=== PATIENT | male | born 1950 | race Caucasian/White ===

== ENCOUNTER → 2017-12-31 09:07 | Outpatient (CLI) | payer BC, MEDICARE, SELFPAY ==
[2017-12-31 14:17] LABS: Basophils # 0.1 K/mm3 (0-0.2); Basophils % 1.1 % (0.1-2.0); Eosinophils # 0.2 K/mm3 (0.0-0.4); Eosinophils % 2.1 % (0.1-12.0); Hematocrit 49.4 % (42.0-52.0); Hemoglobin 16.1 g/dL (14.1-18.0); Lymphocytes # 2.2 K/mm3 (0.7-4.5); Lymphocytes % 24.6 K/mm3 (10-50); Mean Corpuscular HGB Conc 32.6 g/dL (31.8-35.4); Mean Corpuscular Hemoglobin 29.7 pg (27.0-31.2); Mean Corpuscular Volume 90.9 fl (80-94); Mean Platelet Volume 7.6 fl (7.4-10.4); Monocytes # 0.6 K/mm3 (0.1-1.0); Monocytes % 6.9 % (1.7-9.3); Neutrophils # 5.8 K/mm3 (1.8-7.8); Neutrophils % 65.2 % (37.0-80.0); Platelet Count 287 K/mm3 (142-424); Red Blood Count 5.44 M/mm3 (4.60-6.20); Red Cell Distribution Width 13.7 % (11.5-17.5); White Blood Count 8.9 K/mm3 (4.8-10.8)
[2017-12-31 14:35] LABS: Alanine Aminotransferase 32 U/L (12-78); Albumin Level 3.6 gm/dL (3.4-5.0); Alkaline Phosphatase 78 U/L (46-116); Anion Gap 13.2 mEq/L (5-15); Aspartate Amino Transferase 19 U/L (15-37); Bilirubin,Total 0.7 mg/dL (0.2-1.0); Blood Urea Nitrogen 15 mg/dL (7-18); Calcium 8.6 mg/dL (8.5-10.1); Carbon Dioxide 25 mmol/L (21.0-32.0); Chloride 102 mmol/L (98-107); Chol/HDL Ratio 5.1 (1-3.5); Cholesterol 204 mg/dL (140-200); Creatinine,Serum 1.33 mg/dL (0.70-1.30); Estimated Glomerular Filt Rate 54 ml/min (>60); GFR (African American) 65 ML/MIN (>60); Globulin 3.6 gm/dl (1.3-3.2); Glucose 112 mg/dL (74-106); HDL Cholesterol 40 mg/dL (27-67); LDL Cholesterol 129 mg/dL (0-130); Potassium 4.2 mmoL/L (3.5-5.1); Sodium 136 mmol/L (136-145); Thyroid Stimulating Hormone 1.65 uIU/ml (0.358-3.740); Total Protein,Serum 7.2 gm/dL (6.4-8.2); Triglycerides 174 mg/dL (30-200); VLDL Cholesterol 35 mg/dL (0-40)
[2018-01-01 18:37] LABS: Testosterone,Total 523 ng/dL (264-916)
== END ==
PROVIDERS: PCP Internal Medicine Adolescent Medicine; Visit Provider Internal Medicine Adolescent Medicine
DX: I25.10 Atherosclerotic heart disease of native coronary artery without angina pectoris (principal); E78.5 Hyperlipidemia, unspecified; N52.9 Male erectile dysfunction, unspecified
CPT/HCPCS: 36415; 80053; 80061; 84403; 84443; 85025

== ENCOUNTER → 2020-03-11 14:37 | Outpatient (CLI) | payer BC, SELFPAY ==
--- NOTE | 2020-03-11 14:43 | XR_ITS ---
PROCEDURE: XR TIBIA FIBULA RT 2V CLINICAL INDICATION: RT LEG PAIN Leg pain COMPARISON: No exams were available for comparison FINDINGS: There are mild osteoarthritic changes at the knee. No acute fracture or dislocation. Minimal osteoarthritic changes are present at the ankle joint. IMPRESSION: Minimal osteoarthritic change otherwise negative Dictated by: Roel Degroot MD 03/11/2020 15:58 Electronically signed by Roel Degroot MD in [place] 03/11/2020 15:58
== END ==
PROVIDERS: PCP Internal Medicine Adolescent Medicine; Visit Provider Internal Medicine Adolescent Medicine
DX: M79.604 Pain in right leg (principal)
CPT/HCPCS: 73590

== ENCOUNTER → 2020-04-12 15:28 | Outpatient (CLI) | payer BC, MEDICARE, SELFPAY ==
--- NOTE | 2020-04-12 15:41 | XR_ITS ---
PROCEDURE: XR KNEE RT 3V CLINICAL INDICATION: OSTEOARTHRITIS COMPARISON: XR KNEE RT 3V from 10/08/2019 FINDINGS: No fracture or dislocation. No lytic or blastic change. There is normal mineralization. [id number] osteoarthritic changes are present at the medial compartment and patellofemoral joint. There is mild osteoarthritis of the lateral compartment with a small osteophyte along the lateral tibial plateau. There is generalized vascular calcification and there is a small suprapatellar effusion suspected. Other findings:None. IMPRESSION: Mild to moderate osteoarthritic changes Dictated by: Roel Degroot MD 04/12/2020 16:00 Electronically signed by Roel Degroot MD in [place] 04/12/2020 16:00
--- NOTE | 2020-04-12 15:41 | XR_ITS ---
PROCEDURE: XR KNEE LT 3V CLINICAL INDICATION: OSTEOARTHRITIS The COMPARISON: XR KNEE RT 3V from 10/08/2019 FINDINGS: No fracture or dislocation. No lytic or blastic change. There is normal mineralization. There are moderate osteoarthritic changes of the medial compartment and patellofemoral joint. No acute fracture or dislocation is evident. Calcific densities are present in the popliteal region suggest of the loose bodies. Vascular calcifications also noted. Other findings:None. IMPRESSION: Moderate osteoarthritis with possible loose bodies in the popliteal region Dictated by: Roel Degroot MD 04/12/2020 16:02 Electronically signed by Roel Degroot MD in [place] 04/12/2020 16:02
== END ==
PROVIDERS: PCP Internal Medicine Adolescent Medicine; Visit Provider Internal Medicine Adolescent Medicine
DX: M17.0 Bilateral primary osteoarthritis of knee (principal)
CPT/HCPCS: 73562

== ENCOUNTER → 2020-05-10 17:00 | Outpatient (CLI) | payer BC, MEDICARE, SELFPAY ==
[2020-05-10 17:49] LABS: Chloride 102 mmol/L (98-107); Potassium 5.3 mmoL/L (3.5-5.1); Sodium 136 mmol/L (136-145)
[2020-05-10 17:52] LABS: Alanine Aminotransferase 69 U/L (12-78); Albumin/Globulin Ratio 0.9 (1.1-1.8); Alkaline Phosphatase 111 U/L (38-126); Anion Gap 14.3 mEq/L (5-15); Aspartate Amino Transferase 50 U/L (17-59); Bilirubin,Total 0.4 mg/dl (0.2-1.3); Blood Urea Nitrogen 16 mg/dl (9-20); Carbon Dioxide 25 mmol/L (22.0-30.0); Estimated Glomerular Filt Rate 83 ml/min (>60); GFR (African American) 101 ML/MIN (>60); Globulin 3.3 g/dL (1.3-3.2); Glucose 119 mg/dl (74-100); Total Protein,Serum 6.3 g/dl (6.3-8.2)
[2020-05-10 18:04] LABS: Basophils # 0.1 K/mm3 (0-0.2); Basophils % 0.4 % (0.1-2.0); Eosinophils # 0.2 K/mm3 (0.0-0.4); Eosinophils % 1.5 % (0.1-12.0); Hematocrit 39.7 % (42.0-52.0); Hemoglobin 12.6 g/dL (14.1-18.0); Lymphocytes # 1.2 K/mm3 (0.7-4.5); Lymphocytes % 7.8 % (10-50); Mean Corpuscular HGB Conc 31.8 g/dL (31.8-35.4); Mean Corpuscular Hemoglobin 30.6 pg (27.0-31.2); Mean Corpuscular Volume 96.1 fl (80-94); Mean Platelet Volume 8.1 fl (7.4-10.4); Monocytes # 0.8 K/mm3 (0.1-1.0); Monocytes % 5.1 % (1.7-9.3); Neutrophils # 12.7 K/mm3 (1.8-7.8); Neutrophils % 85.1 % (37.0-80.0); Platelet Count 537 K/mm3 (142-424); Red Blood Count 4.12 M/mm3 (4.60-6.20); Red Cell Distribution Width 15.3 % (11.5-17.5); White Blood Count 14.9 K/mm3 (4.8-10.8)
[2020-05-10 18:07] LABS: MANUAL DIFFERENTIAL MANUAL DIFFERENTIAL (MANUAL DIFF)
[2020-05-10 18:19] LABS: Eosinophils % 3 % (0-3); Lymphocytes % 13 % (10-50); Monocytes % 6 % (2-9); Neutrophils % 78 % (42-76); Platelet Estimate Moderate Increase; RBC Morphology Normal; Total Cells Counted 100
== END ==
PROVIDERS: Visit Provider Nurse Practitioner Family
DX: R06.02 Shortness of breath (principal); R60.9 Edema, unspecified
CPT/HCPCS: 80053; 85007; 85025

== ENCOUNTER → 2023-04-22 17:02 | Outpatient (CLI) | payer BC, MEDICARE, SELFPAY ==
--- NOTE | 2023-04-22 17:05 | CA_ITS ---
FINAL REPORT TECHNIQUE: Color Doppler, duplex Doppler and compression sonography of the left lower extremity deep venous systems was performed. CLINICAL HISTORY: REDNESS/SWELLING LT CALF,PT ON PLAVIX FINDINGS: There is no evidence of deep venous thrombosis from the level of the groin to the calf. The veins are patent and compressible. A moderate popliteal cyst is seen. IMPRESSION: No evidence of deep venous thrombosis left lower extremity. Reviewed, Interpreted and Dictated by Kiran Chávez III, MD Transcribed by Kenia Alaniz Authenticated and [facility]
[2023-04-22 18:29] LABS: D-Dimer 0.84 ug/mL (0.0-0.5)
== END ==
LOC: LAB 17:04
PROVIDERS: PCP Nurse Practitioner Family; Visit Provider Nurse Practitioner Family
DX: M79.662 Pain in left lower leg (principal); M79.89 Other specified soft tissue disorders
CPT/HCPCS: 85378; 93971

== ENCOUNTER → 2023-07-06 14:03 | Outpatient (CLI) | payer BC, MEDICARE, SELFPAY ==
--- NOTE | 2023-07-06 14:09 | XR_ITS ---
FINAL REPORT CLINICAL HISTORY: knee pain with radiation distal FINDINGS: LUMBAR SPINE Six views were obtained. There is no acute fracture. There are moderate degenerative changes with osteophytes. There is moderate vascular calcification. There is no malalignment. IMPRESSION: Moderate degenerative changes. Reviewed, Interpreted and Dictated by Kiran Chávez III, MD Transcribed by Carolina Haney Authenticated and . [facility]
--- NOTE | 2023-07-06 14:09 | XR_ITS ---
FINAL REPORT CLINICAL HISTORY: lat knee pain with radiation distal FINDINGS: RIGHT KNEE Two views were obtained. There is no fracture or dislocation. There are moderate degenerative changes. Vascular calcification is identified. IMPRESSION: Moderate degenerative changes. Reviewed, Interpreted and Dictated by Kiran Chávez III, MD Transcribed by Carolina Haney Authenticated and [facility]
== END ==
LOC: RAD 14:06
PROVIDERS: PCP Family Medicine; Visit Provider Family Medicine
DX: M25.561 Pain in right knee (principal); M54.9 Dorsalgia, unspecified
CPT/HCPCS: 72083; 73560

== ENCOUNTER → 2023-08-26 13:39 | Outpatient (POV) | payer BC, SELFPAY ==
--- NOTE | 2023-08-26 13:56 | EXP.PAIN.OV ---
HPI Data of Consult Patient: new to practice Consult date: 08/26/23 Requesting Physician: Adele Lopez APRN Primary Care Provider: Jeromy Stewart MD Consult Narrative Reason for consult: Bilateral knee pain History of present illness: Mr. Meade is a 73 year old male who presents today as a new patient. He is a referral from Dr. Luis Lopez's office. Today he rates his pain a 7 out of 10. Patient states he has majority of his pain in his bilateral knees and describes this as an aching, throbbing, sharp sensation that is worse with increased activity or ambulation. He does state that this has been going on for years and progressively worsened over time. He states he believes a lot of it is related to arthritis however he states that years ago he did have a fall in [place] that resulted in him landing on his knees. Patient has tried [id number] medications such as Tylenol and ibuprofen along with heat and ice and topicals with minimal improvement. Patient denies any previous surgery for his knees or physical therapy. He states that he has had steroid injections into his left knee and that the last one did last about 30 to 45 days. Patient does state that Dr. Lopez was not recommending total knee replacement at this time and was wanting to try more conservative treatment such as the genicular nerve block. His Mani has been reviewed and is appropriate. CC: Adele Lopez APRN [facility] Disclaimer: The information contained in this section may have been updated after the patient was seen, as this information can be updated by other users. Medical History CAD (coronary artery disease) Surgical History H/O thumb surgery Hx of CABG Family History Brother Cancer Father Coronary artery disease Heart attack Social History (Updated 08/26/23 @ 14:10 by Karla Pena RN) Smoking Status: Former smoker how long ago did patient quit smokin years alcohol intake: never current occupational status: retired Travel in the last 8 weeks: None household members: spouse housing: house Review of Systems Review of Systems Review of systems:: pertinent systems reviewed and negative unless documented below Review of systems (narrative): Review of Systems: General: No recent weight changes, no fever, no sleep disturbances Respiratory: No cough, no shortness of air, no recurring pulmonary infections Cardiovascular/peripheral vascular: No chest pain, no palpitations, no edema, no shortness of breath Gastrointestinal: No new onset incontinence, normal bowel movements reported Genitourinary: No new onset incontinence Musculoskeletal: Bilateral knee pain Psychiatric: [Normal mood/affect] Neurological: [Denies weakness in extremities], [denies balance issues] Meds Home Medications and Allergies Home Medications Medication Instructions Recorded Confirmed Type isosorbide mononitrate 60 mg 60 mg PO DAILY Hypertension 10/08/19 08/26/23 History tablet,extended release 24 hr metoprolol succinate 50 mg 50 mg PO DAILY Hypertension 10/08/19 08/26/23 History tablet,extended release 24 hr clopidogrel 75 mg tablet 75 mg PO DAILY 11/25/22 08/26/23 History furosemide 40 mg tablet 40 mg PO DAILY 11/25/22 08/26/23 History potassium chloride 20 mEq 20 meq PO DAILY 11/25/22 08/26/23 History tablet,extended release(part/cryst) diclofenac sodium 50 mg 50 mg PO BID knee pain #60 tabs 05/17/23 08/26/23 Rx tablet,delayed release multivitamin 1 tab PO DAILY 05/17/23 08/26/23 History amlodipine 5 mg tablet 5 mg PO DAILY 07/05/23 08/26/23 History spironolactone 25 mg tablet 25 mg PO DAILY 07/05/23 08/26/23 History New Prescriptions to Start Prescriptions: Allergies Allergy/AdvReac Type Severity Reaction Status Date / Time No Known Allerg
[2023-08-26 14:10] VITALS: BP 137/80; PULSE 59; RESP 18; O2SAT 94; BMI 31.0
== END ==
PROVIDERS: PCP Family Medicine; Visit Provider Nurse Practitioner Family
DX: M17.0 Bilateral primary osteoarthritis of knee (principal); M25.561 Pain in right knee; M25.562 Pain in left knee; G89.29 Other chronic pain
CPT/HCPCS: 99202; G0463

== ENCOUNTER → 2023-09-09 14:11 | Outpatient (POV) | payer BC, SELFPAY ==
[2023-09-09 14:26] VITALS: BP 127/69; PULSE 61; RESP 18; O2SAT 95; BMI 31.0
--- NOTE | 2023-09-09 14:38 | A.OFFVIS_ITS ---
[facility] Pain Management SOAP Note Subjective:: Patient is a pleasant 73-year-old male who presents today for 1 month follow-up. We are currently treating the patient for bilateral knee pain, osteoarthritis bilateral knees. Today he rates his pain a 1 out of 10. Patient was prescribed compounded cream at his last visit however he states he only would get a couple hours of relief with this. He does state that he has actually been using Vicks vapor rub on his knees and it has provided more improvement than the compounded cream. Patient denies any new injuries or trauma. He does state over the last couple of days he has actually had decreased pain in his left knee and that right now it is very manageable. Patient has seen Dr. Jevon Lopez in [place] who is not recommending surgical intervention at this time. His Mani has been reviewed and is appropriate. Review of Systems: General: No recent weight changes, no fever, no sleep disturbances Respiratory: No cough, no shortness of air, no recurring pulmonary infections Cardiovascular/peripheral vascular: No chest pain, no palpitations, no edema, no shortness of breath Gastrointestinal: No new onset incontinence, normal bowel movements reported Genitourinary: No new onset incontinence Musculoskeletal: Left knee pain Psychiatric: [Normal mood/affect] Neurological: [Denies weakness in extremities], [denies balance issues] Objective:: If kneePhysical Exam: General: Alert and oriented x3, no acute distress, pleasant and cooperative Lungs: Respirations even and unlabored, symmetrical chest expansion Eyes: PERRL Musculoskeletal: Flexion and extension of left knee somewhat guarded secondary to pain, [antalgic gait noted] Neurological: Speech clear, no gross sensory deficit Assessment:: Bilateral knee pain, osteoarthritis bilateral knees Plan:: Patient is doing well currently and does not require any injection therapy at this time. I have discussed with the patient in future he may still benefit from a genicular nerve block. We will follow-up with this at future visits. Patient will return to clinic in 2 months for reevaluation of symptoms and plan of care. Patient has been instructed to contact the clinic with any concerns before the next appointment. Dr. Berrios has reviewed this note and agrees with this plan of care. This note was dictated using voice recognition software and make contain errors or omissions. [facility] Disclaimer: The information contained in this section may have been updated after the patient was seen, as this information can be updated by other users. Medical History CAD (coronary artery disease) Surgical History H/O thumb surgery Hx of CABG Family History Brother Cancer Father Coronary artery disease Heart attack Social History (Updated 08/26/23 @ 14:10 by Karla Pena RN) Smoking Status: Former smoker how long ago did patient quit smokin years alcohol intake: never current occupational status: retired Travel in the last 8 weeks: None household members: spouse housing: house
== END ==
PROVIDERS: PCP Family Medicine; Visit Provider Nurse Practitioner Family
DX: M17.0 Bilateral primary osteoarthritis of knee (principal); M25.561 Pain in right knee; M25.562 Pain in left knee
CPT/HCPCS: 99212; G0463

== ENCOUNTER 2023-12-31 18:51 | Outpatient (CLI) | payer BC, SELFPAY | END 2023-12-31 23:59 | LOC: LAB.DROPOF 18:52 | PROVIDERS: PCP Family Medicine; Visit Provider Family Medicine | DX: N49.2 Inflammatory disorders of scrotum (principal); R82.90 Unspecified abnormal findings in urine; B96.89 Other specified bacterial agents as the cause of diseases classified elsewhere | CPT/HCPCS: 87086 ==

== ENCOUNTER 2024-02-17 13:32 | Outpatient (CLI) | payer BC, SELFPAY ==
[2024-02-17 14:50] LABS: Blood Urea Nitrogen 26 mg/dl (9-20); Estimated Glomerular Filt Rate 43 ml/min (>60); GFR (African American) 52 ML/MIN (>60)
== END 2024-02-17 23:59 | disposition home or self-care (01) ==
LOC: LAB 13:33
PROVIDERS: PCP Family Medicine; Visit Provider Surgery
DX: K40.90 Unilateral inguinal hernia, without obstruction or gangrene, not specified as recurrent (principal); Z01.812 Encounter for preprocedural laboratory examination
CPT/HCPCS: 36415; 82565; 84520

== ENCOUNTER 2024-03-08 07:37 | Outpatient (CLI) | payer BC, SELFPAY ==
--- NOTE | 2024-03-08 07:40 | CT_ITS ---
FINAL REPORT TECHNIQUE: After the administration of oral and intravenous contrast, axial images were obtained through the abdomen and pelvis by computed tomography. The study was performed with techniques to keep radiation dose as low as reasonably achievable, (ALARA). Individual dose reduction techniques using automated exposure control or adjustment of mA and/or kV according to the patient's size were employed. CLINICAL HISTORY: Concern for possible hernia. FINDINGS: Abdomen: There is mild atelectasis or scar at the lung bases. There is a focal area of contrast enhancement at the gallbladder fossa. It is uncertain if this represents an enhancing hepatic mass or gallbladder mass, neoplasm is not excluded. The spleen is unremarkable. The adrenals are normal. The pancreas is unremarkable. Small bilateral renal cysts are identified. The aorta is normal in caliber. There is no free fluid or adenopathy. Pelvis: The appendix is normal. There is an umbilical hernia containing fat. Bilateral inguinal hernias are identified. Right inguinal hernia measures up to 7.4 cm and contains fat and a loop of sigmoid colon. Left inguinal hernia measures 5 cm in transverse dimension and contains fat and a small portion of urinary bladder. There is no free fluid or adenopathy. IMPRESSION: Bilateral inguinal hernias, right greater than left. Contrast enhancing focus in the gallbladder fossa worrisome for hepatic or gallbladder mass. MRI of the abdomen using liver protocol may be helpful. Reviewed, Interpreted and Dictated by Kiran Chávez III, MD Transcribed by Carolina Haney Authenticated and [facility]
[2024-03-08] MEDS: IOPAMIDOL-370 (76%);100ML BOTTLE 75 ML IV (08:30)
[2024-03-08] MEDS: SODIUM CHLORIDE 0.9% 10ML SYR (RAD ONLY) 10 ML IV (08:30)
== END 2024-03-08 23:59 | disposition home or self-care (01) ==
LOC: RAD 07:38
PROVIDERS: PCP Family Medicine; Visit Provider Surgery
DX: R10.9 Unspecified abdominal pain (principal); K40.90 Unilateral inguinal hernia, without obstruction or gangrene, not specified as recurrent
CPT/HCPCS: 74177; Q9967

== ENCOUNTER 2024-03-27 15:54 | Outpatient (CLI) | payer BC, SELFPAY ==
--- NOTE | 2024-03-27 15:55 | US_ITS ---
FINAL REPORT CLINICAL HISTORY: Gallbladder polyp COMPARISON: CT of the abdomen and pelvis dated 03/08/2024. FINDINGS: Sonographic images of the right upper quadrant were obtained. The pancreas is partially obscured. There is a 1.7 x 1.3 x 1.2 cm heterogeneous hyperechoic focus anterior to the gallbladder, most likely within the liver. The appearance is nonspecific, and may represent hemangioma or other mass. Favor hepatic origin rather than gallbladder. The gallbladder appears normal without evidence of gallstones.There is no evidence of biliary ductal dilatation.The common duct measures 4mm. There are probable small cysts present in the right kidney. IMPRESSION: 1.7 cm heterogeneous hyperechoic focus anterior to the gallbladder, most likely within the liver. This is a nonspecific appearance, and as described above may represent a hemangioma or other mass. A liver mass protocol CT is suggested for further evaluation. Reviewed, Interpreted and Dictated by Kiran Chávez III, MD Transcribed by Linsey Bar Authenticated and [facility]
== END 2024-03-27 23:59 | disposition home or self-care (01) ==
LOC: RAD 15:55
PROVIDERS: PCP Family Medicine; Visit Provider Surgery
DX: K82.4 Cholesterolosis of gallbladder (principal)
CPT/HCPCS: 76705

== ENCOUNTER 2024-04-14 08:43 | Outpatient (CLI) | payer BC, SELFPAY ==
--- NOTE | 2024-04-14 08:43 | CT_ITS ---
FINAL REPORT TECHNIQUE: Axial images through the abdomen were performed. This study was performed with techniques to keep radiation doses as low as reasonably achievable, (ALARA). Individualized dose reduction techniques using automated exposure control or adjustment of mA and/or kV according to the patient's size were employed. CLINICAL HISTORY: liver mass COMPARISON: CT abdomen and pelvis dated 03/08/2024 FINDINGS: The lung bases are clear. There is an enhancing focus in the gallbladder fossa measuring 21 x 17 x 9 mm in size, unchanged since the prior exam of February. There is a separate enhancing focus in the right lateral gallbladder fossa, that measures up to 18 x 15 mm in size on today's exam, was previously 26 x 23 mm. This second focus could represent an area of focal fatty sparing, transient hepatic attenuation difference (EDIL), or a hypervascular mass. There is a 4 mm hypodense lesion in the liver dome. The spleen is unremarkable. The adrenals are normal. The pancreas is unremarkable. There is an exophytic cyst in the right kidney measuring 14 mm in diameter. Moderate calcified plaque is present in the abdominal aorta and iliac vessels. IMPRESSION: There are 2 separate lesions near the gallbladder fossa, 1 of which is stable, the other smaller on the current exam, when compared to the prior exam of February. These are of uncertain significance, and would recommend longer-term follow-up with CT of the abdomen with contrast in 3 to 4 months. Reviewed, Interpreted and Dictated by Dora Canales MD Transcribed by Linsey Bar Authenticated and [facility] [place]
[2024-04-14 09:17] LABS: Blood Urea Nitrogen 21 mg/dl (9-20); Estimated Glomerular Filt Rate 42 ml/min (>60); GFR (African American) 51 ML/MIN (>60)
[2024-04-14] MEDS: IOPAMIDOL-370 (76%);100ML BOTTLE 75 ML IV (14:06)
[2024-04-14] MEDS: BARIUM SULFATE(READI-CAT2);450ML BOTTLE 450 ML PO (14:06)
[2024-04-14] MEDS: SODIUM CHLORIDE 0.9% 10ML SYR (RAD ONLY) 10 ML IV (14:06)
== END 2024-04-14 23:59 | disposition home or self-care (01) ==
LOC: RAD 08:43
PROVIDERS: PCP Surgery; Visit Provider Surgery
DX: R16.0 Hepatomegaly, not elsewhere classified (principal)
CPT/HCPCS: 36415; 74160; 82565; 84520; Q9967

== ENCOUNTER 2024-07-03 05:55 | Day surgery (SDC) | payer BC, SELFPAY ==
[2024-06-29 16:51] VITALS: BMI 30.4
[2024-07-03] VITALS (9 sets, daily range): BP systolic 117–186; BP diastolic 54–83; PULSE 54–78; RESP 14–18; TEMP 36.3; O2SAT 92–98
[2024-07-03] MEDS: LACTATED RINGERS 1000ML 1,000 ML 25 ML IV (06:39)
[2024-07-03 07:12] LABS: Microscopic, Urine URINE MICROSCOPIC (MICROSCOPIC)
[2024-07-03 07:15] LABS: Appearance,Urine CLEAR (Clear); Bilirubin,Urine Negative (Negative); Blood, Urine Negative (Negative); Color,Urine YELLOW (Yellow); Glucose,Urine (UA) Negative (Negative); Ketones,Urine Negative (Negative); Leukocyte Esterase,Urine Negative (Negative); Nitrate,Urine Negative (Negative); PH,Urine 6.5 (5.0-8.5); Protein,Urine Negative (Negative); Specific Gravity, Urine 1.015 (1.005-1.030); Urobilinogen,Urine 0.2 EU/dl (0.2)
[2024-07-03 07:17] LABS: Basophils # 0.2 K/mm3 (0-0.2); Basophils % 1.6 % (0.1-2.0); Eosinophils # 0.2 K/mm3 (0.0-0.4); Eosinophils % 2.1 % (0.1-12.0); Hemoglobin 16.7 g/dL (14.1-18.0); Lymphocytes # 1.9 K/mm3 (0.7-4.5); Lymphocytes % 17.2 % (10-50); Mean Corpuscular HGB Conc 30.5 g/dL (31.8-35.4); Mean Corpuscular Hemoglobin 29.5 pg (27.0-31.2); Mean Platelet Volume 7.7 fl (7.4-10.4); Monocytes # 0.7 K/mm3 (0.1-1.0); Monocytes % 6.5 % (1.7-9.3); Neutrophils # 7.9 K/mm3 (1.8-7.8); Neutrophils % 72.6 % (37.0-80.0); Platelet Count 282 K/mm3 (142-424); Red Blood Count 5.67 M/mm3 (4.60-6.20); Red Cell Distribution Width 14.3 % (11.5-17.5); White Blood Count 10.9 K/mm3 (4.8-10.8)
[2024-07-03 07:19] LABS: Chloride 102 mmol/L (98-107); Potassium 4.5 mmoL/L (3.5-5.1); Sodium 135 mmol/L (136-145)
[2024-07-03 07:22] LABS: Anion Gap 9.5 mEq/L (5-15); Blood Urea Nitrogen 14 mg/dl (9-20); Calcium 9.2 mg/dl (8.4-10.2); Carbon Dioxide 28 mmol/L (22.0-30.0); Creatinine Clearance Estimated 76 mL/min (50-200); Estimated Glomerular Filt Rate 65 ml/min (>60); GFR (African American) 79 ML/MIN (>60); Glucose 151 mg/dl (74-100)
[2024-07-03] MEDS: CEFAZOLIN SODIUM 2 GM in 0.9 % SODIUM CHLORIDE 100 ML IV (07:31)
[2024-07-03 07:34] LABS: Squamous Epithelial Cell,Urine Occasional #/hpf (0-5)
[2024-07-03] MEDS: ROPIVACAINE 0.5% 30ML VIAL 150 MG (08:07)
[2024-07-03] MEDS: LIDOCAINE 1% 20ML MDV 20 ML (08:07)
--- NOTE | 2024-07-03 11:05 | P.OP_ITS ---
Date of procedure: 07/03/24 Pre-op Diagnosis:: Bilateral inguinal hernias Post-op Diagnosis:: Same Procedure performed:: Bilateral open inguinal hernia repair with placement of extra-large Bard prefix mesh plug and onlay mesh bilaterally. Surgeon:: Kiran Jefferson MD DIE CAST OPERATOR:: Sven Freitas Anesthesia: GETMicheal Estimated blood loss (mL): 20 Clinical Note:: Patient presents for bilateral inguinal hernia repair. He is a 74-year-old male from [facility] [place], primary care provider Dr. Stewart, referred by Dr. Rider for inguinal hernia. He had described some scrotal swelling. Essentially asymptomatic. I saw him in the office on 02/17/2024 at which time he had what appeared to be relatively significant bilateral hernias with the right side being much greater than the left. He underwent CT scan which reveals a large right inguinal hernia containing sigmoid colon and a moderately large left inguinal hernia containing fat and bladder. However, CT scan also reveals contrast-enhancing focus in the gallbladder fossa worrisome for hepatic or gallbladder mass. Radiology recommended MRI with liver protocol for possible gallbladder or liver mass. I felt that this needed to be assessed prior to proceeding with hernia repairs. Patient states that he is claustrophobic and was therefore unable to undergo traditional MRI. Arrangements were made for open MRI. This was attempted but patient states that he was unable to tolerate this. Therefore he underwent ultrasound which reveals 1.7 cm heterogeneous hyperechoic focus anterior to the gallbladder most likely within the liver of nonspecific appearance which is felt to be either possible hemangioma or other mass . He therefore underwent CT of the abdomen with liver protocol which revealed 2 separate lesions at the gallbladder fossa 1 of which was stable and the other smaller 1 on the current examination of uncertain significance. Recommendations by radiology was to follow-up CT scan in 3 or 4 months. Given the large size of the bilateral hernias I felt that this would not be amenable to laparoscopic repair especially given the colonic and bladder involvement. Patient wished to undergo bilateral open repair but wished to wait until late summer. He did undergo cardiology risk assessment with his senior speech pathologist at [facility]. Operative findings:: He had a chronically incarcerated right inguinal hernia containing a large amount of sigmoid colon as a very large direct hernia. He also had a moderate indirect hernia on the right side. On the left side there was moderately large direct hernia likely containing bladder. . Operative note:: Consent was obtained patient was taken the operating room. He was given preoperative intravenous antibiotics. In the operating room he was placed in a supine position. General anesthesia was induced via endotracheal tube. Gonzalez catheter was placed. Lower abdomen and perineum were prepped and draped in the standard surgical fashion. Attention was first turned to the right inguinal hernia. This was unable to be reduced. He had a large hernia with contents into the right hemiscrotum. Oblique incision was made in the right inguinal area superior to landmarks identifying the inguinal ligament. Dissection was carried down through subcutaneous tissues and Rg's fascia. External oblique muscle was cleaned free and opened along the length of its fibers. The cord structures could not be initially dissected free due to the large amount of chronically incarcerated hernia contents. With pressure and blunt dissection ultimately the herniated tissue was able to be freed from the right hemiscrotum. This was consistent with significant amount of colon. It was dissected free from surrounding tissues down to the hernia neck. This was a direct hernia. The tissue overlying the herniated contents as the hernia sac was excised with electrocautery and sent as hernia sac. Ultimately contents were able to be reduced. He was also noted to have a moderate indirect hernia as well containing mostly preperitoneal fatty tissues. An extra-large Bard prefix mesh plug was brought onto the field. It was secured into the region of the floor the inguinal canal where the direct hernia was securing it to Parker's ligament, shelving edge of inguinal ligament, and transversalis muscle fascia with several interrupted 2-0 PDS sutures. The onlay mesh was then secured in position reconstructing the inguinal floor securing it to Parker's ligament and along the shelving edge of the inguinal ligament with running 2-0 PDS. It was secured superior medially to the transversalis muscle fascia with interrupted 2-0 PDS horizontal mattress sutures. The 2 tails of the mesh were used to encircle the cord structures and sutured to 1 another with several interrupted 2-0 PDS sutures to reconstruct the internal ring. Several sutures were placed laterally. Cord structures and inguinal nerve were then returned to normal anatomic position. Local anesthetic was infiltrated. Wound was irrigated. There was good hemostasis. The external oblique muscle was closed over the cord structures with a running 2-0 Vicryl suture. Rg's fascia was closed with running 2-0 Vicryl. Skin was closed with 4-0 Monocryl in a running subcuticular fashion. Next attention was turned to the left hernia. In a similar fashion oblique incision was made superior to landmarks identifying the inguinal ligament. Dissection was carried down through subcutaneous tissues and Rg's fascia using electrocautery. External oblique muscle was cleaned free. It was opened along the length of its fibers. Cord structures were dissected free. Initially the ilioinguinal nerve was not able to be clearly identified. However, at the completion of the procedure it was clearly identified. There was herniated tissues likely consistent with herniated bladder as a moderately large direct hernia. This was dissected free and ultimately able to be reduced. A an extra- large Bard prefix mesh plug was inserted into the floor of the inguinal canal at the site of the direct hernia. It was secured to Parker's ligament and along the shelving edge of the inguinal ligament and superior medially to the transversalis muscle fascia with several interrupted 2-0 PDS sutures to reconstruct the floor of the inguinal canal. The onlay mesh was then secured in position to Parker's ligament and along the shelving edge of the inguinal ligament with a running 2-0 PDS suture. It is secured superior medially with interrupted 2-0 PDS horizontal mattress sutures with several simple interrupted sutures. The 2 tails of the mesh were sutured to 1 another to reconstruct the internal ring. Cord structures were returned to the normal anatomic position. At this time the left ilioinguinal nerve was clearly identified. Wound was irrigated. Local anesthetic was infiltrated. External oblique muscle was closed over the cord structures with a running 2-0 Vicryl suture. Rg's fascia was closed with running 2-0 Vicryl. Skin was closed with 4-0 Monocryl in a subcuticular fashion. Clean dry sterile dressings were applied. . Condition: stable Disposition: PACU Complications:: None immediately apparent
--- NOTE | 2024-07-03 11:09 | EXP.ANES.I ---
[facility] Anesthesia Record Part I Anesthesia Record I Intake, IV Amount: 1,700 Hydration: Adequate Estimated blood loss (mL): 20 Urine output (mL): 200 Blood Products used (#): none Blood Pressure: 117/54 SaO2: 92 Pulse Rate: 54 Airway Patency: Patent Respiratory Rate: 16 Temperature: 97.4 F Patient is:: Drowsy, Oral/Nasal airway and Stable Stable to PACU at:: 11:05
--- NOTE | 2024-07-04 07:20 | P.PNANES_ITS ---
[facility] Anesthesia Record Part II Anesthesia Record Part II Discharge Time: 11:35 Destination: Surgical Day Care (OP Surgery) PACU nurse assessment reviewed?: Yes Patient Condition:: Good Anesthesia Complications:: None Swallowing reflex intact?: Yes Airway Patency: Patent Cyanosis?: No Blood Pressure: 136/83 SaO2: 95 Respiratory Rate: 18 Pulse Rate: 69 Temperature: 97.4 F Mental Status: Alert & Oriented Pain level:: 0 Nausea and/or vomitting:: None Intake, IV Amount: 0 Hydration: Adequate
--- NOTE | 2024-07-04 07:21 | P.PNANES_ITS ---
[facility] Disclaimer: The information contained in this section may have been updated after the patient was seen, as this information can be updated by other users. Medical History History of bilateral inguinal hernias History of hyperlipidemia History of hypertension CAD (coronary artery disease) Surgical History H/O thumb surgery Hx of CABG Family History Brother Cancer Father Coronary artery disease Heart attack Social History (Updated 07/03/24 @ 06:38 by Hermelinda Blanco RN) Smoking Status: Former smoker how long ago did patient quit smokin years alcohol intake: current substance use type: denies use current occupational status: employed Travel in the last 8 weeks: None household members: spouse housing: house [facility] Anesthesia Checklist Patient Identification Patient Identification: Arm Band Structural Data Admitted From: Home Planned Operative Procedure/s: Open Bilateral Inguinal Hernia Repair Consent for Planned Operative Procedure(s) Verified: Yes Verified Documents: Surgical Consent and History and Physical NPO Status Verified Time NPO: 00:00 Additional verifications Anesthesia Reactions: No Hx Blood Transfusions: No Blood Transfusion Reaction: No Airway Assessment Mallampati Score:: Class III C-Spine Mobility Assessed: Yes TMJ Mobility Assessed: Yes Dentition: Poor Dentition Neurological Assessment Level of Consciousness: Awake, Alert and Appropriate Anesthesia Plan Anesthesia Risk discussed: Yes Anesthesia Plan: Verified ASA Class: III Anesthesia Type: General Preoperative Comments Pre-Operative Comments: Preoperative assessment completed prior to surgery, but entered into the computer late.
[2024-07-04 07:23] VITALS: BP 136/83; PULSE 69; RESP 18; TEMP 36.3; O2SAT 95
== END 2024-07-03 12:05 | disposition home or self-care (01) ==
PROVIDERS: PCP Family Medicine; Visit Provider Surgery
PROC: (CPT 49505; principal; 2024-07-03 07:30)
DX: K40.00 Bilateral inguinal hernia, with obstruction, without gangrene, not specified as recurrent (principal)
CPT/HCPCS: 49505; 36415; 80048; 81001; 85025; 96374; J3490; J0690; J1100; J2250; J2405; J3010; J7120

== ENCOUNTER 2024-08-03 12:36 | Outpatient (CLI) | payer BC, SELFPAY ==
--- NOTE | 2024-08-03 12:37 | CT_ITS ---
FINAL REPORT TECHNIQUE: Postcontrast axial images through the abdomen and pelvis were performed. This study was performed with techniques to keep radiation doses as low as reasonably achievable, (ALARA). Individualized dose reduction techniques using automated exposure control or adjustment of mA and/or kV according to the patient's size were employed. CLINICAL HISTORY: Liver/gallbladder mass, follow-up COMPARISON: CT abdomen dated 04/14/2024, ultrasound gallbladder dated 03/27/2024 FINDINGS: Abdomen: There is mild bibasilar atelectasis. There is a small cyst in the anterior liver dome. There is an ovoid, high attenuation focus near the gallbladder fossa versus the adjacent liver measuring 23 mm. This is stable in appearance but is of uncertain etiology. The spleen is unremarkable. The adrenals are normal. The pancreas is unremarkable. A 14 mm mass in the lower pole the right kidney previously measured 12 mm. This is not a simple cyst and may represent a complex cyst versus neoplasm. Other small bilateral renal cysts are present. There are moderate vascular calcifications. The aorta is normal in caliber. No free fluid or adenopathy is identified. No findings for mechanical bowel obstruction are identified. Pelvis: The appendix is normal. There is mild urinary bladder wall thickening which is likely inflammatory. Postoperative changes are seen in the inguinal regions. No free fluid, free air, abscess or adenopathy is identified. IMPRESSION: Stable high attenuation focus near the gallbladder fossa versus adjacent liver is favored to be benign. This could be further evaluated with follow-up CT in 6 months. Mass in the lower pole of the right kidney does not appear to be a simple cyst and may represent a complex cyst versus neoplasm. Renal mass protocol CT is recommended for further evaluation. Reviewed, Interpreted and Dictated by Kiran Chávez III, MD Transcribed by Kenia Alaniz Authenticated and [facility]
[2024-08-03 13:26] LABS: Blood Urea Nitrogen 15 mg/dl (9-20); Estimated Glomerular Filt Rate 59 ml/min (>60); GFR (African American) 72 ML/MIN (>60)
[2024-08-03] MEDS: IOPAMIDOL-370 (76%);100ML BOTTLE 75 ML IV (14:04)
[2024-08-03] MEDS: BARIUM SULFATE(READI-CAT2);450ML BOTTLE 450 ML PO (14:04)
[2024-08-03] MEDS: SODIUM CHLORIDE 0.9% 10ML SYR (RAD ONLY) 10 ML IV (14:04)
== END 2024-08-03 23:59 | disposition home or self-care (01) ==
LOC: RAD 12:36
PROVIDERS: PCP Family Medicine; Visit Provider Surgery
DX: R10.11 Right upper quadrant pain (principal)
CPT/HCPCS: 36415; 74177; 82565; 84520; Q9967

== ENCOUNTER 2024-12-14 11:12 | Outpatient (CLI) | payer MEDICARE, OTHER, SELFPAY ==
[2024-12-14 12:27] LABS: Blood Urea Nitrogen 23 mg/dl (9-20); Estimated Glomerular Filt Rate 50 ml/min (>60); GFR (African American) 60 ML/MIN (>60)
== END 2024-12-14 23:59 | disposition home or self-care (01) ==
LOC: LAB 11:14
PROVIDERS: PCP Family Medicine; Visit Provider Surgery
DX: N28.89 Other specified disorders of kidney and ureter (principal)
CPT/HCPCS: 36415; 82565; 84520

== ENCOUNTER 2025-01-02 12:27 | Outpatient (CLI) | payer MEDICARE, OTHER, SELFPAY ==
--- NOTE | 2025-01-02 12:34 | CT_ITS ---
FINAL REPORT TECHNIQUE: CT examination of the abdomen and pelvis was performed after the administration of intravenous and oral contrast. For imaging of the kidneys, precontrast enhanced, immediate contrast-enhanced, and delayed contrast-enhanced images were obtained. Multiplanar reconstructions in the sagittal and coronal planes were subsequently performed. This study was performed with techniques to keep radiation doses as low as reasonably achievable (ALARA). Individualized dose reduction techniques using automated exposure control or adjustment of mA and/or kV according to the patient's size were employed. CLINICAL HISTORY: Renal mass COMPARISON: 08/03/2024 FINDINGS: Mild scarring is present in the lung bases. There is an ovoid enhancing focus in or superior to the gallbladder fossa measuring 2.3 x 1.5 cm in size, contiguous with the superior margin of the gallbladder. This was seen on the prior CT of 08/03/2024 and is unchanged since that time. The spleen is unremarkable. The adrenals are normal. The pancreas is unremarkable. Multiple hypoechoic foci are noted in the kidneys bilaterally, most of which are consistent with simple cysts. There is a 1.4 cm focus in the posterior aspect of the lower pole of the right kidney, that was also seen on the prior exam. Precontrast enhancement, the density measures 20 Hounsfield units, postcontrast enhancement, the density does not change consistent with a complex cyst. Precontrast images demonstrate no nephrolithiasis. Extensive vascular calcifications and mural thrombus are identified in the aorta and bilateral iliac arteries. Note is made of bony degenerative change of the lower lumbar spine, with a diffuse bulge at the L5-S1 level, producing moderate to severe bilateral neural foraminal narrowing. IMPRESSION: Posterior lower pole of the right kidney mass noted on the prior CT does not change pre and postcontrast, consistent with a complex cyst. There is an ovoid enhancing focus just superior to the gallbladder fossa also seen on the prior CT. This may represent a vascular structure, although the etiology is uncertain. Reviewed, Interpreted and Dictated by Mac Luis MD Transcribed by Linsey Bar Authenticated and [facility]
[2025-01-02] MEDS: IOPAMIDOL-370 (76%);100ML BOTTLE 75 ML IV (13:12)
[2025-01-02] MEDS: BARIUM SULFATE(READI-CAT2);450ML BOTTLE 450 ML PO (13:12)
[2025-01-02] MEDS: SODIUM CHLORIDE 0.9% 10ML SYR (RAD ONLY) 10 ML IV (13:12)
== END 2025-01-02 23:59 | disposition home or self-care (01) ==
LOC: RAD 12:28
PROVIDERS: PCP Family Medicine; Visit Provider Surgery
DX: N28.89 Other specified disorders of kidney and ureter (principal)
CPT/HCPCS: 74178; Q9967

== ENCOUNTER 2025-05-13 05:35 | Emergency (ER) | payer MEDICARE, OTHER, SELFPAY ==
--- OUTSIDE RECORDS SUMMARY | 2025-03-21 14:30 | XMS_ITS | Encounter Summary ---
Author Organization [employer] ([place], [place], [place], [place]) Address [address] [place] [address] Care Team Providers Care Supplier Specialist Name Role Phone Sotero Miller MD Primary Care Provider [phone] Reason for Visit * Reason Comments Injections Bilateral knees Encounter Details Date Type Department Care Team (Late st Contact Info) Description 03/21/2025 2:30 PM EDT Office Visit [facility] - [address] [phone] Mica Chu, PAMaddieC [address] [place] [phone] Primary osteoarthritis of left knee (Primary Dx); Primary osteoarthritis of right knee Social History Tobacco Use Types Packs/Day Years Used Date Smoking Tobacco: Never Smokeless Tobacco: Never Alcohol Use Standard Drinks/Week Comments Never 0 (1 standard drink = 0.6 oz pur e alcohol) Food Insecurity Answer Date Recorded Food run out past 12 months Not on file 10/25 Food did not last past 12 months Not on file 11/04/2023 Employment Answer Date Recorded Help finding and keeping a job Not on file 0 02/11/2024 Family and Community Support Answer Aron e Recorded Help with Day to Day Activities Not on file 02/11/2024 Feeling Lonely or Isolated Not on file 02/10 Educational Attainment Answer Date Jeremie rded Speak language other than Welsh at home Not on file 02/11/2024 Want help with school or training Not on file 02/11/2024 Substance Use Answer Date Recorded Used prescription meds for non-medical reasons N ot on file 02/11/2024 Used illegal drugs past 12 months Not on file 02/11/2024 Sex and Gender Information Value Date Recorded Sex Assigned at Not on file Legal Sex Male 5:40 PM CDT Gender Identity Not on file Sexual Orientation Not on file documented as of this encounter Last Filed Vital Signs Vital Sign Reading Time Taken Comments Blood Pressure 135/68 03/21/2025 2:12 PM EDT Pulse 73 03/21/2025 2:12 PM EDT Temperature - - Respiratory Rate - - Oxygen Saturation - - Inhaled Oxygen Concentration - - Weight 91.6 kg (202 lb) 03/21/2025 2:12 PM EDT Height 172.7 cm (5' 8 ) 03/21/2025 2:12 PM EDT Body Mass Index 30.71 03/21/2025 2:12 PM EDT documented in this encounter Progress Notes * Mica Chu PA-C - 03/21/2025 2:30 PM EDT NAME: Nico Meade CSN: [id number] : 1950 PCP: Sotero Miller MD REASON FOR VISIT Injections (Bilateral knees) HPI Nico Meade is a 75 y.o. male who presents today for a follow-up injection in bilateral Knee Patient's previous injection date: 12/21/24 Previous injection lasted 2 months Patient rates their pain today as 7 out of 10 Patient denies any new injuries or issues Patient would like to proceed with injection today Patient verbalized consent for today's procedure and answered the following questions as listed below: Are you Diabetic: no Allergy to Iodine/Betadine/Shell fish: no Allergy to latex adhesive: no Allergy to steroids: no Allergy to lidocaine: no Recent Covid vaccine within the last two weeks: no Currently taking antibiotics: no Current infections or wounds: no Recent fractures or scheduled surgeries: no CURRENT MEDICATIONS Current Outpatient Medications Medication Instructions amLODIPine (NORVASC) 10 mg, oral, Daily clopidogreL (PLAVIX) 75 mg, oral, Daily furosemide (LASIX) 40 mg, oral, Daily isosorbide mononitrate (ISMO,MONOKET) 10 MG tablet oral metoprolol succinate (TOPROL-XL) 50 mg, oral, Daily potassium chloride (Klor-Con) 20 mEq packet oral potassium chloride SA (K-DUR,KLOR-CON-M) 20 MEQ tablet 20 mEq, oral, Daily simvastatin (ZOCOR) 10 MG tablet oral ALLERGIES No Known Allergies PAST MEDICAL/SURGICAL HISTORY Past Medical History: Diagnosis Date CAD (coronary artery disease) Hyperlipemia Hypertension Past Surgical History: Procedure Laterality Date CORONARY ARTERY BYPASS GRAFT HAND SURGERY SOCIAL HISTORY Social History Tobacco Use Smoking status: Never Smokeless tobacco: Never Substance Use Topics Alcohol use: Never Drug use: Never FAMILY HISTORY Family History Problem Relation Name Age of Onset Kidney disease Other High blood pressure Other Diabetes Other Cancer Other REVIEW OF SYSTEMS General: No recent fever or chills, no recent weight loss or weight gain, no insomnia HEENT: No change in vision, no glasses/contacts, no hearing loss, no tinnitus, no vertigo, no congestion/sinus issues CVS: No chest pain, no palpitations, no edema, no varicose veins Resp: No dyspnea, no wheezing, no cough, no hemoptysis GI: No dysphagia, no nausea, no vomiting, no heart burn, no constipation, no diarrhea : No dysuria, no hematuria, no nocturia, no history of chronic UTI Musculoskeletal: See HPI Derm: No rash, no abrasions, no skin discoloration, no history or MRSA Neuro: No headaches, no seizures, no stroke, no tremors, no muscle weakness, no difficulty walking,no numbness/tingling, no neuropathy Endo: No cold/heat intolerance Heme: No abnormal bruising or bleeding Psych: No depression, no anxiety, no fatigue, no mood swings Scribe Attestation: IAmaris RTR acted as a scribe and transcribed components of the current encounter under the direction of the Attending Provider. I have not been involved in providing any clinical treatments or patient care. Electronically Signed, JAROCHO Jo OBJECTIVE Vitals: 03/21/25 1412 BP: 135/68 Pulse: 73 Weight: 91.6 kg (202 lb) Height: 1.727 m (5' 8 ) GEN: well-appearing, well-nourished NEURO: grossly NVI SKIN: warm, intact, no lesions, no erythema Left Knee Exam General: Awake, Alert, Oriented x3, Well developed Appearance: - effusion, + localized swelling, - deformity, -masses Tenderness to palpation: + Medial joint line, -Lateral joint line, +Patellofemoral joint, -MCL, -LCL, -Posterior, - Quad Tendon, - Patellar Tendon, -Hamstring, - Gastrocnemius ROM: 120 Flexion, Full Extension Strength: 4/5 Testing: +crepitus, -Valgus stress, -Varus stress Neurovascular: NVI, -Homans Skin: normal appearance with no discoloration or wounds Gait: normal Right Knee Exam General: Awake, Alert, Oriented x3, Well developed Appearance: - effusion, - localized swelling, + varus deformity, -masses Tenderness to palpation: + Medial joint line, -Lateral joint line, + Patellofemoral joint, -MCL, -LCL, + Posterior, - Quad Tendon, - Patellar Tendon, -Hamstring, - Gastrocnemius ROM: 130 Flexion, 0 Extension, + crepitus Strength: 4/5 Testing: , -Valgus stress, -Varus stress Neurovascular: NVI, -Homans Skin: normal appearance with no discoloration or wounds Gait: normal ASSESSMENT Problem List Items Addressed This Visit Musculoskeletal and Integument Primary osteoarthritis of left knee - Primary Relevant Medications methylPREDNISolone acetate (DEPO-MEDROL) injection 80 mg (Completed) (Start on 03/21/2025 3:00 PM) lidocaine (XYLOCAINE) injection 1% (Completed) (Start on 03/21/2025 3:00 PM) lidocaine (XYLOCAINE) injection 1% (Completed) (Start on 03/21/2025 3:00 PM) methylPREDNISolone acetate (DEPO-MEDROL) injection 80 mg (Completed) (Start on 03/21/2025 3:00 PM) Other Relevant Orders Arthrocentsis aspiration/inj major jt/bursa w/o us Arthrocentsis aspiration/inj major jt/bursa w/o us Primary osteoarthritis of right knee Relevant Medications methylPREDNISolone acetate (DEPO-MEDROL) injection 80 mg (Completed) (Start on 03/21/2025 3:00 PM) lidocaine (XYLOCAINE) injection 1% (Completed) (Start on 03/21/2025 3:00 PM) lidocaine (XYLOCAINE) injection 1% (Completed) (Start on 03/21/2025 3:00 PM) methylPREDNISolone acetate (DEPO-MEDROL) injection 80 mg (Completed) (Start on 03/21/2025 3:00 PM) Other Relevant Orders Arthrocentsis aspiration/inj major jt/bursa w/o us Arthrocentsis aspiration/inj major jt/bursa w/o us PLAN Return in about 3 months (around 06/21/2025) for s/p radha knee injections 03/21/25. Ice affected joint Watch for signs of infection, return to clinic if symptoms appear Return to clinic sooner if new symptoms occur as discussed or if symptoms worsen Injection performed today, as noted below PROCEDURE Diabetes education: No Steroid Injection: bilateral Knee Injection: Indication: bilateral Knee pain Consent: The risks, benefits, and alternatives of procedure were discussed with the patient including but not limited to pain, infection, and bleeding. All questions were answered and informed consent was obtained. Prep: The injection site was identified and confirmed with patient as correct extremity. The site was prepped in a standard sterile manner. The skin overlying the area was anesthetized with ethyl chloride. Procedure: The needle was inserted into above injection site, then was injected with 1cc of 1% lidocaine and 1cc of 80mg Depo-medrol Post-procedure: The patient tolerated the procedure well without complications. Post injection instructions were given and questions were answered to the best of my knowledge. Adverse effects: None. Injection was performed by: Mica Chu PA-C Scribe Attestation: Shania Lee CMA/LXMO acted as a scribe and transcribed components of the current encounter under the direction of the Attending Provider. I have not been involved in providing any clinical treatments or patient care. Electronically Signed, MARK Owen Jenna Newkirk, PA-C attest that I have examined the above patient. I have dictated the exam, diagnosis, and plan to the scribe listed above to be transcribed into this document. I have supplemented the above documentation as warranted. I attest that I have reviewed the above documentation in itsentirety and concur. Electronically Signed, Mica Chu PA-C 03/21/2025 2:27 PM EDT Tere Thompson: [facility] [employer] is undergoing an EHR transition as of this date of service. There may be a delay in uploading older paper and EHR chart data to this new system. The above encounter has been documented to the best of the provider's working knowledge of the EHR in conjunction with medical information provided by the patient (and/or the patient's family member). documented in this encounter Plan of Treatment Upcoming Encounters Date Type Department Care Team (Late st Contact Info) Description 06/20/2025 2:30 PM EDT Office Visit [facility] - [address] [phone] Mica Chu PA-C [address] [place] [id number] Scheduled Orders Name Type Priority Associated Diagnoses Orde r Schedule Arthrocentsis aspiration/inj major jt/bursa w/o us Procedures Routine Primary osteoarthritis of left knee Primary osteoarthritis of right knee Ordered: 03/21/2025 Arthrocentsis aspiration/inj major jt/bursa w/o us Procedures Routine Primary osteoarthritis of left knee Primary osteoarthritis of right knee Ordered: 03/21/2025 documented as of this encounter Visit Diagnoses Diagnosis Primary osteoarthritis of left knee- Primary Primary osteoarthritis of right knee documented in this encounter Administered Medications Inactive Administered Medications - up to 3 most recent administrations Medication Order MAR Action Action Date Dose Rate Site lidocaine (XYLOCAINE) injection 1% 1 mL Once, intra-articular, On Wed03/21/25 at 1500, For 1 doseIndications:Primary osteoarthritis of left knee,Primary osteoarthritis of right knee Given 03/21/2025 2:24 PM EDT 1 mL Right Knee lidocaine (XYLOCAINE) injection 1% 1 mL Once, intra-articular, On Wed03/21/25 at 1500, For 1 doseIndications:Primary osteoarthritis of left knee,Primary osteoarthritis of right knee Given 03/21/2025 2:23 PM EDT 1 mL Left Knee methylPREDNISolone acetate (DEPO-MEDROL) injection 80 mg 80 mg Once, intra-articular, On Wed03/21/25 at 1500, For 1 doseIndications:Primary osteoarthritis of left knee,Primary osteoarthritis of right knee Given 03/21/2025 2:25 PM EDT 80 mg Right Knee methylPREDNISolone acetate (DEPO-MEDROL) injection 80 mg 80 mg Once, intra-articular, On Wed03/21/25 at 1500, For 1 doseIndications:Primary osteoarthritis of left knee,Primary osteoarthritis of right knee Given 03/21/2025 2:24 PM EDT 80 mg Left Knee documented in this encounter Care Teams Supplier Specialist Relationship Specialty Start Date End Date Sotero Miller MD [address] [place] [address] [place] [id number] PCP - General Adolescent Medicine 10/25/22 documented as of this encounter
--- OUTSIDE RECORDS SUMMARY | 2025-05-13 05:43 | XMS_ITS | Encounter Summary ---
Author Organization [employer] ([place], [place], [place], [place]) Address [address] [place] [address] Care Team Providers Care Remote Sensing Specialist Name Role Phone Sotero Miller MD Primary Care Provider [phone] Encounter Details Date Type Department Care Team (Late st Contact Info) Description 04/25/2020 Transcribed Document [facility] Family Medicine [address] [place] [address] ProviderMk MD [address] [place] [address] Social History Tobacco Use Types Packs/Day Years Used Date Smoking Tobacco: Never Assessed Sex and Gender Information Value Date Recorded Sex Assigned at Not on file Legal Sex Male 5:40 PM CDT Gender Identity Not on file Sexual Orientation Not on file documented as of this encounter Miscellaneous Notes * [employer] Conversion Note - Mk ProviderMD - 04/25/2020 10:33 AM CDT UM Authorization Entered On: 04/25/2020 10:34 EDT Performed On: 04/25/2020 10:33 EDT by CHON ANDREWS Rn-Utilization Review Primary Insurance Authorization Authorization and Policy Numbers : Insurance 1 Health Plan: [employer] Policy Number: [id number] Authorization Number: Insurance 2 Health Plan: MEDICARE Policy Number: [id number] Authorization Number: Insurance Primary Name : [employer] Policy Number: [id number] Authorization Status-Primary : Awaiting callback Reference Number-Primary : [id number] Number of Days Authorized-Primary : 3 Day(s) Authorized Service Begin Date-Primary : 04/21/2020 EDT Authorized Service End Date-Primary : 04/24/2020 EDT Authorization Comments-Primary : Faxed clinicals via [employer] for 04/23-04/25. Historical Authorization Comments-Primary : Comment 1: Per [employer], Inpt Auth approved 4 days. NRD 04/25. (CHON ANDREWS, Rn-Utilization Review 04/24/2020 09:13) Comment 2: clinicals faxed via [employer] for cont stay for dos 04/23/2020 (CATHI DEAL, RN-Utilization Review 04/23/2020 13:09) Comment 3: submitted on [employer] for IP auth w/ clinicals attached (CATHI DEAL, RN-Utilization Review 04/22/2020 09:38) CHON ANDREWS, Rn-Utilization Review - 04/25/2020 10:33 EDT Electronically signed by [facility] Conversion Architecture Faculty Member [employer] at 02/07/2023 11:30 PM CDT documented in this encounter Plan of Treatment Upcoming Encounters Date Type Department Care Team (Late st Contact Info) Description 06/20/2025 2:30 PM EDT Office Visit [facility] Orth[facility] - [address] [phone] Mica Chu PA-C [address] [place] [phone] documented as of this encounter Visit Diagnoses Not on filedocumented in this encounter Care Teams Remote Sensing Specialist Relationship Specialty Start Date End Date Sotero Miller MD [address] [place] [address] [place] [address] PCP - General Adolescent Medicine 10/25/22 documented as of this encounter
--- OUTSIDE RECORDS SUMMARY | 2025-05-13 05:43 | XMS_ITS | Encounter Summary ---
Author Organization [employer] ([place], [place], [place], [place]) Address [address] [place] [address] Care Team Providers Care Well Service Pump Equipment Operator Name Role Phone Sotero Miller MD Primary Care Provider [phone] Encounter Details Date Type Department Care Team (Late st Contact Info) Description 04/24/2020 Transcribed Document [facility] Cardiology [address] [place] [phone] [place] [address] [place] [address] [address] [place] [address] Social History Tobacco Use Types Packs/Day Years Used Date Smoking Tobacco: Never Assessed Sex and Gender Information Value Date Recorded Sex Assigned at Not on file Legal Sex Male 5:40 PM CDT Gender Identity Not on file Sexual Orientation Not on file documented as of this encounter Miscellaneous Notes * Cerner Conversion Note - Clement Roblero MD - 04/24/2020 7:17 AM EDT Patient: NICO LERNER Age: 70 years Sex: Male : 1950 Associated Diagnoses: None Author: CLEMENT ROBLERO MD-CAR BASIC PCP: Not Listed Primary Trimmer Sorter: Dr. Eugenio Peacock MD Requesting MD: Dr. Elis Massey MD Subjective NAD Health Status Current medications: Home Medications (5) Active aspirin 325 mg oral delayed release tablet 325 mg = 1 Tab, Oral, Daily CeleBREX 200 mg oral capsule 200 mg = 1 Cap, Oral, BID isosorbide mononitrate 60 mg oral tablet, extended release 90 mg = 1.5 Tab, Oral, Daily Metoprolol Succinate ER 50 mg oral tablet, extended release 50 mg = 1 Tab, Oral, Daily Norvasc 10 mg oral tablet 10 mg = 1 Tab, Oral, Daily , Medications (16) Active Scheduled: (5) aspirin EC 81 mg tab 81 mg 1 Tab, Oral, Daily atorvastatin 40 mg tab 80 mg 2 Tab, Oral, At Bedtime doxycycline hyclate 100 mg cap 100 mg 1 Cap, Oral, BID metoprolol tartrate 25 mg tab 12.5 mg 0.5 Tab, Oral, BID pantoprazole EC 40 mg tab 40 mg 1 Tab, Oral, Daily Continuous: (3) heparin/NaCl 0.45% 25,000 Units + Premix Diluent NaCl 0.45% 250 mL 250 mL, IntraVENous NaCl 0.9% 1,000 mL 1,000 mL, IntraVENous, 75 mL/Hr nitroglycerin/D5w 25 mg + Premix Diluent D5W TITRATE 250 mL 250 mL, IntraVENous PRN: (8) acetaminophen 325 mg tab 650 mg 2 Tab, Oral, Q4H albuterol-ipratropium inh 3 mL 3 mL, Nebulized Inhalation, Q6H ALPRAZolam 0.25 mg tab 0.25 mg 1 Tab, Oral, At Bedtime hydrALAZINE 20 mg/1 mL inj 10 mg 0.5 mL, IV Push, Q6H LORazepam 2 mg/mL inj 0.5 mg 0.25 mL, IV Push, Q4H morphine 2 mg/1 ml inj 2 mg 1 mL, IV Push, Q2H ondansetron 4 mg/2 mL inj 4 mg 2 mL, IV Push, Q4H promethazine 25 mg/1 mL inj 6.25 mg 0.25 mL, IntraVENous, Q6H Problem list: Active Problems (4) Arthritis At risk for sleep apnea CAD (coronary artery disease) Chronic hypertension Objective Intake and Output 24 hour intake: Total 330 ml 24 hour output: Total 1,320 ml VS/Measurements Vitals Signs (last 24 hrs) Last Charted Minimum Maximum Temp 97.7 (APR 24 05:28) 97 (APR 23 09:00) 98.3 (APR 23 17:23) Apical HR 70 (APR 23 20:41) 70 (APR 23 20:41) 70 (APR 23 20:41) Mon HR 61 (APR 24) 49 (APR 23 07:00) 73 (APR 23 10:00) Resp Rate 16 (APR 24:) 16 (APR 23 17:23) H 28 (APR 23 10:00) SBP 123 (APR 24) 114 (APR 24 01:48) H 164 (APR 23 07:00) DBP 85 (APR 24) 66 (APR 23 11:00) H 91 (APR 23 09:00) MAP 97 (APR 24) 86 (APR 23 17:23) 116 (APR 23 09:00) SpO2 95 (APR 24) L 93 (APR 23 13:00) 96 (APR 23 08:57) General: Alert and oriented, No acute distress. Eye: Pupils are equal, round and reactive to light, Normal conjunctiva, Vision unchanged. HENT: Normocephalic. Neck: Supple, Non-tender, No carotid bruit, No jugular venous distention. Respiratory: Lungs are clear to auscultation, Respirations are non-labored, Breath sounds are equal, Symmetrical chest wall expansion. Cardiovascular: Normal rate, Regular rhythm, No murmur, Good pulses equal in all extremities. Gastrointestinal: Soft, Non-distended, Normal bowel sounds. Musculoskeletal: Normal range of motion, Normal strength. Integumentary: Warm, Dry, [place]. Neurologic: Alert, Oriented. Psychiatric: Cooperative, Appropriate mood & affect. Results Review APR 24 00:07 L 132 103 H 34 / H 132 4.6 23 H 1.60 \ APR 24 00:07 \ H 17.4 / H 15.9 258 / H 52.0 \ Impression and Plan IMPRESSION: NSTEMI (troponin peak 46). 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 CV disease in the Dx, left circumflex. Echo EF > 50%, valves OK ([facility] ). Elevated proBNP, no clinical congestion/CHF. Hypertension. Dyslipidemia. Sinus Bradycardia. PLAN; 04/24/2020 Current medical therapy appropriate CABG timing per CT surgery Gentle hydration 04/23/[address] surgery. Reduce aspirin to 81mg. Will follow post procedure 04-22-20 Filmed reviewed at request of family & Dr. Araujo. Agree CABG is best course of action, recommendations discussed w/ Dr. Deleon & pt/family. Cancel repeat Echo. Carotid Duplex. Check VerifyNow to clarify Plavix response & timing of CABG. Start Atorvastatin 80 mg daily. Continue other current CV meds. OK to transfer to telemetry from cardiac standpoint. 04-21-20 Continue cardiovascular medication continue heparin for anticoagulation, beta marcia, nitrate, no Plavix at this time in anticipation for CABG. Follow-up 2-D echo carotid Doppler. Status post pulmonary edema secondary to ST elevation myocardial infarction. Patient received epinephrine for allergic reaction anaphylactic reaction to contrast during the left heart catheterization. Patient received 600 Plavix during the left heart catheterization on 04/20/2020. CTS consult Dr. Deleon. documented in this encounter Plan of Treatment Upcoming Encounters Date Type Department Care Team (Late st Contact Info) Description 06/20/2025 2:30 PM EDT Office Visit [facility] Orthopedics - [address] [phone] Mica Chu PA-C [address] [place] [address] documented as of this encounter Visit Diagnoses Not on filedocumented in this encounter Care Teams Well Service Pump Equipment Operator Relationship Specialty Start Date End Date Sotero Miller MD [address] [place] [address] PCP - General Adolescent Medicine 10/25/22 documented as of this encounter
--- OUTSIDE RECORDS SUMMARY | 2025-05-13 05:43 | XMS_ITS | Encounter Summary ---
Author Organization [employer] ([place], [place], [place], [place]) Address [address] [place] [address] Care Team Providers Care Sign Installer Name Role Phone Sotero Miller MD Primary Care Provider + [phone] Encounter Details Date Type Department Care Team (Late st Contact Info) Description 04/29/[address] [facility] [place] [address] [place] [address] ProviderMk MD [address] [place] [address] Social History Tobacco Use Types Packs/Day Years Used Date Smoking Tobacco: Never Assessed Sex and Gender Information Value Date Recorded Sex Assigned at Not on file Legal Sex Male 5:40 PM CDT Gender Identity Not on file Sexual Orientation Not on file documented as of this encounter Miscellaneous Notes * Cerner Conversion Note - Mk ProviderMD - 04/29/2020 5:09 AM CDT Spiritual Care Short Form Entered On: 04/29/2020 6:43 EDT Performed On: 04/29/2020 5:09 EDT by KURTIS TELLEZ Chaplain General Information, Spiritual Care Spiritual Care Referred by : Patient Reason for Visit : Initial Ministry Provided to : Patient, Family/Significant other Intervention/Comment/Summary Points : Chap. prov. pt/fam. pre procedure prayer. KURTIS TELLEZ Chaplain - 04/29/2020 6:42 EDT documented in this encounter Plan of Treatment Upcoming Encounters Date Type Department Care Team (Late st Contact Info) Description 06/20/2025 2:30 PM EDT Office Visit [facility] Orthopedics - [address] [phone] Mica Chu PA-C [address] [place] [address] documented as of this encounter Visit Diagnoses Not on filedocumented in this encounter Care Teams Sign Installer Relationship Specialty Start Date End Date Sotero Miller MD [address] [place] [address] PCP - General Adolescent Medicine 10/25/22 documented as of this encounter
--- OUTSIDE RECORDS SUMMARY | 2025-05-13 05:43 | XMS_ITS ---
Author Organization Unknown TREATMENT PLAN Planned Care Start Date Provider Encounter for Check-up [id number] [facility]
--- OUTSIDE RECORDS SUMMARY | 2025-05-13 05:43 | XMS_ITS | Encounter Summary ---
Author Organization [email or web address] ([place], [place], [place], [place]) Address [address] [place] [address] Care Team Providers Care Family Therapist Name Role Phone Sotero Miller MD Primary Care Provider + [phone] Encounter Details Date Type Department Care Team (Late st Contact Info) Description 04/28/2020 Transcribed Document [facility] [place] [address] [place] [address] ProviderMk MD [address] [place], [place] [id number] Social History Tobacco Use Types Packs/Day Years Used Date Smoking Tobacco: Never Assessed Sex and Gender Information Value Date Recorded Sex Assigned at Not on file Legal Sex Male 5:40 PM CDT Gender Identity Not on file Sexual Orientation Not on file documented as of this encounter Miscellaneous Notes * Cerner Conversion Note - Mk ProviderMD - 04/28/2020 5:00 AM CDT Chart Check - Review Order Profile Entered On: 04/29/2020 6:33 EDT Performed On: 04/28/2020 5:00 EDT by TREV AGUIRRE RN Chart Check Powerplans Initiated/Discontinued as Appropriate : Yes All Active Orders Reviewed : Yes TREV AGUIRRE RN - 04/29/2020 6:32 EDT documented in this encounter Plan of Treatment Upcoming Encounters Date Type Department Care Team (Late st Contact Info) Description 06/20/2025 2:30 PM EDT Office Visit [facility] Orthopedics - [address] [phone] Mica Chu PA-C [address] [place] [address] documented as of this encounter Visit Diagnoses Not on filedocumented in this encounter Care Teams Family Therapist Relationship Specialty Start Date End Date Sotero Miller MD [address] [place] [address] PCP - General Adolescent Medicine 10/25/22 documented as of this encounter
--- OUTSIDE RECORDS SUMMARY | 2025-05-13 05:43 | XMS_ITS | Encounter Summary ---
Author Organization [employer] ([place], [place], [place], [place]) Address [address] [place] [address] Care Team Providers Care Screen Tacker Name Role Phone Sotero Miller MD Primary Care Provider + [phone] Encounter Details Date Type Department Care Team (Late st Contact Info) Description 04/24/2020 Transcribed Document [facility] [place] [address] [place] [address] ProviderMk MD [address] [place] [address] Social History Tobacco Use Types Packs/Day Years Used Date Smoking Tobacco: Never Assessed Sex and Gender Information Value Date Recorded Sex Assigned at Not on file Legal Sex Male 5:40 PM CDT Gender Identity Not on file Sexual Orientation Not on file documented as of this encounter Miscellaneous Notes * Cerner Conversion Note - Mk Mac MD - 04/24/2020 3:37 PM CDT On Going Discharge Planning Entered On: 04/24/2020 15:38 EDT Performed On: 04/24/2020 15:37 EDT by AURA CARDENAS RN-Snaker Driving HorsesCrop Puller Progress Note Discharge Arrangements : Patient Post-Acute Information Patient Name: NICO LRENER Gender: Male : [birth year] Age: 70 Years No Post-Acute Placement(s) Listed No Post-Acute Service(s) Listed No [place] Referral(s) Listed AURA CARDENAS RN-Snaker Driving Horses - 04/24/2020 15:39 EDT Discharge Options Discussed with Patient : Discharge transportation, DME, Home Health, Outpatient services, Short term rehabilitation Barriers to Discharge Identified : Clinical Condition of Patient Barriers to Discharge Unresolved : Clinical Condition of Patient Is the Patient Meeting Medical Necessity : Yes Physician Agreeable to Move Forward with D/C Plan? : Yes Did you Attend Multidisciplinary Rounds? : Yes AURA CARDENAS RN-Snaker Driving Horses - 04/24/2020 15:37 EDT Narrative Progress Note Narrative Progress Note : Patient is a moderate readmission risk. ELOS: 7 days HD#3 Adm Dx: STEMI; LHC 04/20 - Total occulusion of LAD and RCA with normal LVEF. Continue Heparin and Nitroglycerine Drip, CABG planned on Wednesday. DCP: CM will follow for discharge planning needs post op. Historical Progress Note : MRR, ELOS #2; HD#2 - LHC on 04/22 = Occlusion of RCA/LAD; [address]t 143; CABG timing to be determined; pt on transfer out of [facility]; new PT/OT evaluation orders placed; DCP pending progress; anticipate home with family and OP Cardiac Rehab when appropriate. KARENA DONNELLY Rn-Snaker Driving Horses - 04/23/20 11:34:20 DCP - anticipate home without needs; continue to follow. KARENA DONNELLY Rn-Snaker Driving Horses - 04/22/20 10:08:21 AURA CARDENAS RN-Snaker Driving Horses - 04/24/2020 15:39 EDT documented in this encounter Plan of Treatment Upcoming Encounters Date Type Department Care Team (Late st Contact Info) Description 06/20/2025 2:30 PM EDT Office Visit [facility] Orthopedics - [address] [phone] Mica Chu PA-C [address] [place] [address] documented as of this encounter Visit Diagnoses Not on filedocumented in this encounter Care Teams Screen Tacker Relationship Specialty Start Date End Date Sotero Miller MD [address] [place] [address] PCP - General Adolescent Medicine 10/25/22 documented as of this encounter
--- OUTSIDE RECORDS SUMMARY | 2025-05-13 05:43 | XMS_ITS | Encounter Summary ---
Author Organization [employer] ([place], [place], [place], [place]) Address [address] [place] [address] Care Team Providers Care Biomedical Engineering Professor Name Role Phone Sotero Miller MD Primary Care Provider + [phone] Encounter Details Date Type Department Care Team ( Contact Info) Description 04/25/2020 Transcribed Document [facility] [place] [facility] [place] [facility] [place] [address] ProviderMk MD [address] [place], [place] [address] Social History Tobacco Use Types Packs/Day Years Used Date Smoking Tobacco: Never Assessed Sex and Gender Information Value Date Recorded Sex Assigned at Not on file Legal Sex Male 5:40 PM CDT Gender Identity Not on file Sexual Orientation Not on file documented as of this encounter Miscellaneous Notes * Cerner Conversion Note - Mk ProviderMD - 04/25/2020 2:00 AM CDT Lost And Found Clerk Details Entered On: 04/25/2020 1:47 EDT Performed On: 04/25/2020 2:00 EDT by FLORENTIN BELTRAN, RN Order Details Transport Mode Order Detail : Ambulatory Isolation Precautions Order Detail : Contact precautions Order Detail : N/A IV Order Detail : 1 Oxygen Order Detail : 0 Nurse Collect Order Detail : 0 Lift/Transfer : Independent Central Line Order Detail : No Room Service : Needs Assistance Arterial Line : No FLORENTIN BELTRAN, RN - 04/25/2020 1:47 EDT documented in this encounter Plan of Treatment Upcoming Encounters Date Type Department Care Team (Late Contact Info) Description 06/20/2025 2:30 PM EDT Office Visit [facility] Orthopedics - [address] [phone] Mica Chu PA-C [address] [place] [address] documented as of this encounter Visit Diagnoses Not on filedocumented in this encounter Care Teams Biomedical Engineering Professor Relationship Specialty Start Date End Date Sotero Miller MD [address] [place] [address] PCP - General Adolescent Medicine 10/25/22 documented as of this encounter
--- OUTSIDE RECORDS SUMMARY | 2025-05-13 05:43 | XMS_ITS | Encounter Summary ---
Author Organization [employer] ([place], [place], [place], [place]) Address [address] [place] [address] Care Team Providers Care Inspector Filters Name Role Phone Sotero Miller MD Primary Care Provider [phone] Encounter Details Date Type Department Care Team (Late st Contact Info) Description 04/27/2020 Transcribed Document [facility] [place] Medicine [address] [place] [address] ProviderMk MD [address] [place], [place] [id number] Social History Tobacco Use Types Packs/Day Years Used Date Smoking Tobacco: Never Assessed Sex and Gender Information Value Date Recorded Sex Assigned at Not on file Legal Sex Male 5:40 PM CDT Gender Identity Not on file Sexual Orientation Not on file documented as of this encounter Miscellaneous Notes * Cerner Conversion Note - Mk ProviderMD - 04/27/2020 5:00 AM CDT Chart Check - Review Order Profile Entered On: 04/27/2020 5:47 EDT Performed On: 04/27/2020 5:00 EDT by Laura Heard RN Chart Check Powerplans Initiated/Discontinued as Appropriate : Yes All Active Orders Reviewed : Yes Laura Heard RN - 04/27/2020 5:46 EDT documented in this encounter Plan of Treatment Upcoming Encounters Date Type Department Care Team (Late st Contact Info) Description 06/20/2025 2:30 PM EDT Office Visit [facility] Orthopedics - [address] [phone] Mica Chu PA-C [address] [place] [address] documented as of this encounter Visit Diagnoses Not on filedocumented in this encounter Care Teams Inspector Filters Relationship Specialty Start Date End Date Sotero Miller MD [address] [place] [address] PCP - General Adolescent Medicine 10/25/22 documented as of this encounter
--- OUTSIDE RECORDS SUMMARY | 2025-05-13 05:43 | XMS_ITS | Encounter Summary ---
Author Organization [employer] ([place], [place], [place], [place]) Address [address] [place] [address] Care Team Providers Care Natural Gas Engineer Name Role Phone Sotero Miller MD Primary Care Provider + [phone] Encounter Details Date Type Department Care Team (Late st Contact Info) Description 04/24/2020 Transcribed Document [facility] [place] [facility] [place] [address] ProviderMk MD [address] [place] [address] Social History Tobacco Use Types Packs/Day Years Used Date Smoking Tobacco: Never Assessed Sex and Gender Information Value Date Recorded Sex Assigned at Not on file Legal Sex Male 5:40 PM CDT Gender Identity Not on file Sexual Orientation Not on file documented as of this encounter Miscellaneous Notes * Cerner Conversion Note - Mk ProviderMD - 04/24/2020 1:35 PM CDT Discharge Summary, PT Entered On: 04/24/2020 13:36 EDT Performed On: 04/24/2020 13:35 EDT by Brianna Kraus STUDENT-PHYSICAL THERAPIST Discharge Summary Discharge Summary Provider Notified : Nursing Reason for Discharge : Other: PT consulted and upon evaluation, patient found to be independent. Patient will remain in the acute care setting. Discharged to, Therapy : Other: Patient will remain in the acute care setting. Brianna Kraus STUDENT-PHYSICAL THERAPIST - 04/24/2020 13:35 EDT Discharge Summary Comment, PT : Patient demonstrates normal strength in BLE. Patient demonstrates ability to perform transfers, ambulation, and other functional mobility tasks with independence. Patient able to ambulate 30' while pushing IV pole, and 545' without IV pole with independence. Patient and nsg. informed that patient is safe to walk with family after receiving permission and all clear from nsg. Patient did not c/o any chest pain, discomfort, shortness of breath or dizziness throughout PT/OT evaluation. PT has reviewed and agrees with note. ANDERSON VIEYRA, PT - 04/24/2020 14:55 EDT Electronically signed by Ean, [facility] Conversion Supervisor Cloth Winding Cerner at 02/07/2023 11:38 PM CDT documented in this encounter Plan of Treatment Upcoming Encounters Date Type Department Care Team (Late st Contact Info) Description 06/20/2025 2:30 PM EDT Office Visit [facility] Orthopedics - [address] [phone] Mica Chu, PAMaddieC [address] [place] [address] documented as of this encounter Visit Diagnoses Not on filedocumented in this encounter Care Teams Natural Gas Engineer Relationship Specialty Start Date End Date Sotero Miller MD [address] [place] [address] PCP - General Adolescent Medicine 10/25/22 documented as of this encounter
--- OUTSIDE RECORDS SUMMARY | 2025-05-13 05:43 | XMS_ITS | Encounter Summary ---
Author Organization [employer] ([place], [place], [place], [place]) Address [address] [place] [address] Care Team Providers Care Surgical Training Specialist Name Role Phone Sotero Miller MD Primary Care Provider + [phone] Encounter Details Date Type Department Care Team (Late st Contact Info) Description 04/28/2020 Transcribed Document [facility] [place] [facility] [place] [address] ProviderMk MD [address] [place], [place] [phone] Social History Tobacco Use Types Packs/Day Years Used Date Smoking Tobacco: Never Assessed Sex and Gender Information Value Date Recorded Sex Assigned at Not on file Legal Sex Male 5:40 PM CDT Gender Identity Not on file Sexual Orientation Not on file documented as of this encounter Miscellaneous Notes * Cerner Conversion Note - Mk ProviderMD - 04/28/2020 2:00 AM CDT Baggage Porter Details Entered On: 04/29/2020 2:16 EDT Performed On: 04/28/2020 2:00 EDT by TREV AGUIRRE, RN Order Details Transport Mode Order Detail : Ambulatory Isolation Precautions Order Detail : Standard Precautions Order Detail : N/A IV Order Detail : 0 Oxygen Order Detail : 0 Nurse Collect Order Detail : 0 Lift/Transfer : Independent Central Line Order Detail : No Room Service : Needs Assistance Arterial Line : No TREV AGUIRRE, RN - 04/29/2020 2:16 EDT documented in this encounter Plan of Treatment Upcoming Encounters Date Type Department Care Team (Late st Contact Info) Description 06/20/2025 2:30 PM EDT Office Visit [facility] Orthopedics - [address] [phone] Mica Chu PA-C [address] [place] [phone] documented as of this encounter Visit Diagnoses Not on filedocumented in this encounter Care Teams Surgical Training Specialist Relationship Specialty Start Date End Date Sotero Miller MD [address] [place] [address] PCP - General Adolescent Medicine 10/25/22 documented as of this encounter
--- OUTSIDE RECORDS SUMMARY | 2025-05-13 05:43 | XMS_ITS | Encounter Summary ---
Author Organization [employer] ([place], [place], [place], [place]) Address [address] [place] [address] Care Team Providers Care Bailer Operators Supervisor Name Role Phone Sotero Miller MD Primary Care Provider + [phone] Encounter Details Date Type Department Care Team (Late st Contact Info) Description 04/27/2020 Transcribed Document [facility] [place] [facility] [address] ProviderMk MD [address] [place] [address] Social History Tobacco Use Types Packs/Day Years Used Date Smoking Tobacco: Never Assessed Sex and Gender Information Value Date Recorded Sex Assigned at Not on file Legal Sex Male 5:40 PM CDT Gender Identity Not on file Sexual Orientation Not on file documented as of this encounter Miscellaneous Notes * Cerner Conversion Note - Mk Mac MD - 04/27/2020 1:36 PM CDT Patient: NICO LERNER Age: 70 years Sex: Male : 1950 Associated Diagnoses: None Author: PAPA THORNTON MD-INT DATE OF SERVICE [ DOS ]: 04-27-2020 Basic Information SUBJECTIVE: Patient is seen and evaluated Creatinine improved no CP No SOB Review of Systems Constitutional: No fever, No chills. Eye: No recent visual problem, No icterus, No blurring, No visual disturbances. Ear/Nose/Mouth/Throat: No decreased hearing, No sore throat. Respiratory: No shortness of breath, No cough. Cardiovascular: No chest pain, No palpitations, No syncope. Gastrointestinal: No nausea, No vomiting, No hematemesis. Genitourinary: No dysuria, No hematuria. Hematology/Lymphatics: No bleeding tendency, No swollen lymph glands. Endocrine: No cold intolerance, No heat intolerance. Musculoskeletal: No joint pain, No muscle pain. Integumentary: No rash, No pruritus, No breakdown. Neurologic: No confusion, No numbness. Psychiatric: No depression, Not delusional. Health Status Allergies: Allergic Reactions (Selected) No Known Allergies, Allergies (1) Active Reaction No Known Allergies None Documented Current medications: (Selected) Inpatient Medications Ordered Ativan: 0.5 mg, IV Push, Q4H, PRN: Agitation DuoNeb 0.5 mg-2.5 mg/3 mL inhalation solution: 3 mL, Nebulized Inhalation, Q6H, PRN: Shortness of Breath Normal Saline 1,000 mL: 75 mL/Hr, IntraVENous Phenergan: 6.25 mg, IntraVENous, Q6H, PRN: Nausea Protonix: 40 mg, Oral, Daily Rocephin: 2 Gram, 100 mL/Hr, IV Piggyback, [id number] Tylenol: 650 mg, Oral, Q4H, PRN: Other (See Comment) Xanax: 0.25 mg, Oral, At Bedtime, PRN: Insomnia Zofran: 4 mg, IV Push, Q4H, PRN: Nausea aspirin: 81 mg, Oral, Daily atorvastatin: 80 mg, Oral, At Bedtime doxycycline: 100 mg, Oral, BID heparin injection 25,000 Units + NaCl 0.45% Premix Diluent 250 mL: Titrate, IntraVENous hydrALAZINE: 10 mg, IV Push, Q6H, PRN: Hypertension morphine: 2 mg, IV Push, Q2H, PRN: Pain (Severe 7-10) Documented Medications Documented CeleBREX 200 mg oral capsule: 1 Cap, Oral, BID, 60 Cap, 0 Refill(s) Metoprolol Succinate ER 50 mg oral tablet, extended release: 1 Tab, Oral, Daily, 0 Refill(s) Norvasc 10 mg oral tablet: 1 Tab, Oral, Daily, 0 Refill(s) aspirin 325 mg oral delayed release tablet: 1 Tab, Oral, Daily, 0 Refill(s) isosorbide mononitrate 60 mg oral tablet, extended release: 1.5 Tab, Oral, Daily, 0 Refill(s), Medications (15) Active Scheduled: (5) aspirin EC 81 mg tab 81 mg 1 Tab, Oral, Daily atorvastatin 40 mg tab 80 mg 2 Tab, Oral, At Bedtime cefTRIAXone 2 Gram, IV Piggyback, [id number] doxycycline hyclate 100 mg cap 100 mg 1 Cap, Oral, BID pantoprazole EC 40 mg tab 40 mg 1 Tab, Oral, Daily Continuous: (2) heparin/NaCl 0.45% 25,000 Units + Premix Diluent NaCl 0.45% 250 mL 250 mL, IntraVENous NaCl 0.9% 1,000 mL 1,000 mL, IntraVENous, 75 mL/Hr PRN: (8) acetaminophen 325 mg tab 650 [...] mg 0.25 mL, IntraVENous, Q6H Problem list: Medical At risk for sleep apnea / IMO [id number] / Confirmed, Active Problems (4) Arthritis At risk for sleep apnea CAD (coronary artery disease) Chronic hypertension OBJECTIVE: Physical Examination VS/Measurements Vitals Signs (last 24 hrs) Last Charted Minimum Maximum Temp 98 (APR 27 21:42) 97.8 (APR 27 17:26) 98.1 (APR 27 02:15) Mon HR 72 (APR 27 21:42) 54 (APR 27 02:15) 72 (APR 27 21:42) Resp Rate 16 (APR 27 21:42) 16 (APR 27 21:42) 19 (APR 27 02:15) SBP H 145 (APR 27 21:42) 118 (APR 27 06:35) H 145 (APR 27 02:15) DBP H 92 (APR 27 21:42) 70 (APR 27 06:35) H 92 (APR 27 21:42) MAP 107 (APR 27 21:42) 86 (APR 27 06:35) 107 (APR 27 21:42) SpO2 96 (APR 27 08:00) 95 (APR 27 02:15) 96 (APR 27 08:00) General: Alert and oriented, No acute distress. Eye: Extraocular movements are intact, Normal conjunctiva. Sclera: Not icteric. HENT: Normocephalic, Normal hearing, Oral mucosa is moist. Neck: Supple, Non-tender, No jugular venous distention, No lymphadenopathy. Respiratory: Lungs are clear to auscultation, Respirations are non-labored, Breath sounds are equal, Symmetrical chest wall expansion. Cardiovascular: Normal rate, Regular rhythm, No murmur, No gallop, Good pulses equal in all extremities, No edema. Gastrointestinal: Soft, Non-tender, Non-distended, Normal bowel sounds, No organomegaly. Genitourinary: No costovertebral angle tenderness. Lymphatics: No lymphadenopathy neck, axilla, groin. Musculoskeletal: Normal range of motion, Normal strength, No tenderness, No swelling, No deformity. Integumentary: Warm, [place], Moist, No rash. Neurologic: Alert, Oriented, Normal sensory, Normal motor function, No focal deficits, Cranial Nerves II-XII are grossly intact, Normal deep tendon reflexes. Psychiatric: Cooperative, Appropriate mood & affect, Normal judgment. Review / Management Results review: Labs (Last four charted values) WBC H 16.4 (APR 27) H 15.5 (APR 26) H 15.6 (APR 25) H 15.9 (APR 24) HB H 17.4 (APR 27) H 17.4 (APR 26) 17.3 (APR 25) H 17.4 (APR 24) HCT H 52.2 (APR 27) H 52.1 (APR 26) 50.8 (APR 25) H 52.0 (APR 24) Plt 247 (APR 27) 241 (APR 26) 254 (APR 25) 258 (APR 24) Na L 133 (APR 27) L 135 (APR 26) L 133 (APR 25) L 132 (APR 24) K 5.1 (APR 27) 4.6 (APR 26) 4.1 (APR 25) 4.6 (APR 24) Cl 102 (APR 27) 103 (APR 26) 104 (APR 25) 103 (APR 24) CO2 28 (APR 27) 24 (APR 26) 24 (APR 25) 23 (APR 24) BUN H 27 (APR 27) H 27 (APR 26) H 26 (APR 25) H 34 (APR 24) Cr H 1.40 (APR 27) 1.30 (APR 26) 1.20 (APR 25) H 1.60 (APR 24) Glu R H 112 (APR 27) 101 (APR 26) 106 (APR 25) H 132 (APR 24) Ca 9.0 (APR 27) 9.2 (APR 26) 8.5 (APR 25) 8.9 (APR 24) Lactic 1.4 (APR 22) 1.6 (APR 21) PT 10.8 (APR 21) INR 1.0 (APR 21) PTT H 46.3 (APR 22) AST 29 (APR 25) 30 (APR 24) H 118 (APR 22) H 192 (APR 21) ALT 41 (APR 25) 39 (APR 24) 50 (APR 22) 54 (APR 21) ALK P 70 (APR 25) 77 (APR 24) 68 (APR 22) 76 (APR 21) T Bili 1.1 (APR 25) 0.5 (APR 24) 0.9 (APR 22) 0.7 (APR 21) PTN 7.0 (APR 25) 7.6 (APR 24) 6.9 (APR 22) 7.7 (APR 21) ALB L 3.1 (APR 25) L 3.1 (APR 24) L 3.1 (APR 22) L 3.3 (APR 21) Lipase 133 (APR 21) Troponin C 26.000 (APR 22) C 46.200 (APR 21) , APR 27 01:38 L 133 102 H 27 / H 112 5.1 28 H 1.40 \ APR 27 01:38 \ H 17.4 / H 16.4 247 / H 52.2 \, Radiology Results (Last 48 hours) [id number] -- 04/21/2020 16:53 CR Chest 1 Vw Portable (04/26/2020 08:53) Result: PORTABLE CHESTHISTORY: Pneumonia.COMPARISON: April 22, 2020.FINDINGS: A single portable radiograph of the chest was performed. The heart is normal in size. The aortic contours are normal. Thereare low lung volumes with no infiltrate or edema. There are no pleuraleffusions. There is no pneumothorax identified. The visualized osseousstructures demonstrate no acute abnormalities. IMPRESSION: No acute cardiopulmonary process.Images reviewed, interpreted, and dictated by Dr. Kristina Joshua.Transcribed by Carmencita Foster (R)[place]if[place] (R).I have personally viewed, interpreted and dictated the examination. Ihave read and agree with the above final transcribed report. . Impression and Plan 1. severe CAD with st pain. Evaluated by Cardiothoracic Surgery. 2. Abnormal heart catheterization. 3. Hypertension. We will start hydralazine as needed. 4. Hyperlipidemia, resume home medications. 5. Leukocytosis. placed on empiric antibiotics 6. Gastrointestinal prophylaxis, Protonix 7. Deep venous thrombosis prophylaxis, the patient on heparin drip. Acute kidney injury secondary to Prerenal Azotemia Normal Saline at 75 ml/hour Cor CABG on IV Nitroglycerine drip IV Heparin drip Code status: Full code PLAN OFF IV Nitroglycerine drip Continue Iv Heparin drip Continue Normal saline for AMBER Iv Rocephin for Reactive Leukocytosis Continue Doxycycline for CABG on Wednesday Time spent: 31 minutes documented in this encounter Plan of Treatment Upcoming Encounters Date Type Department Care Team (Late st Contact Info) Description 06/20/2025 2:30 PM EDT Office Visit [facility] Orthopedics - [address] [phone] Mica Chu PA-C [address] [place] [phone] documented as of this encounter Visit Diagnoses Not on filedocumented in this encounter Care Teams Bailer Operators Supervisor Relationship Specialty Start Date End Date Sotero Miller MD [address] [place] [address] PCP - General Adolescent Medicine 10/25/22 documented as of this encounter
--- OUTSIDE RECORDS SUMMARY | 2025-05-13 05:43 | XMS_ITS | Encounter Summary ---
Author Organization [employer] ([place], [place], [place], [place]) Address [address] [place] [address] Care Team Providers Care Hvac Mechanic Name Role Phone Sotero Miller MD Primary Care Provider + [phone] Encounter Details Date Type Department Care Team ( Contact Info) Description 04/26/2020 Transcribed Document [facility] [place] [facility] [place] [address] ProviderMk MD [address] [place], [place] [id number] Social History Tobacco Use Types Packs/Day Years Used Date Smoking Tobacco: Never Assessed Sex and Gender Information Value Date Recorded Sex Assigned at Not on file Legal Sex Male 5:40 PM CDT Gender Identity Not on file Sexual Orientation Not on file documented as of this encounter Miscellaneous Notes * Cerner Conversion Note - Mk ProviderMD - 04/26/2020 2:00 AM CDT Mold Operator Details Entered On: 04/26/2020 2:55 EDT Performed On: 04/26/2020 2:00 EDT by FLORENTIN BELTRAN, RN Order Details Transport Mode Order Detail : Ambulatory Isolation Precautions Order Detail : Contact precautions Order Detail : N/A IV Order Detail : 1 Oxygen Order Detail : 0 Nurse Collect Order Detail : 0 Lift/Transfer : Independent Central Line Order Detail : No Room Service : Needs Assistance Arterial Line : No FLORENTIN BELTRAN, RN - 04/26/2020 2:54 EDT documented in this encounter Plan of Treatment Upcoming Encounters Date Type Department Care Team (Late Contact Info) Description 06/20/2025 2:30 PM EDT Office Visit [facility] Orthopedics - [address] [phone] Mica Chu PA-C [address] [place] [phone] documented as of this encounter Visit Diagnoses Not on filedocumented in this encounter Care Teams Hvac Mechanic Relationship Specialty Start Date End Date Sotero Miller MD [address] [place] [address] PCP - General Adolescent Medicine 10/25/22 documented as of this encounter
--- OUTSIDE RECORDS SUMMARY | 2025-05-13 05:43 | XMS_ITS | Encounter Summary ---
Author Organization [employer] ([place], [place], [place], [place]) Address [address] [place] [address] Care Team Providers Care Black Pickler Name Role Phone Sotero Miller MD Primary Care Provider + [phone] Encounter Details Date Type Department Care Team (Late st Contact Info) Description 04/27/2020 Transcribed Document [facility] [place] [address] ProviderMk MD [address] [place], [place] [id number] Social History Tobacco Use Types Packs/Day Years Used Date Smoking Tobacco: Never Assessed Sex and Gender Information Value Date Recorded Sex Assigned at Not on file Legal Sex Male 5:40 PM CDT Gender Identity Not on file Sexual Orientation Not on file documented as of this encounter Miscellaneous Notes * Cerner Conversion Note - Mk ProviderMD - 04/27/2020 2:00 AM CDT [place] Details Entered On: 04/27/2020 5:46 EDT Performed On: 04/27/2020 2:00 EDT by Laura Heard RN Order Details Transport Mode Order Detail : Ambulatory Isolation Precautions Order Detail : Contact precautions Order Detail : N/A IV Order Detail : 1 Oxygen Order Detail : 0 Nurse Collect Order Detail : 0 Lift/Transfer : Independent Central Line Order Detail : No Room Service : Needs Assistance Arterial Line : No Laura Heard RN - 04/27/2020 5:46 EDT documented in this encounter Plan of Treatment Upcoming Encounters Date Type Department Care Team (Late st Contact Info) Description 06/20/2025 2:30 PM EDT Office Visit [facility] Orthopedics - [address] [phone] Mica Chu PA-C [address] [place] [phone] documented as of this encounter Visit Diagnoses Not on filedocumented in this encounter Care Teams Black Pickler Relationship Specialty Start Date End Date Sotero Miller MD [address] [place] [address] PCP - General Adolescent Medicine 10/25/22 documented as of this encounter
--- OUTSIDE RECORDS SUMMARY | 2025-05-13 05:43 | XMS_ITS | Encounter Summary ---
Author Organization [employer] ([place], [place], [place], [place]) Address [address] [place] [address] Care Team Providers Care Loom Technician Name Role Phone Sotero Miller MD Primary Care Provider + [phone] Encounter Details Date Type Department Care Team (Late st Contact Info) Description 04/29/2020 Transcribed Document [facility] [place] [address] [place] [address] ProviderMk MD [address] [place], [place] [id number] Social History Tobacco Use Types Packs/Day Years Used Date Smoking Tobacco: Never Assessed Sex and Gender Information Value Date Recorded Sex Assigned at Not on file Legal Sex Male 5:40 PM CDT Gender Identity Not on file Sexual Orientation Not on file documented as of this encounter Miscellaneous Notes * Cerner Conversion Note - Mk Mac MD - 04/29/2020 12:12 PM CDT Pain Assessment Entered On: 05/01/2020 19:01 EDT Performed On: 05/01/2020 15:59 EDT by Marquise White, RN Intervention Information: acetaminophen-oxyCODONE Performed by Marquise White, RN on 05/01/2020 14:59:00 EDT acetaminophen-oxyCODONE,2Tab Oral,Pain (Moderate 4-6) Pain Assessment Pain Assessment : Follow-up assessment Pain Scale Goal : 3 Location : Chest Pain Improved by : Medication, Relaxation Pain Intervention, Drug : Medicated Pain Intervention, Non-Drug : Relaxation Marquise White RN - 05/01/2020 19:00 EDT documented in this encounter Plan of Treatment Upcoming Encounters Date Type Department Care Team (Late st Contact Info) Description 06/20/2025 2:30 PM EDT Office Visit [facility] Orthopedics - [address] [phone] Mica Chu, PA-C [address] [place] [phone] documented as of this encounter Visit Diagnoses Not on filedocumented in this encounter Care Teams Loom Technician Relationship Specialty Start Date End Date Sotero Miller MD [address] [place] [address] PCP - General Adolescent Medicine 10/25/22 documented as of this encounter
--- OUTSIDE RECORDS SUMMARY | 2025-05-13 05:43 | XMS_ITS | Encounter Summary ---
Author Organization [employer] ([place], [place], [place], [place]) Address [address] [place] [address] Care Team Providers Care Review Specialist Name Role Phone Sotero Miller MD Primary Care Provider + [phone] Encounter Details Date Type Department Care Team (Late st Contact Info) Description 04/28/2020 Transcribed Document [facility] [place] [facility] [place] [address] ProviderMk MD [address] [place], [place] [id number] Social History Tobacco Use Types Packs/Day Years Used Date Smoking Tobacco: Never Assessed Sex and Gender Information Value Date Recorded Sex Assigned at Not on file Legal Sex Male 5:40 PM CDT Gender Identity Not on file Sexual Orientation Not on file documented as of this encounter Miscellaneous Notes * Cerner Conversion Note - Mk Mac MD - 04/28/2020 2:45 PM CDT Patient: NICO LERNER Age: 70 years Sex: Male : 1950 Associated Diagnoses: None Author: PAPA THORNTON MD-INT DATE OF SERVICE [ DOS ]: 04-28-2020 Basic Information SUBJECTIVE: Patient is seen and [...] delusional. Health Status Allergies: Allergic Reactions (Selected) Severity Not Documented Contrast Dye- Shortness of breath., Allergies (1) Active Reaction Contrast Dye Shortness of breath Current medications: (Selected) Inpatient Medications Ordered Bactroban 2% nasal ointment: 1 Application, Nostrils Both, BID DuoNeb 0.5 mg-2.5 mg/3 mL inhalation solution: 3 mL, Nebulized Inhalation, Q6H, PRN: Shortness of Breath Lactated Ringers Injection intravenous solution 1,000 mL: 20 mL/Hr, IntraVENous Normal Saline 1,000 mL: 75 mL/Hr, IntraVENous Normal Saline Flush: 10 mL, IV Push, Q12H Normal Saline Flush: 10 mL, IV Push, See Comment, PRN: IV Use Phenergan: 6.25 mg, IntraVENous, Q6H, PRN: Nausea Protonix: 40 mg, Oral, Daily Rocephin: 2 Gram, 100 mL/Hr, IV Piggyback, [id number] Tylenol: 650 mg, Oral, Q4H, PRN: Other (See Comment) Xanax: 0.5 mg, Oral, BID, PRN: Anxiety Zofran: 4 mg, IV Push, Q4H, PRN: Nausea aspirin: 81 mg, Oral, Daily atorvastatin: 80 mg, Oral, At Bedtime ceFAZolin: 2 Gram, 50 mL, 100 mL/Hr, IV Piggyback, 1-Time dexmedetomidine injection 400 mcg + NaCl 0.9% for drip 100 mL: Titrate, IntraVENous doxycycline: 100 mg, Oral, BID fentaNYL: 50 mcg, IV Push, Q10Min, PRN: Pain hydrALAZINE: 10 mg, IV Push, Q6H, PRN: Hypertension lidocaine 1% preservative-free injectable solution: 0.5 mL, IntraDermal, 1-Time midazolam: 2 mg, IV Push, Q10Min, PRN: Anxiety morphine: 2 mg, IV Push, Q2H, PRN: Pain (Severe 7-10) Pending Complete Lopressor: 12.5 mg, Oral, BID Documented Medications Documented CeleBREX 200 mg oral [...] 1.5 Tab, Oral, Daily, 0 Refill(s), Medications (22) Active Scheduled: (9) #NaCl 0.9% *FLUSH* inj 10 mL 10 mL, IV Push, Q12H aspirin EC 81 mg tab 81 mg 1 Tab, Oral, Daily atorvastatin 40 mg tab 80 mg 2 Tab, Oral, At Bedtime ceFAZolin/D5w 2 Gram 50 mL, IV Piggyback, 1-Time cefTRIAXone 2 Gram, IV Piggyback, [id number] doxycycline hyclate 100 mg cap 100 mg 1 Cap, Oral, BID lidocaine 1% *PF* inj 2 mL 0.5 mL, IntraDermal, 1-Time mupirocin 2% nasal oint 1 g 1 Application, Nostrils Both, BID pantoprazole EC 40 mg tab 40 mg 1 Tab, Oral, Daily Continuous: (3) dexmedetomidine 400 mcg + NaCl 0.9% TITRATE 100 mL 100 mL, IntraVENous lactated ringers 1,000 mL 1,000 mL, IntraVENous, 20 mL/Hr NaCl 0.9% 1,000 mL 1,000 mL, IntraVENous, 75 mL/Hr PRN: (10) #NaCl 0.9% *FLUSH* inj 10 mL 10 mL, IV Push, See Comment acetaminophen 325 mg tab 650 mg 2 Tab, Oral, Q4H albuterol-ipratropium inh 3 mL 3 mL, Nebulized Inhalation, Q6H ALPRAZolam 0.5 mg tab 0.5 mg 1 Tab, Oral, BID fentaNYL 100 mcg/2 mL inj 50 mcg 1 mL, IV Push, Q10Min hydrALAZINE 20 mg/1 mL inj 10 mg 0.5 mL, IV Push, Q6H midazolam 1 mg/1 mL inj 2 mL 2 mg 2 mL, IV Push, Q10Min morphine 2 mg/1 ml inj 2 mg 1 mL, IV Push, Q2H ondansetron 4 mg/2 mL inj 4 mg 2 mL, IV Push, Q4H promethazine 25 mg/1 mL inj 6.25 mg 0.25 mL, IntraVENous, Q6H Problem list: Medical Acute ST elevation myocardial infarction (STEMI) / SNOMED CT 4707798167 / Confirmed At risk for sleep apnea / IMO [id number] / Confirmed Hypertension / SNOMED CT 8822596012 / Confirmed Acute kidney injury / SNOMED CT 48393059 / Confirmed Stage 3 severe COPD by GOLD classification / SNOMED CT 769162849 / Confirmed, Active Problems (8) Acute kidney injury Acute ST elevation myocardial infarction (STEMI) Arthritis At risk for sleep apnea CAD (coronary artery disease) Chronic hypertension Hypertension Stage 3 severe COPD by GOLD classification OBJECTIVE: Physical Examination General: Alert and oriented, No acute distress. [...] tenderness, No swelling, No deformity. Integumentary: Warm, [place], Moist, No rash. Neurologic: Alert, Oriented, Normal sensory, Normal motor function, No focal deficits, Cranial Nerves II-XII are grossly intact, Normal deep tendon reflexes. Psychiatric: Cooperative, Appropriate mood & affect, Normal judgment. Review / Management Results review: Labs (Last four charted values) Lactic 1.4 (APR 22) 1.6 (APR 21) PT 11.3 (APR 29) 10.8 (APR 21) INR 1.1 (APR 29) 1.0 (APR 21) PTT H 46.3 (APR [...] (APR 22) C 46.200 (APR 21) , , Radiology Results (Last 48 hours) [id number] -- 04/21/2020 16:53 CR Chest 1 Vw Portable (04/28/2020 10:25) Result: PROCEDURE: CR Chest 1 Vw Portable HISTORY: Chest pain.COMPARISON: 04/26/2020.FINDINGS: The heart is normal in size. The mediastinum is unremarkable.The lungs are clear. There is no pneumothorax. There are no acuteosseous abnormalities. IMPRESSION: No acute cardiopulmonary process.Continued follow-up is recommended. . Impression and Plan 1. severe CAD [...] Saline at 75 ml/hour Cor CABG on on IV Nitroglycerine drip IV Heparin drip Code status: Full code PLAN 04-28-2020 For CABG tomorrow NPO after MN Continue Iv Heparin drip Continue Normal saline for AMBER Iv Rocephin for Reactive Leukocytosis Continue Doxycycline Time spent: 18 minutes documented in this encounter Plan of Treatment Upcoming Encounters Date Type Department Care Team (Late st Contact Info) Description 06/20/2025 2:30 PM EDT Office Visit [facility] Orthopedics - [address] [phone] Mica Chu PA-C [address] [place] [phone] documented as of this encounter Visit Diagnoses Not on filedocumented in this encounter Care Teams Review Specialist Relationship Specialty Start Date End Date Sotero Miller MD [address] [place] [address] PCP - General Adolescent Medicine 10/25/22 documented as of this encounter
--- OUTSIDE RECORDS SUMMARY | 2025-05-13 05:43 | XMS_ITS | Encounter Summary ---
Author Organization [employer] ([place], [place], [place], [place]) Address [address] [place] [address] Care Team Providers Care Personnel Clerks Supervisor Name Role Phone Sotero Miller MD Primary Care Provider + [phone] Encounter Details Date Type Department Care Team (Late st Contact Info) Description 04/26/2020 Transcribed Document [facility] [place] On [place] [address] ProviderMk MD [address] [place] [address] Social History Tobacco Use Types Packs/Day Years Used Date Smoking Tobacco: Never Assessed Sex and Gender Information Value Date Recorded Sex Assigned at Not on file Legal Sex Male 5:40 PM CDT Gender Identity Not on file Sexual Orientation Not on file documented as of this encounter Miscellaneous Notes * Cerner Conversion Note - Mk Mac MD - 04/26/2020 8:40 AM CDT Patient: NICO LERNER Age: 70 years Sex: Male : 1950 Associated Diagnoses: None Author: SERAFIN MELTON PA Basic Information This is a 70 y/o male who was transferred from [facility] yesterday with 3VCAD. The pt had an episode of severe chest pain which prompted him to go to the ED. 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 Severe disease of the proximal left circumflex and total occlusion of the distal circumflex. His EF was preserved. The pt received 600mg Plavix during LHC on 04/20/20. The pt was then transferred here for further management and possible surgical intervention. He denies any ongoing history of CP and his first episode of chest pain was on Wednesday and he states he just dismissed it as indigestion. Then on 04/20/20 he had just eaten at [employer] and started having severe chest pain on his way home. He admits to associated SOB and feeling anxious. He was in the car with his son in law and they went straight to the ED in [place]. He denies any heart palpitations, dizziness, orthopnea or PND. He also denies any recent illness, cough, wheezing or fever, chills. Subjective 04/24/20: No chest pain on heparin and nitro drip, at bedside, Anxious about upcoming CABG 04/25/20: OOB in chair. at bedside. No complaints. 04/26/20: Denies chest pain or dyspnea. OOB in chair. Review of Systems Respiratory: No shortness of breath. Cardiovascular: No chest pain. Gastrointestinal: No nausea. Neurologic: Alert and oriented X4. Health Status Allergies: Allergic Reactions (Selected) No [...] PRN: Nausea Protonix: 40 mg, Oral, Daily Tylenol: 650 mg, Oral, Q4H, PRN: Other [...] 1.5 Tab, Oral, Daily, 0 Refill(s), Medications (14) Active Scheduled: (4) aspirin EC 81 mg tab 81 mg [...] mg 0.25 mL, IntraVENous, Q6H Problem list: All Problems At risk for sleep apnea / IMO [id number] / Confirmed Chronic hypertension / SNOMED CT 9283696606 / Confirmed Arthritis / SNOMED CT 4475863 / Confirmed CAD (coronary artery disease) / SNOMED CT 77578235 / Confirmed, Active Problems (4) Arthritis At risk for sleep apnea CAD (coronary artery disease) Chronic hypertension Objective VS/Measurements Vitals Signs (last 24 hrs) Last Charted Minimum Maximum Temp 97.7 (APR 26 05:32) 97.7 (APR 26 05:32) 97.9 (APR 25 22:10) Apical HR 68 (APR 25 20:57) 67 (APR 25 10:54) 68 (APR 25 20:57) Mon HR 50 (APR 26 05:32) 50 (APR 26 05:32) 58 (APR 26 01:40) Resp Rate 16 (APR 26 05:32) 16 (APR 25 22:10) 19 (APR 26 01:40) SBP 129 (APR 26 05:32) 111 (APR 25 10:54) 139 (APR 26 01:40) DBP 72 (APR 26 05:32) 72 (APR 26 05:32) 85 (APR 26 01:40) MAP 94 (APR 26:32) 93 (APR 25 22:10) 101 (APR 26 01:40) SpO2 96 (APR 26 05:32) 96 (APR 26 05:32) 97 (APR 25 21:00) General: Alert and oriented, No acute distress. Respiratory: Lungs are clear to auscultation, Breath sounds are equal. Cardiovascular: Regular rhythm, No murmur, Bradycardia, No edema. Gastrointestinal: Soft, Non-tender. Integumentary: Warm, Dry. Neurologic: Alert, Oriented, No focal deficits. Review / Management Results review: Labs (Last four charted values) WBC H 15.5 (APR 26) H 15.6 (APR 25) H 15.9 (APR 24) H 15.2 (APR 23) HB H 17.4 (APR 26) 17.3 (APR 25) H 17.4 (APR 24) 16.5 (APR 23) HCT H 52.1 (APR 26) 50.8 (APR 25) H 52.0 (APR 24) 49.0 (APR 23) Plt 241 (APR 26) 254 (APR 25) 258 (APR 24) 256 (APR 23) Na L 135 (APR 26) L 133 (APR 25) L 132 (APR 24) L 132 (APR 23) K 4.6 (APR 26) 4.1 (APR 25) 4.6 (APR 24) 4.6 (APR 23) Cl 103 (APR 26) 104 (APR 25) 103 (APR 24) 105 (APR 23) CO2 24 (APR 26) 24 (APR 25) 23 (APR 24) 21 (APR 23) BUN H 27 (APR 26) H 26 (APR 25) H 34 (APR 24) H 28 (APR 23) Cr 1.30 (APR 26) 1.20 (APR 25) H 1.60 (APR 24) 1.10 (APR 23) Glu R 101 (APR 26) 106 (APR 25) H 132 (APR 24) H 135 (APR 23) Ca 9.2 (APR 26) 8.5 (APR 25) 8.9 (APR 24) 8.6 (APR 23) Lactic 1.4 (APR 22) 1.6 (APR 21) [...] 22) C 46.200 (APR 21) , APR 26 05:12 L 135 103 H 27 / 101 4.6 24 1.30 \ APR 21 17:52 \ 16.2 / H 21.4 289 / 49.4 \. Impression and Plan 04/22/[address] Garcia today Possible CABG by Dr. Pagan Hold Plavix Echo and Carotid Duplex is pending 04/23/20 Verify Now platelet test 143 CABG Date TBD Pt can transfer to the floor from CTS standpoint. 04/24/20 CABG Wednesday Continue heparin and nitro drips Acute kidney injury - Cr 1.6 today (1.1 yesterday) Leukocytosis present on admission - doxycycline empirically started - wbc improving since admission Urine culture negative Blood cultures negative so far 04/25/20 Acute Kidney Injury improving. Creatinine 1.12 today. Leukocytosis- 15.9 today. Continue doxycycline. Urine cultures: final no growth. BC: NGTD Continue heparin/NTG drips CABG on Wednesday. Chest xray ordered for the morning. 04/26/20 Creatinine 1.3 WBC 15.5 BC: NGTD Hold beta marcia for now secondary to bradycardia. CABG Wednesday. documented in this encounter Plan of Treatment Upcoming Encounters Date Type Department Care Team (Late st Contact Info) Description 06/20/2025 2:30 PM EDT Office Visit [facility] Orthopedics - [address] [phone] Mica Chu, PAMaddieC [address] [place] [address] documented as of this encounter Visit Diagnoses Not on filedocumented in this encounter Care Teams Personnel Clerks Supervisor Relationship Specialty Start Date End Date Sotero Miller MD [address] [place] [address] PCP - General Adolescent Medicine 10/25/22 documented as of this encounter
--- OUTSIDE RECORDS SUMMARY | 2025-05-13 05:43 | XMS_ITS | Encounter Summary ---
Author Organization [employer] ([place], [place], [place], [place]) Address [address] [place] [address] Care Team Providers Care Conservation Or Heritage Architect Name Role Phone Sotero Miller MD Primary Care Provider [phone] Encounter Details Date Type Department Care Team (Late st Contact Info) Description 04/23/2020 Transcribed Document [facility] Cardiology [address] [place] [phone] [place] [address] [place] [address] [address] [place] [address] Social History Tobacco Use Types Packs/Day Years Used Date Smoking Tobacco: Never Assessed Sex and Gender Information Value Date Recorded Sex Assigned at Not on file Legal Sex Male 5:40 PM CDT Gender Identity Not on file Sexual Orientation Not on file documented as of this encounter Miscellaneous Notes * Cerner Conversion Note - Clement Roblero MD - 04/23/2020 8:05 AM EDT Patient: NICO LERNER Age: 70 years Sex: Male : 1950 Associated Diagnoses: None Author: CLEMENT ROBLERO MD-CAR BASIC PCP: Not Listed Primary Sales Analytics Manager: Dr. Eugenio Peacock MD Requesting MD: Dr. [...] = 1 Tab, Oral, Daily , Medications (15) Active Scheduled: (5) aspirin EC 325 mg tab 325 mg 1 Tab, Oral, Daily atorvastatin 40 mg tab 80 mg 2 Tab, Oral, At Bedtime doxycycline hyclate + NaCl 0.9% 100 mL 100 mg, IV Piggyback, [id number] metoprolol tartrate 25 mg tab 12.5 mg 0.5 Tab, Oral, BID pantoprazole EC 40 mg tab 40 mg 1 Tab, Oral, Daily Continuous: (3) heparin/NaCl 0.45% 25,000 Units + Premix Diluent NaCl 0.45% 250 mL 250 mL, IntraVENous NaCl 0.9% 1,000 mL 1,000 mL, IntraVENous, 75 mL/Hr nitroglycerin/D5w 25 mg + Premix Diluent D5W TITRATE 250 mL 250 mL, IntraVENous PRN: (7) acetaminophen 325 mg tab 650 mg 2 Tab, Oral, Q4H albuterol-ipratropium inh 3 mL 3 mL, Nebulized Inhalation, Q6H hydrALAZINE 20 mg/1 mL inj 10 mg [...] Intake and Output 24 hour intake: Total 370 ml 24 hour output: Total 1,400 ml VS/Measurements Vitals Signs (last 24 hrs) Last Charted Minimum Maximum Temp 98.2 (APR 23 04:00) 98 (APR 22 16:00) 98.6 (APR 22 08:00) Apical HR L 56 (APR 22 21:29) L 56 (APR 22 21:29) 60 (APR 22 08:10) Mon HR 48 (APR 23 05:00) 45 (APR 23 02:00) 62 (APR 22:30) Resp Rate H 22 (APR 23 05:00) 17 (APR 22 12:00) H 34 (APR 22 08:30) SBP 130 (APR 23 05:00) 114 (APR 22 12:30) H 159 (APR 22 18:00) DBP 79 (APR 23 05:00) L 55 (APR 22 12:30) 82 (APR 22 18:00) MAP 100 (APR 23 05:00) 79 (APR 22 12:30) 112 (APR 22 18:00) SpO2 96 (APR 23 05:00) L 89 (APR 22 10:30) 96 (APR 22 12:00) General: Alert and oriented, No acute distress. [...] of motion, Normal strength. Integumentary: Warm, Dry, [place]. Neurologic: Alert, Oriented. Psychiatric: Cooperative, Appropriate mood & affect. Results Review APR 23 04:49 L 132 105 H 28 / H 135 4.6 21 1.10 \ APR 23 04:49 \ 16.5 / H 15.2 256 / 49.0 \ Cardiac Markers (Current Encounter/Past 24 Hours) No Cardiac Marker Results Found (Past 24 Hours) Radiology Results (Last 48 hours) [id number] -- 04/21/2020 16:53 CR Chest 1 Vw Portable (04/22/2020 05:10) Result: PORTABLE CHEST 04/22/2020 6:00 AMHISTORY: DyspneaCOMPARISON: NoneFINDINGS: The cardiac silhouette is enlarged. There is ectasia ofthe aorta with calcified plaque. The mediastinal and hilar structuresare unremarkable. There is pulmonary vascular congestion with probablemild edema. There are trace pleural effusions. There is no pneumothorax. IMPRESSION: Pulmonary vascular congestion with probable mild edema.Trace pleural effusions. Images reviewed, interpreted, and dictated by Dr. Darrel Rodriguez.Transcribed by Clement Sanchez PA-C.I have personally viewed, interpreted and dictated the examination. Ihave read and agree with the above final transcribed report. Impression and Plan IMPRESSION: Remains on heparin and nitro drips. No CP. NSTEMI (troponin peak 46). 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 CV disease in the Dx, left circumflex. Echo EF > 50%, valves OK ([facility] ). Elevated proBNP, no clinical congestion/CHF. Hypertension. Dyslipidemia. Sinus Bradycardia PLAN; 04/23/[address] surgery. Reduce [...] Description 06/20/2025 2:30 PM EDT Office Visit [facility] Orthopedics - [address] [phone] Mica Chu PA-C [address] [place] [address] documented as of this encounter Visit Diagnoses Not on filedocumented in this encounter Care Teams Conservation Or Heritage Architect Relationship Specialty Start Date End Date Sotero Miller MD [address] [place] [address] PCP - General Adolescent Medicine 10/25/22 documented as of this encounter
--- OUTSIDE RECORDS SUMMARY | 2025-05-13 05:43 | XMS_ITS | Encounter Summary ---
Author Organization [employer] ([place], [place], [place], [place]) Address [address] [place] [address] Care Team Providers Care Inspector Publications Name Role Phone Sotero Miller MD Primary Care Provider + [phone] Encounter Details Date Type Department Care Team (Late st Contact Info) Description 04/24/2020 Transcribed Document [facility] [place] Family Medicine [address] [place] [address] ProviderMk MD [address] [place], [place] [id number] Social History Tobacco Use Types Packs/Day Years Used Date Smoking Tobacco: Never Assessed Sex and Gender Information Value Date Recorded Sex Assigned at Not on file Legal Sex Male 5:40 PM CDT Gender Identity Not on file Sexual Orientation Not on file documented as of this encounter Miscellaneous Notes * Cerner Conversion Note - Mk ProviderMD - 04/24/2020 5:00 AM CDT Chart Check - Review Order Profile Entered On: 04/24/2020 4:10 EDT Performed On: 04/24/2020 5:00 EDT by FLORENTIN BELTRAN RN Chart Check Powerplans Initiated/Discontinued as Appropriate : Yes All Active Orders Reviewed : Yes FLORENTIN BELTRAN RN - 04/24/2020 4:10 EDT documented in this encounter Plan of Treatment Upcoming Encounters Date Type Department Care Team (Late st Contact Info) Description 06/20/2025 2:30 PM EDT Office Visit [facility] Orthopedics - [address] [place] [address] Mica Chu PA-C [address] [place] [address] documented as of this encounter Visit Diagnoses Not on filedocumented in this encounter Care Teams Inspector Publications Relationship Specialty Start Date End Date Sotero Miller MD [address] [place] [address] PCP - General Adolescent Medicine 10/25/22 documented as of this encounter
--- OUTSIDE RECORDS SUMMARY | 2025-05-13 05:43 | XMS_ITS | Encounter Summary ---
Author Organization [employer] ([place], [place], [place], [place]) Address [address] [place] [address] Care Team Providers Care Instructional Systems Designer Name Role Phone Sotero Miller MD Primary Care Provider + [phone] Encounter Details Date Type Department Care Team (Late st Contact Info) Description 04/27/2020 Transcribed Document [facility] [place] [facility] [place] [address] ProviderMk MD [address] [place] [address] Social History Tobacco Use Types Packs/Day Years Used Date Smoking Tobacco: Never Assessed Sex and Gender Information Value Date Recorded Sex Assigned at Not on file Legal Sex Male 5:40 PM CDT Gender Identity Not on file Sexual Orientation Not on file documented as of this encounter Miscellaneous Notes * Cerner Conversion Note - Mk Mac MD - 04/27/2020 9:43 AM CDT Patient: NICO LERNER Age: 70 years Sex: Male : 1950 Associated Diagnoses: None Author: SERAFIN MELTON PA Basic Information This is a 70 y/o male who was transferred from [facility] yesterday with 3VCAD. The pt had [...] they went straight to the ED in [place]. He denies any heart palpitations, dizziness, orthopnea or PND. He also denies any recent illness, cough, wheezing or fever, chills. Subjective 04/24/20: No chest pain on heparin and nitro drip, at bedside, Anxious about upcoming CABG 04/25/20: OOB in chair. at bedside. No complaints. 04/26/20: Denies chest pain or dyspnea. OOB in chair. 04/27/20: Doing well. Review of Systems Respiratory: No shortness of [...] Rocephin: 2 Gram, 100 mL/Hr, IV Piggyback, [id number] Tylenol: 650 mg, Oral, Q4H, PRN: Other [...] At Bedtime cefTRIAXone 2 Gram, IV Piggyback, [id number] doxycycline hyclate 100 mg cap 100 mg [...] At risk for sleep apnea / IMO [id number] / Confirmed Chronic hypertension / SNOMED CT 5203662778 / Confirmed Arthritis / SNOMED CT 3386729 / Confirmed CAD (coronary artery disease) / SNOMED CT 73463970 / Confirmed, Active Problems (4) Arthritis At risk for sleep apnea CAD (coronary artery disease) Chronic hypertension Objective VS/Measurements Vitals Signs (last 24 hrs) Last Charted Minimum Maximum Temp 97.7 (APR 27 06:35) 97.7 (APR 27 06:35) 98.1 (APR 27 02:15) Mon HR 55 (APR 27 06:35) 54 (APR 27 02:15) 64 (APR 26 15:21) Resp Rate 18 (APR 27 06:35) 18 (APR 26 18:00) 19 (APR 27 02:15) SBP 118 (APR 27 06:35) 118 (APR 27 06:35) H 150 (APR 26 17:08) DBP 70 (APR 27 06:35) 70 (APR 27 06:35) 87 (APR 26 22:15) MAP 86 (APR 27 06:35) 82 (APR 26 18:00) 101 (APR 26 17:08) SpO2 95 (APR 27 02:15) 95 (APR 26 18:00) 99 (APR 26 17:08) General: Alert and oriented, No acute distress. [...] / H 16.4 247 / H 52.2 \. Impression and Plan 04/22/20 Possible LHC [...] for now secondary to bradycardia. CABG Wednesday. 04/27/20 Creatinine 1.4 WBC 16.4 Continues on Rocephin and Doxycycline. UC/BC: final no growth Continue to hold beta marcia secondary to bradycardia. Encouraged incentive spirometer. CABG Wednesday. Electronically signed by Carlos Mckoy Conversion Information Technology Analyst [employer] at 02/07/2023 11:33 PM CDT documented in this encounter Plan of Treatment Upcoming Encounters Date Type Department Care Team (Late st Contact Info) Description 06/20/2025 2:30 PM EDT Office Visit [facility] Orthopedics - [address] [phone] Mica Chu PA-C [address] [place] [address] documented as of this encounter Visit Diagnoses Not on filedocumented in this encounter Care Teams Instructional Systems Designer Relationship Specialty Start Date End Date Sotero Miller MD [address] [place] [address] PCP - General Adolescent Medicine 10/25/22 documented as of this encounter
--- OUTSIDE RECORDS SUMMARY | 2025-05-13 05:43 | XMS_ITS | Encounter Summary ---
Author Organization [employer] ([place], [place], [place], [place]) Address [address] [place] [address] Care Team Providers Care Approver Name Role Phone Sotero Miller MD Primary Care Provider + [phone] Encounter Details Date Type Department Care Team (Late st Contact Info) Description 04/29/2020 Transcribed Document [facility] [place] Medicine [facility] [place] [address] ProviderMk MD [address] [place] [address] Social History Tobacco Use Types Packs/Day Years Used Date Smoking Tobacco: Never Assessed Sex and Gender Information Value Date Recorded Sex Assigned at Not on file Legal Sex Male 5:40 PM CDT Gender Identity Not on file Sexual Orientation Not on file documented as of this encounter Miscellaneous Notes * Cerner Conversion Note - Mk Mac MD - 04/29/2020 7:05 AM CDT Patient: NICO LERNER Age: 70 years Sex: Male : 1950 Associated Diagnoses: None Author: PAPA THORNTON MD-INT DATE OF SERVICE [ DOS ]: 04-29-2020 Basic Information SUBJECTIVE: Patient is seen and evaluated NPO For surgery today Creatinine improved no CP No SOB Review [...] Rocephin: 2 Gram, 100 mL/Hr, IV Piggyback, [id number] Tylenol: 650 mg, Oral, Q4H, PRN: Other [...] Piggyback, 1-Time cefTRIAXone 2 Gram, IV Piggyback, [id number] doxycycline hyclate 100 mg cap 100 mg [...] elevation myocardial infarction (STEMI) / SNOMED CT 3929975883 / Confirmed At risk for sleep apnea / IMO [id number] / Confirmed Hypertension / SNOMED CT 5615763402 / Confirmed Acute kidney injury / SNOMED CT 02211090 / Confirmed Stage 3 severe COPD by GOLD classification / SNOMED CT 729985923 / Confirmed, Active Problems (8) Acute kidney injury Acute ST elevation myocardial infarction (STEMI) Arthritis At risk for sleep apnea CAD (coronary artery disease) Chronic hypertension Hypertension Stage 3 severe COPD by GOLD classification OBJECTIVE: Physical Examination VS/Measurements Vitals Signs (last 24 hrs) Last Charted Minimum Maximum Temp 97.7 (APR 29 06:11) 97.7 (APR 29 06:11) 97.7 (APR 29 00:16) Mon HR 53 (APR 29 06:11) 48 (APR 29 05:44) 53 (APR 29 00:16) Resp Rate 14 (APR 29 06:11) 14 (APR 29 04:35) 16 (APR 29 00:16) SBP H 149 (APR 29 06:11) 139 (APR 29 00:16) H 161 (APR 29 05:44) DBP 73 (APR 29 06:11) 73 (APR 29 06:11) H 95 (APR 29 05:44) MAP 107 (APR 29 06:11) 105 (APR 29 00:16) 112 (APR 29 04:35) SpO2 97 (APR 29 06:11) 97 (APR 29 00:16) 98 (APR 29 05:44) General: Alert and oriented, No acute distress. [...] tenderness, No swelling, No deformity. Integumentary: Warm, [place], Moist, No rash. Neurologic: Alert, Oriented, Normal sensory, Normal motor function, No focal deficits, Cranial Nerves II-XII are grossly intact, Normal deep tendon reflexes. Psychiatric: Cooperative, Appropriate mood & affect, Normal judgment. Review / Management Results review: Labs (Last four charted values) WBC H 13.3 (APR 29) H 16.0 (APR 28) H 16.4 (APR 27) H 15.5 (APR 26) HB 16.5 (APR 29) 16.9 (APR 28) H 17.4 (APR 27) H 17.4 (APR 26) HCT 49.9 (APR 29) 50.9 (APR 28) H 52.2 (APR 27) H 52.1 (APR 26) Plt 248 (APR 29) 268 (APR 05) 247 (APR 27) 241 (APR 26) Na L 134 (APR 29) 136 (APR 05) L 133 (APR 27) L 135 (APR 26) K 4.5 (APR 29) 4.7 (APR 28) 5.1 (APR 27) 4.6 (APR 26) Cl 103 (APR 29) 103 (APR 05) 102 (APR 27) 103 (APR 26) CO2 27 (APR 29) 27 (APR 28) 28 (APR 27) 24 (APR 26) BUN 16 (APR 29) 21 (APR 28) H 27 (APR 27) H 27 (APR 26) Cr 1.20 (APR 29) 1.30 (APR 28) H 1.40 (APR 27) 1.30 (APR 26) Glu R 104 (APR 29) H 136 (APR 28) H 112 (APR 27) 101 (APR 26) Ca 9.1 (APR 29) 9.0 (APR 28) 9.0 (APR 27) 9.2 (APR 26) Lactic 1.4 (APR 22) 1.6 (APR 21) [...] 22) C 46.200 (APR 21) , APR 29 03:36 L 134 103 16 / 104 4.5 27 1.20 \ APR 29 03:36 \ 16.5 / H 13.3 248 / 49.9 \ , Radiology Results (Last 48 hours) [id number] -- 04/21/2020 16:53 CR Chest 1 Vw [...] Iv Rocephin for Reactive Leukocytosis Continue Doxycycline 04-29-2020 NPO For CABG today AMBER has resolved Time spent: 17 minutes documented in this encounter Plan of Treatment Upcoming Encounters Date Type Department Care Team (Late st Contact Info) Description 06/20/2025 2:30 PM EDT Office Visit [facility] Orthopedics - [address] [phone] Mica Chu PAMaddieC [address] [place] [phone] documented as of this encounter Visit Diagnoses Not on filedocumented in this encounter Care Teams Approver Relationship Specialty Start Date End Date Sotero Miller MD [address] [place] [address] PCP - General Adolescent Medicine 10/25/22 documented as of this encounter
--- OUTSIDE RECORDS SUMMARY | 2025-05-13 05:43 | XMS_ITS | Encounter Summary ---
Author Organization [employer] ([place], [place], [place], [place]) Address [address] [place] [address] Care Team Providers Care Python Web Developer Name Role Phone Sotero Miller MD Primary Care Provider + [phone] Encounter Details Date Type Department Care Team (Late st Contact Info) Description 04/28/2020 Transcribed Document [facility] Family [place] [address] ProviderMk MD [address] [place] [address] Social History Tobacco Use Types Packs/Day Years Used Date Smoking Tobacco: Never Assessed Sex and Gender Information Value Date Recorded Sex Assigned at Not on file Legal Sex Male 5:40 PM CDT Gender Identity Not on file Sexual Orientation Not on file documented as of this encounter Miscellaneous Notes * Cerner Conversion Note - Mk Mac MD - 04/28/2020 9:36 AM CDT Patient: NICO LERNER Age: 70 years Sex: Male : 1950 Associated Diagnoses: None Author: SERAFIN MELTON PA Basic Information This is a 70 y/o male who was transferred from [facility] yesterday with 3VCAD. The pt had an [...] they went straight to the ED in [place]. He denies any heart palpitations, dizziness, orthopnea or PND. He also denies any recent illness, cough, wheezing or fever, chills. Subjective 04/24/20: No chest pain on heparin and nitro drip, at bedside, Anxious about upcoming CABG 04/25/20: OOB in chair. at bedside. No complaints. 04/26/20: Denies chest pain or dyspnea. OOB in chair. 04/27/20: Doing well. 04/28/20: Denies chest pain or shortness of breath. Anxious about surgery tomorrow. Review of Systems Respiratory: No shortness of [...] Rocephin: 2 Gram, 100 mL/Hr, IV Piggyback, [id number] Tylenol: 650 mg, Oral, Q4H, PRN: Other [...] At Bedtime cefTRIAXone 2 Gram, IV Piggyback, [id number] doxycycline hyclate 100 mg cap 100 mg [...] At risk for sleep apnea / IMO [id number] / Confirmed Chronic hypertension / SNOMED CT 0292175668 / Confirmed Arthritis / SNOMED CT 6452598 / Confirmed CAD (coronary artery disease) / SNOMED CT 86092161 / Confirmed, Active Problems (4) Arthritis At risk for sleep apnea CAD (coronary artery disease) Chronic hypertension Objective VS/Measurements Vitals Signs (last 24 hrs) Last Charted Minimum Maximum Temp 98 (APR 27 21:42) 97.8 (APR 27:) 98 (APR 27:42) Mon HR 72 (APR 27:42) 66 (APR 27:) 72 (APR 27:42) Resp Rate 16 (APR 27:42) 16 (APR 27:42) 19 (APR 27:) SBP H 145 (APR 27:42) 133 (APR 27:) H 145 (APR 27:42) DBP H 92 (APR 27:42) 78 (APR 27:) H 92 (APR 27:42) MAP 107 (APR 27:42) 107 (APR 27:42) 107 (APR 27:42) General: Alert and oriented, No acute distress. Respiratory: Lungs are clear to auscultation, Breath sounds are equal. Cardiovascular: Regular rhythm, No murmur, Bradycardia, No edema. Gastrointestinal: Soft, Non-tender. Integumentary: Warm, Dry. Neurologic: Alert, Oriented, No focal deficits. Review / Management Results review: Labs (Last four charted values) WBC H 16.0 (APR 28) H 16.4 (APR 27) H 15.5 (APR 26) H 15.6 (APR 25) HB 16.9 (APR 28) H 17.4 (APR 27) H 17.4 (APR 26) 17.3 (APR 25) HCT 50.9 (APR 28) H 52.2 (APR 27) H 52.1 (APR 26) 50.8 (APR 25) Plt 268 (APR 28) 247 (APR 27) 241 (APR 26) 254 (APR 25) Na 136 (APR 28) L 133 (APR 27) L 135 (APR 26) L 133 (APR 25) K 4.7 (APR 28) 5.1 (APR 27) 4.6 (APR 26) 4.1 (APR 25) Cl 103 (APR 28) 102 (APR 27) 103 (APR 26) 104 (APR 25) CO2 27 (APR 28) 28 (APR 27) 24 (APR 26) 24 (APR 25) BUN 21 (APR 28) H 27 (APR 27) H 27 (APR 26) H 26 (APR 25) Cr 1.30 (APR 28) H 1.40 (APR 27) 1.30 (APR 26) 1.20 (APR 25) Glu R H 136 (APR 28) H 112 (APR 27) 101 (APR 26) 106 (APR 25) Ca 9.0 (APR 28) 9.0 (APR 27) 9.2 (APR 26) 8.5 (APR 25) Lactic 1.4 (APR 22) 1.6 (APR 21) [...] 22) C 46.200 (APR 21) , APR 28 02:26 136 103 21 / H 136 4.7 27 1.30 \ APR 28 02:26 \ 16.9 / H 16.0 268 / 50.9 \. PFTs: FEV1 is 1.38 L (46%), FEV1/FVC ratio is 67, FVC is 2.05 L (50%). Carotid Duplex: RIGHT: Intimal thickening only in the prox ICA. Normal antegrade vertebral flow. No evidence of subclavian steal. LEFT: < 20% stenosis of the prox ICA. Normal antegrade vertebral flow. No evidence of subclavian steal. Impression and Plan 04/22/20 Possible LHC per [...] to bradycardia. Encouraged incentive spirometer. CABG Wednesday. 04/28/20 Creatinine 1.3. Acute Kidney Injury POA WBC 16 today. Continues on Rocephin and Doxycycline. Likely CAP POA. Continue to hold beta marcia secondary to bradycardia. CABG tomorrow. Stop heparin gtt at 0400. Electronically signed by Lizzie Mckoy Conversion Single Ending Machine Operator Cerner at 02/07/2023 11:30 PM CDT documented in this encounter Plan of Treatment Upcoming Encounters Date Type Department Care Team (Late st Contact Info) Description 06/20/2025 2:30 PM EDT Office Visit [facility] Orthopedics - [address] [phone] Mica Chu PA-C [address] [place] [address] documented as of this encounter Visit Diagnoses Not on filedocumented in this encounter Care Teams Python Web Developer Relationship Specialty Start Date End Date Sotero Miller MD [address] [place] [address] PCP - General Adolescent Medicine 10/25/22 documented as of this encounter
--- OUTSIDE RECORDS SUMMARY | 2025-05-13 05:43 | XMS_ITS | Encounter Summary ---
Author Organization [employer] ([place], [place], [place], [place]) Address [address] [place] [address] Care Team Providers Care Fiberglass Container Winding Operator Name Role Phone Sotero Miller MD Primary Care Provider + [phone] Encounter Details Date Type Department Care Team (Late st Contact Info) Description 04/24/2020 Transcribed Document [facility] Family Medicine [address] [place] [address] ProviderMk MD [address] [place] [address] Social History Tobacco Use Types Packs/Day Years Used Date Smoking Tobacco: Never Assessed Sex and Gender Information Value Date Recorded Sex Assigned at Not on file Legal Sex Male 5:40 PM CDT Gender Identity Not on file Sexual Orientation Not on file documented as of this encounter Miscellaneous Notes * Cerner Conversion Note - Mk ProviderMD - 04/24/2020 9:13 AM CDT UM Authorization Entered On: 04/24/2020 9:14 EDT Performed On: 04/24/2020 9:13 EDT by CHON ANDREWS Rn-Utilization Review Primary Insurance Authorization Authorization and Policy Numbers : Insurance 1 Health Plan: ANTHEM HMOPPO Policy Number: [id number] Authorization Number: Insurance 2 Health Plan: MEDICARE Policy Number: [id number] Authorization Number: Insurance Primary Name : ANTHEM HMOPPO Policy Number: [id number] Authorization Status-Primary : Admit approved Reference Number-Primary : [id number] Number of Days Authorized-Primary : 3 Day(s) Authorized Service Begin Date-Primary : 04/21/2020 EDT Authorized Service End Date-Primary : 04/24/2020 EDT Authorization Comments-Primary : Per Availity, Inpt Auth approved 4 days. NRD 04/25. Historical Authorization Comments-Primary : Comment 1: clinicals faxed via cerner for cont stay for dos 04/23/2020 (CATHI DEAL, RN-Utilization Review 04/23/2020 13:09) Comment 2: submitted on availity for IP auth w/ clinicals attached (CATHI DEAL, RN-Utilization Review 04/22/2020 09:38) CHON ANDREWS, Rn-Utilization Review - 04/24/2020 9:13 EDT Electronically signed by Ean, [facility] Conversion Sand Mill Grinder Cerner at 02/07/2023 11:45 PM CDT documented in this encounter Plan of Treatment Upcoming Encounters Date Type Department Care Team (Late st Contact Info) Description 06/20/2025 2:30 PM EDT Office Visit [facility] Orthopedics - [address] [phone] Mica Chu PAAnn-Marie [address] [place] [address] documented as of this encounter Visit Diagnoses Not on filedocumented in this encounter Care Teams Fiberglass Container Winding Operator Relationship Specialty Start Date End Date Sotero Miller MD [address] [place] [address] PCP - General Adolescent Medicine 10/25/22 documented as of this encounter
--- OUTSIDE RECORDS SUMMARY | 2025-05-13 05:43 | XMS_ITS | Encounter Summary ---
Author Organization [employer] ([place], [place], [place], [place]) Address [address] [place] [address] Care Team Providers Care Medical Administrative Technician Name Role Phone Sotero Miller MD Primary Care Provider + [phone] Encounter Details Date Type Department Care Team (Late st Contact Info) Description 04/26/2020 Transcribed Document [facility] [place] [address] [place] [address] ProviderMk MD [address] [place], [place] [id number] Social History Tobacco Use Types Packs/Day Years Used Date Smoking Tobacco: Never Assessed Sex and Gender Information Value Date Recorded Sex Assigned at Not on file Legal Sex Male 5:40 PM CDT Gender Identity Not on file Sexual Orientation Not on file documented as of this encounter Miscellaneous Notes * Cerner Conversion Note - Mk ProviderMD - 04/26/2020 5:00 AM CDT Chart Check - Review Order Profile Entered On: 04/26/2020 4:27 EDT Performed On: 04/26/2020 5:00 EDT by FLORENTIN BELTRAN RN Chart Check Powerplans Initiated/Discontinued as Appropriate : Yes All Active Orders Reviewed : Yes FLORENTIN BELTRAN RN - 04/26/2020 4:27 EDT documented in this encounter Plan of Treatment Upcoming Encounters Date Type Department Care Team (Late st Contact Info) Description 06/20/2025 2:30 PM EDT Office Visit [facility] Orthopedics - [address] [place] [address] Mica Chu PA-C [address] [place] [address] documented as of this encounter Visit Diagnoses Not on filedocumented in this encounter Care Teams Medical Administrative Technician Relationship Specialty Start Date End Date Sotero Miller MD [address] [place] [address] PCP - General Adolescent Medicine 10/25/22 documented as of this encounter
--- OUTSIDE RECORDS SUMMARY | 2025-05-13 05:43 | XMS_ITS | Encounter Summary ---
Author Organization [employer] ([place], [place], [place], [place]) Address [address] [place] [address] Care Team Providers Care Early Learning Teacher Name Role Phone Sotero Miller MD Primary Care Provider [phone] Encounter Details Date Type Department Care Team (Late st Contact Info) Description 04/25/2020 Transcribed Document [facility] Cardiology [address] [place] [phone] [place] [address] [place] [address] [address] [place] [address] Social History Tobacco Use Types Packs/Day Years Used Date Smoking Tobacco: Never Assessed Sex and Gender Information Value Date Recorded Sex Assigned at Not on file Legal Sex Male 5:40 PM CDT Gender Identity Not on file Sexual Orientation Not on file documented as of this encounter Miscellaneous Notes * Cerner Conversion Note - Clement Roblero MD - 04/25/2020 7:47 AM EDT Patient: NICO LERNER Age: 70 years Sex: Male : 1950 Associated Diagnoses: None Author: ADELAIDA ASHFORD, PHARMACY INTAKE TECHNICIAN BASIC PCP: Not Listed Primary Inspector Elevators: Dr. Eugenio Peacock MD Requesting MD: Dr. [...] Intake and Output 24 hour intake: Total 1,710 ml 24 hour output: Total 1,300 ml VS/Measurements Vitals Signs (last 24 hrs) Last Charted Minimum Maximum Temp 97.8 (APR 25 06:09) 97.8 (APR 25 06:09) 98.6 (APR 24 14:00) Apical HR 67 (APR 24 20:33) 64 (APR 24 10:55) 67 (APR 24 20:33) Mon HR 57 (APR 25 06:09) 56 (APR 25 02:29) 66 (APR 24 18:00) Resp Rate 18 (APR 25 06:09) 17 (APR 24 18:00) 19 (APR 24 21:45) SBP 120 (APR 25 06:09) 119 (APR 24 18:00) H 152 (APR 24 21:45) DBP 80 (APR 25 06:09) 67 (APR 24 18:00) 89 (APR 24 21:45) MAP 91 (APR 25 06:) 79 (APR 24 18:00) 109 (APR 24 21:45) SpO2 96 (APR 25 06:09) 95 (APR 24 08:46) 96 (APR 24 20:30) General: Alert and oriented, No acute distress. [...] of motion, Normal strength. Integumentary: Warm, Dry, [place]. Neurologic: Alert, Oriented. Psychiatric: Cooperative, Appropriate mood & affect. Results Review No qualifying data available Impression and Plan IMPRESSION: NSTEMI (troponin peak 46). 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 CV disease in the Dx, left circumflex. Echo EF > 50%, valves OK ([facility] ). Elevated proBNP, no clinical congestion/CHF CTS Consulted; CABG planned 04/29/2020 Hypertension. Dyslipidemia. Sinus Bradycardia. PLAN; 04/25/2020 DC ntg Gtt Current rx appropriate No further cardiac testing at this time Reconsult post CABG 04/24/2020 Current medical therapy appropriate CABG timing [...] Office Visit [facility] Orthopedics - [address] [phone] Mica Chu PA-C [address] [place] [phone] documented as of this encounter Visit Diagnoses Not on filedocumented in this encounter Care Teams Early Learning Teacher Relationship Specialty Start Date End Date Sotero Miller MD [address] [place] [address] PCP - General Adolescent Medicine 10/25/22 documented as of this encounter
--- OUTSIDE RECORDS SUMMARY | 2025-05-13 05:43 | XMS_ITS | Encounter Summary ---
Author Organization [employer] ([place], [place], [place], [place]) Address [address] [place] [address] Care Team Providers Care Crew Boss Name Role Phone Sotero Miller MD Primary Care Provider + [phone] Encounter Details Date Type Department Care Team (Late st Contact Info) Description 04/24/2020 Transcribed Document [facility] Family [place] [address] ProviderMk MD [address] [place] [address] Social History Tobacco Use Types Packs/Day Years Used Date Smoking Tobacco: Never Assessed Sex and Gender Information Value Date Recorded Sex Assigned at Not on file Legal Sex Male 5:40 PM CDT Gender Identity Not on file Sexual Orientation Not on file documented as of this encounter Miscellaneous Notes * Cerner Conversion Note - Mk Mac MD - 04/24/2020 9:44 AM CDT Patient: NICO LERNER Age: 70 years Sex: Male : 1950 Associated Diagnoses: None Author: AVERY NICKERSON PA Basic Information This is a 70 y/o male who was transferred from [facility] yesterday with 3VCAD. The pt [...] preserved. The pt received 600mg Plavix during C on 04/20/20. The pt was then transferred [...] they went straight to the ED in [place]. He denies any heart palpitations, dizziness, orthopnea or PND. He also denies any recent illness, cough, wheezing or fever, chills. Subjective 04/24/20: No chest pain on heparin and nitro drip, at bedside, Anxious about upcoming CABG Review of Systems Respiratory: No shortness of breath. Cardiovascular: No chest pain. Gastrointestinal: No nausea. Neurologic: Alert and oriented X4. Health Status Allergies: Allergic Reactions (Selected) No Known Allergies Current medications: Medications (16) Active Scheduled: (5) aspirin EC [...] inj 6.25 mg 0.25 mL, IntraVENous, Q6H Objective VS/Measurements Vital Measurements 04/24/2020 8:46 EDT Oxygen Saturation 95 % Oxygen Therapy Mode Room air 04/24/2020 5:28 EDT Systolic Blood Pressure 123 mmHg Diastolic Blood Pressure 85 mmHg Heart Rate Monitored 61 bpm General: Alert and oriented, No acute distress. Respiratory: Lungs are clear to auscultation, Breath sounds are equal. Cardiovascular: Normal rate, Regular rhythm, No murmur, No edema. Gastrointestinal: Soft, Non-tender. Integumentary: Warm, Dry. Neurologic: Alert, Oriented, No focal deficits. Review / Management Results review: APR 23 04:49 L 132 105 H 28 / H 135 4.6 21 1.10 \ APR 21 17:52 \ 16.2 / [...] culture negative Blood cultures negative so far documented in this encounter Plan of Treatment Upcoming Encounters Date Type Department Care Team (Late st Contact Info) Description 06/20/2025 2:30 PM EDT Office Visit [facility] Orthopedics - [address] [phone] Mica Chu PA-C [address] [place] [address] documented as of this encounter Visit Diagnoses Not on filedocumented in this encounter Care Teams Crew Boss Relationship Specialty Start Date End Date Sotero Miller MD [address] [place] [address] PCP - General Adolescent Medicine 10/25/22 documented as of this encounter
--- OUTSIDE RECORDS SUMMARY | 2025-05-13 05:43 | XMS_ITS | Encounter Summary ---
Author Organization [employer] ([place], [place], [place], [place]) Address [address] [place] [address] Care Team Providers Care Yarn Mercerizer Operator Helper Name Role Phone Sotero Miller MD Primary Care Provider + [phone] Encounter Details Date Type Department Care Team (Late st Contact Info) Description 04/25/2020 Transcribed Document [facility] [place] [address] [place] [address] ProviderMk MD [address] [place], [place] [id number] Social History Tobacco Use Types Packs/Day Years Used Date Smoking Tobacco: Never Assessed Sex and Gender Information Value Date Recorded Sex Assigned at Not on file Legal Sex Male 5:40 PM CDT Gender Identity Not on file Sexual Orientation Not on file documented as of this encounter Miscellaneous Notes * Cerner Conversion Note - Mk ProviderMD - 04/25/2020 5:00 AM CDT Chart Check - Review Order Profile Entered On: 04/25/2020 4:23 EDT Performed On: 04/25/2020 5:00 EDT by FLORENTIN BELTRAN RN Chart Check Powerplans Initiated/Discontinued as Appropriate : Yes All Active Orders Reviewed : Yes FLORENTIN BELTRAN RN - 04/25/2020 4:22 EDT documented in this encounter Plan of Treatment Upcoming Encounters Date Type Department Care Team (Late st Contact Info) Description 06/20/2025 2:30 PM EDT Office Visit [facility] Orthopedics - [address] [place] [address] Mica Chu PA-C [address] [place] [address] documented as of this encounter Visit Diagnoses Not on filedocumented in this encounter Care Teams Yarn Mercerizer Operator Helper Relationship Specialty Start Date End Date Sotero Miller MD [address] [place] [address] PCP - General Adolescent Medicine 10/25/22 documented as of this encounter
--- OUTSIDE RECORDS SUMMARY | 2025-05-13 05:43 | XMS_ITS | Encounter Summary ---
Author Organization [employer] ([place], [place], [place], [place]) Address [address] [place] [address] Care Team Providers Care Air Pollution Auditor Name Role Phone Sotero Miller MD Primary Care Provider + [phone] Encounter Details Date Type Department Care Team (Late st Contact Info) Description 04/24/2020 Transcribed Document [facility] [place] [address] [place] [address] ProviderMk MD [address] [place] [address] Social History Tobacco Use Types Packs/Day Years Used Date Smoking Tobacco: Never Assessed Sex and Gender Information Value Date Recorded Sex Assigned at Not on file Legal Sex Male 5:40 PM CDT Gender Identity Not on file Sexual Orientation Not on file documented as of this encounter Miscellaneous Notes * Cerner Conversion Note - Mk Mac MD - 04/24/2020 1:18 PM CDT Patient: NICO LERNER Age: 70 years Sex: Male : 1950 Associated Diagnoses: None Author: PAPA THORNTON MD-INT DATE OF SERVICE [ DOS ]: 04-24-2020 Basic Information SUBJECTIVE: Patient is seen and evaluated Review of Systems Constitutional: No fever, No [...] Nebulized Inhalation, Q6H, PRN: Shortness of Breath Lopressor: 12.5 mg, Oral, BID NaCl 0.9% bolus: 1,500 mL, 62.5 mL/Hr, IV Piggyback, 1-Time Normal Saline 1,000 mL: 75 mL/Hr, IntraVENous [...] IV Push, Q2H, PRN: Pain (Severe 7-10) nitroglycerin injection 25 mg + D5W Premix Diluent for Drip 250 mL: TITRATE, IntraVENous Documented Medications Documented CeleBREX 200 mg oral [...] 1.5 Tab, Oral, Daily, 0 Refill(s), Medications (17) Active Scheduled: (6) aspirin EC 81 mg tab 81 mg 1 Tab, Oral, Daily atorvastatin 40 mg tab 80 mg 2 Tab, Oral, At Bedtime doxycycline hyclate 100 mg cap 100 mg 1 Cap, Oral, BID metoprolol tartrate 25 mg tab 12.5 mg 0.5 Tab, Oral, BID NaCl 0.9% 1,500 mL, IV Piggyback, 1-Time pantoprazole EC 40 mg tab 40 mg [...] At risk for sleep apnea / IMO [id number] / Confirmed, Active Problems (4) Arthritis At risk for sleep apnea CAD (coronary artery disease) Chronic hypertension OBJECTIVE: Physical Examination VS/Measurements Vitals Signs (last 24 hrs) Last Charted Minimum Maximum Temp 97.5 (APR 24 10:00) 97.5 (APR 24 10:00) 98.3 (APR 23 17:23) Apical HR 64 (APR 24 10:55) 64 (APR 24 10:55) 70 (APR 23 20:41) Mon HR 64 (APR 24 10:00) 54 (APR 24:48) 72 (APR 23 17:23) Resp Rate 16 (APR 24 05:28) 16 (APR 23 17:23) 19 (APR 23 21:25) SBP 134 (APR 24 10:55) 114 (APR 24:48) H 147 (APR 23 21:25) DBP 81 (APR 24 10:00) 72 (APR 24:48) 85 (APR 23 21:25) MAP 93 (APR 24 10:00) 86 (APR 23 17:23) 97 (APR 23 21:25) SpO2 95 (APR 24 08:46) 94 (APR 23 17:23) 96 (APR 23 15:00) General: Alert and oriented, No acute distress. [...] tenderness, No swelling, No deformity. Integumentary: Warm, [place], Moist, No rash. Neurologic: Alert, Oriented, Normal sensory, Normal motor function, No focal deficits, Cranial Nerves II-XII are grossly intact, Normal deep tendon reflexes. Psychiatric: Cooperative, Appropriate mood & affect, Normal judgment. Review / Management Results review: Labs (Last four charted values) WBC H 15.9 (APR 24) H 15.2 (APR 23) H 21.4 (APR 21) HB H 17.4 (APR 24) 16.5 (APR 23) 16.2 (APR 21) HCT H 52.0 (APR 24) 49.0 (MAR 30) 49.4 (APR 21) Plt 258 (APR 24) 256 (APR 23) 289 (APR 21) Na L 132 (APR 24) L 132 (MAR 30) L 135 (APR 22) 138 (APR 21) K 4.6 (APR 24) 4.6 (MAR 30) 4.3 (MAR 29) 4.2 (APR 21) Cl 103 (APR 24) 105 (MAR 30) 106 (APR 22) 105 (APR 21) CO2 23 (APR 24) 21 (MAR 30) 24 (MAR 29) 26 (APR 21) BUN H 34 (APR 24) H 28 (APR 23) H 26 (APR 22) H 23 (APR 21) Cr H 1.60 (APR 24) 1.10 (APR 23) 1.10 (APR 22) 1.20 (APR 21) Glu R H 132 (APR 24) H 135 (APR 23) H 161 (APR 22) H 151 (APR 21) Ca 8.9 (APR 24) 8.6 (APR 23) 8.4 (APR 22) 9.1 (APR 21) Lactic 1.4 (APR 22) 1.6 (APR 21) PT 10.8 (APR 21) INR 1.0 (APR 21) PTT H 46.3 (APR 22) AST 30 (APR 24) H 118 (APR 22) H 192 (APR 21) ALT 39 (APR 24) 50 (APR 22) 54 (APR 21) ALK P 77 (APR 24) 68 (APR 22) 76 (APR 21) T Bili 0.5 (APR 24) 0.9 (APR 22) 0.7 (APR 21) PTN 7.6 (APR 24) 6.9 (APR 22) 7.7 (APR 21) ALB L 3.1 (APR 24) L 3.1 (MAR 29) L 3.3 (APR 21) Lipase 133 (APR 21) Troponin C 26.000 (APR 22) C 46.200 (APR 21) , APR 24 00:07 L 132 103 H 34 / H 132 4.6 23 H 1.60 \ APR 24 00:07 \ H 17.4 / H 15.9 258 / H 52.0 \, No Radiology Results Found. Impression and Plan 1. severe CAD Chest pain. The patient is admitted to the hospital with chest pain. The patient with history of hypertension, hyperlipidemia, had a heart cath done, which was abnormal. The patient will be started on heparin drip and nitroglycerin drip. We will consult Cardiothoracic Surgery. 2. Abnormal heart catheterization. The patient admitted to the hospital for Cardiothoracic Surgery evaluation. We will start the patient on heparin drip and nitroglycerin drip and morphine as needed. We will check cardiac enzymes and EKG. 3. Hypertension. We will start hydralazine as needed. 4. Hyperlipidemia, resume home medications. 5. Leukocytosis. Culture done, start empirically on IV doxycycline and IV fluids. Check chest x-ray. 6. Gastrointestinal prophylaxis, Pepcid. 7. Deep venous thrombosis prophylaxis, the patient on heparin drip. Code status: Full code Time spent: 20 minutes Electronically signed by Ean [facility] Conversion Bilingual Sales Assistant Cerner at 02/07/2023 11:32 PM CDT documented in this encounter Plan of Treatment Upcoming Encounters Date Type Department Care Team (Late st Contact Info) Description 06/20/2025 2:30 PM EDT Office Visit [facility] Orthopedics - [address] [phone] Mica Chu PA-C [address] [place] [address] documented as of this encounter Visit Diagnoses Not on filedocumented in this encounter Care Teams Air Pollution Auditor Relationship Specialty Start Date End Date Sotero Miller MD [address] [place] [address] PCP - General Adolescent Medicine 10/25/22 documented as of this encounter
--- OUTSIDE RECORDS SUMMARY | 2025-05-13 05:43 | XMS_ITS | Encounter Summary ---
Author Organization [employer] ([place], [place], [place], [place]) Address [address] [place] [address] Care Team Providers Care Dust Box Tender Name Role Phone Sotero Miller MD Primary Care Provider + [phone] Encounter Details Date Type Department Care Team ( Contact Info) Description 04/24/2020 Transcribed Document [facility] [place] [facility] [place] [address] ProviderMk MD [address] [place], [place] [id number] Social History Tobacco Use Types Packs/Day Years Used Date Smoking Tobacco: Never Assessed Sex and Gender Information Value Date Recorded Sex Assigned at Not on file Legal Sex Male 5:40 PM CDT Gender Identity Not on file Sexual Orientation Not on file documented as of this encounter Miscellaneous Notes * Cerner Conversion Note - Mk ProviderMD - 04/24/2020 2:00 AM CDT Palm And Back Forger Details Entered On: 04/24/2020 1:00 EDT Performed On: 04/24/2020 2:00 EDT by FLORENTIN BELTRAN, RN Order Details Transport Mode Order Detail : Ambulatory Isolation Precautions Order Detail : Contact precautions Order Detail : N/A IV Order Detail : 1 Oxygen Order Detail : 0 Nurse Collect Order Detail : 0 Lift/Transfer : Independent Central Line Order Detail : No Room Service : Not Appropriate Arterial Line : No FLORENTIN BELTRAN, RN - 04/24/2020 1:00 EDT documented in this encounter Plan of Treatment Upcoming Encounters Date Type Department Care Team (Late Contact Info) Description 06/20/2025 2:30 PM EDT Office Visit [facility] Orthopedics - [address] [phone] Mica Chu PA-C [address] [place] [address] documented as of this encounter Visit Diagnoses Not on filedocumented in this encounter Care Teams Dust Box Tender Relationship Specialty Start Date End Date Sotero Miller MD [address] [place] [address] PCP - General Adolescent Medicine 10/25/22 documented as of this encounter
--- OUTSIDE RECORDS SUMMARY | 2025-05-13 05:43 | XMS_ITS | Encounter Summary ---
Author Organization [employer] ([place], [place], [place], [place]) Address [address] [place] [address] Care Team Providers Care Lawn Care Specialist Name Role Phone Sotero Miller MD Primary Care Provider + [phone] Encounter Details Date Type Department Care Team (Late st Contact Info) Description 04/29/2020 Transcribed Document [facility] [place] [address] [place] [address] ProviderMk MD [address] [place], [place] [id number] Social History Tobacco Use Types Packs/Day Years Used Date Smoking Tobacco: Never Assessed Sex and Gender Information Value Date Recorded Sex Assigned at Not on file Legal Sex Male 5:40 PM CDT Gender Identity Not on file Sexual Orientation Not on file documented as of this encounter Miscellaneous Notes * Cerner Conversion Note - Mk Mac MD - 04/29/2020 12:24 PM CDT DATE OF PROCEDURE: 04/29/2020 SURGEON: Ladonna Pagan MD PREOPERATIVE DIAGNOSES: 1. Unstable angina. 2. Severe 3-vessel coronary artery disease. 3. Status post non-Q-wave myocardial infarction. 4. Hypertension. 5. Hyperlipidemia. 6. History of cigarette abuse. POSTOPERATIVE DIAGNOSES: 1. Unstable angina. 2. Severe 3-vessel coronary artery disease. 3. Status post non-Q-wave myocardial infarction. 4. Hypertension. 5. Hyperlipidemia. 6. History of cigarette abuse. PROCEDURES PERFORMED: 1. Median sternotomy. 2. Coronary artery bypass graft x3 with left internal mammary artery anastomosed to LAD, reverse saphenous vein graft anastomosed from ascending aorta to the diagonal, and finally reverse saphenous vein graft anastomosed to the posterolateral branch on cardiopulmonary bypass. 3. Application of platelet-rich and platelet-poor platelet gel. 4. Endoscopic vein harvesting from the right lower extremity. 5. Intraoperative transesophageal echocardiography. ANESTHESIA: General endotracheal. VISUALIZER: JOSH Gross. INDICATION FOR PROCEDURE: Nico Meade is a 70-year-old male who presented to outside hospital with complaint of significant amount of chest pain. At [facility], the patient underwent further evaluation and was ruled in for a non-Q-wave myocardial infarction. Left heart catheterization was then performed which revealed occlusion of the LAD, occlusion of the circumflex, and occlusion of the right coronary artery. There was disease in proximal LAD and approximately 80% proximal diagonal. The patient was subsequently referred here for coronary revascularization. FINDINGS OF THE OPERATION: Intraoperative transesophageal echocardiography revealed relatively preserved left ventricular function. There was moderate mitral regurgitation. Left internal mammary artery had good flow. Vein was of fair quality. Ascending aorta was without calcification. The posterolateral branch was 1.5 mm in diameter. There was no suitable targets for the circumflex system. Diagonal branch was 1.5 mm in diameter. LAD was also 1.5 mm in diameter. Lay of the grafts was good. The patient came off cardiopulmonary bypass without difficulty. Post-pump intraoperative transesophageal echocardiography revealed mild mitral regurgitation post revascularization. DESCRIPTION OF PROCEDURE: After informed consent was obtained, the patient was brought into the operating room and was placed in supine position. General endotracheal anesthesia was administered without any complication. Entire chest, abdomen, groin, and both lower extremities were prepped and draped in sterile fashion. Time-out was called. Patient identity and the procedure were confirmed. Median sternotomy incision was made. Sternum was opened using the saw. Hemostasis was obtained using electrocautery. Dissection of the left internal mammary artery was performed simultaneous to harvesting of the saphenous vein using the endoscopic technique from the right lower extremity. This was performed by identifying the vein at the level of the knee. Subcutaneous tissue was insufflated using CO2. Proximal and distal dissection of the vein was performed using endoscope. Stab wound in the groin was made, and the vein was grasped using hemostat. Using scissors, the vein was transected and was subsequently removed. The saphenous vein was ligated proximally and distally in situ. Branches of the vein were also ligated using silk sutures and were prepared for usage as a conduit. Pericardial well was created. The patient was systemically heparinized. Aorta was cannulated using a 22-Romansh aortic cannula. Single dual-stage venous cannula was inserted into the right atrium. The patient was hooked up to the cardiopulmonary bypass. Left internal mammary artery was taken down and was prepared for anastomosis. Cardiopulmonary bypass was initiated. Distal targets were marked. HeartNet and phrenic nerve protector were positioned. Systemic cooling as well as topical cooling was applied. Cardioplegia needle was inserted into the root of the aorta. Aorta was then cross-clamped, and heart was arrested using cold blood cardioplegia administered into the root of the aorta. Cardioplegia was administered every 20 minutes or after each distal anastomosis. After the heart was arrested, the attention was focused to the right coronary artery system. There was no suitable target for bypass. There was a posterolateral branch that was identified. This vessel was opened. It was approximately 1.5 mm in diameter. Using 7-0 Prolene suture and saphenous vein, an end-to-side anastomosis of the vein to this target was performed in a continuous fashion. Sutures were tied down, and there was good flow. Vein graft was measured and was cut. Next, attention was focused to the circumflex system. The branches were all extremely small and were not bypassable. Hence, attention was focused to the diagonal branch. The vessel was opened, it was 1.5 mm in diameter. Using 7-0 Prolene suture and saphenous vein, an end-to-side anastomosis of the vein to this target was performed in a continuous fashion. Sutures were tied down, and there was good flow. Warming of the patient was initiated. Last target bypass was the left anterior descending artery. The vessel was opened in its mid portion. We were able to pass a 1.5 mm probe down all the way to the apex. Next, using 7-0 Prolene suture and left internal mammary artery, an end-to-side anastomosis of the GAMBINO to the LAD was performed in a continuous fashion. Sutures were tied down, and bulldog clamp from GAMBINO was removed and there was good flow through the anastomotic site. Mammary pedicle was secured to epicardium using 6-0 Prolene suture x2. A tear in the pericardium was created for the mammary. The aortic cross-clamp was removed. Heart returned cardiac activity, eventually in sinus rhythm. Partial occluding clamp was applied to the ascending aorta. Two aortotomies were created using 4.5 mm aortic punch. Two proximal anastomoses of the vein graft to the ascending aorta were performed using 6-0 Prolene suture in an end-to-side fashion. Each vein grafts were occluded using bulldog clamp. The patient was placed in deep Trendelenburg position, and the partial occluding clamp was removed. Vein grafts were de-aired, and flow to the distal anastomotic sites was established. Distal as well as the proximal anastomotic sites were checked for bleeding. When we were content with that, the patient was weaned off cardiopulmonary bypass without difficulty. Venous cannula was removed, and heparin was reversed using protamine sulfate. After entire protamine was in, aortic cannula was also removed. Pericardial sac was approximated using silk sutures. Temporary ventricular pacing wires were placed and were brought out through a separate skin sites and were secured. Sternum was then closed using stainless steel wires placed in simple interrupted fashion. Prior to the closure of the sternum, platelet-rich platelet gel, which was made from the patient's own whole blood with me in the room present, was applied to the sternum and the sternal wall. After the sternal closure, fascia was approximated using 0 PDS. Subcutaneous tissue was treated with platelet-poor platelet gel and was then closed using 2-0 Vicryl. Skin was approximated using subcuticular stitches. Saphenous vein harvest site was also closed in 2 layers, and skin was approximated using subcuticular stitches. The patient tolerated the procedure well and was transferred to the intensive care unit in stable condition. /[id number] MD KENNA Gomze/AQ / HRM / MODL /[id number] CC: MD Eugenio Gomez MD documented in this encounter Plan of Treatment Upcoming Encounters Date Type Department Care Team (Late st Contact Info) Description 06/20/2025 2:30 PM EDT Office Visit [facility] Orthopedics - [address] [phone] Mica Chu PA-C [address] [place] [address] documented as of this encounter Visit Diagnoses Not on filedocumented in this encounter Care Teams Lawn Care Specialist Relationship Specialty Start Date End Date Sotero Miller MD [address] [place] [address] PCP - General Adolescent Medicine 10/25/22 documented as of this encounter
--- OUTSIDE RECORDS SUMMARY | 2025-05-13 05:43 | XMS_ITS | Encounter Summary ---
Author Organization [employer] ([place], [place], [place], [place]) Address [address] [place] [address] Care Team Providers Care Channel Executive Name Role Phone Sotero Miller MD Primary Care Provider + [phone] Encounter Details Date Type Department Care Team (Late st Contact Info) Description 04/26/2020 Transcribed Document [facility] [place] Family Medicine [address] [place] [address] ProviderMk MD [address] [place], [place] [id number] Social History Tobacco Use Types Packs/Day Years Used Date Smoking Tobacco: Never Assessed Sex and Gender Information Value Date Recorded Sex Assigned at Not on file Legal Sex Male 5:40 PM CDT Gender Identity Not on file Sexual Orientation Not on file documented as of this encounter Miscellaneous Notes * Cerner Conversion Note - Mk ProviderMD - 04/26/2020 5:00 PM CDT Chart Check - Review Order Profile Entered On: 04/26/2020 19:01 EDT Performed On: 04/26/2020 17:00 EDT by Britt Carrion Rn Chart Check Powerplans Initiated/Discontinued as Appropriate : Not applicable All Active Orders Reviewed : Yes Britt Carrion Rn - 04/26/2020 19:01 EDT documented in this encounter Plan of Treatment Upcoming Encounters Date Type Department Care Team (Late st Contact Info) Description 06/20/2025 2:30 PM EDT Office Visit [facility] Orthopedics - [address] [phone] Mica Chu PA-C [address] [place] [address] documented as of this encounter Visit Diagnoses Not on filedocumented in this encounter Care Teams Channel Executive Relationship Specialty Start Date End Date Sotero Miller MD [address] [place] [address] PCP - General Adolescent Medicine 10/25/22 documented as of this encounter
--- OUTSIDE RECORDS SUMMARY | 2025-05-13 05:43 | XMS_ITS | Encounter Summary ---
Author Organization [employer] ([place], [place], [place], [place]) Address [address] [place] [address] Care Team Providers Care Tailor Men'S Ready To Wear Name Role Phone Sotero Miller MD Primary Care Provider + [phone] Encounter Details Date Type Department Care Team (Late st Contact Info) Description 04/25/2020 Transcribed Document [facility] [place] [facility] [place] [address] ProviderMk MD [address] [place] [address] Social History Tobacco Use Types Packs/Day Years Used Date Smoking Tobacco: Never Assessed Sex and Gender Information Value Date Recorded Sex Assigned at Not on file Legal Sex Male 5:40 PM CDT Gender Identity Not on file Sexual Orientation Not on file documented as of this encounter Miscellaneous Notes * Cerner Conversion Note - Mk Mac MD - 04/25/2020 10:14 AM CDT Patient: NICO LERNER Age: 70 years Sex: Male : 1950 Associated Diagnoses: None Author: SERAFIN MELTON PA Basic Information This is a 70 y/o male who was transferred from [facility] yesterday with 3VC[facility]. The pt [...] they went straight to the ED in [place]. He denies any heart palpitations, dizziness, orthopnea or PND. He also denies any recent illness, cough, wheezing or fever, chills. Subjective 04/24/20: No chest pain on heparin and nitro drip, at bedside, Anxious about upcoming CABG 04/25/20: OOB in chair. at bedside. No complaints. Review of Systems Respiratory: No shortness of [...] of Breath Lopressor: 12.5 mg, Oral, BID Normal Saline 1,000 mL: 75 mL/Hr, IntraVENous [...] 1.5 Tab, Oral, Daily, 0 Refill(s), Medications (16) Active Scheduled: (5) aspirin EC [...] At risk for sleep apnea / IMO [id number] / Confirmed Chronic hypertension / SNOMED CT 7060680480 / Confirmed Arthritis / SNOMED CT 8132034 / Confirmed CAD (coronary artery disease) / SNOMED CT 26330337 / Confirmed, Active Problems (4) Arthritis At [...] (APR 24 21:45) MAP 91 (APR 25 06:09) 79 (APR 24 18:00) 109 (APR 24 21:45) SpO2 96 (APR 25 06:09) 95 (APR 24 18:00) 96 (APR 24:30) General: Alert and oriented, No acute distress. Respiratory: Lungs are clear to auscultation, Breath sounds are equal. Cardiovascular: Normal rate, Regular rhythm, No murmur, No edema. Gastrointestinal: Soft, Non-tender. Integumentary: Warm, Dry. Neurologic: Alert, Oriented, No focal deficits. Review / Management Results review: Labs (Last four charted values) WBC H 15.6 (APR 25) H 15.9 (APR 24) H 15.2 (APR 23) H 21.4 (APR 21) HB 17.3 (APR 25) H 17.4 (APR 24) 16.5 (APR 23) 16.2 (APR 21) HCT 50.8 (APR 25) H 52.0 (APR 24) 49.0 (APR 23) 49.4 (APR 21) Plt 254 (APR 25) 258 (APR 24) 256 (APR 23) 289 (APR 21) Na L 133 (APR 25) L 132 (APR 24) L 132 (APR 23) L 135 (APR 22) K 4.1 (APR 25) 4.6 (APR 24) 4.6 (APR 23) 4.3 (APR 22) Cl 104 (APR 25) 103 (APR 24) 105 (APR 23) 106 (APR 22) CO2 24 (APR 25) 23 (APR 24) 21 (APR 23) 24 (APR 22) BUN H 26 (APR 25) H 34 (APR 24) H 28 (APR 23) H 26 (APR 22) Cr 1.20 (APR 25) H 1.60 (APR 24) 1.10 (APR 23) 1.10 (APR 22) Glu R 106 (APR 25) H 132 (APR 24) H 135 (APR 23) H 161 (APR 22) Ca 8.5 (APR 25) 8.9 (APR 24) 8.6 (APR 23) 8.4 (APR 22) Lactic 1.4 (APR 22) 1.6 (APR 21) [...] (APR 22) C 46.200 (APR 21) , DEANA 30 04:49 L 132 105 H 28 / [...] Wednesday. Chest xray ordered for the morning. Electronically signed by Ean, [facility] Conversion Mixer Operator Helper [employer] at 02/07/2023 11:35 PM CDT documented in this encounter Plan of Treatment Upcoming Encounters Date Type Department Care Team (Late st Contact Info) Description 06/20/2025 2:30 PM EDT Office Visit [facility] Orthopedics - [address] [phone] Mica Chu PA-C [address] [place] [address] documented as of this encounter Visit Diagnoses Not on filedocumented in this encounter Care Teams Tailor Men'S Ready To Wear Relationship Specialty Start Date End Date Sotero Miller MD [address] [place] [address] PCP - General Adolescent Medicine 10/25/22 documented as of this encounter
--- OUTSIDE RECORDS SUMMARY | 2025-05-13 05:43 | XMS_ITS | Encounter Summary ---
Author Organization [employer] ([place], [place], [place], [place]) Address [address] [place] [address] Care Team Providers Care Hogshead Filler Name Role Phone Sotero Miller MD Primary Care Provider + [phone] Encounter Details Date Type Department Care Team (Late st Contact Info) Description 04/29/2020 Transcribed Document [facility] [place] [address] [place] [address] ProviderMk MD [address] [place], [place] [address] Social History Tobacco Use Types Packs/Day Years Used Date Smoking Tobacco: Never Assessed Sex and Gender Information Value Date Recorded Sex Assigned at Not on file Legal Sex Male 5:40 PM CDT Gender Identity Not on file Sexual Orientation Not on file documented as of this encounter Miscellaneous Notes * Cerner Conversion Note - Mk ProviderMD - 04/29/2020 12:12 PM CDT Pain Assessment Entered On: 04/29/2020 21:35 EDT Performed On: 04/29/2020 19:55 EDT by Marilee Shell RN Intervention Information: oxyCODONE Performed by Marilee Shell RN on 04/29/2020 18:55:00 EDT oxyCODONE,5mg Oral,Pain (Moderate 4-6) Pain Assessment Pain Assessment : Follow-up assessment Pain Scale Goal : 3 Pain Scale Used : 0-10 Scale Marilee Shell RN - 04/29/2020 21:34 EDT Pain Scale Intensity : 2 Marilee Shell RN - 04/29/2020 21:34 EDT Image 4 - Images currently included in the form version of this document have not been included in the text rendition version of the form. documented in this encounter Plan of Treatment Upcoming Encounters Date Type Department Care Team (Late st Contact Info) Description 06/20/2025 2:30 PM EDT Office Visit [facility] Orthopedics - [address] [phone] Mica Chu PA-C [address] [place] [address] documented as of this encounter Visit Diagnoses Not on filedocumented in this encounter Care Teams Hogshead Filler Relationship Specialty Start Date End Date Sotero Miller MD [address] [place] [address] PCP - General Adolescent Medicine 10/25/22 documented as of this encounter
--- OUTSIDE RECORDS SUMMARY | 2025-05-13 05:43 | XMS_ITS | Encounter Summary ---
Author Organization [employer] ([place], [place], [place], [place]) Address [address] [place] [address] Care Team Providers Care Desktop Publisher Name Role Phone Sotero Miller MD Primary Care Provider [phone] Encounter Details Date Type Department Care Team (Late st Contact Info) Description 04/29/2020 Transcribed Document [facility] [place] [address] [place] [address] ProviderMk MD [address] [place] [address] Social History Tobacco Use Types Packs/Day Years Used Date Smoking Tobacco: Never Assessed Sex and Gender Information Value Date Recorded Sex Assigned at Not on file Legal Sex Male 5:40 PM CDT Gender Identity Not on file Sexual Orientation Not on file documented as of this encounter Miscellaneous Notes * [employer]ner Conversion Note - Mk ProviderMD - 04/29/2020 10:35 AM CDT UM Authorization Entered On: 04/29/2020 10:35 EDT Performed On: 04/29/2020 10:35 EDT by CHON ANDREWS Rn-Utilization Review Primary Insurance Authorization Authorization and Policy Numbers : Insurance 1 Health Plan: ANTHEM HMOPPO Policy Number: [id number] Authorization Number: Insurance 2 Health Plan: MEDICARE Policy Number: [id number] Authorization Number: Insurance Primary Name : ANTHEM HMOPPO Policy Number: [id number] Authorization Status-Primary : Awaiting callback Reference Number-Primary : [id number] Number of Days Authorized-Primary : 4 Day(s) Authorized Service Begin Date-Primary : 04/21/2020 EDT Authorized Service End Date-Primary : 04/25/2020 EDT Authorization Comments-Primary : Per [employer], Inpt Auth approved 5 days. Faxed additional clinicals for 04/26-04/28. Historical Authorization Comments-Primary : Comment 1: Faxed clinicals via [employer] for 04/23-04/25. (CHON ANDREWS, Rn-Utilization Review 04/25/2020 10:33) Comment 2: Per [employer], Inpt Auth approved 4 days. NRD 04/25. (CHON ANDREWS, Rn-Utilization Review 04/24/2020 09:13) Comment 3: clinicals faxed via [employer] for cont stay for dos 04/23/2020 (CATHI DEAL, RN-Utilization Review 04/23/2020 13:09) Comment 4: submitted on [employer] for IP auth w/ clinicals attached (CATHI DEAL, RN-Utilization Review 04/22/2020 09:38) CHON ANDREWS, Rn-Utilization Review - 04/29/2020 10:35 EDT documented in this encounter Plan of Treatment Upcoming Encounters Date Type Department Care Team (Late st Contact Info) Description 06/20/2025 2:30 PM EDT Office Visit [facility] Orthopedics - [address] [phone] Mica Chu, PA-C [address] [place] [address] documented as of this encounter Visit Diagnoses Not on filedocumented in this encounter Care Teams Desktop Publisher Relationship Specialty Start Date End Date Sotero Miller MD [address] [place] [address] PCP - General Adolescent Medicine 10/25/22 documented as of this encounter
--- OUTSIDE RECORDS SUMMARY | 2025-05-13 05:43 | XMS_ITS | Encounter Summary ---
Author Organization [employer] ([place], [place], [place], [place]) Address [address] [place] [address] Care Team Providers Care Lace And Textiles Restorer Name Role Phone Sotero Miller MD Primary Care Provider [phone] Encounter Details Date Type Department Care Team (Late st Contact Info) Description 04/24/2020 Transcribed Document [facility] Pulm & Critical Care Medicine [address] [place] [address] [place], [place] [phone] Devang Coronel MD [address] [facility] [address] [place] [address] Social History Tobacco Use Types Packs/Day Years Used Date Smoking Tobacco: Never Assessed Sex and Gender Information Value Date Recorded Sex Assigned at Not on file Legal Sex Male 5:40 PM CDT Gender Identity Not on file Sexual Orientation Not on file documented as of this encounter Miscellaneous Notes * Cerner Conversion Note - Devang Coronel MD - 04/24/2020 5:13 PM EDT DATE OF SERVICE: 04/22/2020 REQUESTING PHYSICIAN: JOSH Lamb. PATIENT DATA: 70 years old, 68 inches in height, 198 pounds, BMI of 30, male. The patient had spirometry and DLCO. The flow volume loop meet ATS criteria. SPIROMETRY DATA: FEV1 is 1.38 L (46%), FEV1/FVC ratio is 67, FVC is 2.05 L (50%). There were no postbronchodilator maneuvers performed. IMPRESSION: 1. There is a severe airflow obstruction categorizing the chronic obstructive pulmonary disease group 3. 2. There is a significant reduction in the forced vital capacity, therefore a true restrictive lung component cannot be ruled out without having pulmonary function test that includes lung volumes. 3. DLCO is within normal limits. 4. Clinical correlation is advised. /[id number] Devang Coronel MD EAC/AQ / EAC / MODL /[id number] documented in this encounter Plan of Treatment Upcoming Encounters Date Type Department Care Team (Late st Contact Info) Description 06/20/2025 2:30 PM EDT Office Visit [facility] Orthopedics - [address] [phone] Mica Chu PA-C [address] [place] [address] documented as of this encounter Visit Diagnoses Not on filedocumented in this encounter Care Teams Lace And Textiles Restorer Relationship Specialty Start Date End Date Sotero Miller MD [address] [place] [address] PCP - General Adolescent Medicine 10/25/22 documented as of this encounter
--- OUTSIDE RECORDS SUMMARY | 2025-05-13 05:43 | XMS_ITS | Encounter Summary ---
Author Organization [employer] ([place], [place], [place], [place]) Address [address] [place] [address] Care Team Providers Care Leather Crafter Name Role Phone Sotero Miller MD Primary Care Provider + [phone] Encounter Details Date Type Department Care Team (Late st Contact Info) Description 04/29/2020 Transcribed Document [facility] Family Medicine [address] [place] [address] ProviderMk MD [address] [place], [place] [address] Social History Tobacco Use Types Packs/Day Years [...] PM CDT Pain Assessment Entered On: 04/29/2020 21:27 EDT Performed On: 04/29/2020 13:34 EDT by Marilee Shell RN Intervention Information: morphine Performed by Marilee Shell RN on 04/29/2020 13:04:00 EDT morphine,2mg IV Push,Central line, proximal,Pain (Severe 7-10) Pain Assessment Pain Assessment : Follow-up assessment Pain Scale Goal : 3 Pain Scale Used : 0-10 Scale aMrilee Shell RN - 04/29/2020 21:27 EDT Pain Scale Intensity : 3 Marilee Shell RN - 04/29/2020 21:27 EDT Image 4 - Images currently included in the form version of this document have not been included in the text rendition version of the form. documented in this encounter Plan of Treatment Upcoming Encounters Date Type Department Care Team (Late st Contact Info) Description 06/20/2025 2:30 PM EDT Office Visit [facility] Orthopedics - [address] [phone] Mica Chu PA-C [address] [place] [address] documented as of this encounter Visit Diagnoses Not on filedocumented in this encounter Care Teams Leather Crafter Relationship Specialty Start Date End Date Sotero Miller MD [address] [place] [address] PCP - General Adolescent Medicine 10/25/22 documented as of this encounter
--- OUTSIDE RECORDS SUMMARY | 2025-05-13 05:43 | XMS_ITS | Encounter Summary ---
Author Organization [employer] ([place], [place], [place], [place]) Address [address] [place] [address] Care Team Providers Care Shipping Assistant Name Role Phone Sotero Miller MD Primary Care Provider + [phone] Encounter Details Date Type Department Care Team (Late st Contact Info) Description 04/25/2020 Transcribed Document [facility] Family Medicine [facility] [place] [address] ProviderMk MD [address] [place] [address] Social History Tobacco Use Types Packs/Day Years Used Date Smoking Tobacco: Never Assessed Sex and Gender Information Value Date Recorded Sex Assigned at Not on file Legal Sex Male 5:40 PM CDT Gender Identity Not on file Sexual Orientation Not on file documented as of this encounter Miscellaneous Notes * Cerner Conversion Note - Mk Mac MD - 04/25/2020 12:34 PM CDT Patient: NICO LERNER Age: 70 years Sex: Male : 1950 Associated Diagnoses: None Author: PAPA THORNTON MD-INT DATE OF SERVICE [ DOS ]: 04-25-2020 Basic Information SUBJECTIVE: Patient is seen and evaluated Increase in Creatinine Review of Systems Constitutional: No fever, No [...] At risk for sleep apnea / IMO [id number] / Confirmed, Active Problems (4) Arthritis At risk for sleep apnea CAD (coronary artery disease) Chronic hypertension OBJECTIVE: Physical Examination VS/Measurements Vitals Signs (last 24 hrs) Last Charted Minimum Maximum Temp 97.8 (APR 25 06:09) 97.8 (APR 25 06:09) 98.6 (APR 24 14:00) Apical HR 67 (APR 25 10:54) 67 (APR 24 20:33) 67 (APR 24 20:33) Mon HR 57 (APR 25 06:09) 56 (APR 25 02:29) 66 (APR 24 18:00) Resp Rate 18 (APR 25 06:09) 17 (APR 24 18:00) 19 (APR 24 21:45) SBP 111 (APR 25 10:54) 111 (APR 25 10:54) H 152 (APR 24 21:45) DBP 80 (APR 25 06:09) 67 (APR 24 18:00) 89 (APR 24 21:45) MAP 91 (APR 25 06:09) 79 (APR 24 18:00) 109 (APR 24 21:45) SpO2 96 (APR 25 06:09) 95 (APR 24 18:00) 96 (APR 24 20:30) General: Alert and [...] tenderness, No swelling, No deformity. Integumentary: Warm, [place], Moist, No rash. Neurologic: Alert, Oriented, Normal [...] 22) C 46.200 (APR 21) , APR 25 06:11 L 133 104 H 26 / 106 4.1 24 1.20 \ APR 25 06:11 \ 17.3 / H 15.6 254 / 50.8 \, No Radiology Results Found. Impression and Plan 1. severe CAD Chest pain. Evaluated by Cardiothoracic Surgery. 2. Abnormal heart catheterization. The [...] IV Heparin drip Code status: Full code Time spent: 20 minutes documented in this encounter Plan of Treatment Upcoming Encounters Date Type Department Care Team (Late st Contact Info) Description 06/20/2025 2:30 PM EDT Office Visit [facility] Orthopedics - [address] [phone] Mica Chu PA-C [address] [place] [address] documented as of this encounter Visit Diagnoses Not on filedocumented in this encounter Care Teams Shipping Assistant Relationship Specialty Start Date End Date Sotero Miller MD [address] [place] [address] PCP - General Adolescent Medicine 10/25/22 documented as of this encounter
--- OUTSIDE RECORDS SUMMARY | 2025-05-13 05:43 | XMS_ITS | Encounter Summary ---
Author Organization [employer] ([place], [place], [place], [place]) Address [address] [place] [address] Care Team Providers Care Kiosk Sales Representative Name Role Phone Sotero Miller MD Primary Care Provider + [phone] Encounter Details Date Type Department Care Team (Late st Contact Info) Description 04/25/2020 Transcribed Document [facility] Family Medicine [facility] [place] [address] ProviderMk MD [address] [place] [address] Social History Tobacco Use Types Packs/Day Years Used Date Smoking Tobacco: Never Assessed Sex and Gender Information Value Date Recorded Sex Assigned at Not on file Legal Sex Male 5:40 PM CDT Gender Identity Not on file Sexual Orientation Not on file documented as of this encounter Miscellaneous Notes * Cerner Conversion Note - Mk Mac MD - 04/25/2020 4:21 PM CDT On Going Discharge Planning Entered On: 04/25/2020 16:22 EDT Performed On: 04/25/2020 16:21 EDT by AURA CARDENAS RN-Glassware Defect RepairerAutomation And Controls Manager Progress Note Discharge Arrangements : Patient Post-Acute Information Patient Name: NICO LERNER Gender: Male : [birth year] Age: 70 Years No Post-Acute Placement(s) Listed No Post-Acute Service(s) Listed No [place] Referral(s) Listed Discharge Options Discussed with Patient : Discharge transportation, DME, Home Health, Outpatient services, Short term rehabilitation Barriers to Discharge Identified : Clinical Condition of Patient Barriers to Discharge Unresolved : Clinical Condition of Patient Is the Patient Meeting Medical Necessity : Yes Physician Agreeable to Move Forward with D/C Plan? : Yes Did you Attend Multidisciplinary Rounds? : Yes AURA CARDENAS RN-Glassware Defect Repairer - 04/25/2020 16:21 EDT Narrative Progress Note Narrative Progress Note : Patient is a moderate readmission risk. ELOS: 7 days HD#4 Adm Dx: STEMI; C 04/20 - Total occulusion of LAD and RCA with normal LVEF. Continue Heparin and Nitroglycerine Drip, CABG planned on Wednesday. DCP: CM will follow for discharge planning needs post op. Historical Progress Note : Patient is a moderate readmission risk. ELOS: 7 days HD#3 Adm Dx: STEMI; LHC 04/20 - Total occulusion of LAD and RCA with normal LVEF. Continue Heparin and Nitroglycerine Drip, CABG planned on Wednesday. DCP: CM will follow for discharge planning needs post op. AURA CARDENAS RN-Glassware Defect Repairer - 04/24/20 15:42:28 MRR, ELOS #2; HD#2 - LHC on 04/22 = Occlusion of RCA/LAD; [address]t 143; CABG timing to be determined; pt on transfer out of [facility]; new PT/OT evaluation orders placed; DCP pending progress; anticipate home with family and OP Cardiac Rehab when appropriate. KARENA DONNELLY Rn-Glassware Defect Repairer - 04/23/20 11:34:20 DCP - anticipate home without needs; continue to follow. KARENA DONNELLY Rn-Glassware Defect Repairer - 04/22/20 10:08:21 AURA CARDENAS RN-Glassware Defect Repairer - 04/25/2020 16:21 EDT Electronically signed by Lizzie Mckoy Conversion Veterinary Assistant Technician Cerner at 02/07/2023 11:30 PM CDT documented in this encounter Plan of Treatment Upcoming Encounters Date Type Department Care Team (Late st Contact Info) Description 06/20/2025 2:30 PM EDT Office Visit [facility] Orthopedics - [address] [phone] Mica Chu PA-C [address] [place] [address] documented as of this encounter Visit Diagnoses Not on filedocumented in this encounter Care Teams Kiosk Sales Representative Relationship Specialty Start Date End Date Sotero Miller MD [address] [place] [address] PCP - General Adolescent Medicine 10/25/22 documented as of this encounter
--- OUTSIDE RECORDS SUMMARY | 2025-05-13 05:43 | XMS_ITS | Encounter Summary ---
Author Organization [employer] ([place], [place], [place], [place]) Address [address] [place] [address] Care Team Providers Care Bridge Manager Name Role Phone Sotero Miller MD Primary Care Provider + [phone] Encounter Details Date Type Department Care Team (Late st Contact Info) Description 04/26/2020 Transcribed Document [facility] Family Medicine [facility] [place] [address] ProviderMk MD [address] [place] [address] Social History Tobacco Use Types Packs/Day Years Used Date Smoking Tobacco: Never Assessed Sex and Gender Information Value Date Recorded Sex Assigned at Not on file Legal Sex Male 5:40 PM CDT Gender Identity Not on file Sexual Orientation Not on file documented as of this encounter Miscellaneous Notes * Cerner Conversion Note - Mk Mac MD - 04/26/2020 1:14 PM CDT Patient: NICO LERNER Age: 70 years Sex: Male : 1950 Associated Diagnoses: None Author: PAPA THORNTON MD-INT DATE OF SERVICE [ DOS ]: 04-26-2020 Basic Information SUBJECTIVE: Patient is seen and [...] Rocephin: 2 Gram, 100 mL/Hr, IV Piggyback, [id number] Tylenol: 650 mg, Oral, Q4H, PRN: Other [...] At Bedtime cefTRIAXone 2 Gram, IV Piggyback, [id number] doxycycline hyclate 100 mg cap 100 mg [...] At risk for sleep apnea / IMO [id number] / Confirmed, Active Problems (4) Arthritis At risk for sleep apnea CAD (coronary artery disease) Chronic hypertension OBJECTIVE: Physical Examination VS/Measurements Vitals Signs (last 24 hrs) Last Charted Minimum Maximum Temp 98 (APR 26 09:30) 97.7 (APR 26 05:32) 98 (APR 26 09:30) Apical HR 68 (APR 25 20:57) 68 (APR 25 20:57) 68 (APR 25 20:57) Mon HR 60 (APR 26 09:30) 50 (APR 26 05:32) 60 (APR 26 09:30) Resp Rate 18 (APR 26 09:30) 16 (APR 25 22:10) 19 (APR 26 01:40) SBP 126 (APR 26 09:30) 123 (APR 25 22:10) 139 (APR 26 01:40) DBP 79 (APR 26 09:30) 72 (APR 26 05:32) 85 (APR 26 01:40) MAP 92 (APR 26 09:30) 92 (APR 26 09:30) 101 (APR 26 01:40) SpO2 95 (APR 26 09:30) 95 (APR 26 09:30) 97 (APR 25 21:00) General: Alert and [...] tenderness, No swelling, No deformity. Integumentary: Warm, [place], Moist, No rash. Neurologic: Alert, Oriented, Normal [...] / 101 4.6 24 1.30 \ APR 26 05:12 \ H 17.4 / H 15.5 241 / H 52.1 \, Radiology Results (Last 48 hours) [id number] -- 04/21/2020 16:53 CR Chest 1 Vw [...] process.Images reviewed, interpreted, and dictated by Dr. rKistina Joshua.Transcribed by Carmencita Foster (R)Clifton (R).I have [...] Heparin drip Code status: Full code PLAN D/C IV Nitroglycerine drip Continue Iv Heparin drip Continue Normal saline for AMBER Add Iv Rocephin for Reactive Leukocytosis Continue Doxycycline I D/W patient and at bedside I D/W RN at bedside Time spent: 33 minutes documented in this encounter Plan of Treatment Upcoming Encounters Date Type Department Care Team (Late st Contact Info) Description 06/20/2025 2:30 PM EDT Office Visit [facility] Orthopedics - [address] [phone] Mica Chu PA-C [address] [place] [address] documented as of this encounter Visit Diagnoses Not on filedocumented in this encounter Care Teams Bridge Manager Relationship Specialty Start Date End Date Sotero Miller MD [address] [place] [address] PCP - General Adolescent Medicine 10/25/22 documented as of this encounter
--- OUTSIDE RECORDS SUMMARY | 2025-05-13 05:43 | XMS_ITS | Encounter Summary ---
Author Organization [employer] ([place], [place], [place], [place]) Address [address] [place] [address] Care Team Providers Care Human Performance Professor Name Role Phone Sotero Miller MD Primary Care Provider + [phone] Encounter Details Date Type Department Care Team (Late st Contact Info) Description 04/28/2020 Transcribed Document [facility] [place] [address] ProviderMk MD [address] [place] [address] Social History Tobacco Use Types Packs/Day Years Used Date Smoking Tobacco: Never Assessed Sex and Gender Information Value Date Recorded Sex Assigned at Not on file Legal Sex Male 5:40 PM CDT Gender Identity Not on file Sexual Orientation Not on file documented as of this encounter Miscellaneous Notes * Cerner Conversion Note - Mk ProviderMD - 04/28/2020 9:41 AM CDT Spiritual Care Assessment Entered On: 04/28/2020 14:10 EDT Performed On: 04/28/2020 13:59 EDT by GERONIMO PALACIOS General Information Initial Visit : No Referred by : Physician Referral Reason Comment : Physician order for pre-surgery visit Ministry Provided to : Patient, Family/Significant other Spiritual Framework : Integrated, provides strength/resource GERONIMO PALACIOS - 04/28/2020 14:07 EDT Spiritual Assessment Patient's Community/Relationship : Strength in patient's life Patient's Concept of God/the Sacred : Strength in patient's life Spiritual Assessment Comment/Summary Points : Pre-surgery visit and prayer with patient and daughter. Patient trusting surgery to God's care. Plan to follow up for prayer in am at patient's request. Spirital Assessment Comment/Summary Report : SPIRITUAL ASSESSMENT COMMENT/SUMMARY No qualifying data available. GERONIMO PALACIOS P - 04/28/2020 14:07 EDT Interventions Emotional Support : Empathic/Engaged listening, Family/Significant other supported, Relationship strengths identified Spiritual and Scientologist : God/the Spiritual connection/strengths identified, Prayer shared, Spiritual/Scientologist support provided GERONIMO PALACIOS P - 04/28/2020 14:07 EDT documented in this encounter Plan of Treatment Upcoming Encounters Date Type Department Care Team (Late st Contact Info) Description 06/20/2025 2:30 PM EDT Office Visit [facility] Orthopedics - [address] [phone] Mica Chu PAMaddieC [address] [place] [address] documented as of this encounter Visit Diagnoses Not on filedocumented in this encounter Care Teams Human Performance Professor Relationship Specialty Start Date End Date Sotero Miller MD [address] [place] [address] PCP - General Adolescent Medicine 10/25/22 documented as of this encounter
--- OUTSIDE RECORDS SUMMARY | 2025-05-13 05:43 | XMS_ITS | Encounter Summary ---
Author Organization [employer] ([place], [place], [place], [place]) Address [address] [place] [address] Care Team Providers Care Forest Pathologist Name Role Phone Sotero Miller MD Primary Care Provider + [phone] Encounter Details Date Type Department Care Team (Late st Contact Info) Description 04/29/2020 Transcribed Document [facility] Family Medicine [address] [place] [address] ProviderMk MD [address] [place] [address] Social History Tobacco Use Types Packs/Day Years Used Date Smoking Tobacco: Never Assessed Sex and Gender Information Value Date Recorded Sex Assigned at Not on file Legal Sex Male 5:40 PM CDT Gender Identity Not on file Sexual Orientation Not on file documented as of this encounter Miscellaneous Notes * Cerner Conversion Note - Mk ProviderMD - 04/29/2020 12:12 PM CDT Consult Phone Call Documentation Entered On: 04/29/2020 14:02 EDT Performed On: 04/29/2020 12:12 EDT by Danica Patterson, [facility] Phone Call for Consults Consult Phone Call/Page Attempt : First call Provider Service Notified Name : Cardiology Physician Covering for Consult : JESSICA COLLIER MD-CAR Date and Time Call Returned : 04/30/2020 14:02 EDT Consult, Additional Information : gave consult to Danica Sanchez [facility] - 04/29/2020 14:02 EDT Electronically signed by Lizzie Mckoy Conversion Administrative Sales Assistant Cerner at 02/07/2023 11:33 PM CDT documented in this encounter Plan of Treatment Upcoming Encounters Date Type Department Care Team (Late st Contact Info) Description 06/20/2025 2:30 PM EDT Office Visit [facility] Orthopedics - [address] [phone] Mica Chu PA-C [address] [place] [address] documented as of this encounter Visit Diagnoses Not on filedocumented in this encounter Care Teams Forest Pathologist Relationship Specialty Start Date End Date Sotero Miller MD [address] [place] [address] PCP - General Adolescent Medicine 10/25/22 documented as of this encounter
[2025-05-13 05:44] VITALS: BP 183/85; PULSE 68; RESP 16; TEMP 36.6; O2SAT 97; BMI 32.1
--- OUTSIDE RECORDS SUMMARY | 2025-05-13 05:44 | XMS_ITS | Encounter Summary ---
Author Organization [employer] ([place], [place], [place], [place]) Address [address] [place] [address] Care Team Providers Care Buttonhole Tacker Name Role Phone Sotero Miller MD Primary Care Provider + [phone] Encounter Details Date Type Department Care Team (Late st Contact Info) Description 04/21/2020 Transcribed Document [facility] Family Medicine [address] [place] [address] ProviderMk MD [address] [place] [address] Social History Tobacco Use Types Packs/Day Years Used Date Smoking Tobacco: Never Assessed Sex and Gender Information Value Date Recorded Sex Assigned at Not on file Legal Sex Male 5:40 PM CDT Gender Identity Not on file Sexual Orientation Not on file documented as of this encounter Miscellaneous Notes * Cerner Conversion Note - Mk Mac MD - 04/21/2020 5:08 PM CDT Education-Smoking Cessation Entered On: 04/22/2020 7:57 EDT Performed On: 04/21/2020 17:08 EDT by CORRINA CUNNINGHAM, RN Teaching/Learning Assessment Barriers To Learning : None evident CORRINA CUNNINGHAM, RN - 04/22/2020 7:57 EDT Education: Smoking/Tobacco Cessation Topics Smoking Cess Educatin Grid Advice Given to Stop Smoking : Verbalizes understanding, Returns demonstration Risks/Benefits of Smoking : Verbalizes understanding, Returns demonstration Second Hand Smoke : Verbalizes understanding, Returns demonstration Ed-Smoking Cessation Programs : Verbalizes understanding, Returns demonstration Ed-Smoking Cessation, Other : Verbalizes understanding, Returns demonstration CORRINA CUNNINGHAM, RN - 04/22/2020 7:57 EDT Tobacco Cessation Counseling Grid Recognizing Danger Situations : Returns demonstration, Verbalizes understanding Negative Moods and/or Stress : Returns demonstration, Verbalizes understanding Being Around Other Tobacco Users : Returns demonstration, Verbalizes understanding Drinking Alcohol : Returns demonstration, Verbalizes understanding Experiencing Urges : Returns demonstration, Verbalizes understanding Tobacco Cues and Availability : Returns demonstration, Verbalizes understanding Developing Coping Skills : Returns demonstration, Verbalizes understanding Anticipate/Avoid Temptation/Triggers : Returns demonstration, Verbalizes understanding Strategies to Reduce Negative Moods : Returns demonstration, Verbalizes understanding Reduce Stress/Exposure to Tobacco Cues : Returns demonstration, Verbalizes understanding Activities to [place] With Smoking Urges : Returns demonstration, Verbalizes understanding Basic Information About Quitting : Returns demonstration, Verbalizes understanding Tobacco Use Increases Chance of Relapse : Returns demonstration, Verbalizes understanding Withdrawal Symptoms Peak After Quitting : Returns demonstration, Verbalizes understanding Addictive Nature of Tobacco : Returns demonstration, Verbalizes understanding CORRINA CUNNINGHAM RN - 04/22/2020 7:57 EDT documented in this encounter Plan of Treatment Upcoming Encounters Date Type Department Care Team (Late st Contact Info) Description 06/20/2025 2:30 PM EDT Office Visit [facility] Orthopedics - [address] [phone] Mica Chu PA-C [address] [place] [address] documented as of this encounter Visit Diagnoses Not on filedocumented in this encounter Care Teams Buttonhole Tacker Relationship Specialty Start Date End Date Sotero Miller MD [address] [place] [address] PCP - General Adolescent Medicine 10/25/22 documented as of this encounter
--- OUTSIDE RECORDS SUMMARY | 2025-05-13 05:44 | XMS_ITS | Encounter Summary ---
Author Organization [employer] ([place], [place], [place], [place]) Address [address] [place] [address] Care Team Providers Care Block Mason Name Role Phone Sotero Miller MD Primary Care Provider + [phone] Encounter Details Date Type Department Care Team (Late st Contact Info) Description 04/23/2020 Transcribed Document [facility] [place] [facility] [address] [place] [address] ProviderMk MD [address] [place], [place] [id number] Social History Tobacco Use Types Packs/Day Years Used Date Smoking Tobacco: Never Assessed Sex and Gender Information Value Date Recorded Sex Assigned at Not on file Legal Sex Male 5:40 PM CDT Gender Identity Not on file Sexual Orientation Not on file documented as of this encounter Miscellaneous Notes * Cerner Conversion Note - Mk ProviderMD - 04/23/2020 5:00 PM CDT Chart Check - Review Order Profile Entered On: 04/23/2020 15:04 EDT Performed On: 04/23/2020 17:00 EDT by Vandana Galvez, RN Chart Check Powerplans Initiated/Discontinued as Appropriate : Yes All Active Orders Reviewed : Yes Vandana Galvez RN - 04/23/2020 15:04 EDT documented in this encounter Plan of Treatment Upcoming Encounters Date Type Department Care Team (Late st Contact Info) Description 06/20/2025 2:30 PM EDT Office Visit [facility] Orthopedics - [address] [phone] Mica Chu PA-C [address] [place] [id number] documented as of this encounter Visit Diagnoses Not on filedocumented in this encounter Care Teams Block Mason Relationship Specialty Start Date End Date Sotero Miller MD [address] [place] [address] PCP - General Adolescent Medicine 10/25/22 documented as of this encounter
--- OUTSIDE RECORDS SUMMARY | 2025-05-13 05:44 | XMS_ITS | Encounter Summary ---
[facility] Address [address] [place] [address] Care Team Providers Care Death Claim Examiner Name Role Phone Jeromy Stewart MD Primary Care Provider [phone] Encounter Details Date Type Department Care Team (Late st Contact Info) Description 03/26/2025 Telephone [facility] [address] [place] [phone] Danica Aden MA Social History Tobacco Use Types Packs/Day Years Used Date Smoking Tobacco: Former Cigarettes 1 1974 Passive Smoke Exposure: Past Smokeless Tobacco: Never Alcohol Use Standard Drinks/Week Comments Yes 0 (1 standard drink = 0.6 oz pur e alcohol) OCC AUDIT-C Answer Date Recorded Q1: How often do you have a drink containing alcohol? Never 01/26/2025 Q2: How many drinks containi ng alcohol do you have on a typical day when you are drinking? Patient does not drink Q3: How often do you have si x or more drinks on one occasion? Never 01/26/2025 Abuse Screen Answer Date Recorded Feels Unsafe at Home or Work/School no 01/26/2025 Feels Threatened by Someone no 01/2025 Does Anyone Try to Keep You From Having Contact with Others or Doing Things Outside Your Home? no 01/26/2025 Physical Signs of Abuse Present no 01/26/2025 Housing Stability Answer Date Recorded Current Living Arrangements home 01/2025 Potentially Unsafe Housing Conditions Not on mario e 01/26/2025 Disabilities Answer Date Recorded Difficulty Concentrating, Remembering or Making Decisions no 01/26/2025 Difficulty Managing Errands Independently no 01/26/2025 Sex and Gender Information Value Date Recorded Sex Assigned at Male 01/14/2025 3:49 PM EDT Legal Sex Male 6:15 PM EST Gender Identity Not on file Sexual Orientation Not on file documented as of this encounter Miscellaneous Notes * Telephone Encounter - Danica Aden MA - 03/26/2025 10:24 AM EDT Pt notified and verbalized understanding. * Telephone Encounter - Danica Aden MA - 03/26/2025 9:13 AM EDT Pt called and requested a script for NTG. Medication is not in his current med list. [facility] documented in this encounter Plan of Treatment Upcoming Encounters Date Type Department Care Team (Late st Contact Info) Description 06/13/2025 3:00 PM EDT Office Visit [facility] [address] [place] [phone] Tracee Arauoj MD [address] [place] [address] documented as of this encounter Visit Diagnoses Not on filedocumented in this encounter Care Teams Death Claim Examiner Relationship Specialty Start Date End Date Jeromy Stewart MD [address] [facility] [place] [address] PCP - General Family Medicine 02/08/24 JEROMY STEWART [address] [place] [address] Primary Care Provider 10/25/23 documented as of this encounter
--- OUTSIDE RECORDS SUMMARY | 2025-05-13 05:44 | XMS_ITS | Encounter Summary ---
Author Organization [employer] ([place], [place], [place], [place]) Address [address] [place] [address] Care Team Providers Care Supervisor Wet Room Name Role Phone Sotero Miller MD Primary Care Provider + [phone] Encounter Details Date Type Department Care Team (Late st Contact Info) Description 04/21/2020 Transcribed Document [facility] [address] [place] [address] ProviderMk MD [address] [place] [address] Social History Tobacco Use Types Packs/Day Years Used Date Smoking Tobacco: Never Assessed Sex and Gender Information Value Date Recorded Sex Assigned at Not on file Legal Sex Male 5:40 PM CDT Gender Identity Not on file Sexual Orientation Not on file documented as of this encounter Miscellaneous Notes * Cerner Conversion Note - Mk Mac MD - 04/21/2020 5:12 PM CDT Education-(VTE) / (DVT) Entered On: 04/22/2020 7:58 EDT Performed On: 04/21/2020 17:12 EDT by CORRINA CUNNINGHAM, RN Education Topics: VTE/DVT Education Topics: VTE/DVT Activity Limitations/Expectations : Verbalizes understanding, Returns demonstration Antiembolic hose : Verbalizes understanding, Returns demonstration VTE/DVT prophylaxis : Verbalizes understanding, Returns demonstration Foot Pumps : Verbalizes understanding, Returns demonstration Medications : Verbalizes understanding, Returns demonstration Sequential Compression Device : Verbalizes understanding, Returns demonstration Smoking Cessation : Verbalizes understanding, Returns demonstration Risk for developing a VTE : Verbalizes understanding, Returns demonstration Signs and symptoms of a VTE : Verbalizes understanding, Returns demonstration Treatment/prophylaxis for VTE : Verbalizes understanding, Returns demonstration Encourage early ambulation : Verbalizes understanding, Returns demonstration VTE/DVT, Other : Verbalizes understanding, Returns demonstration CORRINA CUNNINGHAM, RN - 04/22/2020 7:57 EDT documented in this encounter Plan of Treatment Upcoming Encounters Date Type Department Care Team (Late st Contact Info) Description 06/20/2025 2:30 PM EDT Office Visit [facility] Orthopedics - [address] [phone] Mica Chu, PAMdadieC [address] [place] [phone] documented as of this encounter Visit Diagnoses Not on filedocumented in this encounter Care Teams Supervisor Wet Room Relationship Specialty Start Date End Date Sotero Miller MD [address] [place] [address] PCP - General Adolescent Medicine 10/25/22 documented as of this encounter
--- OUTSIDE RECORDS SUMMARY | 2025-05-13 05:44 | XMS_ITS | Encounter Summary ---
Author Organization [employer] ([place], [place], [place], [place]) Address [address] [place] [address] Care Team Providers Care Guitar Player Name Role Phone Sotero Miller MD Primary Care Provider + [phone] Encounter Details Date Type Department Care Team (Late st Contact Info) Description 05/05/2020 Transcribed Document [facility] [place] [address] [place] [address] ProviderMk MD [address], [place] [id number] Social History Tobacco Use Types Packs/Day Years Used Date Smoking Tobacco: Never Assessed Sex and Gender Information Value Date Recorded Sex Assigned at Not on file Legal Sex Male 5:40 PM CDT Gender Identity Not on file Sexual Orientation Not on file documented as of this encounter Miscellaneous Notes * Cerner Conversion Note - Mk Mac MD - 05/05/2020 11:13 AM CDT Patient Education Materials Follows: Heart-Healthy Eating Plan Heart-healthy meal planning includes: ??? Eating less unhealthy fats. ??? Eating more healthy fats. ??? Making other changes in your diet. Talk with your doctor or a diet specialist (dietitian) to create an eating plan that is right for you. What is my plan? Your doctor may recommend an eating plan that includes: ??? Total fat: % or less of total calories a day. ??? Saturated fat: % or less of total calories a day. ??? Cholesterol: less than mg a day. What are tips for following this plan? Cooking Avoid frying your food. Try to bake, boil, grill, or broil it instead. You can also reduce fat by: ??? Removing the skin from poultry. ??? Removing all visible fats from meats. ??? Steaming vegetables in water or broth. Meal planning ??? At meals, divide your plate into four equal parts: ? Fill one-half of your plate with vegetables and green salads. ? Fill one-fourth of your plate with whole grains. ? Fill one-fourth of your plate with lean protein foods. ??? Eat 4?5 servings of vegetables per day. A serving of vegetables is: ? 1 cup of raw or cooked vegetables. ? 2 cups of raw leafy greens. ??? Eat 4?5 servings of fruit per day. A serving of fruit is: ? 1 medium whole fruit. ? ? cup of dried fruit. ? ? cup of fresh, frozen, or canned fruit. ? ? cup of 100% fruit juice. ??? Eat more foods that have soluble fiber. These are apples, broccoli, carrots, beans, peas, and barley. Try to get 20?30 g of fiber per day. ??? Eat 4?5 servings of nuts, legumes, and seeds per week: ? 1 serving of dried beans or legumes equals ? cup after being cooked. ? 1 serving of nuts is ? cup. ? 1 serving of seeds equals 1 tablespoon. General information ??? Eat more home-cooked food. Eat less restaurant, buffet, and fast food. ??? Limit or avoid alcohol. ??? Limit foods that are high in starch and sugar. ??? Avoid fried foods. ??? Lose weight if you are overweight. ??? Keep track of how much salt (sodium) you eat. This is important if you have high blood pressure. Ask your doctor to tell you more about this. ??? Try to add vegetarian meals each week. Fats ??? Choose healthy fats. These include olive oil and canola oil, flaxseeds, walnuts, almonds, and seeds. ??? Eat more omega-3 fats. These include salmon, mackerel, sardines, tuna, flaxseed oil, and ground flaxseeds. Try to eat fish at least 2 times each week. ??? Check food labels. Avoid foods with trans fats or high amounts of saturated fat. ??? Limit saturated fats. ? These are often found in animal products, such as meats, butter, and cream. ? These are also found in plant foods, such as palm oil, palm kernel oil, and coconut oil. ??? Avoid foods with partially hydrogenated oils in them. These have trans fats. Examples are stick margarine, some tub margarines, cookies, crackers, and other baked goods. What foods can I eat? Fruits All fresh, canned (in natural juice), or frozen fruits. Vegetables Fresh or frozen vegetables (raw, steamed, roasted, or grilled). Green salads. Grains Most grains. Choose whole wheat and whole grains most of the time. Rice and pasta, including brown rice and pastas made with whole wheat. Meats and other proteins Lean, well-trimmed beef, veal, pork, and barfield. Chicken and turkey without skin. All fish and shellfish. Wild duck, rabbit, pheasant, and venison. Egg whites or low-cholesterol egg substitutes. Dried beans, peas, lentils, and tofu. Seeds and most nuts. Dairy Low-fat or nonfat cheeses, including ricotta and mozzarella. Skim or 1% milk that is liquid, powdered, or evaporated. Buttermilk that is made with low-fat milk. Nonfat or low-fat yogurt. Fats and oils Non-hydrogenated (trans-free) margarines. Vegetable oils, including soybean, sesame, sunflower, olive, peanut, safflower, corn, canola, and cottonseed. Salad dressings or mayonnaise made with a vegetable oil. Beverages Mineral water. Coffee and tea. Diet carbonated beverages. Sweets and desserts Sherbet, gelatin, and fruit ice. Small amounts of dark chocolate. Limit all sweets and desserts. Seasonings and condiments All seasonings and condiments. The items listed above may not be a complete list of foods and drinks you can eat. Contact a dietitian for more options. What foods should I avoid? Fruits Canned fruit in heavy syrup. Fruit in cream or butter sauce. Fried fruit. Limit coconut. Vegetables Vegetables cooked in cheese, cream, or butter sauce. Fried vegetables. Grains Breads that are made with saturated or trans fats, oils, or whole milk. Croissants. Sweet rolls. Donuts. High-fat crackers, such as cheese crackers. Meats and other proteins Fatty meats, such as hot dogs, ribs, sausage, estrella, rib-eye roast or steak. High-fat deli meats, such as salami and bologna. Caviar. Domestic duck and goose. Organ meats, such as liver. Dairy Cream, sour cream, cream cheese, and creamed cottage cheese. Whole-milk cheeses. Whole or 2% milk that is liquid, evaporated, or condensed. Whole buttermilk. Cream sauce or high-fat cheese sauce. Yogurt that is made from whole milk. Fats and oils Meat fat, or shortening. [place] butter, hydrogenated oils, palm oil, coconut oil, palm kernel oil. Solid fats and shortenings, including estrella fat, salt pork, lard, and butter. Nondairy cream substitutes. Salad dressings with cheese or sour cream. Beverages Regular sodas and juice drinks with added sugar. Sweets and desserts Frosting. Pudding. Cookies. Cakes. Pies. Milk chocolate or white chocolate. Buttered syrups. Full-fat ice cream or ice cream drinks. The items listed above may not be a complete list of foods and drinks to avoid. Contact a dietitian for more information. Summary ??? Heart-healthy meal planning includes eating less unhealthy fats, eating more healthy fats, and making other changes in your diet. ??? Eat a balanced diet. This includes fruits and vegetables, low-fat or nonfat dairy, lean protein, nuts and legumes, whole grains, and heart-healthy oils and fats. This information is not intended to replace advice given to you by your health care provider. Make sure you discuss any questions you have with your health care provider. Document Released: 04/11/2013 Document Revised: 11/18/2018 Document Reviewed: 11/18/2018 [employer] Interactive Patient Education ? 2020 [employer] Procedures Coronary Artery Bypass Grafting, Care After This sheet gives you information about how to care for yourself after your procedure. Your doctor may also give you more specific instructions. If you have problems or questions, call your doctor. What can I expect after the procedure? After the procedure, it is common to: ??? Feel sick to your stomach (nauseous). ??? Not want to eat as much as normal (lack of appetite). ??? Have trouble pooping (constipation). ??? Have weakness and tiredness (fatigue). ??? Feel sad (depressed) or grouchy (irritable). ??? Have pain or discomfort around the cuts from surgery (incisions). Follow these instructions at home: Medicines ??? Take zbzx-yvk-mlkyobw and prescription medicines only as told by your doctor. Do not stop taking medicines or start any new medicines unless your doctor says it is okay. ??? If you were prescribed an antibiotic medicine, take it as told by your doctor. Do not stop taking the antibiotic even if you start to feel better. Incision care ??? Follow instructions from your doctor about how to take care of your cuts from surgery. Make sure you: ? Wash your hands with soap and water before and after you change your bandage (dressing). If you cannot use soap and water, use hand chief cruiser. ? Change your bandage as told by your doctor. ? Leave stitches (sutures), skin glue, or skin tape (adhesive) strips in place. They may need to stay in place for 2 weeks or longer. If tape strips get loose and curl up, you may trim the loose edges. Do not remove tape strips completely unless your doctor says it is okay. ??? Make sure the surgery cuts are clean, dry, and protected. ??? Check your cut areas every day for signs of infection. Check for: ? More redness, swelling, or pain. ? More fluid or blood. ? Warmth. ? Pus or a bad smell. ??? If cuts were made in your legs: ? Avoid crossing your legs. ? Avoid sitting for long periods of time. Change positions every 30 minutes. ? Raise (elevate) your legs when you are sitting. Bathing ??? Do not take baths, swim, or use a hot tub until your doctor says it is okay. ??? Only take sponge baths. Pat the surgery cuts dry. Do not rub the cuts to dry. ??? Ask your doctor when you can shower. Eating and drinking ??? Eat foods that are high in fiber, such as beans, nuts, whole grains, and raw fruits and vegetables. Any meats you eat should be lean cut. Avoid canned, processed, and fried foods. This can help prevent trouble pooping. This is also a part of a heart-healthy diet. ??? Drink enough fluid to keep your pee (urine) pale yellow. ??? Do not drink alcohol until you are fully recovered. Ask your doctor when it is safe to drink alcohol. Activity ??? Rest and limit your activity as told by your doctor. You may be told to: ? Stop any activity right away if you have chest pain, shortness of breath, irregular heartbeats, or dizziness. Get help right away if you have any of these symptoms. ? Move around often for short periods or take short walks as told by your doctor. Slowly increase your activities. ? Avoid lifting, pushing, or pulling anything that is heavier than 10 lb (4.5 kg) for at least 6 weeks or as told by your doctor. ??? Do physical therapy or a cardiac rehab (cardiac rehabilitation) program as told by your doctor. ? Physical therapy involves doing exercises to maintain movement and build strength and endurance. ? A cardiac rehab program includes: ? Exercise training. ? Education. ? Counseling. ??? Do not drive until your doctor says it is okay. ??? Ask your doctor when you can go back to work. ??? Ask your doctor when you can be sexually active. General instructions ??? Do not drive or use heavy machinery while taking prescription pain medicine. ??? Do not use any products that contain nicotine or tobacco. These include cigarettes, e-cigarettes, and chewing tobacco. If you need help quitting, ask your doctor. ??? Take 2?3 deep breaths every few hours during the day while you get better. This helps expand your lungs and prevent problems. ??? If you were given a device called an incentive spirometer, use it several times a day to practice deep breathing. Support your chest with a pillow or your arms when you take deep breaths or cough. ??? Wear compression stockings as told by your doctor. ??? Weigh yourself every day. This helps to see if your body is holding (retaining) fluid that may make your heart and lungs work harder. ??? Keep all follow-up visits as told by your doctor. This is important. Contact a doctor if: ??? You have more redness, swelling, or pain around any cut. ??? You have more fluid or blood coming from any cut. ??? Any cut feels warm to the touch. ??? You have pus or a bad smell coming from any cut. ??? You have a fever. ??? You have swelling in your ankles or legs. ??? You have pain in your legs. ??? You gain 2 lb (0.9 kg) or more a day. ??? You feel sick to your stomach or you throw up (vomit). ??? You have watery poop (diarrhea). Get help right away if: ??? You have chest pain that goes to your jaw or arms. ??? You are short of breath. ??? You have a fast or irregular heartbeat. ??? You notice a clicking in your breastbone (sternum) when you move. ??? You have any signs of a stroke. BE FAST is an easy way to remember the main warning signs: ? B - Balance. Signs are dizziness, sudden trouble walking, or loss of balance. ? E - Eyes. Signs are trouble seeing or a change in how you see. ? F - Face. Signs are sudden weakness or loss of feeling of the face, or the face or eyelid drooping on one side. ? A - Arms. Signs are weakness or loss of feeling in an arm. This happens suddenly and usually on one side of the body. ? S - Speech. Signs are sudden trouble speaking, slurred speech, or trouble understanding what people say. ? T - Time. Time to call emergency services. Write down what time symptoms started. ??? You have other signs of a stroke, such as: ? A sudden, very bad headache with no known cause. ? Feeling sick to your stomach. ? Throwing up. ? Jerky movements you cannot control (seizure). These symptoms may be an emergency. Do not wait to see if the symptoms will go away. Get medical help right away. Call your local emergency services (911 in the [place] Do not drive yourself to the hospital. Summary ??? After the procedure, it is common to have pain or discomfort in the cuts from surgery (incisions). ??? Do not take baths, swim, or use a hot tub until your doctor says it is okay. ??? Slowly increase your activities. You may need physical therapy or cardiac rehab. ??? Weigh yourself every day. This helps to see if your body is holding fluid. This information is not intended to replace advice given to you by your health care provider. Make sure you discuss any questions you have with your health care provider. Document Released: 10/16/2014 Document Revised: 06/20/2019 Document Reviewed: 06/20/2019 [employer] Interactive Patient Education ? 2020 [employer]. Coronary Artery Bypass Grafting Coronary artery bypass grafting (CABG) is a surgery to bypassor to fix arteries of the heart (coronary arteries) that are narrow or blocked. This narrowing is usually the result of a buildup of fatty deposits (plaques) in the diaz of the vessels. The coronary arteries supply the heart with the oxygen and nutrients that it needs to pump blood through your body. In this surgery, a section of blood vessel from another part of the body (usually the chest, arm, or leg) is removed and then placed where it will allow blood to flow around the damaged part of the coronary artery. The new section of blood vessel is called the graft. Tell a health care provider about: ??? Any allergies you have. ??? All medicines you are taking or using, including steroids, blood thinners, vitamins, herbs, eye drops, creams, and zcfz-kqd-pyuswxh medicines. ??? Any problems you or family members have had with anesthetic medicines. ??? Any blood disorders you have. ??? Any surgeries you have had. ??? Any medical conditions you have. ??? Whether you are or may be . What are the risks? Generally, this is a safe procedure. However, problems may occur, including: ??? Bleeding, which may require transfusions. ??? Infection. ??? Allergic reactions to medicines or dyes. ??? Pain at the surgical site. ??? Damage to other structures or organs. ??? Short-term memory loss, confusion, and personality changes. ??? Heart rhythm problems (arrhythmias). ??? Stroke. ??? Heart attack during or after surgery. ??? Kidney failure. What happens before the procedure? Staying hydrated Follow instructions from your health care provider about hydration, which may include: ??? Up to 2 hours before the procedure ? you may continue to drink clear liquids, such as water, clear fruit juice, black coffee, and plain tea. Eating and drinking Follow instructions from your health care provider about eating and drinking, which may include: ??? 8 hours before the procedure ? stop eating heavy meals or foods, such as meat, fried foods, or fatty foods. ??? 6 hours before the procedure ? stop eating light meals or foods, such as toast or cereal. ??? 6 hours before the procedure ? stop drinking milk or drinks that contain milk. ??? 2 hours before the procedure ? stop drinking clear liquids. Medicines ??? Take eynh-leb-ymotgup and prescription medicines only as told by your health care provider. ??? Ask your health care provider about: ? Changing or stopping your regular medicines. This is especially important if you are taking diabetes medicines or blood thinners. You may be asked to start new medicines and stop taking others. Do not stop medicines or adjust dosages on your own. ? Taking medicines such as aspirin and ibuprofen. These medicines can thin your blood. Do not take these medicines unless your health care provider tells you to take them. ? Taking vkgv-gsc-qageukm medicines, vitamins, herbs, and supplements. General instructions ??? Ask your health care provider: ? How your surgical site will be marked or identified. ? What steps will be taken to help prevent infection. These may include: ? Removing hair at the surgery site. ? Washing skin with a germ-killing soap. ? Taking antibiotic medicine. ??? You may be asked to shower with a germ-killing soap. ??? For 3?6 weeks before the procedure, do not use any products that contain nicotine or tobacco, such as cigarettes, e-cigarettes, and chewing tobacco. Quitting smoking is one of the best things you can do for your heart health. If you need help quitting, ask your health care provider. ??? Talk with your health care provider about where the grafts will be taken from for your surgery. What happens during the procedure? An IV will be inserted into one of your veins. ??? You will be given one or more of the following: ? A medicine to help you relax (sedative). ? A medicine to make you fall asleep (general anesthetic). ??? An incision will be made down the front of the chest through the breastbone (sternum). The sternum will be opened so the surgeon can see the heart. ??? You may or may not be placed on a heart-lung bypass machine. If this machine is used, your heart will be temporarily stopped. The machine will provide oxygen to your blood while the surgeon works on your heart. If the machine is not used, it is called beating heart bypass surgery. ??? A section of blood vessel will be removed from another part of your body (usually the chest, arm, or leg). ??? The blood vessel will be attached above and below the blocked artery of your heart. This may be done on more than one artery of the heart. ??? When the bypass is done, you will be taken off the heart-lung machine if it was used. ??? If your heart was stopped, it will be restarted and will take over again normally. ??? Your chest will be closed with special surgical wire to hold your bones together for healing. ??? Your incision(s) will be closed with stitches (sutures), skin glue, or adhesive strips. ??? Bandages (dressings) will be placed over the incision(s). ??? Tubes will remain in your chest and will be connected to a suction device to help drain fluid and reinflate the lungs. The procedure may vary among health care providers and hospitals. What happens after the procedure? Your blood pressure, heart rate, breathing rate, and blood oxygen level will be monitored until you leave the hospital. ??? You may wake up with a tube in your throat to help your breathing. You may be connected to a breathing machine. You will not be able to talk while the tube is in place. The tube will be taken out as soon as it is safe. ??? You will be groggy and may have some pain. You will be given pain medicine to help control the pain. ??? You may be in the intensive care unit for 1?2 days. ??? You may be given oxygen to help you breathe. ??? You will be shown how to do deep breathing exercises. ??? You may have to wear compression stockings. These stockings help to prevent blood clots and reduce swelling in your legs. ??? You may be given new medicines to take after your surgery. ??? Cardiac rehabilitation will be started while you are in the hospital. This may include education and exercises to help you recover from your surgery. Summary ??? In this procedure, a section of blood vessel from another part of the body (usually the chest, arm, or leg) is removed and then placed where it will allow blood to bypass the narrowed or blocked part of the coronary artery. ??? For 3?6 weeks before the procedure, do not use any products that contain nicotine or tobacco, such as cigarettes, e-cigarettes, and chewing tobacco. If you need help quitting, ask your health care provider. ??? You may or may not be placed on a heart-lung bypass machine during the surgery. If used, this machine will provide oxygen to your blood while the surgeon works on your heart. ??? You may wake up with a tube in your throat to help your breathing. You may be connected to a breathing machine. The tube will be taken out as soon as it is safe. This information is not intended to replace advice given to you by your health care provider. Make sure you discuss any questions you have with your health care provider. Document Released: 07/21/2006 Document Revised: 06/20/2019 Document Reviewed: 06/20/2019 [employer] Interactive Patient Education ? 2020 [employer] documented in this encounter Plan of Treatment Upcoming Encounters Date Type Department Care Team (Late st Contact Info) Description 06/20/2025 2:30 PM EDT Office Visit [facility] - [address] [phone] Mica Chu PA-C [address] [place] [id number] documented as of this encounter Visit Diagnoses Not on filedocumented in this encounter Care Teams Guitar Player Relationship Specialty Start Date End Date Sotero Miller MD [address] [place] [id number] PCP - General Adolescent Medicine 10/25/22 documented as of this encounter
--- OUTSIDE RECORDS SUMMARY | 2025-05-13 05:44 | XMS_ITS | Encounter Summary ---
[facility] Organization [facility] Address [address] [place] [address] Care Team Providers Care Business Systems Technician Name Role Phone Jeromy Stewart MD Primary Care Provider [phone] Reason for Visit * Reason Onset Date Comments TRACEE ARAUJO MD- CALL BACK 03/14/2025 Encounter Details Date Type Department Care Team (Late st Contact Info) Description 03/14/2025 Telephone [facility] [address] [place] [phone] Tracee Araujo MD [address] [place] [address] TRACEE ARAUJO MD- CALL BACK Social History Tobacco Use Types Packs/Day Years [...] encounter Miscellaneous Notes * Telephone Encounter - Cat Aden MA - 03/14/2025 4:[address] Araujo. Pt can restart Zetia 10 mg qd and Crestor 5 mg qd as long as he can tolerate the Crestor. Pt notified and verbalized understanding. He states the Crestor caused his legs to ache but he willtry it again. * Telephone Encounter - Aaliyah Bowens RegSched Rep - 03/14/2025 11:11 AM EDT Caller: Nico Meade Relationship: Self Best call back number: [phone] What is the best time to reach you: ANY Who are you requesting to speak with (clinical staff, provider, specific staff member): CLINICAL Do you know the name of the person who called: CAT What was the call regarding: PATIENT CALLING BACK ABOUT REPATHA . PATIENT IS STATING THAT IT WOULD BE $800 MONTHLY AND PATIENT CAN'T AFFORD THAT. PLEASE REACH OUT Is it okay if the provider responds through MyChart: CALL documented in this encounter Plan of Treatment Upcoming Encounters Date Type Department Care Team (Late st Contact Info) Description 06/13/2025 3:00 PM EDT Office Visit [facility] [address] [phone] Tracee Araujo MD [address] [place] [address] documented as of this encounter Visit Diagnoses Not on filedocumented in this encounter Care Teams Business Systems Technician Relationship Specialty Start Date End Date Jeromy Stewart MD [address] [place] [address] PCP - General Family Medicine 02/08/24 JEROMY STEWART [address] [place] [address] Primary Care Provider 10/25/23 documented as of this encounter
--- OUTSIDE RECORDS SUMMARY | 2025-05-13 05:44 | XMS_ITS | Encounter Summary ---
Author Organization [employer] ([place], [place], [place], [place]) Address [address] [place] [address] Care Team Providers Care Oracle Manager Name Role Phone Sotero Miller MD Primary Care Provider [phone] Encounter Details Date Type Department Care Team (Late st Contact Info) Description 04/22/2020 Transcribed Document [facility] Family Medicine [address] [place] [address] ProviderMk MD [address] [place] [address] Social History Tobacco Use Types Packs/Day Years Used Date Smoking Tobacco: Never Assessed Sex and Gender Information Value Date Recorded Sex Assigned at Not on file Legal Sex Male 5:40 PM CDT Gender Identity Not on file Sexual Orientation Not on file documented as of this encounter Miscellaneous Notes * Cerner Conversion Note - Mk Mac MD - 04/22/2020 10:05 AM CDT Initial Discharge Planning Entered On: 04/22/2020 10:07 EDT Performed On: 04/22/2020 10:05 EDT by KARENA DONNELLY Rn-Forge Press Operator Initial Assessment I Previously Documented Living Environment : No qualifying data available. TREV AGUIRRE RN - 04/29/2020 5:50 EDT Living Situation : Home Patient Lives With : Spouse Is the Patient a Caregiver at Home? : No Emergency Contact #1 : Carmencita ChristinaFrancisca) Emergency Contact #1 Emergency Contact #1 Relationship : Emergency Contact #2 : KARENA Julio Rn-[employer]ge Press Operator - 04/22/2020 10:05 EDT Emergency Contact #2 TREV AGUIRRE RN - 04/29/2020 5:50 EDT Emergency Contact #2 Relationship : daughter Enter Doctors Name : Sotero Miller Does Patient have PCP Listed? : Yes Medical Durable Power of Social Science Manager Name : None Legal Guardian : No Is Guardianship Needed : No KARENA DONNELLY Rn-Forge Press Operator - 04/22/2020 10:05 EDT Initial Assessment II Sensory and Motor Deficits : None Current Home Treatments and Equipment : None KARENA DONNELLY Rn-Forge Press Operator - 04/22/2020 10:05 EDT Discharge Needs I Anticipated Discharge Date : 04/27/2020 EDT Anticipated Discharge To, CM : Home with family care Current Home Treatment/Equipment : Current Home Treatment/Equipment No qualifying data available. Post Acute/Home Treatments : None Documentation Status Complete : Yes KARENA DONNELLY Rn-Forge Press Operator - 04/22/2020 10:05 EDT Discharge Needs II Professional Skilled Services : Professional Skilled Services No qualifying data available. Needs Assistance with Transportation : No Discharge Options Discussed with Patient : Discharge transportation, DME, Home Health, Outpatient services, Short term rehabilitation KARENA DONNELLY Rn-Forge Press Operator - 04/22/2020 10:05 EDT Narrative Note Narrative Note : LRR; HD#1 - Chest Pain; LHC 04/20; heparin/nitro gtt; Trop 26.000 improved from 46.200; CTS consult - anticipate CABG surgery. Met pt - awake/alert in bed; spouse @ bedside. Discussed DCP with patient including OP Cardiac Rehab - pt not willing to commit at this time - states he will think about it. Works fulltime; PLOF independent, no hx of hhc or STR. KARENA DONNELLY Rn-Forge Press Operator - 04/22/2020 10:05 EDT documented in this encounter Plan of Treatment Upcoming Encounters Date Type Department Care Team (Late st Contact Info) Description 06/20/2025 2:30 PM EDT Office Visit [facility] - [address] [phone] Mica Chu, PA-C [address] [place] [phone] documented as of this encounter Visit Diagnoses Not on filedocumented in this encounter Care Teams Oracle Manager Relationship Specialty Start Date End Date Sotero Miller MD [address] [place] [address] PCP - General Adolescent Medicine 10/25/22 documented as of this encounter
--- OUTSIDE RECORDS SUMMARY | 2025-05-13 05:44 | XMS_ITS | Encounter Summary ---
Author Organization [employer] ([place], [place], [place], [place]) Address [address] [place] [address] Care Team Providers Care Director Broadcast Name Role Phone Sotero Miller MD Primary Care Provider [phone] Encounter Details Date Type Department Care Team (Late st Contact Info) Description 04/21/2020 Transcribed Document [facility] Family Medicine [address] [place] [address] ProviderMk MD [address] [place], [place] [address] Social History Tobacco Use Types Packs/Day Years Used Date Smoking Tobacco: Never Assessed Sex and Gender Information Value Date Recorded Sex Assigned at Not on file Legal Sex Male 5:40 PM CDT Gender Identity Not on file Sexual Orientation Not on file documented as of this encounter Miscellaneous Notes * Cerner Conversion Note - Mk Mac MD - 04/21/2020 7:25 PM CDT Patient: NICO LERNER Age: 70 years Sex: Male : 1950 Associated Diagnoses: None Author: ARABELLA GUILLAUME MD-CAR Basic Information PCP: Not Listed Primary Devulcanizer Head: Dr. Eugenio Peacock MD Requesting MD: Dr. Elis Massey MD Chief Complaint Chest pain and Shortness of Air History of Present Illness 70-year-old male with past medical history significant for hypertension, dyslipidemia, coronary artery disease. Was sent from [facility] for triple vessel disease. Patient had an episode of severe chest pain went to the hospital ER. Was found to have ST elevation myocardial infarction underwent left heart catheterization on 04/20/2020 showed that he has EXHIBIT CLEANER of the LAD, total occlusion of the RCA, severe disease of proximal left circumflex and total occlusion of the distal circumflex. His EF was preserved. Patient was placed on medical treatment and transferred to [facility]. This is the first time he had this bad chest pain. 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 He denied palpitation dizziness falling down or passing out. No orthopnea PND or leg swelling. He denied any cough wheeze sputum or hemoptysis no fever no chills no bleeding anywhere. Review of Systems Constitutional: Negative except as documented in history of present illness. Eye: Negative except as documented in history of present illness. Ear/Nose/Mouth/Throat: Negative except as documented in history of present illness. Respiratory: Negative except as documented in history of present illness. Cardiovascular: Negative except as documented in history of present illness. Gastrointestinal: Negative except as documented in history of present illness. Genitourinary: Negative except as documented in history of present illness. Hematology/Lymphatics: Negative except as documented in history of present illness. Endocrine: Negative except as documented in history of present illness. Immunologic: Negative except as documented in history of present illness. Musculoskeletal: Negative except as documented in history of present illness. Integumentary: Negative except as documented in history of present illness. Neurologic: Negative except as documented in history of present illness. Psychiatric: Negative except as documented in history of present illness. Health Status Allergies (1) Active Reaction No Known Allergies None Documented Home Medications (4) Active aspirin 325 mg oral delayed release tablet 325 mg = 1 Tab, Oral, Daily Imdur 60 mg, Oral, QAM Norvasc 10 mg oral tablet 10 mg = 1 Tab, Oral, Daily Toprol-XL See Instructions Allergies: Allergic Reactions (Selected) No Known Allergies Current medications: (Selected) Inpatient Medications Ordered Ativan: 0.5 mg, IV Push, Q4H, PRN: Agitation DuoNeb 0.5 mg-2.5 mg/3 mL inhalation solution: 3 mL, Nebulized Inhalation, Q6H, PRN: Shortness of Breath Lopressor: 12.5 mg, Oral, BID Normal Saline 1,000 mL: 75 mL/Hr, IntraVENous Pepcid: 20 mg, Oral, Daily Phenergan: 6.25 mg, IntraVENous, Q6H, PRN: Nausea Tylenol: 650 mg, Oral, Q4H, PRN: Other (See Comment) Zofran: 4 mg, IV Push, Q4H, PRN: Nausea aspirin: 325 mg, Oral, Daily doxycycline + Sodium Chloride 0.9% intravenous solution 100 mL: 100 mg, 50 mL/Hr, IV Piggyback, [id number] heparin injection 25,000 Units + NaCl 0.45% Premix Diluent 250 mL: Titrate, IntraVENous hydrALAZINE: 10 mg, IV Push, Q6H, PRN: Hypertension morphine: 2 mg, IV Push, Q2H, PRN: Pain (Severe 7-10) nitroglycerin injection 25 mg + D5W Premix Diluent for Drip 250 mL: TITRATE, IntraVENous Documented Medications Documented Imdur: 60 mg, Oral, QAM, 0 Refill(s) Norvasc 10 mg oral tablet: 1 Tab, Oral, Daily, 0 Refill(s) Toprol-XL: See Instructions, Oral Daily, 0 Refill(s) aspirin 325 mg oral delayed release tablet: 1 Tab, Oral, Daily, 0 Refill(s), Medications (14) Active Scheduled: (4) aspirin EC 325 mg tab 325 mg 1 Tab, Oral, Daily doxycycline hyclate + NaCl 0.9% 100 mL 100 mg, IV Piggyback, [id number] famotidine 20 mg tab 20 mg 1 Tab, Oral, Daily metoprolol tartrate 25 mg tab 12.5 mg 0.5 Tab, Oral, BID Continuous: (3) heparin/NaCl 0.45% 25,000 Units + [...] mL, IntraVENous, Q6H Problem list: All Problems Arthritis / SNOMED CT 3127214 / Confirmed At risk for sleep apnea / IMO [id number] / Confirmed CAD (coronary artery disease) / SNOMED CT 31081180 / Confirmed Chronic hypertension / SNOMED CT 2763811101 / Confirmed, Active Problems (4) Arthritis At risk for sleep apnea CAD (coronary artery disease) Chronic hypertension Histories No education data available. 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 Exercise Comment: works everyday - 04/21/2020 17:28 - MADISON MOSELEY RN Home/Environment 04/21/2020 Alcohol abuse in household: No Substance abuse in household: No Smoker in household: No Injuries/Abuse/Neglect in household: No Feels unsafe at home: No Safe place to go: Yes Agency(s)/Others notified: No Substance Abuse 04/21/2020 Recreational Drug Use History No Tobacco 04/21/2020 Smokeless Tobacco Status Never Comment: quit 50 years ago - 04/21/2020 17:27 - MADISON MOSELEY RN Past Medical History: Per problem list above Family History: Positive for HTN and HLD Procedure history: thumb surgery with grafts., Left Heart Cath 1994 (No PCI) and Left Heart Cath 04/20/2020 (No PCI / Referral for CABG) Social History 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 Denies ETOH and Illicit drug abuse. Remote smoker, Quit 50+ years ago. . Physical Examination VS/Measurements Measurements from flowsheet : Measurements 04/21/2020 16:52 EDT Height/Length, BULGARIAN (ft) 5 ft Height/Length BULGARIAN 8 Inch Weight METRIC kg 89.8 kg Body Surface Area (BSA) 2.04 m2 Body Mass Index 30.1 kg/m2 HI , Vitals Signs (last 24 hrs) Last Charted Minimum Maximum Temp 98.6 (APR 21 17:00) 98.6 (APR 21 17:00) 98.6 (APR 21 17:00) Mon HR 56 (APR 21 18:30) 53 (APR 21 18:00) 60 (APR 21 17:00) Resp Rate H 23 (APR 21 18:30) 18 (APR 21 17:34) H 30 (APR 21 17:00) SBP 129 (APR 21 18:30) 115 (APR 21 18:15) 129 (APR 21 17:00) DBP 67 (APR 21 18:30) 61 (APR 21 17:15) 76 (APR 21 18:15) MAP 93 (APR 21 18:30) 85 (APR 21 17:15) 94 (APR 21 18:00) SpO2 94 (APR 21 18:30) L 93 (APR 21 17:15) 97 (APR 21 17:00) General: [Alert and oriented, well nourished, no acute distress]. Neurologic: [Awake, alert, and oriented X3, CN II-XII intact]. Eye: [PERRL, EOMI, normal conjuctiva]. HENT: [Normocephalic, normal hearing, moist oral mucosa, no scleral icterus, no sinus tenderness]. Neck: [Supple, non-tender, no carotid bruits, no JVD, no lymphadenopathy]. Lungs: [Clear to auscultation and percussion, non-labored respiration]. Heart: [Normal rate, regular rhythm, systolic murmur, no gallop or edema]. Abdomen: [Soft, non-tender, non-distended, normal bowel sounds, no masses]. Musculoskeletal: [Normal range of motion and strength, no tenderness or swelling]. Skin: [Skin is warm, dry and pink, no rashes or lesions]. Psychiatric: [Cooperative, appropriate mood and affect]. Review / Management APR 21 17:52 138 105 H 23 / H 151 4.2 26 1.20 \ Cardiac Markers (Current Encounter/Past 24 Hours) ProBNP 2625 pg/mL DC 04/21/2020 18:40 Blood Gases (Current Encounter/Past 24 Hours) No Blood Gas Results Found (Past 24 Hours) No Radiology Results Found Results review: Labs (Last four charted values) WBC H 21.4 (APR 21) HB 16.2 (APR 21) HCT 49.4 (APR 21) Plt 289 (APR 21) Na 138 (APR 21) K 4.2 (APR 21) Cl 105 (APR 21) CO2 26 (APR 21) BUN H 23 (APR 21) Cr 1.20 (APR 21) Glu R H 151 (APR 21) Ca 9.1 (APR 21) Lactic 1.6 (APR 21) PT 10.8 (APR 21) INR 1.0 (APR 21) AST H 192 (APR 21) ALT 54 (APR 21) ALK P 76 (APR 21) T Bili 0.7 (APR 21) PTN 7.7 (APR 21) ALB L 3.3 (APR 21) Lipase 133 (APR 21) Troponin C 46.200 (APR 21) . Impression and Plan IMPRESSION: Triple vessel disease. 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 CV disease in the left circumflex. Nondiabetic. Hypertension. Dyslipidemia. PLAN; Continue cardiovascular medication continue heparin for anticoagulation, [...] EDT Office Visit [facility] - [address] [phone] Mica Chu PA-C [address] [place] [address] documented as of this encounter Visit Diagnoses Not on filedocumented in this encounter Care Teams Director Broadcast Relationship Specialty Start Date End Date Sotero Miller MD [address] [place] [address] PCP - General Adolescent Medicine 10/25/22 documented as of this encounter
--- OUTSIDE RECORDS SUMMARY | 2025-05-13 05:44 | XMS_ITS | Clinical Summary ---
Author Organization [employer] ([place], [place], [place], [place]) Address [address] [place] [address] Care Team Providers Care Market Risk Analyst Name Role Phone Sotero Miller MD Primary Care Provider [phone] Allergies No known active allergies Medications amLODIPine (NORVASC) 10 MG tablet Take 10 mg by mouth daily. 09/26/2022 Active clopidogreL (PLAVIX) 75 mg tablet Take 75 mg by mouth daily. 09/26/2022 Active furosemide (LASIX) 40 MG tablet Take 40 mg by mouth daily. 08/10/2022 Active metoprolol succinate (TOPROL-XL) 50 MG 24 hr tablet Take 50 mg by mouth daily. 09/24/2022 Active potassium chloride SA (K-DUR,KLOR-CON-M ) 20 MEQ tablet Take 20 mEq by mouth daily. 07/27/2022 Active potassium chloride (Klor-Con) 20 mEq packet Take by mouth. Active isosorbide mononitrate (ISMO,MONOKET) 10 MG tablet Take by mouth. Active simvastatin (ZOCOR) 10 MG tablet Take by mouth. Active Hospital, Clinic, or Other Facility Administered Medication Ordered Dose Route Frequency Start Date End Date Status methylPREDNISolone acetate (DEPO-MEDROL) injection 80 mgIndications:Primary osteoarthritis of left knee 80 mg IAtc Once 01/21/2023 Active lidocaine (XYLOCAINE) injection 1%Indications:Primary osteoarthritis of left knee 1 mL IAtc Once 01/21/2023 Active Active Problems Problem Noted Date Diagnosed Date Primary osteoarthritis of right knee 08/10/2024 Primary osteoarthritis of left knee 10/15/2022 Encounters Date Type Department Care Team Description 03/21/2025 2:30 PM EDT Office Visit [facility] - [address] [phone] Mica Chu PA-C Primary osteoarthritis of left knee (Primary Dx); Primary osteoarthritis of right knee from Last 3 Months Family History Medical History Relation Name Comments Cancer Other Diabetes Other High blood pressure Other Kidney disease Other Relation Name Status Comments Other Social History Tobacco Use Types Packs/Day Years Used Date Smoking Tobacco: Never Smokeless Tobacco: Never Tobacco Cessation:Counseling Given: Not Answered Alcohol Use Standard Drinks/Week Comments Never 0 [...] Date Jeremie rded Speak language other than Cambodian at home Not on file 02/11/2024 Want [...] on file Sexual Orientation Not on file Last Filed Vital Signs Vital Sign Reading Time Taken Comments Blood Pressure 135/68 03/21/2025 2:12 PM EDT Pulse 73 03/21/2025 2:12 PM EDT Temperature - - Respiratory Rate 19 11/04/2023 1:47 PM EST Oxygen Saturation 95% 08/10/2024 2:00 PM EDT Inhaled Oxygen Concentration - - Weight 91.6 kg (202 lb) 03/21/2025 2:12 PM EDT Height 172.7 cm (5' 8 ) 03/21/2025 2:12 PM EDT Body Mass Index 30.71 03/21/2025 2:12 PM EDT Plan of Treatment Upcoming Encounters Date Type Department Care Team (Late st Contact Info) Description 06/20/2025 2:30 PM EDT Office Visit [facility] - [address] [phone] Mica Chu PA-C [address] [place] [address] Health Maintenance Due Date Last Done Comments CT Colonography 1950 Colonoscopy 1950 Colorectal Cancer Screening 1950 FOBT/FIT 1950 Fit-DNA (Cologuard) 1950 Sigmoidoscopy 1950 Depression Screening (12+) 1962 Hepatitis C Screening 02/19/1968 DTAP/TDAP/TD VACCINES (1 - Tdap) 1969 Pneumococcal 50+ years (1 of 1 - PCV) 02/19/2000 Shingles Vaccine (Zoster) (1 of 2) 02/19/2000 COVID-19 VACCINE (1 - season) 2024 Medicare IPPE (Welcome to Medicare) [id number] 09/24/2024 Falls Risk Screening 10/25/2024 Respiratory Syncytial Virus (RSV) Adult or (1 - 1-dose 75+ series) 2025 Influenza Vaccine (#1) 2025 Tobacco Cessation Counseling and Screening (12+) 08/1008/10/2024 Insurance [place]ICARE [place] [address] [address] COMMERCIAL Care Teams Market Risk Analyst Relationship Specialty Start Date End Date Sotero Miller MD [address] [place] [address] PCP - General Adolescent Medicine 10/25/22
--- OUTSIDE RECORDS SUMMARY | 2025-05-13 05:44 | XMS_ITS | Encounter Summary ---
Author Organization [employer] ([place], [place], [place], [place]) Address [address] [place] [address] Care Team Providers Care Health Center Associate Name Role Phone Sotero Miller MD Primary Care Provider + [phone] Encounter Details Date Type Department Care Team (Late st Contact Info) Description 04/21/2020 Transcribed Document [facility] [place] [address] [place] [address] ProviderMk MD [address] [place] [address] Social History Tobacco Use Types Packs/Day Years Used Date Smoking Tobacco: Never Assessed Sex and Gender Information Value Date Recorded Sex Assigned at Not on file Legal Sex Male 5:40 PM CDT Gender Identity Not on file Sexual Orientation Not on file documented as of this encounter Miscellaneous Notes * Cerner Conversion Note - Mk Mac MD - 04/21/2020 5:08 PM CDT Education-Respiratory Therapy Entered On: 04/22/2020 7:58 EDT Performed On: 04/21/2020 17:08 EDT by CORRINA CUNNINGHAM, RN Education: Smoking/Tobacco Cessation Topics Smoking Cess Educatin [...] : Returns demonstration, Verbalizes understanding Activities to [place] With Smoking Urges : Returns demonstration, Verbalizes [...] Description 06/20/2025 2:30 PM EDT Office Visit [facility] - [address] [phone] Mica Chu, PA-C [address] [place] [address] documented as of this encounter Visit Diagnoses Not on filedocumented in this encounter Care Teams Health Center Associate Relationship Specialty Start Date End Date Sotero Miller MD [address] [place] [address] PCP - General Adolescent Medicine 10/25/22 documented as of this encounter
--- OUTSIDE RECORDS SUMMARY | 2025-05-13 05:44 | XMS_ITS | Clinical Summary ---
[facility] Address [address] [place] [address] Care Team Providers Care Disassembler Product Name Role Phone Jeromy Stewart MD Primary Care Provider [phone] Allergies Active Allergy Reactions Criticality Noted Date Comments Atorvastatin Myalgia Low 02/09/2024 Simvastatin Myalgia Low 02/09/2024 Medications traZODone (DESYREL) 50 MG tabletIndication s:Other insomnia Take one or two nightly as needed for insomnia 180 tablet 1 5 Active multivitamin with minerals tablet tablet Take 1 tablet by mouth Daily. 30 each 5 Active diclofenac (VOLTAREN) 50 MG EC tablet Take 1 tablet by mouth 2 (Two) Times a Day. 60 tablet 3 5 Active amLODIPine (NORVASC) 5 MG tabletIndication s:Essential hypertension Take 1 tablet by mouth Daily. 90 tablet 1 5 Active metFORMIN (GLUCOPHAGE) 500 MG tabletIndication s:Type 2 diabetes mellitus without complication, without long-term current use of insulin Take 1 tablet by mouth 2 (Two) Times a Day With Meals. 60 tablet 11 5 Active clopidogrel (PLAVIX) 75 MG tablet Take 1 tablet by mouth Daily. Active furosemide (LASIX) 40 MG tablet Take 1 tablet by mouth Daily. Active isosorbide mononitrate (IMDUR) 60 MG 24 hr tablet Take 1 tablet by mouth Daily. Active metoprolol succinate XL (TOPROL-XL) 50 MG 24 hr tablet Take 1 tablet by mouth Daily. Active rosuvastatin (CRESTOR) 5 MG tablet Take 1 tablet by mouth Daily. 30 tablet 3 01/26/2025 3:58 PM EDT 5 Active Additional Information Patient not taking.Reported on 03/12/2025 Evolocumab (Repatha) solution prefilled syringe injection Inject 1 mL under the skin into the appropriate area as directed Every 14 (Fourteen) Days. 2 each 6 01/26/2025 3:58 PM EDT 5 Active Additional Information Patient not taking.Reported on 03/12/2025 escitalopram (LEXAPRO) 5 MG tablet Take 1 tablet by mouth Daily. 5 Active potassium chloride (KLOR-CON M20) 20 MEQ CR tablet Take 1 tablet by mouth Daily. 5 Active nitroglycerin (NITROSTAT) 0.4 MG SL tabletIndication s:Coronary artery disease involving bois forte heart without angina pectoris, unspecified vessel or lesion type 1 under the tongue as needed for angina, may repeat q5mins for up three doses 100 tablet 3 5 Active Active Problems Problem Noted Date Diagnosed Date Precordial chest pain 01/15/2025 Abnormal nuclear stress test 01/15/2025 Assessment & Plan (01/16/2025 12:36 PM EDT): Nuclear stress test from 01/11/2025 revealed a large inferolateral area of ischemia. Intermediate to high risk study. Preop cardiovascular exam 05/10/2024 Knee pain 08/13/2023 GERD (gastroesophageal reflux disease) 3 Gout 08/13/2023 Other emphysema 08/13/2023 Pulmonary hypertension 06/17/2023 Bilateral leg edema 06/17/2023 Assessment & Plan (12/18/2024 6:08 PM EST): Stable. Continue current Lasix dose. Orders: potassium chloride (KLOR-CON M20) 20 MEQ CR tablet; Take 1 tablet by mouth Daily. furosemide (LASIX) 40 MG tablet; Take 1 tablet by mouth Daily. Abnormal echocardiogram 12/12/2022 Assessment & Plan (12/12/2022 7:04 PM EST): November 19, 2021 echo all overall EF normal 60 to 65%, mild concentric left ventricular hypertrophy, left atrium is moderately dilated, right ventricle is mildly enlarged, mild MR, abnormal diastolic function, mild TR, mild pulmonary hypertension. Essential hypertension 12/12/2022 Assessment & Plan (12/18/2024 6:08 PM EST): Well-controlled. Continue current medications. Update lab work. Orders: metoprolol succinate XL (TOPROL-XL) 50 MG 24 hr tablet; Take 1 tablet by mouth Daily. isosorbide mononitrate (IMDUR) 60 MG 24 hr tablet; Take 1 tablet by mouth Daily. amLODIPine (NORVASC) 5 MG tablet; Take 1 tablet by mouth Daily. CBC & Differential; Future Comprehensive Metabolic Panel; Future Hemoglobin A1c; Future Lipid Panel; Future Assessment & Plan (12/12/2022 7:06 PM EST): Goal is less than 130/90. Continue plan of care. Hyperlipidemia LDL goal <70 12/12/2022 Assessment & Plan (12/12/2022 7:07 PM EST): Patient's labs obtained today. Patient was not fasting and had a large breakfast. We will need to repeat fasting labs. Paroxysmal atrial fibrillation 12/12/2022 Assessment & Plan (12/25/2024 7:08 PM EST): The episode that he shows me on his phone does not appear to be atrial fibrillation to me. I think there is too much artifact. However he was having chest pain with it see below. Orders: ECG 12 Lead; Future ECG 12 Lead Assessment & Plan (12/12/2022 7:10 PM EST): Only 1 known episode when inpatient in era 2020. Patient continues to be rate controlled and asymptomatic. On beta-marcia, Plavix, and aspirin. Patient was a CHADS2 score of 2 until today's labs. His hemoglobin A1c is elevated and he is now a diabetic. This makes his chads 2 score of 3. Coronary artery disease invo lving bois forte heart without angina pectoris 12/12/2022 Assessment & Plan (01/16/2025 12:37 PM EDT): S/p three-vessel CABG in 2019 at [facility]. He experienced a recent episode of severe chest pain. Dr. Araujo ordered a nuclear stress test which revealed a large inferolateral area of ischemia, intermediate to high risk study. She recommends proceeding with a left heart cath and patient is agreeable. - Left heart cath at [facility] Assessment & Plan (12/18/2024 6:08 PM EST): Doing well. On medical therapy. Plan to continue. LDL not at goal and intolerant of multiple statins. Will try to get Repatha. Orders: metoprolol succinate XL (TOPROL-XL) 50 MG 24 hr tablet; Take 1 tablet by mouth Daily. isosorbide mononitrate (IMDUR) 60 MG 24 hr tablet; Take 1 tablet by mouth Daily. ezetimibe (ZETIA) 10 MG tablet; Take 1 tablet by mouth Daily. clopidogrel (PLAVIX) 75 MG tablet; Take 1 tablet by mouth Daily. Evolocumab (REPATHA) solution prefilled syringe injection; Inject 1 mL under the skin into the appropriate area as directed Every 14 (Fourteen) Days. CBC & Differential; Future Comprehensive Metabolic Panel; Future Hemoglobin A1c; Future Lipid Panel; Future Assessment & Plan (12/12/2022 7:06 PM EST): S/P space CABG with 3 blockages 04/2020. Stable. On medical therapy. Carotid stenosis, asymptomatic, bilateral 2022 Assessment & Plan (12/12/2022 7:06 PM EST): April 22, 2020 bilateral carotid ultrasound shows only mild disease bilaterally. Patient is on Plavix, aspirin, statin and is asymptomatic Hyperglycemia 12/12/2022 Assessment & Plan (12/12/2022 7:22 PM EST): Today's labs show elevated hemoglobin A1c at 7.0 and elevated glucose. However patient was not fasting. And he has had bronchitis for 2 months reports he has been on steroids Z-Murray and sugary cough syrup. I would like to repeat hemoglobin A1c in 3 months with his fasting lipids. I have asked the staff to call and inform him of his results as they were not obtained until after he left the clinic. Primary osteoarthritis of left knee 10/15/2022 Resolved Problems Problem Noted Date Diagnosed Date Resolved Date Type 2 diabetes mellitus wit hout complication, without long-term current use of insulin 12/12/2022 12/12/2022 Encounters Date Type Department Care Team Description 03/26/2025 Telephone [facility] [address] [place] [phone] Danica Aden MA 03/14/2025 Telephone [facility] [place] [phone] Tracee Araujo MD CRISTEN K WAESPE, MD- CALL BACK 03/12/2025 3:00 PM EDT Office Visit [facility] [place] [phone] Tracee Araujo MD Coronary artery disease involving bois forte heart without angina pectoris, unspecified vessel or lesion type (Primary Dx); Hyperlipidemia LDL goal <70 03/12/2025 Travel from Last 3 Months Immunizations Immunization Administration Dates Next Due Flu Vaccine Intradermal Quad 18-64YR 08/17/2019 Fluzone (or Fluarix & Flulaval for VFC) >6mos Family History Medical History Relation Name Comments Cancer Brother 1 Cancer Brother 2 44 YO No Known Problems Brother 3 No Known Problems Brother 4 Brain cancer Father Pneumonia Mother IN HER 70'S Heart attack Sister 70 YO OTHERS HE ALTHY Relation Name Status Comments Brother 1 (Age 41) Brother 2 Brother 3 Brother 4 Father (Age 49) Mother Sister Social History Tobacco Use Types Packs/Day Years Used Date Smoking Tobacco: Former Cigarettes 1 10 1974 Passive Smoke Exposure: Past Smokeless Tobacco: Never Tobacco Cessation:Counseling Given: Yes Alcohol Use Standard Drinks/Week Comments Yes 0 [...] Sign Reading Time Taken Comments Blood Pressure 138/80 03/12/2025 2:48 PM EDT Pulse 50 03/12/2025 2:48 PM EDT Temperature 36 C (96.8 F) 01/26/2025 10:24 AM EDT Respiratory Rate 14 01/26/2025 1:28 PM EDT Oxygen Saturation 94% 03/12/2025 2:48 PM EDT Inhaled Oxygen Concentration - - Weight 91.6 kg (202 lb) 03/12/2025 2:48 PM EDT Height 170.2 cm (5' 7 ) 03/12/2025 2:48 PM EDT Body Mass Index 31.64 03/12/2025 2:48 PM EDT Plan of Treatment Upcoming Encounters Date Type Department Care Team (Late st Contact Info) Description 06/13/2025 3:00 PM EDT Office Visit [facility] [address] [place] [place] [phone] Tracee Araujo MD [address] [place] [address] Health Maintenance Due Date Last Done Comments DIABETIC EYE EXAM 02/19/1960 DIABETIC FOOT EXAM 02/19/1960 URINE MICROALBUMIN-CREATININE RATIO (uACR) 02/19/1960 Pneumococcal Vaccine 50+ (1 of 2 - PCV) 1969 TDAP/TD VACCINES (1 - Tdap) 1969 COLOGUARD 1995 COLON CANCER SCREENING 5 YEA R SIGMOIDOSCOPY 1995 COLONOSCOPY 1995 COL[address]AL CANCER SCREENING 1995 CT COLONOGRAPHY 1995 FECAL OCCULT BLOOD TEST 1995 FIT Testing (1 year) 1995 ZOSTER VACCINE (1 of 2) 02/19/2000 AAA SCREEN ONCE 2015 ANNUAL WELLNESS VISIT 12/01/2022 HEPATITIS C SCREENING 12/01/2022 COVID-19 Vaccine (1 - 2023-25 season) 2024 RSV Vaccine - Adults (1 - 1- dose 75+ series) 2025 INFLUENZA VACCINE 07/25/2025 07/24/2023, 08/17/2019 HEMOGLOBIN A1C 07/28/2025 01/26/2025, 05/12/2024 LIPID PANEL 01/26/2026 01/26/2025, 05/12/2024 Procedures Procedure Name Priority Date/Time Associated Diagnosis Comments SCANNED - LABS 03/10/2025 HEMOGLOBIN A1C STAT 01/26/2025 10:36 AM EDT LIPID PANEL STAT 01/26/2025 10:36 AM EDT from Last 3 Months or Most Recently Relevant to Health Maintenance Results * LABS SCANNED (03/10/2025) Tracee Araujo MD LAB BLOOD ORDERABLES Final R esult * (ABNORMAL) Hemoglobin A1c (01/26/2025 10:36 AM EDT) Hemoglobin A1C 7.80(H) 4.80 - 5.60 % 01/26/2025 11:29 AM EDT [facility] Blood Line / Unknown 01/26/2025 10 :36 AM EDT 01/26/2025 10:47 AM EDT Narrative [facility] - 01/26/2025 11:29 AM EDT Hemoglobin A1C Ranges: Increased Risk for Diabetes 5.7% to 6.4% Diabetes >= 6.5% Diabetic Goal < 7.0% Dorota Browning APRN LAB BLOOD ORDERABLES Final Result [facility]
[address] [place] [address], * (ABNORMAL) Lipid Panel (01/26/2025 10:36 AM EDT) Total Cholesterol 200 0 - 200 mg/dL 01/26/2025 11:21 AM EDT [facility] Triglycerides 194(H) 0 - 150 mg/dL 01/26/2025 11:21 AM EDT [facility] HDL Cholesterol 42 40 - 60 mg/dL 01/26/2025 11:21 AM EDT [facility] LDL Cholesterol 124(H) 0 - 100 mg/dL 01/26/2025 11:21 AM EDT [facility] VLDL Cholesterol 34 5 - 40 mg/dL 01/26/2025 11:21 AM EDT [facility] LDL/HDL Ratio 2.84 01/26/2025 11:21 AM EDT [facility] Blood Line / Unknown 01/26/2025 10 :36 AM EDT 01/26/2025 10:47 AM EDT Narrative [facility] - 01/26/2025 11:21 AM EDT Cholesterol Reference Ranges (U.S. Department of Health and Human Services ATP III Classifications) Desirable <200 mg/dL Borderline High 200-239 mg/dL High Risk >240 mg/dL Triglyceride Reference Ranges (U.S. Department of Health and Human Services ATP III Classifications) Normal <150 mg/dL Borderline High 150-199 mg/dL High 200-499 mg/dL Very High >500 mg/dL HDL Reference Ranges (U.S. Department of Health and Human Services ATP III Classifications) Low <40 mg/dl (major risk factor for CHD) High >60 mg/dl ('negative' risk factor for CHD) LDL Reference Ranges (U.S. Department of Health and Human Services ATP III Classifications) Optimal <100 mg/dL Near Optimal 100-129 mg/dL Borderline High 130-159 mg/dL High 160-189 mg/dL Very High >189 mg/dL LDL is calculated using the NIH LDL-C calculation. Dorota Kulkarnipaul FOSS LAB BLOOD ORDERABLES Final Result [facility]
[address] [place] [address], from Last 3 Months or Most Recently Relevant to Health Maintenance Insurance MEDICARE A & B Member Subscriber Plan / Payer (Ef fective 2015-Present) Name:Nico Meade Member ID:[id number] Relation to Subscriber:Self Name:Nico Meade Subscriber ID:[id number] Payer ID:[id number] Group ID:Not on file Type:Not on file Address: [id number] Care Teams Disassembler Product Relationship Specialty Start Date End Date Jeromy Stewart MD [address] [place] [address] PCP - General Family Medicine 02/08/24 JEROMY STEWART [address] [place] [address] Primary Care Provider 10/25/23
--- OUTSIDE RECORDS SUMMARY | 2025-05-13 05:44 | XMS_ITS | Encounter Summary ---
Author Organization [employer] ([place], [place], [place], [place]) Address [address] [place] [address] Care Team Providers Care Geothermal Operations Engineer Name Role Phone Sotero Miller MD Primary Care Provider + [phone] Encounter Details Date Type Department Care Team (Late st Contact Info) Description 05/03/2020 Transcribed Document [facility] [address] [place] [address] ProviderMk MD [address], [place] [id number] Social History Tobacco Use Types Packs/Day Years Used Date Smoking Tobacco: Never Assessed Sex and Gender Information Value Date Recorded Sex Assigned at Not on file Legal Sex Male 5:40 PM CDT Gender Identity Not on file Sexual Orientation Not on file documented as of this encounter Miscellaneous Notes * Cerner Conversion Note - Mk ProviderMD - 05/03/2020 5:00 PM CDT Chart Check - Review Order Profile Entered On: 05/03/2020 16:37 EDT Performed On: 05/03/2020 17:00 EDT by NICHOLAS VALDES RN Chart Check Powerplans Initiated/Discontinued as Appropriate : Yes All Active Orders Reviewed : Yes NICHOLAS VALDES, RN - 05/03/2020 16:37 EDT documented in this encounter Plan of Treatment Upcoming Encounters Date Type Department Care Team (Late st Contact Info) Description 06/20/2025 2:30 PM EDT Office Visit [facility] Orthopedics - [address] [phone] Mica Chu PA-C [address] [place] [phone] documented as of this encounter Visit Diagnoses Not on filedocumented in this encounter Care Teams Geothermal Operations Engineer Relationship Specialty Start Date End Date Sotero Miller MD [address] [place] [address] [place] [address] PCP - General Adolescent Medicine 10/25/22 documented as of this encounter
--- OUTSIDE RECORDS SUMMARY | 2025-05-13 05:44 | XMS_ITS | Encounter Summary ---
Author Organization [employer] ([place], [place], [place], [place]) Address [address] [place] [address] Care Team Providers Care Willow Analyst Name Role Phone Sotero Miller MD Primary Care Provider + [phone] Encounter Details Date Type Department Care Team (Late st Contact Info) Description 05/03/2020 Transcribed Document [facility] [place] Family Medicine [facility]placed by [facility] [place] [address] ProviderMk MD [address] [place] [address] Social History Tobacco Use Types Packs/Day Years Used Date Smoking Tobacco: Never Assessed Sex and Gender Information Value Date Recorded Sex Assigned at Not on file Legal Sex Male 5:40 PM CDT Gender Identity Not on file Sexual Orientation Not on file documented as of this encounter Miscellaneous Notes * Cerner Conversion Note - Mk Mac MD - 05/03/2020 11:01 AM CDT Patient: GILBERT LERNER Age: 70 years Sex: Male : 1950 Associated Diagnoses: None Author: JUVE VOGEL, HOT DIMPLING MACHINE OPERATOR-CTS Admission Date: Admitting: Dr. Jose M Massey PCP: Dr. Taz Miller CARD:Dr. Eugenio Peacock, [place], [place] Consultants:Dr. Brenda Farrar, Cardiology Dr. Ladonna Pagan, CT Surgery Dr. Jeanne Gandara, Pulmonary Brief History:Gilbert Lerner is a 70-year-old male who presented to outside hospital with complaint of significant amount of chest pain. At [facility], the patient underwent further evaluation and was ruled in for a non-Q-wave myocardial infarction. Left heart catheterization was then performed which revealed occlusion of the LAD, occlusion of the circumflex, and occlusion of the right coronary artery. There was disease in proximal LAD and approximately 80% proximal diagonal. The patient was subsequently referred here for coronary revascularization. PROCEDURE: 04/29/20>>1. Median sternotomy. 2. Coronary artery bypass graft x3 with left internal mammary artery anastomosed to LAD, reverse saphenous vein graft anastomosed from ascending aorta to the diagonal, and finally reverse saphenous vein graft anastomosed to the posterolateral branch on cardiopulmonary bypass. 3. Application of platelet-rich and platelet-poor platelet gel. 4. Endoscopic vein harvesting from the right lower extremity. 5. Intraoperative transesophageal echocardiography. DX(Present on admission): 3V CAD>> Acute NQWMI, 03/31/20 Acute pulmonary edema secondary to MN Unstable angina Strong family Hx of CAD EF 50-55% per intraop TYRON Systemic HTN HLP Cigarette abuse, resolved x 50 yrs COPD, Stage 3 ( Gold 2017 classification) Arthritis Past Hx of thumb surgery Likely Community-acquired pneumonia leukocytosis Acute Kidney Injury ( pre-admission Creatinine 1.4) Dx prior to surgery: Bradycardia Pre-op beta marcia held secondary to bradycardia New onset acute A fib with RVR POSTOP DX: Hypotension Bibasilar atelectasis Subjective 04/24/20: No chest pain on heparin and nitro drip, at bedside, Anxious about upcoming CABG 04/25/20: OOB in chair. at bedside. No complaints. 04/26/20: Denies chest pain or dyspnea. OOB in chair. 04/27/20: Doing well. 04/28/20: Denies chest pain or shortness of breath. Anxious about surgery tomorrow. 04/29/20: CABGx3 04/30/20: POD#1 The pt is OOB in a chair, he is pleasant but complains of incisional pain. He is also on Dopamine 3mcg/kg/min which is being weaned. 05/01/20: POD#2 Sore; sitting in chair; appears content 05/02/20: POD#3 pain with coughing 05/03/20: POD#4 Health Status Allergies: Allergic Reactions (Selected) Severity Not Documented Contrast Dye- Shortness of breath. Current medications.Problem list. Objective VS/Measurements Vital Measurements 05/03/2020 9:36 EDT Heart Rate, Apical 80 bpm 05/03/2020 8:47 EDT Oxygen Therapy Mode Room air 05/03/2020 8:00 EDT Oxygen Saturation 93 % LOW 05/03/2020 6:01 EDT Systolic Blood Pressure 116 mmHg Diastolic Blood Pressure 73 mmHg General: Alert and oriented. Respiratory: Lungs are clear to auscultation, anteriorly. Cardiovascular: Normal rate, Regular rhythm. Gastrointestinal: Soft, Non-tender, Non-distended. Sternal incision>> Aquacell dressing RLE incision>> C D I Results Review General results Today's results 05/03/2020 4:59 EDT Sodium Level 137 mmol/L Potassium Level 5.1 mmol/L Chloride Level 103 mmol/L Carbon Dioxide Level 27 mmol/L Anion Gap 12 Glucose Level 132 mg/dL HI Blood Urea Nitrogen 41 mg/dL HI Creatinine Level 1.50 mg/dL HI eGFR 56 mL/min/1.73m2 LOW eGFR NonAfrican 46 mL/min/1.73m2 LOW Bun/Creatinine 27.3 HI Calcium Level 9.7 mg/dL WBC 18.9 K/uL HI RBC 3.69 Million/uL LOW Hgb 11.2 g/dL LOW Hct 35.1 % LOW MCV 95.1 fL HI MCH 30.4 pg MCHC 31.9 Gram/dL LOW Platelet Count 221 K/uL Interpretation: Radiology Results (Last 48 hours) [id number] -- 04/21/2020 16:53 CR Chest 1 Vw Portable (05/02/2020 06:11) Result: PORTABLE CHEST; HISTORY: Pleural effusion.COMPARISON: None.FINDINGS: The patient is status post median sternotomy. The heart ismild to moderately enlarged. The mediastinum is unremarkable. There isbibasilar scarring or atelectasis. The left chest tube has been removed.There is no pneumothorax. IMPRESSION: No pneumothorax following left chest tube removal.Mild/moderate cardiomegaly with bibasilar scarring or atelectasis.Images reviewed, interpreted, and dictated by Dr. Mac Luis.Transcribed by iLndy Smith PA-C.I have personally viewed, interpreted and dictated the examination. Ihave read and agree with the above final transcribed report. CR Chest 1 Vw Portable (05/03/2020 06:14) Result: PORTABLE CHEST. 05/03/2020 4:00 AMHISTORY: Pleural effusion.COMPARISON: May 02, 2020.FINDINGS: The patient is status post median sternotomy for priorCABG.The cardiac silhouette is enlarged. The mediastinum isunremarkable. There are trace effusions and basilar atelectasis, leftgreater than right. There is no pneumothorax. IMPRESSION: Trace effusions and basilar atelectasis.Films reviewed, interpreted, and dictated by Dr. Rodriguez.Transcribed by Catie De Luna PA-C.I have personally viewed, interpreted and dictated the examination. Ihave read and agree with the above final transcribed report. 04/22/20 Carotid U\S>> RIGHT: Intimal thickening only in the prox ICA. Normal antegrade vertebral flow. No evidence of subclavian steal. LEFT: < 20% stenosis of the prox ICA. Normal antegrade vertebral flow. No evidence of subclavian steal. Impression and Plan VTE STATUS>>SCDS 04/22/[address] Taylor today Possible CABG by Dr. Pagan Hold [...] CABG tomorrow. Stop heparin gtt at 0400. 04/29/20 CABGx3 04/30/20 POD#1 WBC 19.9 down from 29.0 Creatinine 1.[address] secondary to drainage Dopamine 3mcg/kg/min Lasix 40mg IV x 1 Transfer to [facility] today per Dr. Pagan 05/01/20 POD#2 Telemetry>> sinus O2 sat>>97% on 2 liters MT ouput 6pto 6a: 100ml; 6a to 10a: 20ml; no air leak Creatinine 1.5 ( 1 yesterday; 1.6 on 04/24); Pt received lasix 40 mg yesterday WBC 23.8 ( 19.9 yesterday); suspect reactive, will monitor Pt on IV rocephin and doxycycline ( CAP) Pt seen and evaluated by Dr. Deleon>> remove MT's No diuresis secondary to elevated creatinine Metoprolol 12.5 mg BID MT's and pcaing wire removed without problems Last BM: 04/28, if no BM by tomorrow, will need Lactulose \ Ducolax combo 05/02/20 Telemetry>>sinus O2 sat>> 99% on 2 liters; 90 % RA Creatinine 1.4 ( yesterday 1.5 ( pre-adm 1.4) WBC 22.6 ( 23.8 yesterday) IV rocephin & Doxycycline ( CAP) per Dr. Elis Hill Laxative ( Lactulose \ dulcolax ordered) Pt seen and evaluated by Dr. Deleon>> home next 1-2 days, when medically ready \.br EU appts ordered Pain Rx ( percocet 5\325mg q4hrs PRn for sternal incisional pain #42 on chart) Cardiac Rehab: [facility] 05/03/20 Telemetry>> New A fib with RVR ( while trying to have BM)>> start IV Amiodarone O2 sat 93% on RA INR 1.5 ( 1.4 yesterday; pre-adm 1.4) WBC 18.9 ( 22.6 yesterday) IV Rocephin and Doxycycline ( CAP) per Dr. Elis Massey Did not take laxatives as ordered yesterday>> taking this am Mucinex for thick secretions Pt seen and evaluated by Dr. Deleon>>pt complaining of belching>> order Reglan 10 mg q 8hrs x 48 hrs documented in this encounter Plan of Treatment Upcoming Encounters Date Type Department Care Team (Late st Contact Info) Description 06/20/2025 2:30 PM EDT Office Visit [facility] Orthopedics - [address] [phone] Mica Chu, CORTNEYC [address] [place] [phone] documented as of this encounter Visit Diagnoses Not on filedocumented in this encounter Care Teams Willow Analyst Relationship Specialty Start Date End Date Sotero Miller MD [address] [place] [address] PCP - General Adolescent Medicine 10/25/22 documented as of this encounter
--- OUTSIDE RECORDS SUMMARY | 2025-05-13 05:44 | XMS_ITS | Encounter Summary ---
Author Organization [employer] ([place], [place], [place], [place]) Address [address] [place] [address] Care Team Providers Care Software Engineer Sales Name Role Phone Sotero Miller MD Primary Care Provider [phone] Encounter Details Date Type Department Care Team (Late st Contact Info) Description 05/03/2020 Transcribed Document [facility] [place] Family Medicine [address] [place] [address] ProviderMk MD [address] [place] [address] Social History Tobacco Use Types Packs/Day Years Used Date Smoking Tobacco: Never Assessed Sex and Gender Information Value Date Recorded Sex Assigned at Not on file Legal Sex Male 5:40 PM CDT Gender Identity Not on file Sexual Orientation Not on file documented as of this encounter Miscellaneous Notes * Cerner Conversion Note - Mk Mac MD - 05/03/2020 2:52 PM CDT On Going Discharge Planning Entered On: 05/03/2020 14:56 EDT Performed On: 05/03/2020 14:52 EDT by TANVIR MANZO Physics Teacher Care Management Progress Note Discharge Arrangements : Patient Post-Acute [...] Discharge Unresolved : Clinical Condition of Patient Designation of Choice Signed : Yes Patient Offered Choice/Affiliations Explained : Yes (Comment: patient and family aware of star and quality rating [TANVIR MANZO Social Worker - 05/03/2020 14:52 EDT] ) List/Info Provided Pt/Fam/Support Person : Home health Were Referrals Sent to Post Acute Providers : Yes Is the Patient Meeting Medical Necessity : Yes TANVIR MANZO Social Worker - 05/03/2020 14:52 EDT Narrative Progress Note Narrative Progress Note : Admission day 12/POD on 2 liters O2, tentative plan was for patient to discharge home today, however patient went into AFIB/RVR, IV Amio gtt started. DCP: Home with home health via [facility] for RN/PT services, all follow up appointments in place, patient to be transported home via spouseFrancisca, who will assist as needed. Pt and family aware and in agreement with plan. CM will continue to follow. Historical Progress Note : Admission day 11/ POD 5, on 2 liters O2 (98%)/room air=90%; BUN/Crea=30/1.4, WBC=22.6, CXR=No pneumothorax following left chest tube removal. Mild/moderate cardiomegaly with bibasilar scarring or atelectasis; LBM=04/28/2020-Laxative ordered, ABX=Rocephin q24, PO Doxy BID-for CAP; PT chepdyywm=711' with rwx. DCP: Home with family, outpatient cardiac rehab and possible HH/DME if appropriate. CM will continue to follow. TANVIR MANZO Social Worker - 05/02/20 13:21:48 Admission day 10/POD 4, on 2 liters O2, Crea=1.5, Mg=3.2, WBC=23.8, MT/PW removed, IV Abx=Rocephin q24, PO Doxy BID, PT=80' with rwx, DCP: home with spouseFrancisca, who will transport and assist with care, cardiac rehab via [facility], will continue to follow for discharge needs and arrangements (HH/DME). TANVIR MANZO Social Worker - 05/01/20 15:00:32 MRR; ELOS 7; HD#9 (POD 1 CABG); OOB in chair; MT in place r/t drainage; Dopamine gtt - weaning; WBC 19.9 improved from 29.0; pt to transfer to [address] [place] [address] Deleon; CM discussed DCP with pt and he agrees to OP Cardiac Rehab - [facility] - referral placed thru [facility]; monitor for any other d/c needs. KARENA DONNELLY Rn-Senior Budget Analyst - 04/30/20 09:44:31 MRR; ELOS 7; HD#8 s/p CABG x 3; intubated fi02 80/sedated; b/p 127/56; spoke with bedside RN Bernie who states pt may extubate this afternoon; CM requested she obtain PT/OT evaluation orders if extubated anticipating therapy evaluations tomorrow; will discuss DCP with pt when extubated - ogoing discussion for OP cardiac rehab. KARENA DONNELLY Rn-Senior Budget Analyst - 04/29/20 15:02:10 Patient is a moderate readmission risk. ELOS: 7 days HD#4 Adm Dx: STEMI; [facility] 04/20 - Total occulusion of LAD and RCA with normal LVEF. Continue Heparin and Nitroglycerine Drip, CABG planned on Wednesday. DCP: CM will follow for discharge planning needs post op. AURA CARDENAS RN-Senior Budget Analyst - 04/25/20 16:22:03 Patient is a moderate readmission risk. ELOS: 7 days HD#3 Adm Dx: STEMI; [facility] 04/20 - Total occulusion of LAD and RCA with normal LVEF. Continue Heparin and Nitroglycerine Drip, CABG planned on Wednesday. DCP: CM will follow for discharge planning needs post op. AURA CARDENAS RN-Senior Budget Analyst - 04/24/20 15:42:28 MRR, ELOS #2; HD#2 - [facility] on 04/22 = Occlusion of RCA/LAD; Plt 143; CABG timing to be determined; pt on transfer out of CTVU; new PT/OT evaluation orders placed; DCP pending progress; anticipate home with family and OP Cardiac Rehab when appropriate. KARENA DONNELLY Rn-Senior Budget Analyst - 04/23/20 11:34:20 DCP - anticipate home without needs; continue to follow. KARENA DONNELLY, Rn-Senior Budget Analyst - 04/22/20 10:08:21 TANVIR MANZO, Physics Teacher - 05/03/2020 14:52 EDT documented in this encounter Plan of Treatment Upcoming Encounters Date Type Department Care Team (Late st Contact Info) Description 06/20/2025 2:30 PM EDT Office Visit [facility] Orthopedics - [address] [address] Mica Chu PA-C [address] [place] [address] documented as of this encounter Visit Diagnoses Not on filedocumented in this encounter Care Teams Software Engineer Sales Relationship Specialty Start Date End Date Sotero Miller MD [address] [place] [address] PCP - General Adolescent Medicine 10/25/22 documented as of this encounter
--- OUTSIDE RECORDS SUMMARY | 2025-05-13 05:44 | XMS_ITS | Encounter Summary ---
Author Organization [employer] ([place], [place], [place], [place]) Address [address] [place] [address] Care Team Providers Care Lithographic Plate Maker Name Role Phone Sotero Miller MD Primary Care Provider [phone] Encounter Details Date Type Department Care Team (Late st Contact Info) Description 04/21/2020 Transcribed Document [facility] [place] [address] ProviderMk MD [address] [place], [place] [address] Social History Tobacco Use Types Packs/Day Years Used Date Smoking Tobacco: Never Assessed Sex and Gender Information Value Date Recorded Sex Assigned at Not on file Legal Sex Male 5:40 PM CDT Gender Identity Not on file Sexual Orientation Not on file documented as of this encounter Miscellaneous Notes * Cerner Conversion Note - Mk Mac MD - 04/21/2020 4:52 PM CDT Admission History, Adult Entered On: 04/21/2020 17:38 EDT Performed On: 04/21/2020 16:52 EDT by MADISON MOSELEY RN Advance Directive Patient has Advance Directive *Q : No, patient refuses Advance Directive information MADISON MOSELEY RN - 04/21/2020 17:19 EDT Anesthesia/Transfusion History Family History of Anesthesia Reaction : No prior transfusion(s) Blood Transfusion Acceptable to Patient : Yes Transfusion History : Prior anesthesia without reaction Family History of Anesthesia Reaction : None MADISON MOSELEY RN - 04/21/2020 17:19 EDT Anticipated Discharge Needs Discharge To, Anticipated : Home Anticipated Discharge Needs at This Time : None MADISON MOSELEY RN - 04/21/2020 17:19 EDT Education Topics, Admission Orientation DCP GENERIC CODE Advance Directives : Verbalizes understanding Allergy Band Applied : Verbalizes understanding Assessment/Vital Signs : Verbalizes understanding Bed Control : Verbalizes understanding Call Light : Verbalizes understanding Confidentiality : Verbalizes understanding Diet/Room Service : Verbalizes understanding Fall Prevention : Verbalizes understanding Hand Hygiene : Verbalizes understanding Healthcare Provider Visit : Verbalizes understanding ID Band Applied : Verbalizes understanding Isolation Precautions : Verbalizes understanding Orientation to Room/Bathroom : Verbalizes understanding Patient Bill of Rights : Verbalizes understanding Patient Rights/Responsibilities : Verbalizes understanding Patient Safety : Verbalizes understanding Personal Privacy Code : Verbalizes understanding Rapid Response Initiated by Patient/Family : Verbalizes understanding Rounding : Verbalizes understanding Siderails use/risks : Verbalizes understanding Skin Precautions : Verbalizes understanding Smoking Policy : Verbalizes understanding Telemetry Monitoring : Verbalizes understanding Television/Phone : Verbalizes understanding Visiting Policy : Verbalizes understanding MADISON MOSELEY RN - 04/21/2020 17:19 EDT Functional Assessment Living Situation : Home Patient Lives With : Spouse Persons Assisting Patient at Home : Spouse Current Daily Living Assistance : None Mobility Assistance Prior to Admission : Independent JACKSON Hx Falls Immediate/Within 3 Months : No Current Home Treatments : None MADISON MOSELEY RN - 04/21/2020 17:19 EDT General Info Contact Password : Wild[employer] Junior Copywriter Needed : TREV Grande RN - 04/28/2020 21:55 EDT Arrived From : Other: [facility] Mode of Arrival on Unit : Stretcher Legal Guardian : Unaccompanied Want Family/Rep/Phys Notified of Admit : No Emergency Contact #1 : Carmencita Hannah) Emergency Contact #1 Emergency Contact #1 Relationship : Emergency Contact #2 : Clare Duran Emergency Contact #2 8 Emergency Contact #2 Relationship : daughter Primary Language : Solomon Islander Communication Barrier : MADISON Olievra RN - 04/21/2020 17:19 EDT Fall Risk Scales ABCs Fall Injury Risk Identification : Coagulation ABC Fall Injury Risk : Moderate to high injury risk Injury Moderate to High Risk Interventions : Bed alarm on JACKSON Hx Falls Immediate/Within 3 Months : No [place] Secondary Diagnosis : Yes JACKSON Use of Ambulatory Aid : Bed rest/Nurse assist JACKSON IV Therapy or IV Access : Yes [place] Gait/Transferring : Normal, bedrest, immobile Jackson Mental Status : Oriented to own ability [place] Fall Risk Score : 35 JACKSON Fall Scale Risk Level : 25-45 Medium Risk [place] Fall Interventions : Adequate lighting, Assistive devices within reach, Bed in low position, Fall prevention handout/education per facility policy, Frequent orientation to surroundings, Non-slip footwear, Personal items within reach, Reinforced to call for assistance before getting out of bed, Room free of clutter/spills, Upper side-rails up, Wheels locked, Wires/Cords secured Fall Moderate to High Risk Interventions : Bed alarm on Fall Risk Scale Calc Temp : 0 MADISON MOSELEY RN - 04/21/2020 17:19 EDT Health Histories Smoking Status : Former smoker, quit more than 30 days ago Smokeless Tobacco Status : Never MADISON MOSELEY RN - 04/21/2020 17:19 EDT Social History (As Of: 04/21/2020 17:38:22 EDT) Tobacco: Never Smokeless Tobacco Status. Comments: 04/21/2020 17:27 - MADISON MOSELEY RN: quit 50 years ago (Last Updated: 04/21/2020 17:27:39 EDT by MADISON MOSELEY RN) Alcohol: Alcohol Use History No. (Last Updated: 04/21/2020 17:27:45 EDT by MADISON MOSELEY RN) Substance Abuse: Drug Use Hx: No. (Last Updated: 04/21/2020 17:27:53 EDT by MADISON MOSELEY RN) Exercise: Comments: 04/21/2020 17:28 - MADISON MOSELEY RN: works everyday (Last Updated: 04/21/2020 17:28:14 EDT by MADISON MOSELEY RN) Home/Environment: Alcohol abuse in household: No. Substance abuse in household: No. Smoker in household: No. Injuries/Abuse/Neglect in household: No. Feels unsafe at home: No. Safe place to go: Yes. Agency(s)/Others notified: No. 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 (Last Updated: 04/21/2020 17:28:46 EDT by MADISON MOSELEY RN) Height and Weight, Clinical Dosing Height Source : Estimated Height Entry Format : [place] Height, Feet : 5 ft(Converted to: 152 cm, 60 Inch) Height, Inches : 8 Inch(Converted to: 0 ft 8 Inch, 20.32 cm) Clinical Height : 172.72 cm Weight Source : Bed scale Weight Entry Format : Metric, kilograms Weight, Kilograms : 89.8 kg(Converted to: 198 lb 0 oz) Clinical Dosing Weight : 89.8 kg Body Surface Area (BSA) : 2.04 m2 Body Mass Index : 30.1 kg/m2 (HI) [place] Body Weight : 67 kg MADISON MOSELEY RN - 04/21/2020 17:19 EDT Infectious Disease History Has the patient ever been tested for COVID-19? : Yes, Patient stated results pending Date of COVID-19 test known? : Yes Date of COVID-19 Test : 04/20/2020 EDT COVID19 Screening : No Experiencing Infectious Disease Symptoms : No symptoms Physical contact outside [place] in the last 30 days : No Infectious Disease Symptoms Score : 0 Infectious Disease History : Chicken pox/Shingles, Measles, Mumps Tuberculosis Symptoms : None MADISON MOSELEY RN - 04/21/2020 17:19 EDT Tetanus Immunization Status Previous Tetanus Immunizations : No qualifying data available. Tetanus Immunization : Unknown MADISON MOSELEY RN - 04/21/2020 17:19 EDT Influenza Vaccine Asmt, Adult Previous Vaccines from Immunization Schedule : No qualifying data available. Influenza Immunization, Current Season : Outside of influenza season MADISON MOSELEY RN - 04/21/2020 17:19 EDT Pneumococcal Vaccine Previous Vaccines from Immunization Schedule : No qualifying data available. Pneumonia Immunization Received : Yes Pneumonia Immunization Comment : 2-3 years ago MADISON MOSELEY RN - 04/21/2020 17:19 EDT Order Details Transport Mode Order Detail : Bed (including specialty) Isolation Precautions Order Detail : Contact precautions Order Detail : N/A IV Order Detail : 1 Oxygen Order Detail : 1 Nurse Collect Order Detail : 1 Lift/Transfer : Minimal Central Line Order Detail : No Room Service : Not Appropriate Arterial Line : No MADISON MOSELEY RN - 04/21/2020 17:19 EDT Nutrition History Feeding Ability : Independent Adaptive Feeding Equipment : None Adaptive Feeding Equipment : Regular Eating Poorly Due to Decreased Appetite : No Unplanned Weight Loss in Past 3-6 Months : No Malnutrition Screening Tool Total(mal) : 0 Malnutrition Screening Tool Risk Level : Patient not at risk MADISON MOSELEY RN - 04/21/2020 17:19 EDT [place] Suicide Severity Rating Scale (C-SSRS) CSSRS Past Month Wish to be : No CSSRS Past Month Suicidal Thoughts : No CSSRS Lifetime Suicide Behavior : No Suicide Severity Rating Score : 0 Suicide Severity Rating : No Additional Care Required at this time MADISON MOSELEY RN - 04/21/2020 17:19 EDT Psychosocial History Does Someone Depend on You for Care? : No Currently in Unsafe Situation : No MADISON MOSELEY RN - 04/21/2020 17:19 EDT Sleep Apnea Risk Assmt Hx of Obstructive Sleep Apnea Diagnosis : No Snore Loudly : Yes Tired, Fatigued, or Sleepy During Day : Yes Observed Stopping Breathing During Sleep : Yes Have/Are Being Treated for Hypertension : Yes BMI Greater Than 35 kg/m2 : Yes Age over 50 Years Old : Yes Neck Circumference Greater Than 40 cm : No Gender Male : Yes STOP-BANG Sleep Apnea Risk Level Score : 7 MADISON MOSELEY RN - 04/21/2020 17:19 EDT Spiritual/Cultural Needs Significant Loss/Crisis in Past 3 Years : No MADISON MOSELEY RN - 04/21/2020 17:19 EDT Valuables and Belongings Valuables and Belongings : Clothing Clothing : Common streetwear Clothing Disposition : With patient MADISON MOSELEY RN - 04/21/2020 17:19 EDT documented in this encounter Plan of Treatment Upcoming Encounters Date Type Department Care Team (Late st Contact Info) Description 06/20/2025 2:30 PM EDT Office Visit [facility] Orthopedics - [address] [address] Mica Chu PA-C [address] [place] [address] documented as of this encounter Visit Diagnoses Not on filedocumented in this encounter Care Teams Lithographic Plate Maker Relationship Specialty Start Date End Date Sotero Miller MD [address] [place] [address] PCP - General Adolescent Medicine 10/25/22 documented as of this encounter
--- OUTSIDE RECORDS SUMMARY | 2025-05-13 05:44 | XMS_ITS | Encounter Summary ---
Author Organization [employer] ([place], [place], [place], [place]) Address [address] [place] [address] Care Team Providers Care Washing Machine Mechanic Name Role Phone Sotero Miller MD Primary Care Provider [phone] Encounter Details Date Type Department Care Team (Late st Contact Info) Description 04/23/2020 Transcribed Document [facility] [place] Family Medicine [facility] [place] [address] ProviderMk MD [address] [place] [address] Social History Tobacco Use Types Packs/Day Years Used Date Smoking Tobacco: Never Assessed Sex and Gender Information Value Date Recorded Sex Assigned at Not on file Legal Sex Male 5:40 PM CDT Gender Identity Not on file Sexual Orientation Not on file documented as of this encounter Miscellaneous Notes * Cerner Conversion Note - Mk Mac MD - 04/23/2020 11:32 AM CDT On Going Discharge Planning Entered On: 04/23/2020 11:34 EDT Performed On: 04/23/2020 11:32 EDT by KARENA DONNELLY Rn-Logging Equipment OperatorShipping Support Progress Note Discharge Arrangements : Patient Post-Acute [...] the Patient Meeting Medical Necessity : Yes KARENA DONNELLY Rn-Logging Equipment Operator - 04/23/2020 11:32 EDT Narrative Progress Note Narrative Progress Note : KETTY RAO #2; HD#2 - [facility] on 04/22 = Occlusion of RCA/LAD; [address]; CABG timing to be determined; pt on transfer out of CTVU; new PT/OT evaluation orders placed; DCP pending progress; anticipate home with family and OP Cardiac Rehab when appropriate. Historical Progress Note : DCP - anticipate home without needs; continue to follow. KARENA DONNELLY Rn-Logging Equipment Operator - 04/22/20 10:08:21 KAREAN DONNELLY Rn-Logging Equipment Operator - 04/23/2020 11:32 EDT documented in this encounter Plan of Treatment Upcoming Encounters Date Type Department Care Team (Late st Contact Info) Description 06/20/2025 2:30 PM EDT Office Visit [facility] Orthopedics - [address] [address] Mica Chu, PA-C [address] [place] [address] documented as of this encounter Visit Diagnoses Not on filedocumented in this encounter Care Teams Washing Machine Mechanic Relationship Specialty Start Date End Date Sotero Miller MD [address] [place] [address] PCP - General Adolescent Medicine 10/25/22 documented as of this encounter
--- OUTSIDE RECORDS SUMMARY | 2025-05-13 05:44 | XMS_ITS | Encounter Summary ---
Author Organization [employer] ([place], [place], [place], [place]) Address [address] [place] [address] Care Team Providers Care Parts Sales Advisor Name Role Phone Sotero Miller MD Primary Care Provider [phone] Encounter Details Date Type Department Care Team (Late st Contact Info) Description 05/03/2020 Transcribed Document [facility] [place] Family Medicine [address] [place] [address] ProviderMk MD [address] [place] [address] Social History Tobacco Use Types Packs/Day Years Used Date Smoking Tobacco: Never Assessed Sex and Gender Information Value Date Recorded Sex Assigned at Not on file Legal Sex Male 5:40 PM CDT Gender Identity Not on file Sexual Orientation Not on file documented as of this encounter Miscellaneous Notes * Cerner Conversion Note - Mk Mac MD - 05/03/2020 1:51 PM CDT UM Authorization Entered On: 05/03/2020 13:52 EDT Performed On: 05/03/2020 13:51 EDT by CHON ANDREWS Rn-Utilization Review Primary Insurance Authorization Authorization and Policy Numbers : Insurance 1 Health Plan: ANTHEM [employer]OP[employer] Policy Number: [id number] Authorization Number: Insurance 2 Health Plan: MEDICARE Policy Number: [id number] Authorization Number: Insurance Primary Name : [employer]M [employer]OP[employer] Policy Number: [id number] Authorization Status-Primary : Awaiting callback Reference Number-Primary : [id number] Number of Days Authorized-Primary : 11 Day(s) Authorized Service Begin Date-Primary : 04/21/2020 EDT Authorized Service End Date-Primary : 05/02/2020 EDT Authorization Comments-Primary : Faxed clinicals via [employer] for 05/02-05/03. Historical Authorization Comments-Primary : Comment 1: Rec fax from [facility] cont stay approved total of 12 days NRD 05-03-2020 (KLAUS QUIROS, Catastrophe Claims Supervisor 05/02/2020 11:12) Comment 2: Per [employer], Ipt Auth approved 12 days. NRD 05/03. (CHON ANDREWS, Rn-Utilization Review 05/02/2020 10:53) Comment 3: clinicals faxed via [employer] for cont stay for dos 04/29-04/30/2020 (CATHI DEAL, RN-Utilization Review 04/30/2020 13:10) Comment 4: Per [employer], Inpt Auth approved 5 days. Faxed additional clinicals for 04/26-04/28. (CHON ANDREWS, Rn-Utilization Review 04/29/2020 10:35) Comment 5: Faxed clinicals via [employer] for 04/23-04/25. (CHON ANDREWS, Rn-Utilization Review 04/25/2020 10:33) Comment 6: Per Avail[employer], Inpt Auth approved 4 days. NRD 04/25. (CHON ANDREWS, Rn-Utilization Review 04/24/2020 09:13) Comment 7: clinicals faxed via [employer] for cont stay for dos 04/23/2020 (CATHI DEAL, RN-Utilization Review 04/23/2020 13:09) Comment 8: submitted on [employer] for IP auth w/ clinicals attached (CATHI DEAL, RN-Utilization Review 04/22/2020 09:38) CHON ANDREWS, Rn-Utilization Review - 05/03/2020 13:51 EDT documented in this encounter Plan of Treatment Upcoming Encounters Date Type Department Care Team (Late st Contact Info) Description 06/20/2025 2:30 PM EDT Office Visit [facility] Orthopedics - [address] [address] Mica Chu PA-C [address] [place] [address] documented as of this encounter Visit Diagnoses Not on filedocumented in this encounter Care Teams Parts Sales Advisor Relationship Specialty Start Date End Date Sotero Miller MD [address] [place] [address] PCP - General Adolescent Medicine 10/25/22 documented as of this encounter
--- OUTSIDE RECORDS SUMMARY | 2025-05-13 05:44 | XMS_ITS | Encounter Summary ---
Author Organization [employer] ([place], [place], [place], [place]) Address [address] [place] [address] Care Team Providers Care Comic Book Writer Name Role Phone Sotero Miller MD Primary Care Provider [phone] Encounter Details Date Type Department Care Team (Late st Contact Info) Description 05/03/2020 Transcribed Document [facility] [place] Family Medicine [address] [place] [address] ProviderMk MD [address] [place], [place] [id number] Social History Tobacco Use Types Packs/Day Years Used Date Smoking Tobacco: Never Assessed Sex and Gender Information Value Date Recorded Sex Assigned at Not on file Legal Sex Male 5:40 PM CDT Gender Identity Not on file Sexual Orientation Not on file documented as of this encounter Miscellaneous Notes * Cerner Conversion Note - Mk ProviderMD - 05/03/2020 5:00 AM CDT Chart Check - Review Order Profile Entered On: 05/03/2020 4:51 EDT Performed On: 05/03/2020 5:00 EDT by FLORENTIN BELTRAN RN Chart Check Powerplans Initiated/Discontinued as Appropriate : Yes All Active Orders Reviewed : Yes FLORENTIN BELTRAN RN - 05/03/2020 4:50 EDT documented in this encounter Plan of Treatment Upcoming Encounters Date Type Department Care Team (Late st Contact Info) Description 06/20/2025 2:30 PM EDT Office Visit [facility] Orthopedics - [address] [place] [address] Mica Chu PA-C [address] [place] [address] documented as of this encounter Visit Diagnoses Not on filedocumented in this encounter Care Teams Comic Book Writer Relationship Specialty Start Date End Date Sotero Miller MD [address] [place] [address] PCP - General Adolescent Medicine 10/25/22 documented as of this encounter
--- OUTSIDE RECORDS SUMMARY | 2025-05-13 05:44 | XMS_ITS | Encounter Summary ---
Author Organization [employer] ([place], [place], [place], [place]) Address [address] [place] [address] Care Team Providers Care Radio Interference Supervisor Name Role Phone Sotero Miller MD Primary Care Provider + [phone] Encounter Details Date Type Department Care Team (Late st Contact Info) Description 05/05/2020 Transcribed Document [facility] [place] [facility] the [facility] [address] ProviderMk MD [address] [place] [address] Social History Tobacco Use Types Packs/Day Years Used Date Smoking Tobacco: Never Assessed Sex and Gender Information Value Date Recorded Sex Assigned at Not on file Legal Sex Male 5:40 PM CDT Gender Identity Not on file Sexual Orientation Not on file documented as of this encounter Miscellaneous Notes * [employer]ner Conversion Note - Mk Mac MD - 05/05/2020 8:54 AM CDT Final Discharge Planning Entered On: 05/05/2020 8:56 EDT Performed On: 05/05/2020 8:54 EDT by KLAUS DANIEL, RN-Shake Feeder Final Discharge Planning Discharge Arrangements : Patient Post-Acute Information Patient Name: NICO LERNER Gender: Male : 50 Age: 70 Years [place] Referral(s): Service: Organization: Business Address: Phone Number: [facility] [address], [place], [address] Patient Offered Choice/Affiliations Explained : Yes Discharge To Care Management : Home Health Services (Related/SOC within 3 days)-06 KLAUS DANIEL, RN-Shake Feeder - 05/05/2020 8:54 EDT Final Narrative Note Final Narrative Note : for dc today. arrangements in place for home health provided by [facility]. spoke with Berta extrusion operator intake. [phone]. advised of dc today. they will see pt tomorrow. spoke with Monica bedside rN. advised of above. no other needs. dc plans arranged. KLAUS DANIEL, RN-Shake Feeder - 05/05/2020 8:54 EDT Electronically signed by [facility] Conversion Administrator [facility] Care Facility Cerner at 02/07/2023 11:32 PM CDT documented in this encounter Plan of Treatment Upcoming Encounters Date Type Department Care Team (Late st Contact Info) Description 06/20/2025 2:30 PM EDT Office Visit [facility] Orthopedics - [address] [phone] Mica Chu, PA-C [address] [place] [phone] documented as of this encounter Visit Diagnoses Not on filedocumented in this encounter Care Teams Radio Interference Supervisor Relationship Specialty Start Date End Date Sotero Miller MD [address] [place] [address] PCP - General Adolescent Medicine 10/25/22 documented as of this encounter
--- OUTSIDE RECORDS SUMMARY | 2025-05-13 05:44 | XMS_ITS | Encounter Summary ---
Author Organization [employer] ([place], [place], [place], [place]) Address [address] [place] [address] Care Team Providers Care Saddle And Harness Maker Name Role Phone Sotero Miller MD Primary Care Provider + [phone] Encounter Details Date Type Department Care Team (Late st Contact Info) Description 04/21/2020 Transcribed Document [facility] [place] Family Medicine [address] [place] [address] ProviderMk MD [address] [place] [address] Social History Tobacco Use Types Packs/Day Years [...] Description 06/20/2025 2:30 PM EDT Office Visit [facility] Orthopedics - [address] [phone] Mica Chu, PAMaddieC [address] [place] [address] documented as of this encounter Visit Diagnoses Not on filedocumented in this encounter Care Teams Saddle And Harness Maker Relationship Specialty Start Date End Date Sotero Miller MD [address] [place] [address] PCP - General Adolescent Medicine 10/25/22 documented as of this encounter
--- OUTSIDE RECORDS SUMMARY | 2025-05-13 05:44 | XMS_ITS | Encounter Summary ---
Author Organization [employer] ([place], [place], [place], [place]) Address [address] [place] [address] Care Team Providers Care Transcribing Operator Head Name Role Phone Sotero Miller MD Primary Care Provider [phone] Encounter Details Date Type Department Care Team (Late st Contact Info) Description 05/04/2020 Transcribed Document [facility] [place] [address] [place] [address] ProviderMk MD [address] [place], [place] [id number] Social History Tobacco Use Types Packs/Day Years Used Date Smoking Tobacco: Never Assessed Sex and Gender Information Value Date Recorded Sex Assigned at Not on file Legal Sex Male 5:40 PM CDT Gender Identity Not on file Sexual Orientation Not on file documented as of this encounter Miscellaneous Notes * Cerner Conversion Note - Mk Mac MD - 05/04/2020 7:33 AM CDT Patient: NICO LERNER Age: 70 Years Sex: Male : 1950 Subjective No issues overnight, patient has no discomfort in his chest. No shortness of breath. He wants to go home Vital Signs T: 36.4 ??C TMIN: 36.4 ??C TMAX: 36.6 ??C HR: 61(Monitored) RR: 18 BP: 118/71 SpO2: 100% Oxygen Settings (Last) Oxygen Therapy Mode: Room air (05/03/20 21:44:00) Oxygen Flow Rate: 2 Liter/Min (05/03/20 21:00:00) Intake & Output Totals Last 24 Hours (7a-7a) Input Total: 424.2287 mL Output Total: 375 mL Balance: 49.2287 mL Physical Exam General: Awake, alert, oriented. No acute distress. Head: Atraumatic, normocephalic Eyes: PERRL, EOMI, Anicteric sclera, [place] conjunctiva Neck: Supple, no mass palpable, no bruits heard bilaterally Heart: S1S2, regular rate and rhythm, no murmurs, clicks, or gallops heard Lungs: Clear to auscultation bilaterally, no rales, rhonchi or wheezes Abdomen: Soft, non tender, normal bowel sounds heard Extremities: No clubbing, cyanosis or edema. Bilateral pedal pulses strong and palpable. Neurologic: No facial droop noted, no slurred speech, no focal neurological deficits Assessment/Plan Multivessel CAD S/P CABG . Evaluated by Cardiothoracic Surgery. S/P CABG on 04-29-[address] Stewart New Onset Atrial Fibrillation with RVR on 05-03-2020. Treated with IV Amiodarone drip Abnormal heart catheterization. Acute kidney injury secondary to Prerenal Azotemia; Resolved Essential Hypertension. on metoprolol Hyperlipidemia, Placed on Lipitor Reactive Leukocytosis. placed on empiric antibiotics Gastrointestinal prophylaxis, Protonix Deep venous thrombosis prophylaxis, the patient on heparin drip. Code status: Full code PLAN 04-28-2020 For CABG tomorrow NPO after MN Continue Iv Heparin drip Continue Normal saline for AMBER Iv Rocephin for Reactive Leukocytosis Continue Doxycycline 04-29-2020 NPO For CABG today AMBER has resolved 04-30-2020 Underwent CABG Extubated on 04-29-2020 Two chest tubes are in Pain is controlled Continue ICU 05-01-2020 TWO chest tubes are still in Reactive leukocytosis No signs or symptoms suggestive of infection will continue Rocephin and Doxycycline for now I D/W patient and at bedside plan Kirti, case management in room for MDR 05-02-2020 Two chest tubes were removed Pacer wires were removed Check Oxygen sat off oxygen Gonzalez is removed Reactive leukocytosis nonspecific MDR rounding done 05-03-2020 Developed New Onset Atrial Fibrillation with RVR on 05-03-2020. IV Amiodarone Bolus followed by IV Drip Started IV Amiodarone drip CT surgery is made aware . I spoke to Pari Thomas APRN Cardiology is made aware I discontinued IV Rocephin and Oral Doxycycline [ reactive Leukocytosis, no evidence of infection, afebrile ] I D/W case management I D/W patient and at bedside 05-04-2020 Yesterday developed atrial fibrillation with rapid ventricular response, IV amiodarone drip started Heart rate controlled this morning, in the 60s. Cardiology and CT surgery are aware Leukocytosis resolving off of antibiotics. No signs of infection. Once we have final recommendations from cardiology, patient can be discharged home on home health VTE Prophylaxis - Medical Clopidogrel 75 mg, Oral, Tab, Daily, Routine, Start 04/30/20 9:00:00 EDT (DAVID LUGO MD-CAT) Sequential Compression Device Start: 04/29/20 12:12:00 EDT, Bilateral, Continuous Order (DAVID LUGO MD-CAT) Medications amiodarone 450 mg + Dextrose 5% in Water intravenous solution 250 mL ascorbic acid, 500 mg= 1 Tab, Oral, BID aspirin, 81 mg= 1 Tab, Oral, Daily calcium gluconate Colace, 100 mg= 1 Cap, Oral, BID DOPamine injection 400 mg + D5W Premix Diluent for Drip 250 mL Dulcolax Laxative, 10 mg= 1 Supp, Rectal, Daily, PRN DuoNeb 0.5 mg-2.5 mg/3 mL inhalation solution, 3 mL, Nebulized Inhalation , RT_Q4H, PRN hydrALAZINE, 10 mg= 0.5 mL, IV Push, Q6H, PRN insulin lispro sliding scale, Scale C:, SubCutaneous, AC and at Bedtime lactulose, 15 Gram= 22.5 mL, Oral, Daily, PRN Lasix, 20 mg= 2 mL, IV Push, 1-Time, PRN Lipitor, 80 mg= 2 Tab, Oral, At Bedtime metoprolol tartrate, 12.5 mg= 0.5 Tab, Oral, BID Milk of Magnesia 8% oral suspension, 30 mL, Oral, Daily, PRN Mucinex, 1200 mg= 2 Tab, Oral, BID Normal Saline Flush, 10 mL, IV Push, Q8H Normal Saline Flush, 10 mL, IV Push, See Comment, PRN Pepcid, 20 mg= 1 Tab, Oral, BID Percocet 5/325 oral tablet, 2 Tab, Oral, Q4H, PRN Plavix, 75 mg= 1 Tab, Oral, Daily potassium chloride 10 mEq/50 mL intravenous solution, 10 mEq= 50 mL, IV Piggyback, Q1H, PRN Pulmicort Respules, 0.5 mg= 2 mL, Nebulized Inhalation , RT_BID Reglan, 10 mg= 1 Tab, Oral, Q8H Senokot, 17.2 mg= 2 Tab, Oral, At Bedtime sodium bicarbonate, 50 mEq= 50 mL, IV Push, 1-Time, PRN sodium bicarbonate, 100 mEq= 100 mL, IV Push, 1-Time, PRN Tylenol, 650 mg= 2 Tab, Oral, Q4H, PRN Tylenol, 650 mg= 2 Tab, Oral, Q4H, PRN Xanax, 0.5 mg= 1 Tab, Oral, BID, PRN Zofran, 4 mg= 2 mL, IV Push, Q4H, PRN Diagnostic Results Radiology Results (Last 48 hours) [id number] -- 04/21/2020 16:53 CR Chest 1 Vw Portable (05/03/2020 06:14) [...] agree with the above final transcribed report. Lab Results Test Name Test Result Date/Time Sodium Level 135 mmol/L (Low) 05/04/2020 03:51 EDT Potassium Level 4.9 mmol/L 05/04/2020 03:51 EDT Chloride Level 103 mmol/L 05/04/2020 03:51 EDT Carbon Dioxide Level 28 mmol/L 05/04/2020 03:51 EDT Anion Gap 9 05/04/2020 03:51 EDT Glucose Level 118 mg/dL (High) 05/04/2020 03:51 EDT Blood Urea Nitrogen 46 mg/dL (High) 05/04/2020 03:51 EDT Creatinine Level 1.40 mg/dL (High) 05/04/2020 03:51 EDT eGFR >60 mL/min/1.73m2 05/04/2020 03:51 EDT eGFR NonAfrican 50 mL/min/1.73m2 (Low) 05/04/2020 03:51 EDT Bun/Creatinine 32.9 (High) 05/04/2020 03:51 EDT Calcium Level 9.0 mg/dL 05/04/2020 03:51 EDT Device Comment 1 Notified Nurse RBV 05/04/2020 05:45 EDT Device Comment 1 Notified Nurse RBV 05/03/2020 21:24 EDT Device Comment 1 Notified Nurse RBV 05/03/2020 16:44 EDT Device Comment 1 Notified Nurse RBV 05/03/2020 12:32 EDT Glucose POC2 113 mg/dL (High) 05/04/2020 05:45 EDT Glucose POC2 152 mg/dL (High) 05/03/2020 21:24 EDT Glucose POC2 240 mg/dL (High) 05/03/2020 16:44 EDT Glucose POC2 209 mg/dL (High) 05/03/2020 12:32 EDT WBC 16.7 K/uL (High) 05/04/2020 03:51 EDT RBC 3.50 Million/uL (Low) 05/04/2020 03:51 EDT Hgb 10.6 g/dL (Low) 05/04/2020 03:51 EDT Hct 33.1 % (Low) 05/04/2020 03:51 EDT MCV 94.6 fL 05/04/2020 03:51 EDT MCH 30.3 pg 05/04/2020 03:51 EDT MCHC 32.0 Gram/dL (Low) 05/04/2020 03:51 EDT Platelet Count 232 K/uL 05/04/2020 03:51 EDT MPV 10.6 fL 05/04/2020 03:51 EDT RDW 14.6 % 05/04/2020 03:51 EDT nRBC 0.040 (High) 05/04/2020 03:51 EDT Slide Review No 05/04/2020 03:51 EDT documented in this encounter Plan of Treatment Upcoming Encounters Date Type Department Care Team (Late st Contact Info) Description 06/20/2025 2:30 PM EDT Office Visit [facility] Orthopedics - [address] [phone] Mica Chu, PAMaddieC [address] [place] [phone] documented as of this encounter Visit Diagnoses Not on filedocumented in this encounter Care Teams Transcribing Operator Head Relationship Specialty Start Date End Date Sotero Miller MD [address] [place] [address] PCP - General Adolescent Medicine 10/25/22 documented as of this encounter
--- OUTSIDE RECORDS SUMMARY | 2025-05-13 05:44 | XMS_ITS | Encounter Summary ---
Author Organization [employer] ([place], [place], [place], [place]) Address [address] [place] [address] Care Team Providers Care Carpet Measurer Name Role Phone Sotero Millre MD Primary Care Provider + [phone] Encounter Details Date Type Department Care Team (Late st Contact Info) Description 05/04/2020 Transcribed Document [facility] [place] [facility] [place] [address] ProviderMk MD [address] [place] [address] Social History Tobacco Use Types Packs/Day Years Used Date Smoking Tobacco: Never Assessed Sex and Gender Information Value Date Recorded Sex Assigned at Not on file Legal Sex Male 5:40 PM CDT Gender Identity Not on file Sexual Orientation Not on file documented as of this encounter Miscellaneous Notes * [employer] Conversion Note - Mk ProviderMD - 05/04/2020 11:54 AM CDT Spiritual Care Short Form Entered On: 05/04/2020 12:19 EDT Performed On: 05/04/2020 11:54 EDT by SIMBA ESTRADA, Spiritual Care Spiritual Care Referred by : Nurse Intervention/Comment/Summary Points : Routine visit; Provided reflective listening and pastoral prayer; Mr. Meade expressed gratitude for visit SIMBA ESTRADA - 05/04/2020 12:18 EDT Electronically signed by Lizzie Mckoy Conversion Art Therapy Certified Supervisor Cerner at 02/07/2023 11:31 PM CDT documented in this encounter Plan of Treatment Upcoming Encounters Date Type Department Care Team (Late st Contact Info) Description 06/20/2025 2:30 PM EDT Office Visit [facility] Orthopedics - [address] [phone] Mica Chu PA-C [address] [place] [address] documented as of this encounter Visit Diagnoses Not on filedocumented in this encounter Care Teams Carpet Measurer Relationship Specialty Start Date End Date Sotero Miller MD [address] [place] [address] PCP - General Adolescent Medicine 10/25/22 documented as of this encounter
--- OUTSIDE RECORDS SUMMARY | 2025-05-13 05:44 | XMS_ITS | Encounter Summary ---
Author Organization [employer] ([place], [place], [place], [place]) Address [address] [place] [address] Care Team Providers Care Certified [employer]ell Administrator Name Role Phone Sotero Miller MD Primary Care Provider + [phone] Encounter Details Date Type Department Care Team (Late st Contact Info) Description 04/22/2020 Transcribed Document [facility] [place] [facility] [place] [address] ProviderMk MD [address] [place], [place] [id number] Social History Tobacco Use Types Packs/Day Years Used Date Smoking Tobacco: Never Assessed Sex and Gender Information Value Date Recorded Sex Assigned at Not on file Legal Sex Male 5:40 PM CDT Gender Identity Not on file Sexual Orientation Not on file documented as of this encounter Miscellaneous Notes * [employer]ner Conversion Note - Mk ProviderMD - 04/22/2020 2:00 AM CDT Insurance Adviser Details Entered On: 04/22/2020 5:59 EDT Performed On: 04/22/2020 2:00 EDT by Cedric Johnson Rn-Resource Order Details Transport Mode Order Detail : Ambulatory Isolation Precautions Order Detail : Contact precautions Order Detail : N/A IV Order Detail : 1 Oxygen Order Detail : 1 Nurse Collect Order Detail : 1 Lift/Transfer : Independent Central Line Order Detail : No Room Service : Not Appropriate Arterial Line : No Cedric Johnson Rn-Resource - 04/22/2020 5:58 EDT documented in this encounter Plan of Treatment Upcoming Encounters Date Type Department Care Team (Late st Contact Info) Description 06/20/2025 2:30 PM EDT Office Visit [facility] Orthopedics - [address] [phone] Mica Chu PA-C [address] [place] [address] documented as of this encounter Visit Diagnoses Not on filedocumented in this encounter Care Teams Certified [employer]ell Administrator Relationship Specialty Start Date End Date Sotero Miller MD [address] [place] [address] PCP - General Adolescent Medicine 10/25/22 documented as of this encounter
--- OUTSIDE RECORDS SUMMARY | 2025-05-13 05:44 | XMS_ITS | Data Portability ---
Author Organization [facility] Address [address] [place] [address] Assessment No assessment recorded. Plan of Treatment Reminders Order Date Submit Date Provider Last Modified By Organization Details Last Modified Time Details Appointments None recorded. Lab lipid panel, serum [address] (Laboratory), [address] [place] [address] [place], [address], 3 16:26:07 CBC w/ diff [address] (Laboratory), [address] [place] [address] [place], [address], 3 16:26:07 CMP, serum or plasma [address] (Laboratory), [address] [place] [address] [place], [address], 3 16:26:07 testoster one, free + total, serum [address] (Laboratory), [address] [place] [address] [place], [address], 3 16:26:08 estrogen, total, serum [address] (Laboratory), [address] [place] [address] [place], [address], 3 16:26:08 shbg (sex hormone-b inding globulin) , serum [address] (Laboratory), [address] [place], [address], 3 16:26:08 progester one, serum [address] (Laboratory), [address] [place], [address], 3 16:26:08 vitamin D, 25-hydrox y, total, serum [address] (Laboratory), [address] [place], [address], 3 16:26:08 vitamin B12 + folate, serum or blood [address] (Laboratory), [address] [place], [address], 3 16:26:08 Referral None recorded. Procedures None recorded. Surgeries None recorded. Imaging US, groin 023 023 [email or web address] [facility] Centralized Scheduling, [address] [place], [address], 3 08:29:57 Medication Orders None recorded. Patient TargetsNo targets recorded. Patient InstructionsNo instructions recorded. Reason for Referral None Reported. Results Created Date Observation Date Name Description Value Unit Range Abnormal Flag Note LastModifiedBy Organization Detail LastModifiedTime 01/16/2001/15/2023 CBC AUTO W DIFF WBC 8.1 10 4.5-11 .5 Not Available [facility] (Lab Registration) [address] [place], [address], 01/15/2023 10:32:51 01/16/20 23 01/15/2023 CBC AUTO W DIFF RBC 5.52 10 4.25-5 .57 Not Available [facility] (Lab Registration) [address] [place], [address], 01/15/2023 10:32:51 01/16/20 23 01/15/2023 CBC AUTO W DIFF HGB 16.2 g/dL 13.5-1 7.2 Not Available [facility] (Lab Registration) [address] [place], [address], 01/15/2023 10:32:51 01/16/20 23 01/15/2023 CBC AUTO W DIFF HCT 48.9 % 42.0-5 2.0 Not Available [facility] (Lab Registration) [address] [place], [address], 01/15/2023 10:32:51 01/16/20 23 01/15/2023 CBC AUTO W DIFF MCV 88.6 fL 80-95 Not Available [facility] (Lab Registration) [address] [place], [address], 01/15/2023 10:32:51 01/16/20 23 01/15/2023 CBC AUTO W DIFF MCH 29.3 pg 27.0-3 4.0 Not Available [facility] (Lab Registration) [address] [place], [address], 01/15/2023 10:32:51 01/16/20 23 01/15/2023 CBC AUTO W DIFF MCHC 33.1 g/dL 32.0-3 6.0 Not Available [facility] (Lab Registration) [address] [place], [address], 01/15/2023 10:32:51 01/16/20 23 01/15/2023 CBC AUTO W DIFF platelet count 291 10 150-45 0 Not Available [facility] (Lab Registration) [address] [place], [address], 01/15/2023 10:32:51 01/16/20 23 01/15/2023 CBC AUTO W DIFF RDW 13.9 % 12.3-1 5.1 Not Available [facility] (Lab Registration) [address] [place], [address], 01/15/2023 10:32:51 01/16/20 23 01/15/2023 CBC AUTO W DIFF MPV 9.5 fL 7.4-10 .4 Not Available [facility] (Lab Registration) [address] [place], [address], 01/15/2023 10:32:51 01/16/20 23 01/15/2023 CBC AUTO W DIFF granulocyte% 64.0 % 40-75 Not Available [facility] (Lab Registration) [address] [place], [address], 01/15/2023 10:32:51 01/16/20 23 01/15/2023 CBC AUTO W DIFF lymphocyte% 22.1 % 15-57 Not Available [facility] (Lab Registration) [address] [place], [address], 01/15/2023 10:32:51 01/16/20 23 01/15/2023 CBC AUTO W DIFF monocyte% 9.6 % 4.0-12 .0 Not Available [facility] (Lab Registration) [address] [place], [address], 01/15/2023 10:32:51 01/16/20 23 01/15/2023 CBC AUTO W DIFF eosinophil% 3.1 % 0.0-4. 0 Not Available [facility] (Lab Registration) [address] [place], [address], 01/15/2023 10:32:51 01/16/20 23 01/15/2023 CBC AUTO W DIFF basophil% 1.0 % 0.0-1. 0 Not Available [facility] (Lab Registration) [address] [place], [address], 01/15/2023 10:32:51 01/16/20 23 01/15/2023 CBC AUTO W DIFF immature granulocytes % 0.2 % 0.0-0. 8 Not Available [facility] (Lab Registration) [address] [place], [address], 01/15/2023 10:32:51 01/16/20 23 01/15/2023 CBC AUTO W DIFF granulocyte# 5.15 10 Not Available [facility] (Lab Registration) [address] [place], [address], 01/15/2023 10:32:51 01/16/20 23 01/15/2023 CBC AUTO W DIFF lymphocyte# 1.78 10 Not Available [facility] (Lab Registration) [address] [place], [address], 01/15/2023 10:32:51 01/16/20 23 01/15/2023 CBC AUTO W DIFF monocyte# 0.77 10 Not Available [facility] (Lab Registration) [address] [place], [address], 01/15/2023 10:32:51 01/16/20 23 01/15/2023 CBC AUTO W DIFF eosinophil# 0.25 10 Not Available [facility] (Lab Registration) [address] [place], [address], 01/15/2023 10:32:51 01/16/20 23 01/15/2023 CBC AUTO W DIFF basophil# 0.08 10 Not Available [facility] (Lab Registration) [address] [place], [address], 01/15/2023 10:32:51 01/16/20 23 01/15/2023 CBC AUTO W DIFF immature granulocytes # 0.02 10 Not Available [facility] (Lab Registration) [address] [place], [address], 01/15/2023 10:32:51 01/16/20 23 01/15/2023 CBC AUTO W DIFF manual differential NO Not Available [facility] (Lab Registration) [address] [place], [address], 01/15/2023 10:32:51 01/16/20 23 01/15/2023 CBC AUTO W DIFF note Dayron s other painting noted testi ng perfo rmed at: [facility] [address] [place] [address] [phone] Dusty ellis MD CLIA: [id number] Not Available [facility] (Lab Registration) [address] , [place], [address], 01/15/2023 10:32:51 01/16/20 23 01/15/2023 THYRO ID STIMU LATIN G HORMO NE thyroid stimulating hormone 1.62 mIU/m L 0.34-4 .80 Not Available [facility] (Lab Registration) [address] , [place], [address], 01/15/2023 11:37:32 01/16/20 23 01/15/2023 THYRO ID STIMU LATIN G HORMO NE note Dayron rodriguez painting noted testi ng perfo rmed at: [facility] [address] [place] [address] [phone] Dusty ellis MD CLIA: [id number] Not Available [facility] (Lab Registration) [address] , [place], [address], 01/15/2023 11:37:32 01/16/20 23 01/15/2023 T4 FREE T4,free 1.09 NG/mL 0.76-1 .46 Effec tive today 013 new Refer ence Range . Not Available [facility] (Lab Registration) [address] [place], [address], 01/15/2023 11:37:34 01/16/20 23 01/15/2023 T4 FREE note Dayron ellis other painting noted testi ng perfo rmed at: [facility] [address] [place] [address] [phone] Dusty ellis MD CLIA: [id number] Not Available [facility] (Lab Registration) [address], [place], [address], 01/15/2023 11:37:34 01/16/20 23 01/15/2023 VITAM IN D TOTAL (D2+D 3) vitamin D25 (D2+D3) 79.6 NG/mL 30-100 Not Available [facility] (Lab Registration) [address], [place], [address], 01/15/2023 11:37:35 01/16/20 23 01/15/2023 VITAM IN D TOTAL (D2+D 3) note Unles s other painting noted testi ng perfo rmed at: [facility] [place] [address] [phone] Dusty ellis MD CLIA: [id number] Not Available [facility] (Lab Registration) [address] [place], [address], 01/15/2023 11:37:35 01/16/20 23 01/15/2023 COMP METAB OLIC PANEL sodium 136 mmol/ L 136-14 5 Not Available [facility] (Lab Registration) [address] [place], [address], 01/15/2023 11:37:37 01/16/20 23 01/15/2023 COMP METAB OLIC PANEL potassium 4.2 mmol/ L 3.5-5. 1 Not Available [facility] (Lab Registration) [address] [place], [address], 01/15/2023 11:37:37 01/16/20 23 01/15/2023 COMP METAB OLIC PANEL chloride 102 mmol/ L 98-107 Not Available [facility] (Lab Registration) [address] [place], [address], 01/15/2023 11:37:37 01/16/20 23 01/15/2023 COMP METAB OLIC PANEL carbon dioxide 25 mmol/ L 21-32 Not Available [facility] (Lab Registration) [address] [place], [address], 01/15/2023 11:37:37 01/16/20 23 01/15/2023 COMP METAB OLIC PANEL anion gap 9.0 Not Available [facility] (Lab Registration) [address] [place], [address], 01/15/2023 11:37:37 01/16/20 23 01/15/2023 COMP METAB OLIC PANEL glucose 133 mg/dL 70-110 high Not Available [facility] (Lab Registration) [address] [place], [address], 01/15/2023 11:37:37 01/16/20 23 01/15/2023 COMP METAB OLIC PANEL blood urea nitrogen 13 mg/dL 7-18 Not Available [facility] (Lab Registration) [address] [place], [address], 01/15/2023 11:37:37 01/16/20 23 01/15/2023 COMP METAB OLIC PANEL creatinine 1.3 mg/dL 0.8-1. 3 Not Available [facility] (Lab Registration) [address] [place], [address], 01/15/2023 11:37:37 01/16/20 23 01/15/2023 COMP METAB OLIC PANEL BUN/creatini ne ratio 10.0 ratio 9-21 Not Available [facility] (Lab Registration) [address] [place], [address], 01/15/2023 11:37:37 01/16/20 23 01/15/2023 COMP METAB OLIC PANEL estimated glom filtration rate 58 mL/mi n >60- low Not Available [facility] (Lab Registration) [address] [place], [address], 01/15/2023 11:37:37 01/16/20 23 01/15/2023 COMP METAB OLIC PANEL total protein 7.8 g/dL 6.4-8. 2 Not Available [facility] (Lab Registration) [address] [place], [address], 01/15/2023 11:37:37 01/16/20 23 01/15/2023 COMP METAB OLIC PANEL albumin 3.7 g/dL 3.4-5. 0 Not Available [facility] (Lab Registration) [address] [place], [address], 01/15/2023 11:37:37 01/16/20 23 01/15/2023 COMP METAB OLIC PANEL calcium 9.3 mg/dL 8.5-10 .1 Not Available [facility] (Lab Registration) [address] [place], [address], 01/15/2023 11:37:37 01/16/20 23 01/15/2023 COMP METAB OLIC PANEL corrected calcium 9.5 mg/dL 8.5-10 .1 Not Available [facility] (Lab Registration) [address] [place], [address], 01/15/2023 11:37:37 01/16/20 23 01/15/2023 COMP METAB OLIC PANEL bilirubin total 0.9 mg/dL 0.4-1. 5 Not Available [facility] (Lab Registration) [address] [place], [address], 01/15/2023 11:37:37 01/16/20 23 01/15/2023 COMP METAB OLIC PANEL AST (SGOT) 27 U/L 15-37 Not Available [facility] (Lab Registration) [address] [place], [address], 01/15/2023 11:37:37 01/16/20 23 01/15/2023 COMP METAB OLIC PANEL ALT (SGPT) 31 U/L 12-78 Not Available [facility] (Lab Registration) [address] [place], [address], 01/15/2023 11:37:37 01/16/20 23 01/15/2023 COMP METAB OLIC PANEL alk phosphatase 84 U/L Not Available [facility] (Lab Registration) [address], [place], [address], 01/15/2023 11:37:37 01/16/20 23 01/15/2023 COMP METAB OLIC PANEL note Unles s other painting noted testi ng perfo rmed at: [facility] [address] [place] [place] [address] [phone] Dusty ellis MD CLIA: [id number] Not Available [facility] (Lab Registration) [address] [place], [address], 01/15/2023 11:37:37 01/16/20 23 01/15/2023 LIPID PANEL triglyceride 267 mg/dL 20-200 high The Natio nal [employer] (NCEP ) has set the follo wing guide lines for Fasti ng Trigl yceri sharan: LUISITO L: <150 mg/dL BORDE RLINE HIGH: 150 - 199 mg/dL HIGH: 200 - 499 mg/dL VERY HIGH: > or =500 mg/dL Not Available [facility] (Lab Registration) [address] [place], [address], 01/15/2023 11:37:40 01/16/20 23 01/15/2023 LIPID PANEL cholesterol 250 mg/dL 0-200 high The Natio nal [employer] t[employer]gr am (NCEP ) has set the follo wing guide lines for Fasti ng Irma stero l: TONNY ABLE: <200 mg/dL BORDE RLINE HIGH: 200 - 239 mg/dL HIGH: > or =240 mg/dL Not Available [facility] (Lab Registration) [address] [place], [address], 01/15/2023 11:37:40 01/16/20 23 01/15/2023 LIPID PANEL HDL cholesterol 42 mg/dL 60- low The Natio nal [employer]ca t[employer]gr am ([facility] ) has set the follo wing guide lines for Fasti ng HDL Irma stero l: LOW HDL: <40 mg/dL LUISITO L: 40 - 60 mg/dL TONNY ABLE: >60 mg/dL Not Available [facility] (Lab Registration) [address], [place], [address], 01/15/2023 11:37:40 01/16/20 23 01/15/2023 LIPID PANEL LDL calculated 155 mg/dL 100- The Natio nal [employer]ca t[employer]gr am ([facility] ) has set the follo wing guide lines for Fasti ng LDL Irma stero l: OPTIM AL: < 100 mg/dL LOW RISK: 100 - 129 mg/dL BORDE RLINE HIGH: 130 - 159 mg/dL HIGH: 160 - 189 mg/dL VERY HIGH: > or = 190 mg/dL Not Available [facility] (Lab Registration) [address], [place], [address], 01/15/2023 11:37:40 01/16/20 23 01/15/2023 LIPID PANEL chol/HDL ratio 6 ratio -5 high Not Available [facility] (Lab Registration) [address], [place], [address], 01/15/2023 11:37:40 01/16/20 23 01/15/2023 LIPID PANEL note Unles s other painting noted testi ng perfo rmed at: [facility] [address] [place] [address] [phone] Dusty ellis MD CLIA: [id number] Not Available [facility] (Lab Registration) [address] [place], [address], 01/15/2023 11:37:40 01/16/20 23 01/15/2023 VITAM IN B12 vitamin B12 737 pg/mL 193-98 6 Not Available [facility] (Lab Registration) [address] [place], [address], 01/15/2023 11:37:42 01/16/20 23 01/15/2023 VITAM IN B12 note Unles s other painting noted testi ng perfo rmed at: [facility] [address] [place], [place] [address] [phone] 00 Dusty ellis MD CLIA: [id number] Not Available [facility] (Lab Registration) [address] [place], [address], 01/15/2023 11:37:42 01/16/20 23 01/15/2023 TESTO STERO NE TOTAL note Unles s other painting noted testi ng perfo rmed at: [facility] [address] [place], [place] [address] [phone] Dusty ellis MD CLIA: [id number] Not Available [facility] (Lab Registration) [address], [place], [address], 01/16/2023 08:17:44 01/16/20 23 01/16/2023 TESTO STERO NE TOTAL testosterone , serum 607 NG/dL 264-91 6 Adult male refer ence inter miguel is based on a popul ation of healt hy nonob kofi males (BMI <30) betwe en 19 and 39 years old. Sherin wilson, et.al . JCEM 2017, 102;1 161-1 173. PMID: 35382 103. Perfo rmed at: [facility] [address] [place] [address] Lab Direc tor: Stephon ny PhD, Phone : [phone] Not Available [facility] (Lab Registration) [address] [place], [address], 01/16/2023 08:17:44 01/16/20 23 01/15/2023 SEX HORMO NE HOANG NG GLOBU JUSTINE note Unles s other painting noted testi ng perfo rmed at: [facility] [address] [place], [place] [address] [phone] Dusty ellis MD CLIA: [id number] Not Available [facility] (Lab Registration) [address] [place], [address], 01/16/2023 08:17:45 01/16/20 23 01/16/2023 SEX HORMO NE HOANG NG GLOBU JUSTINE sex hormone binding globulin 46.0 nmol/ L 19.3-7 6.4 Perfo rmed at: [facility] [address] [facility] [place] [address] Lab Direc tor: Stephon ny PhD, Phone : [phone] Not Available [facility] (Lab Registration) [address] [place], [address], 01/16/2023 08:17:45 01/16/20 23 01/15/2023 PROGE STERO NE note Unles s other painting noted testi ng perfo rmed at: [facility] [address] [place] [address] [phone] Dusty ellis MD CLIA: [id number] Not Available [facility] (Lab Registration) [address] [place], [address], 01/17/2023 10:09:58 01/16/20 23 01/17/2023 PROGE STERO NE progesterone 0.3 NG/mL 0.0-0. 5 Perfo rmed at: [facility] [address] [facility] [place] [address] Lab Direc tor: Stephon ny PhD, Phone : [phone] SENT TO REFER ENCE LAB Not Available [facility] (Lab Registration) [address] [place], [address], 01/17/2023 10:09:58 01/16/20 23 01/15/2023 TESTO STERO NE FREE note Unles s other painting noted testi ng perfo rmed at: [facility] [address] [place] [address] [phone] Dusty ellis MD CLIA: [id number] Not Available [facility] (Lab Registration) [address], [place], [address], 01/21/2023 16:14:18 01/16/20 23 01/21/2023 TESTO STERO NE FREE free testosterone (direct) 9.9 pg/mL 6.6-18 .1 Perfo rmed at: [facility] [address] [facility] [place] [address] Lab Direc tor: Megan parmar MD, Phone : [phone] SENT TO REFER ENCE LAB Not Available [facility] (Lab Registration) [address], [place], [address], 01/21/2023 16:14:18 01/16/20 23 01/15/2023 ESTRO GEN TOTAL note Unles s other painting noted testi ng perfo rmed at: [facility] [address] [place] [address] [phone] Dusty ellis MD CLIA: [id number] Not Available [facility] (Lab Registration) [address], [place], [address], 01/22/2023 00:08:44 01/16/20 23 01/22/2023 ESTRO GEN TOTAL estrogens, total 81 pg/mL 56-213 Prepu андрей l <40 Perfo rmed at: [facility] [address] [facility] [place] [address] Lab Direc tor: Megan parmar MD, Phone : [phone] Not Available [facility] (Lab Registration) [address] [place], [address], 01/22/2023 00:08:44 01/20/20 23 01/19/2023 US ABD lmtd [facility] [address] [place] [address] Phone: Fax: Name: GILBERT LERNER Exam Date: : 950 Age 72 Gender : M Access ion: [id number] Physic ese: NAHED VEGA Facili ty: [facility] Facili ty HSV: Outpat ient Exam: US ABD LMTD Ultras ound of the soft tissue s of the right groin Histor y: Palpab le abnorm ality within the right groin Techni que: Limite d sonogr aphic images in the area of intere st in the right groin were obtain ed. Findin gs: There is a hypoec hoic, solid- appear ing nonspe cific nodule within the right inguin al region measur ing 2.6 x 2.6 x 1.3 cm. Findin gs may be relate d to a lymph node, less likely lipoma or fluid collec tion. Impres ewa: Nonspe cific solid appear ing hypoec hoic nodule accoun ting for palpab le abnorm ality. Follow -up exam in 2-3 months recomm ended. Films review ed , interp reted and dictat ed by Dr. Vergara . Transc ribed by Kurt Lerma PA-C. Dictat ed By: MATTHEW VERGARA Transc ribed By: MATTHEW VERGARA Transc ribed On: 023 3:35 PM Electr onical ly signed by: MATTHEW VERGARA 023 Thank you for referr ing GILBERT LERNER to [facility]. Legall y authen ticate d by JAI OVALLES MD 01-19 15:35: 06 CC'ed Logic: Orderi ng Provid er: PAUL DOCKERY CC Provid er: PAUL DOCKERY Attend ing Provid er: PAUL DOCKERY Referr ing Provid er: PAUL DOCKERY Admitt ing Provid er: PAUL DOCKERY [facility] (Radiology) [address] [place] [address] [place], [address], 01/22/2023 16:07:00 Result Notes None recorded. Procedures Surgical History Date Name Laterality Status Provider Name and Address Organization Details Recorded Time 10/25/2018 Bypass completed Shira Perkins LP [facility] [place] 01/07/2023 16:03:58 Imaging Results None recorded. Procedure Notes None recorded. Medical Equipment None Reported. Allergies No known drug allergies Medications Name Sig Start Date Stop Date Status Note LastModified by Organization Details LastModified Time furosemide 40 mg tablet Take 1 tablet every day by oral route. active Not Available Not Available No t Available metoprolol succinate ER 50 mg tablet,extended release 24 hr Take 1 tablet every day by oral route. active Not Available Not Available No t Available clopidogrel 75 mg tablet Take 1 tablet every day by oral route. active Not Available Not Available No t Available sulfamethoxazole 800 mg-trimethoprim 160 mg tablet TAKE 1 TABLET BY MOUTH EVERY 12 HOURS FOR 10 DAYS active Not Available Not Available No t Available isosorbide mononitrate ER 60 mg tablet,extended release 24 hr TAKE 1 TABLET BY MOUTH ONCE DAILY active Not Available Not Available No t Available potassium chloride ER 20 mEq tablet,extended release(part/cry st) TAKE 1 TABLET BY MOUTH ONCE DAILY active Not Available Not Available No t Available amlodipine 10 mg tablet Take 1 tablet every day by oral route. active Not Available Not Available No t Available potassium chloride ER 20 mEq tablet,extended release Take 1 tablet every day by oral route. active Not Available Not Available No t Available Vitals Date Recorded Body height Body mass index (BMI) Body weight Body temperature Oxygen saturation Oxygen saturation in Arterial blood by Pulse oximetry Heart rate Systolic And Diastolic Provider Name and Address Organization Details Last Updated DateTime 3 170.18 cm 31.5 kg/m2 15257.0 7 g 97 [degF] 97 % 97 % 56 /min 114/63 mm[Hg] [facility] [place] 3 15:57:23 Social History Question Answer Notes LastModified by Organizat ion Details LastModified Time Tobacco Smoking Status Never Smoker Shira patton, [facility] [place] 01/07/2023 16:03:35 What Was The Date Of Your Most Recent Tobacco Screening? 01/07/2023 Information not available 01/07/2023 Has Tobacco Cessation Counseling Been Provided? No Information not available 01/07/2023 Sex: Unknown Functional Status Question Answer Note LastModified by Organizat ion Details LastModified Time Do you use any illicit or recreational drugs? No Information not available 01/07/2023 Do you or have you ever used any other forms of tobacco or nicotine? No Information not available 01/07/2023 What is your level of alcohol consumption? None Information not available 01/07/2023 Mental Status None recorded. Family History Relationship Description Onset Age of this Age Resolved Age Notes LastModified by Organization Details LastModified Time Mother Pneumonia Deceas ed Not available 01/07/2023 16:02:57 Father Aneurysm Deceas ed Not available 01/07/2023 16:03:13 Medical History No medical history recorded. Past Encounters Encounter ID Performer Location Encounter Start Date Encounter Closed Date Diagnosis/Indication Diagnosis SNOMED-CT Code Diagnosis ICD10 Code Diagnosis Note [id number] Nahed Vega APRN [id number] [address] [id number] 01/07/2023 14:12:46 01/07/2023 15:08:25 Fatigue 88847498 R53.83 Patient with fatigue and malaise . Advised patient to eat properly, get adequate sleep and attempt to exercise. I recommend testing as per orders below to evaluate for: . Patient to follow up as directed. Mixed hyperlipidemia 267 [id number] E78.2 Patient advised to exercise, eat a prudent diet and lose weight as appropriat e. Essential hypertension 90884947 I10 Patients blood pressure is well controlled on present medical therapy. He is tolerating , without difficulty the current medication s. I have made no changes to our current regimen. Patient ne w to provider [id number] 45646 Z76.89 Inguinal pain [id number] R10.2 Health Concerns Section Related Observation LastModified by Organization Detai ls LastModified Time None Recorded Concern Status LastModified by Organization Details LastModified Time None Recorded Advance Directives Directive None Recorded Payers Insurance Date Sequence Insurance Name Policy Number Policy Titus Covered Member ID Titus Member ID Guarantor Name 01/14/2023 1 [facility] [facility] [id number] Gilbert Lerner [id number] Gilbert Lerner Notes Date Note Type Note Provider Name and Address Organization Details Recorded Time 01/07/2023 text/html 62 y/o male that presents to the clinic to establish care. Pt reports he has been having a lot of fatigue and leg cramps. Pt is active at work and on feet 9 hours out of the day and when he gets home he wants to go straight to the chair and sit down. He is following Cardiology. Taking all medications as prescribed. Recently, had blood work and found to have an A1C of 7.0. Working on diet management. He is also having right groin pain and worse with straining or lifting. Denies any difficulty urinating. Nahed Vega APRN [address] [place] [address], [place], [address], [facility] [place] 01/14/2023 16:46:19
--- OUTSIDE RECORDS SUMMARY | 2025-05-13 05:44 | XMS_ITS | Encounter Summary ---
Author Organization [employer] ([place], [place], [place], [place]) Address [address] [place] [address] Care Team Providers Care School Curriculum Developer Name Role Phone Sotero Miller MD Primary Care Provider + [phone] Encounter Details Date Type Department Care Team ( Contact Info) Description 05/05/2020 Transcribed Document [facility] [place] [facility] [place] [address] ProviderMk MD [address] [place], [place] [id number] Social History Tobacco Use Types Packs/Day Years Used Date Smoking Tobacco: Never Assessed Sex and Gender Information Value Date Recorded Sex Assigned at Not on file Legal Sex Male 5:40 PM CDT Gender Identity Not on file Sexual Orientation Not on file documented as of this encounter Miscellaneous Notes * Cerner Conversion Note - Mk ProviderMD - 05/05/2020 2:00 AM CDT Sprinkler Irrigation Equipment Mechanic Details Entered On: 05/05/2020 1:10 EDT Performed On: 05/05/2020 2:00 EDT by FLORENTIN BELTRAN RN Order Details Transport Mode Order Detail : Wheelchair Isolation Precautions Order Detail : Standard Precautions Order Detail : N/A IV Order Detail : 1 Oxygen Order Detail : 1 Nurse Collect Order Detail : 0 Lift/Transfer : Minimal Central Line Order Detail : No Room Service : Appropriate Arterial Line : No FLORENTIN BELTRAN RN - 05/05/2020 1:09 EDT documented in this encounter Plan of Treatment Upcoming Encounters Date Type Department Care Team (Late Contact Info) Description 06/20/2025 2:30 PM EDT Office Visit [facility] Orthopedics - [address] [phone] Mica Chu PA-C [address] [place] [address] documented as of this encounter Visit Diagnoses Not on filedocumented in this encounter Care Teams School Curriculum Developer Relationship Specialty Start Date End Date Sotero Miller MD [address] [place] [address] PCP - General Adolescent Medicine 10/25/22 documented as of this encounter
--- OUTSIDE RECORDS SUMMARY | 2025-05-13 05:44 | XMS_ITS | Encounter Summary ---
Author Organization [employer] ([place], [place], [place], [place]) Address [address] [place] [address] Care Team Providers Care Shank Maker Name Role Phone Sotero Miller MD Primary Care Provider + [phone] Encounter Details Date Type Department Care Team ( Contact Info) Description 05/04/2020 Transcribed Document [facility] [place] Family [place] [facility] [address] ProviderMk MD [address] [place], [place] [phone] Social History Tobacco Use Types Packs/Day Years Used Date Smoking Tobacco: Never Assessed Sex and Gender Information Value Date Recorded Sex Assigned at Not on file Legal Sex Male 5:40 PM CDT Gender Identity Not on file Sexual Orientation Not on file documented as of this encounter Miscellaneous Notes * Cerner Conversion Note - Mk ProviderMD - 05/04/2020 2:00 AM CDT Handbag Framer Details Entered On: 05/04/2020 1:08 EDT Performed On: 05/04/2020 2:00 EDT by FLORENTIN BELTRAN, MARY Order Details Transport Mode Order Detail : Wheelchair Isolation Precautions Order Detail : Standard Precautions Order Detail : N/A IV Order Detail : 1 Oxygen Order Detail : 1 Nurse Collect Order Detail : 0 Lift/Transfer : Minimal Central Line Order Detail : No Room Service : Appropriate Arterial Line : No FLORENTIN BELTRAN RN - 05/04/2020 1:08 EDT documented in this encounter Plan of Treatment Upcoming Encounters Date Type Department Care Team (Late Contact Info) Description 06/20/2025 2:30 PM EDT Office Visit [facility] Orthopedics - [address] [phone] Mica Chu PA-C [address] [place] [address] documented as of this encounter Visit Diagnoses Not on filedocumented in this encounter Care Teams Shank Maker Relationship Specialty Start Date End Date Sotero Miller MD [address] [place] [address] PCP - General Adolescent Medicine 10/25/22 documented as of this encounter
--- OUTSIDE RECORDS SUMMARY | 2025-05-13 05:44 | XMS_ITS | Encounter Summary ---
Author Organization [employer] ([place], [place], [place], [place]) Address [address] [place] [address] Care Team Providers Care Real Estate Loan Officer Name Role Phone Sotero Miller MD Primary Care Provider + [phone] Encounter Details Date Type Department Care Team (Late st Contact Info) Description 04/23/2020 Transcribed Document [facility] [place] Family Medicine [address] [place] [address] ProviderMk MD [address] [place] [address] Social History Tobacco Use Types Packs/Day Years Used Date Smoking Tobacco: Never Assessed Sex and Gender Information Value Date Recorded Sex Assigned at Not on file Legal Sex Male 5:40 PM CDT Gender Identity Not on file Sexual Orientation Not on file documented as of this encounter Miscellaneous Notes * Cerner Conversion Note - Mk Mac MD - 04/23/2020 1:42 PM CDT Patient: NICO LERNER Age: 70 years Sex: Male : 1950 Associated Diagnoses: None Author: PAPA THORNTON MD-INT DATE OF SERVICE [ DOS ]: 04-23-2020 Basic Information SUBJECTIVE: Patient is seen and [...] At risk for sleep apnea / IMO [id number] / Confirmed, Active Problems (4) Arthritis At risk for sleep apnea CAD (coronary artery disease) Chronic hypertension OBJECTIVE: Physical Examination VS/Measurements Vitals Signs (last 24 hrs) Last Charted Minimum Maximum Temp 97.9 (APR 23 12:00) 97 (APR 23 09:00) 98 (APR 22 16:00) Apical HR L 56 (APR 22 21:29) L 56 (APR 22 21:29) L 56 (APR 22 21:29) Mon HR 61 (APR 23 12:00) 45 (APR 23 02:00) 73 (APR 23 10:00) Resp Rate H 27 (APR 23 12:00) 19 (APR 23 00:00) H 33 (APR 22 17:00) SBP 130 (APR 23 12:00) 120 (APR 22 16:00) H 164 (APR 23 07:00) DBP 71 (APR 23 12:00) 60 (APR 22 16:00) H 91 (APR 23 09:00) MAP 96 (APR 23 12:00) 83 (APR 22 16:00) 116 (APR 23 09:00) SpO2 94 (APR 23 12:00) 94 (APR 22 14:00) 96 (APR 22 18:00) General: Alert and oriented, No acute distress. [...] tenderness, No swelling, No deformity. Integumentary: Warm, Eschbach, Moist, No rash. Neurologic: Alert, Oriented, Normal sensory, Normal motor function, No focal deficits, Cranial Nerves II-XII are grossly intact, Normal deep tendon reflexes. Psychiatric: Cooperative, Appropriate mood & affect, Normal judgment. Review / Management Results review: Labs (Last four charted values) WBC H 15.2 (APR 23) H 21.4 (APR 21) HB 16.5 (APR 23) 16.2 (APR 21) HCT 49.0 (MAR 30) 49.4 (APR 21) Plt 256 (MAR 30) 289 (APR 21) Na L 132 (MAR 30) L 135 (DEANA 29) 138 (MAR 28) K 4.6 (MAR 30) 4.3 (DEANA 29) 4.2 (APR 21) Cl 105 (MAR 30) 106 (DEANA 29) 105 (APR 21) CO2 21 (MAR 30) 24 (MAR 29) 26 (APR 21) BUN H 28 (APR 23) H 26 (APR 22) H 23 (APR 21) Cr 1.10 (APR 23) 1.10 (DEANA 29) 1.20 (APR 21) Glu R H 135 (APR 23) H 161 (APR 22) H 151 (APR 21) Ca 8.6 (APR 23) 8.4 (DEANA 29) 9.1 (APR 21) Lactic 1.4 (APR 22) 1.6 (APR 21) PT 10.8 (APR 21) INR 1.0 (APR 21) PTT H 46.3 (APR 22) AST H 118 (APR 22) H 192 (APR 21) ALT 50 (APR 22) 54 (APR 21) ALK P 68 (APR 22) 76 (APR 21) T Bili 0.9 (APR 22) 0.7 (APR 21) PTN 6.9 (APR 22) 7.7 (APR 21) ALB L 3.1 (APR 22) L 3.3 (APR 21) Lipase 133 (APR 21) Troponin C 26.000 (APR 22) C 46.200 (APR 21) , DEANA 30 04:49 L 132 105 H 28 / H 135 4.6 21 1.10 \ APR 23 04:49 \ 16.5 / H 15.2 256 / 49.0 \, Radiology Results (Last 48 hours) [id number] -- 04/21/2020 16:53 CR Chest 1 Vw [...] . Impression and Plan 1. severe CAD Chest [...] drip. Code status: Full code Time spent: 31 minutes documented in this encounter Plan of Treatment Upcoming Encounters Date Type Department Care Team (Late st Contact Info) Description 06/20/2025 2:30 PM EDT Office Visit [facility] Orthopedics - [address] [phone] Mica Chu PA-C [address] [place] [address] documented as of this encounter Visit Diagnoses Not on filedocumented in this encounter Care Teams Real Estate Loan Officer Relationship Specialty Start Date End Date Sotero Miller MD [address] [place] [address] PCP - General Adolescent Medicine 10/25/22 documented as of this encounter
--- OUTSIDE RECORDS SUMMARY | 2025-05-13 05:44 | XMS_ITS | Encounter Summary ---
Author Organization [employer] ([place], [place], [place], [place]) Address [address] [place] [address] Care Team Providers Care Pigs Feet Finisher Name Role Phone Sotero Miller MD Primary Care Provider + [phone] Encounter Details Date Type Department Care Team (Late st Contact Info) Description 04/21/2020 Transcribed Document [facility] [place] [facility] [place] [address] ProviderMk MD [address] [place] [address] Social History Tobacco Use Types Packs/Day Years Used Date Smoking Tobacco: Never Assessed Sex and Gender Information Value Date Recorded Sex Assigned at Not on file Legal Sex Male 5:40 PM CDT Gender Identity Not on file Sexual Orientation Not on file documented as of this encounter Miscellaneous Notes * Cerner Conversion Note - Mk Mac MD - 04/21/2020 6:10 PM CDT DATE OF ADMISSION: 04/21/2020 ADMITTING PHYSICIAN: PAPA THORNTON MD PRIMARY CARE PHYSICIAN: Not listed. CHIEF COMPLAINT: Chest pain. HISTORY OF PRESENT ILLNESS: This is a 70-year-old male with history of hypertension, hyperlipidemia, remote history of tobacco use, and history of coronary artery disease. The patient presented at an outside facility because of chest pain. The patient has been evaluated there. Heart catheterization done, which was abnormal. The patient was transferred to [facility] for Cardiothoracic Surgery evaluation. The patient came in, blood work shows leukocytosis. The patient was started empirically on IV doxycycline. The patient lying in bed, not in distress. Pain is controlled, asymptomatic. SYSTEMIC REVIEW: GENERAL: No fever or chills. HEAD: No headache or dizziness. EYES: No change of vision. EARS: No earache. NOSE: No epistaxis. THROAT: No sore throat. RESPIRATORY: Positive for shortness of breath, no cough. CARDIAC: Positive for chest pain. GI: No nausea or vomiting. URINARY: No hematuria. MUSCULOSKELETAL: No muscle pain. NEUROLOGICAL: No focal numbness or weakness. SKIN: No new rashes. ENDOCRINE: No heat or cold intolerance. PAST MEDICAL HISTORY: 1. Arthritis. 2. Coronary artery disease. 3. Hypertension. 4. Hyperlipidemia. PAST SURGICAL HISTORY: 1. History of stump surgery. 2. Heart cath. SOCIAL HISTORY: The patient used to be a smoker, but quit. Denies any alcohol or drug abuse. FAMILY HISTORY: Positive for heart disease. ALLERGIES: No known drug allergies. HOME MEDICATIONS: 1. Norvasc 10 mg daily. 2. Aspirin 325 mg daily. 3. Imdur 60 mg daily. 4. Toprol-XL daily. PHYSICAL EXAMINATION: VITAL SIGNS: Blood pressure 123/65, temperature 98.6, heart rate 60, and respiratory rate 29. HEENT: Head, atraumatic and normocephalic. Pupils are round and reactive. Eyes, no conjunctival injection or discharge. Ears, no discharge. Nose, no bleeding or discharge. Mouth, dry. NECK: Supple. No JVD or lymphadenopathy. Full range of motion. CHEST: Clear to auscultation bilaterally. No wheeze, crackle, or rhonchi. HEART: S1 and S2 heard. Regular rate and rhythm. ABDOMEN: Soft, audible bowel sounds. No tenderness. No guarding. No rebound tenderness. EXTREMITIES: No edema, erythema, or tenderness. NEUROLOGICAL: No apparent focal motor or sensory deficit. The patient is alert, awake, and oriented x3. Intact cranial nerves. PSYCHIATRIC: No anxiety. SKIN: No apparent rashes or induration. ENDOCRINE: No thyromegaly or tenderness. GENERAL: The patient is lying in bed, anxious, no family at bedside. LABORATORY DATA AND STUDIES: White blood cells 21.4, hemoglobin 16.2, hematocrit 49.4, and platelets 289. ASSESSMENT AND PLAN: 1. Chest pain. The patient is admitted to [...] thrombosis prophylaxis, the patient on heparin drip. The patient is critically sick, high risk of complication. Plan discussed with the patient, with RN at bedside, chart was reviewed. Critical time spent, 55 minutes. /[id number] MD YAS Greer/AQ / YAS / MODL Electronically signed by Interface, [facility] Conversion Die Welder Cerner at 02/07/2023 11:52 PM CDT documented in this encounter Plan of Treatment Upcoming Encounters Date Type Department Care Team (Late st Contact Info) Description 06/20/2025 2:30 PM EDT Office Visit [facility] Orthopedics - [address] [phone] Mica Chu PA-C [address] [place] [address] documented as of this encounter Visit Diagnoses Not on filedocumented in this encounter Care Teams Pigs Feet Finisher Relationship Specialty Start Date End Date Sotero Miller MD [address] [place] [address] PCP - General Adolescent Medicine 10/25/22 documented as of this encounter
--- OUTSIDE RECORDS SUMMARY | 2025-05-13 05:44 | XMS_ITS | Encounter Summary ---
Author Organization [employer] ([place], [place], [place], [place]) Address [address] [place] [address] Care Team Providers Care Powdered Sugar Supervisor Name Role Phone Sotero Miller MD Primary Care Provider + [phone] Encounter Details Date Type Department Care Team (Late st Contact Info) Description 04/23/2020 Transcribed Document [facility] [place] [address] [place] [address] ProviderMk MD [address] [place], [place] [id number] Social History Tobacco Use Types Packs/Day Years Used Date Smoking Tobacco: Never Assessed Sex and Gender Information Value Date Recorded Sex Assigned at Not on file Legal Sex Male 5:40 PM CDT Gender Identity Not on file Sexual Orientation Not on file documented as of this encounter Miscellaneous Notes * Cerner Conversion Note - Mk ProviderMD - 04/23/2020 11:32 AM CDT Evaluation, Occupational Therapy Entered On: 04/24/2020 15:48 EDT Performed On: 04/24/2020 11:35 EDT by RELL CASTAÑEDA OTR/Adrian General Information, OT Visit Type, OT : Initial evaluation Patient Orders : Order Date Order Ordering 04/23/2020 11:32 OT Evaluation and Treatment Ordered By: PAPA THORNTON MD-INT Active Diagnoses : 04/22/2020 12:00 Atherosclerotic heart disease of [place] coronary artery without angina pectoris 04/22/2020 12:00 Essential (primary) hypertension 04/22/2020 12:00 Hyperlipidemia, unspecified 04/22/2020 12:00 Nicotine dependence, unspecified, in remission Admission Date : 04/21/2020 16:53 Co-treated by, OT : Physical Therapist Personal Devices : Personal Devices No Devices Recorded Assistive Devices : Assistive Devices No Devices Recorded General Information Comment, OT : STEMI waiting for CABG RELL CASTAÑEDA OTR/Adrian - 04/24/2020 15:46 EDT General Status Patient Received Status : Up in chair Treatment Start Time : 04/24/2020 11:22 EDT Patient Left Status : Up in chair, RN/PCT informed, All needs met and within reach RN/PCT Informed Comment : MARY cortés Treatment End Time : 04/24/2020 11:35 EDT Treatment Time : 13 Minute(s) RELL CASTAÑEDA OTR/Adrian - 04/24/2020 15:46 EDT History and Environment, OT Living Situation, Therapy : Home Patient Lives With : Spouse Persons Assisting Patient at Home : Spouse Persons Providing Information : Patient Home Setup : One story Stairs : Yes Stair Location(s) : Outside Outside Stairs, Number of Steps : 1 Railing Outside : No RELL CASTAÑEDA OTR/Adrian - 04/24/2020 15:46 EDT Prior LOF Bathing, OT : Independent Prior LOF Bed Mobility : Independent Prior LOF Upper Body Dressing, OT : Independent Prior LOF Lower Body Dressing, OT : Independent Prior LOF Toileting : Independent Prior LOF Transfer : Independent Prior LOF Grooming, OT : Independent Prior LOF for IADLs, OT : Independent RELL CASTAÑEDA OTR/Adrian 04/24/2020 15:46 EDT Upper Extremity Right UE Active ROM : WFL Right UE Strength : WFL Left UE Active ROM : WFL Left UE Strength : WFL RELL CASTAÑEDA OTR/Adrian - 04/24/2020 15:46 EDT Self Care/Home Management, OT Self Feeding Assist Level, OT : Independent, complete Grooming Assist Level, OT : Independent, complete Bathing Assist Level, OT : Independent, complete Upper Body Dressing Assist Level, OT : Independent, complete Lower Body Dressing Assist Level, OT : Independent, complete Toileting Assist Level : Independent, complete Toilet Transfer Assist Level : Independent, complete RELL CASTAÑEDA OTR/Adrian - 04/24/2020 15:46 EDT Functional Mobility Mobility Grid Bed Roll Left : Rehab Complete independence Bed Roll Right : Rehab Complete independence Bed Scooting : Rehab Complete independence Supine to Sit : Rehab Complete independence Sit to Stand : Rehab Complete independence Bed to Chair : Rehab Complete independence Chair to Bed : Rehab Complete independence Stand to Sit : Rehab Complete independence Sit to Supine : Rehab Complete independence RELL CASTAÑEDA OTR/L - 04/24/2020 15:46 EDT Cognition Assessment, OT Orientation : Oriented x 4 RELL CASTAÑEDA OTR/L - 04/24/2020 15:46 EDT Plan of Care, OT OT Tx Plan/Goals Established w Patient : No RELL CASTAÑEDA OTR/L - 04/24/2020 15:46 EDT Treatment Note Subjective Comment : Agrees Patient's Response to Treatment : tolerated well Additional Objective Information : In chair. Transfered functional distance no AD no LOB. NO complaints. Independent ADLs Assessment : no needs Plan for Treatment : defer RELL CASTAÑEDA OTR/L - 04/24/2020 15:46 EDT Pain Assessment Pain Scaled Used : 0-10 Pain scale Pain Score Pre-Intervention : 0 RELL CASTAÑEDA OTR/L - 04/24/2020 15:46 EDT Image 1 - Images currently included in the form version of this document have not been included in the text rendition version of the form. Anticipated Discharge Needs, OT/PT Anticipated Discharge to : Home, independently RELL CASTAÑEDA OTR/L - 04/24/2020 15:[address] [facility] OT Charges OT Eval Low Complexity : 1 RELL CASTAÑEDA OTR/L - 04/24/2020 15:46 EDT documented in this encounter Plan of Treatment Upcoming Encounters Date Type Department Care Team (Late st Contact Info) Description 06/20/2025 2:30 PM EDT Office Visit [facility] Orthopedics - [address] [phone] Mica Chu PA-C [address] [place] [address] documented as of this encounter Visit Diagnoses Not on filedocumented in this encounter Care Teams Powdered Sugar Supervisor Relationship Specialty Start Date End Date Sotero Miller MD [address] [place] [address] PCP - General Adolescent Medicine 10/25/22 documented as of this encounter
--- OUTSIDE RECORDS SUMMARY | 2025-05-13 05:44 | XMS_ITS | Encounter Summary ---
Author Organization [email or web address] ([place], [place], [place], [place]) Address [address] [place] [address] Care Team Providers Care Quality Assurance Auditor Name Role Phone Sotero Miller MD Primary Care Provider + [phone] Encounter Details Date Type Department Care Team (Late st Contact Info) Description 05/05/2020 Transcribed Document [facility] [place] Medicine [facility] [place] [address] ProviderMk MD [address] [place], [place] [address] Social History Tobacco Use Types Packs/Day Years Used Date Smoking Tobacco: Never Assessed Sex and Gender Information Value Date Recorded Sex Assigned at Not on file Legal Sex Male 5:40 PM CDT Gender Identity Not on file Sexual Orientation Not on file documented as of this encounter Miscellaneous Notes * Cerner Conversion Note - Mk Mac MD - 05/05/2020 11:11 AM CDT Final Discharge Planning Entered On: 05/05/2020 11:15 EDT Performed On: 05/05/2020 11:11 EDT by KLAUS DANIEL, RN-Battery Tester Final Discharge Planning Discharge Arrangements : Patient Post-Acute Information Patient Name: NICO LERNER Gender: Male : [birth year] Age: 70 Years [place] Referral(s): Service: Organization: Business Address: Phone Number: [facility] [address], [place], [address] KLAUS DANIEL, RN-Battery Tester - 05/05/2020 11:11 EDT Accts Placement Outside [facility] Account [facility] Service : dme Organization : [facility] Comment (Comment: home oxygen [KLAUS DANIEL, RN-Battery Tester - 05/05/2020 11:11 EDT] ) KLAUS DANIEL RN-Battery Tester - 05/05/2020 11:11 EDT Patient Offered Choice/Affiliations Explained : Yes Designation of Choice Signed : Yes Transportation Needs : Car Follow Up Appointment Scheduled : Yes Is Patient High/Moderate Readmission Risk? : Yes Patient/Family Notified of Plan : Yes Support Person/Pt Rep Notified of Plan : Yes Patient/Family Notified : daughter Is Patient Ready for Discharge? : Yes Physician Notified Patient is Ready for Discharge? : Yes Discharge To Care Management : Home Health Services (Related/SOC within 3 days)-06 KLAUS DANIEL RN-Battery Tester - 05/05/2020 11:11 EDT Final Narrative Note Final Narrative Note : received call from ted [facility]. advised new referral sent to office. portable tank for delivery to pt's room prior to dc. designtion form signed. spoke with pt/daughter & bedside rNMonica. Historical Narrative Note : received call from emily Anderson RN. pt has ra sats 0f 86% resting. orders for home 02 2l nc. spoke with Mr. Lerner by phone then his daughter. they selected [facility] for home 02. called & sent referral to [facility] via [employer]. [phone]. [phone]. left voice mail message for store product demonstrator to call me for portable tank delivery to hospital. waiting all back. KLAUS DANIEL RN-Battery Tester - 05/05/20 10:53:38 for dc today. arrangements in place for home health provided by [facility]. spoke with Berta store product demonstrator intake. [phone]. advised of dc today. they will see pt tomorrow. spoke with emily Anderson rN. advised of above. no other needs. dc plans arranged. KLAUS DANIEL RN-Battery Tester - 05/05/20 08:56:39 DANIEL, KLAUS W, RN-Battery Tester - 05/05/2020 11:11 EDT documented in this encounter Plan of Treatment Upcoming Encounters Date Type Department Care Team (Late st Contact Info) Description 06/20/2025 2:30 PM EDT Office Visit [facility] Orthopedics - [address] [phone] Mica Chu PAMaddieC [address] [place] [address] documented as of this encounter Visit Diagnoses Not on filedocumented in this encounter Care Teams Quality Assurance Auditor Relationship Specialty Start Date End Date Sotero Miller MD [address] [place] [address] PCP - General Adolescent Medicine 10/25/22 documented as of this encounter
--- OUTSIDE RECORDS SUMMARY | 2025-05-13 05:44 | XMS_ITS | Encounter Summary ---
Author Organization [employer] ([place], [place], [place], [place]) Address [address] [place] [address] Care Team Providers Care Machine Stacker Name Role Phone Sotero Miller MD Primary Care Provider [phone] Encounter Details Date Type Department Care Team (Late st Contact Info) Description 04/23/2020 Transcribed Document [facility] [place] Family Medicine [address] [place] [address] ProviderMk MD [address] [place], [place] [id number] Social History Tobacco Use Types Packs/Day Years Used Date Smoking Tobacco: Never Assessed Sex and Gender Information Value Date Recorded Sex Assigned at Not on file Legal Sex Male 5:40 PM CDT Gender Identity Not on file Sexual Orientation Not on file documented as of this encounter Miscellaneous Notes * [employer]ner Conversion Note - Mk ProviderMD - 04/23/2020 11:32 AM CDT Evaluation, Physical Therapy Entered On: 04/24/2020 13:34 EDT Performed On: 04/24/2020 13:21 EDT by Brianna Kraus STUDENT-PHYSICAL THERAPIST General Information, PT Visit Type, PT : Initial evaluation Brianna Kraus STUDENT-PHYSICAL THERAPIST - 04/24/2020 13:21 EDT Patient Orders : Order Date Order Ordering 04/23/2020 11:32 PT Evaluation and Treatment Ordered By: PAPA THORNTON MD-INT Active Diagnoses : 04/22/2020 12:00 Atherosclerotic heart disease of [place] coronary artery without angina pectoris 04/22/2020 12:00 Essential (primary) hypertension 04/22/2020 12:00 Hyperlipidemia, unspecified 04/22/2020 12:00 Nicotine dependence, unspecified, in remission ANDERSON VIEYRA, PT - 04/24/2020 14:52 EDT Therapy Diagnosis, PT : PT consulted and upon evaluation, patient found to be independent. Onset of Problem, PT : 04/21/2020 EDT Brianna Kraus STUDENT-PHYSICAL THERAPIST - 04/24/2020 13:21 EDT Admission Date : 04/21/2020 16:53 ANDERSON VIEYRA, PT - 04/24/2020 14:52 EDT Co-treated by, PT : Occupational Therapist Brianna Kraus STUDENT-PHYSICAL THERAPIST - 04/24/2020 13:21 EDT Personal Devices : Personal Devices No Devices Recorded Assistive Devices : Assistive Devices No Devices Recorded ANDERSON VIEYRA, PT - 04/24/2020 14:52 EDT General Information Comment, PT : Dx: atherosclerotic heart disease of [place] coronary artery without angina pectoris, CAD, HLD, HTN, nicotine dependence in remission [facility]H: [facility]), [facility] (04/20/2020), HTN, dyslipidemia, CAD Plan for CABG Wednesday04/29/2020 Brianna Kraus STUDENT-PHYSICAL THERAPIST - 04/24/2020 13:21 EDT General Status Patient Received Status : Up in chair Treatment Start Time : 04/24/2020 11:23 EDT Patient Left Status : Up in chair, RN/PCT informed, Family/Visitors at bedside, Communication board completed, All needs met and within reach RN/PCT Informed Comment : Nurse Sadler informed that patient was indpendent with mobility and would be safe to walk with family after receiving permission from [facility]. Treatment End Time : 04/24/2020 11:34 EDT Treatment Time : 11 Minute(s) Brianna Kraus STUDENT-PHYSICAL THERAPIST - 04/24/2020 13:21 EDT History and Environment Living Situation, Therapy : Home Patient Lives With : Spouse Persons Assisting Patient at Home : Spouse Persons Providing Information : Patient Home Equipment Therapy, PT : None Home Setup : One story Stairs : Yes Stair Location(s) : Outside Outside Stairs, Number of Steps : 1 Railing Outside : No Brianna Kraus STUDENT-PHYSICAL THERAPIST - 04/24/2020 13:21 EDT Prior Level of Function PT GRID Prior LOF Ambulation, Household : Independent Prior LOF Ambulation, Community : Independent Prior LOF Bed Mobility : Independent Prior LOF Toileting : Independent Prior LOF Transfer : Independent Brianna Kraus STUDENT-PHYSICAL THERAPIST - 04/24/2020 13:21 EDT Prior LOF Assist with ADL Comment : Prior to hospitalization, 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 He states that he was very active and did not require assistance to complete ADL's or functional mobility tasks. Brianna Kraus STUDENT-PHYSICAL THERAPIST - 04/24/2020 13:21 EDT Upper Extremity Right UE Active ROM : WFL Right UE Strength : WFL Left UE Active ROM : WFL Left UE Strength : WFL Right UE Strength : WFL Left UE Strength : WF Brianna Kraus STUDENT-PHYSICAL THERAPIST - 04/24/2020 13:21 EDT Lower Extremity RLE Active ROM : WFL Right LE Strength : WFL LLE Active ROM : WFL Left LE Strength : WF Brianna Kraus STUDENT-PHYSICAL THERAPIST - 04/24/2020 13:21 EDT Right Lower Extremity MMT Knee Flexion (0-140) : 5/normal Knee Extension (0-0) : 5/normal Ankle Dorsiflexion (0-20) : 5/normal Ankle Plantarflexion (0-45) : 5/normal Brianna Kraus STUDENT-PHYSICAL THERAPIST - 04/24/2020 13:21 EDT Left Lower Extremity MMT Knee Flexion (0-140) : 5/normal Knee Extension (0-0) : 5/normal Ankle Dorsiflexion (0-20) : 5/normal Ankle Plantarflexion (0-45) : 5/normal Brianna Kraus STUDENT-PHYSICAL THERAPIST - 04/24/2020 13:21 EDT Functional Mobility Mobility Grid Sit to Stand : Rehab Complete independence Stand to Sit : Rehab Complete independence Brianna Kraus STUDENT-PHYSICAL THERAPIST - 04/24/2020 13:21 EDT Sit to Stand Device : Belt, gait Stand to Sit Device : Belt, gait Brianna Kraus STUDENT-PHYSICAL THERAPIST - 04/24/2020 13:21 EDT Gait Training/Assessment, PT Weight Bearing Status : Full Gait Assistance Level : Independent, modified Walking Distance : 30' while pushing IV pole, 545' without pushing IV pole Ambulatory Devices : None, Gait belt Gait Deviations : No Gait Training Comment : Patient demonstrates ability to ambulate 30' while pushing IV pole and 545' without pushing IV pole (575' total). Patient demonstrated increased safety awareness while ambulating and did not demonstrate any gait deviations. Brianna Kraus STUDENT-PHYSICAL THERAPIST - 04/24/2020 13:21 EDT 4 Item Dynamic Gait Index Gait Level Surface : Normal Change in Gait Speed : Normal Gait With Horizontal Head Turns : Normal Gait With Vertical Head Turns : Normal Interpretation: 4 item DGI < 10/12 = falls risk : 12 Brianna Kraus STUDENT-PHYSICAL THERAPIST - 04/24/2020 13:21 EDT Cognition Assessment, PT Orientation : Oriented x 4 Brianna Kraus STUDENT-PHYSICAL THERAPIST - 04/24/2020 13:21 EDT Edu Topics Physical Therapy Education Grid Balance Training : Returns demonstration Gait Training : Returns demonstration Role of Physical Therapy : Verbalizes understanding Safety : Returns demonstration Transfer Training : Returns demonstration Brianna Kraus STUDENT-PHYSICAL THERAPIST - 04/24/2020 13:21 EDT Indication Assesessment, PT Physical Therapy Indicated : No Physical Therapy Not Indicated : Prior level of function Brianna Kraus STUDENT-PHYSICAL THERAPIST - 04/24/2020 13:21 EDT Plan of Care, PT PT Tx Plan/Goals Established w Patient : No Reason Tx/Plan Not Established W/ Pt PT : PT consulted and upon evaluation, patient found to be independent. PT services discontinued and patient will remain in acute care setting. PT Frequency Rehab : Discontinue Brianna Kraus STUDENT-PHYSICAL THERAPIST - 04/24/2020 13:21 EDT Treatment Note Patient's Response to Treatment : Patient did not c/o of any chest pain, shortness of breath, or dizziness throughout evaluation. Brianna Kraus STUDENT-PHYSICAL THERAPIST - 04/24/2020 13:34 EDT Subjective Comment : Patient agreeable to PTx. Nsg. OK'd PTx. Additional Objective Information : Upon entering the room, the patient was up in his chair. Patient demonstrates normal strength in BLE. Patient demonstrates ability to perform transfers, ambulation, and other functional mobility tasks with independence. Patient able to ambulate 30' while pushing IV pole, and 545' without IV pole with independence. Patient and nsg. informed that patient is safe to walk with family after receiving permission and all clear from nsg. Patient is scheduled to have CABG on 04/29/2020. Assessment : PT consulted and upon evaluation, patient found to be independent with transfers, ambulation, and functional mobility tasks. PT services not indicated and PT will be discontinued. Patient will remain in the acute care setting. Brianna rKaus STUDENT-PHYSICAL THERAPIST - 04/24/2020 13:21 EDT Plan for Treatment : Discontinue PT. PT has reviewed and agrees with note. ANDERSON VIEYRA, PT - 04/24/2020 14:52 EDT Pain Assessment Pain Scaled Used : 0-10 Pain scale Pain Score Pre-Intervention : 0 Pain Score During-Intervention : 0 Pain Score Post-Intervention. : 0 Brianna Kraus STUDENT-PHYSICAL THERAPIST - 04/24/2020 13:21 EDT Image 1 - Images currently included in the form version of this document have not been included in the text rendition version of the form. Anticipated Discharge Needs, OT/PT Recommend Continued Therapy at Discharge : No ANDERSON VIEYRA, PT - 04/24/2020 14:52 EDT Anticipated Discharge to : Other: Patient to remain in acute care setting Brianna Kraus STUDENT-PHYSICAL THERAPIST - 04/24/2020 13:[address] [facility] PT Eval Low Complexity : 1 Brianna Kraus STUDENT-PHYSICAL THERAPIST - 04/24/2020 13:21 EDT documented in this encounter Plan of Treatment Upcoming Encounters Date Type Department Care Team (Late st Contact Info) Description 06/20/2025 2:30 PM EDT Office Visit [facility] Orthopedics - [address] [phone] Mica Chu PA-C [address] [place] [address] documented as of this encounter Visit Diagnoses Not on filedocumented in this encounter Care Teams Machine Stacker Relationship Specialty Start Date End Date Sotero Miller MD [address] [place] [address] PCP - General Adolescent Medicine 10/25/22 documented as of this encounter
--- OUTSIDE RECORDS SUMMARY | 2025-05-13 05:44 | XMS_ITS | Encounter Summary ---
Author Organization [employer] ([place], [place], [place], [place]) Address [address] [place] [address] Care Team Providers Care Public Relations Intern Name Role Phone Sotero Miller MD Primary Care Provider + [phone] Encounter Details Date Type Department Care Team (Late st Contact Info) Description 04/23/2020 Transcribed Document [facility] [place] Family Medicine [facility] [address] ProviderMk MD [address] [place], [place] [id number] Social History Tobacco Use Types Packs/Day Years Used Date Smoking Tobacco: Never Assessed Sex and Gender Information Value Date Recorded Sex Assigned at Not on file Legal Sex Male 5:40 PM CDT Gender Identity Not on file Sexual Orientation Not on file documented as of this encounter Miscellaneous Notes * Cerner Conversion Note - Mk ProviderMD - 04/23/2020 2:00 AM CDT Container Washer Details Entered On: 04/23/2020 4:05 EDT Performed On: 04/23/2020 2:00 EDT by Consuelo Burr, RN Order Details Transport Mode Order Detail : Ambulatory Isolation Precautions Order Detail : Contact precautions Order Detail : N/A IV Order Detail : 1 Oxygen Order Detail : 0 Nurse Collect Order Detail : 1 Lift/Transfer : Independent Central Line Order Detail : No Room Service : Not Appropriate Arterial Line : No Consuelo Burr, RN - 04/23/2020 4:05 EDT documented in this encounter Plan of Treatment Upcoming Encounters Date Type Department Care Team (Late st Contact Info) Description 06/20/2025 2:30 PM EDT Office Visit [facility] Orthopedics - [address] [phone] Mica Chu PA-C [address] [place] [address] documented as of this encounter Visit Diagnoses Not on filedocumented in this encounter Care Teams Public Relations Intern Relationship Specialty Start Date End Date Sotero Miller MD [address] [place] [address] PCP - General Adolescent Medicine 10/25/22 documented as of this encounter
--- OUTSIDE RECORDS SUMMARY | 2025-05-13 05:44 | XMS_ITS | Encounter Summary ---
Author Organization [employer] ([place], [place], [place], [place]) Address [address] [place] [address] Care Team Providers Care Firmware Manager Name Role Phone Sotero Miller MD Primary Care Provider + [phone] Encounter Details Date Type Department Care Team (Late st Contact Info) Description 04/22/2020 Transcribed Document [facility] [place] Family Medicine [address] [place] [address] ProviderMk MD [address] [place] [address] Social History Tobacco Use Types Packs/Day Years Used Date Smoking Tobacco: Never Assessed Sex and Gender Information Value Date Recorded Sex Assigned at Not on file Legal Sex Male 5:40 PM CDT Gender Identity Not on file Sexual Orientation Not on file documented as of this encounter Miscellaneous Notes * Cerner Conversion Note - Mk Mac MD - 04/22/2020 3:10 PM CDT Patient: NICO LERNER Age: 70 years Sex: Male : 1950 Associated Diagnoses: None Author: PAPA THORNTON MD-INT DATE OF SERVICE [ DOS ]: 04-22-2020 Basic Information SUBJECTIVE: Patient is seen and [...] PRN: Nausea aspirin: 325 mg, Oral, Daily atorvastatin: 80 mg, Oral, At Bedtime doxycycline + Sodium Chloride 0.9% intravenous solution 100 mL: 100 mg, 50 mL/Hr, IV Piggyback, [id number] heparin injection 25,000 Units + NaCl 0.45% [...] 0.9% 100 mL 100 mg, IV Piggyback, [id number] metoprolol tartrate 25 mg tab 12.5 mg [...] At risk for sleep apnea / IMO [id number] / Confirmed, Active Problems (4) Arthritis At risk for sleep apnea CAD (coronary artery disease) Chronic hypertension OBJECTIVE: Physical Examination VS/Measurements Vitals Signs (last 24 hrs) Last Charted Minimum Maximum Temp 98.3 (APR 22 12:00) 97.7 (APR 21 20:00) 98.6 (APR 21 17:00) Apical HR 60 (APR 22 08:10) L 47 (APR 21 22:36) 60 (APR 22 08:10) Mon HR 58 (APR 22 14:00) 44 (APR 22 04:30) 68 (APR 21 18:45) Resp Rate H 25 (APR 22 14:00) 16 (APR 22 01:00) H 34 (APR 22 08:30) SBP 128 (APR 22 14:00) 107 (APR 22 02:15) H 151 (APR 22 05:45) DBP 61 (APR 22 14:00) L 55 (APR 21 23:00) 76 (APR 21 18:15) MAP 88 (APR 22 14:00) 79 (APR 22 02:45) 102 (APR 22 05:45) SpO2 94 (APR 22 14:00) L 89 (APR 22 10:30) 98 (APR 21 23:00) General: Alert and oriented, No acute distress. [...] No swelling, No deformity. Integumentary: Warm, [place], Moist, No rash. Neurologic: Alert, Oriented, Normal sensory, Normal motor function, No focal deficits, Cranial Nerves II-XII are grossly intact, Normal deep tendon reflexes. Psychiatric: Cooperative, Appropriate mood & affect, Normal judgment. Review / Management Results review: Labs (Last four charted values) WBC H 21.4 (APR 21) HB 16.2 (APR 21) HCT 49.4 (APR 21) Plt 289 (APR 21) Na L 135 (APR 22) 138 (APR 21) K 4.3 (APR 22) 4.2 (APR 21) Cl 106 (APR 22) 105 (APR 21) CO2 24 (APR 22) 26 (APR 21) BUN H 26 (APR 22) H 23 (APR 21) Cr 1.10 (APR 22) 1.20 (APR 21) Glu R H 161 (APR 22) H 151 (APR 21) Ca 8.4 (APR 22) 9.1 (APR 21) Lactic [...] 22) C 46.200 (APR 21) , APR 22 03:52 L 135 106 H 26 / H 161 4.3 24 1.10 \ APR 22 03:52 \ 16.2 / H 21.4 289 / 49.4 \, Radiology Results (Last 48 hours) [id number] -- 04/21/2020 16:53 CR Chest 1 Vw [...] drip. Code status: Full code Time spent: 36 minutes documented in this encounter Plan of Treatment Upcoming Encounters Date Type Department Care Team (Late st Contact Info) Description 06/20/2025 2:30 PM EDT Office Visit [facility] Orthopedics - [address] [phone] Mica Chu PA-C [address] [place] [phone] documented as of this encounter Visit Diagnoses Not on filedocumented in this encounter Care Teams Firmware Manager Relationship Specialty Start Date End Date Sotero Miller MD [address] [place] [address] PCP - General Adolescent Medicine 10/25/22 documented as of this encounter
--- OUTSIDE RECORDS SUMMARY | 2025-05-13 05:44 | XMS_ITS | Encounter Summary ---
Author Organization [employer] ([place], [place], [place], [place]) Address [address] [place] [address] Care Team Providers Care Supervisor Malted Milk Name Role Phone Sotero Miller MD Primary Care Provider + [phone] Encounter Details Date Type Department Care Team (Late st Contact Info) Description 04/23/2020 Transcribed Document [facility] [place] Family Medicine [address] [place] [address] ProviderMk MD [address] [place] [address] Social History Tobacco Use Types Packs/Day Years Used Date Smoking Tobacco: Never Assessed Sex and Gender Information Value Date Recorded Sex Assigned at Not on file Legal Sex Male 5:40 PM CDT Gender Identity Not on file Sexual Orientation Not on file documented as of this encounter Miscellaneous Notes * Cerner Conversion Note - Mk Mac MD - 04/23/2020 1:44 PM CDT Education-Heart Failure Entered On: 04/23/2020 13:51 EDT Performed On: 04/23/2020 13:44 EDT by Adele Thomas RN Teaching/Learning Assessment Barriers To Learning : None evident Adele Thomas RN - 04/23/2020 13:51 EDT Education Topics, Heart Failure Education Topics, Heart Failure Ed-Action Plan for Symptoms : Needs reinforcement Activity Limitations/Expectations : Needs reinforcement Activity Recommendations : Needs reinforcement Anti-Coagulation/Drug Interactions : Needs reinforcement Caring for Your Heart at Home : Needs reinforcement Community Resources : Needs reinforcement Diet and Nutrition : Needs reinforcement Disease Process : Needs reinforcement Exercise : Needs reinforcement Follow-up Appointment : Needs reinforcement General Counseling : Needs reinforcement Med Dosage, Route, Scheduling : Needs reinforcement Med Generic/Brand Name, Purpose, Action : Needs reinforcement Med Precautions, Food/Drug Interaction : Needs reinforcement Med Special Administration, Storage : Needs reinforcement Med Preadministration Procedures : Needs reinforcement My Heart Failure Home Care Plan : Needs reinforcement Prognosis : Needs reinforcement Psychosocial Adjustment : Needs reinforcement Respiratory Hygiene : Needs reinforcement Self Management : Needs reinforcement Sexual Activity : Needs reinforcement Smoking Cessation : Needs reinforcement Sodium & Fluid Log : Needs reinforcement Sources of Support : Needs reinforcement Symptom Identification & Action Plan *Q : Needs reinforcement Treatment Plan : Needs reinforcement Weight Log : Needs reinforcement Weight Monitoring : Needs reinforcement When to Call Health Care Provider : Needs reinforcement Adele Thomas RN - 04/23/2020 13:51 EDT Electronically signed by Ean [facility] Conversion Author Agent Cerner at 02/07/2023 11:28 PM CDT documented in this encounter Plan of Treatment Upcoming Encounters Date Type Department Care Team (Late st Contact Info) Description 06/20/2025 2:30 PM EDT Office Visit [facility] Orthopedics - [address] [phone] Mica Chu PA-C [address] [place] [address] documented as of this encounter Visit Diagnoses Not on filedocumented in this encounter Care Teams Supervisor Malted Milk Relationship Specialty Start Date End Date Sotero Miller MD [address] [place] [address] PCP - General Adolescent Medicine 10/25/22 documented as of this encounter
--- OUTSIDE RECORDS SUMMARY | 2025-05-13 05:44 | XMS_ITS | Encounter Summary ---
Author Organization [employer] ([place], [place], [place], [place]) Address [address] [place] [address] Care Team Providers Care Family Physician Name Role Phone Sotero Miller MD Primary Care Provider + [phone] Encounter Details Date Type Department Care Team (Late st Contact Info) Description 05/04/2020 Transcribed Document [facility] Family Medicine [facility] [place] [address] ProviderMk MD [address] [place] [address] Social History Tobacco Use Types Packs/Day Years Used Date Smoking Tobacco: Never Assessed Sex and Gender Information Value Date Recorded Sex Assigned at Not on file Legal Sex Male 5:40 PM CDT Gender Identity Not on file Sexual Orientation Not on file documented as of this encounter Miscellaneous Notes * Cerner Conversion Note - Mk Mac MD - 05/04/2020 9:03 AM CDT Patient: GILBERT LERNER Age: 70 years Sex: Male : 1950 Associated Diagnoses: None Author: MARY JANE LOUIS PA Admission Date: Admitting: Dr. Jose M Massey PCP: Dr. Taz Miller CARD:Dr. Eugenio Peacock, [place], [place] Consultants:Dr. Brenda Farrar, Cardiology Dr. Ladonna Pagan, CT Surgery Dr. Jeanne Gandara, Pulmonary Brief History:Gilbert Lerner is a 70-year-old male who presented to outside hospital with complaint of significant amount of chest pain. At [facility], the patient underwent further evaluation and [...] NQWMI, 03/31/20 Acute pulmonary edema secondary to MA Unstable angina Strong family Hx of CAD [...] 05/02/20: POD#3 pain with coughing 05/03/20: POD#4 05/04/21 POD #5 no complaints Health Status Allergies: Allergic Reactions (Selected) Severity Not Documented Contrast Dye- Shortness of breath. Current medications.Problem list. Objective General: Alert and oriented. Respiratory: Lungs are clear to auscultation, anteriorly. Cardiovascular: Normal rate, Regular rhythm. Gastrointestinal: Soft, Non-tender, Non-distended. Sternal incision>> Aquacell dressing RLE incision>> C D I Results Review General results Interpretation: Radiology Results (Last 48 hours) [id number] -- 04/21/2020 16:53 CR Chest 1 Vw [...] Lasix 40mg IV x 1 Transfer to [facility] today per Dr. Pagan 05/01/20 POD#2 Telemetry>> [...] incisional pain #42 on chart) Cardiac Rehab: [facility] 05/03/20 Telemetry>> New A fib with [...] 10 mg q 8hrs x 48 hrs 05/04/20 Back in normal sinus rhythm at 57. Oral amiodarone orderd. Will discontinue IV amiodarone tomorrow Hopefully home tomorrow Electronically signed by Ean, [facility] Conversion Cardiovascular Surgical Tech Cerner at 02/07/2023 11:35 PM CDT documented in this encounter Plan of Treatment Upcoming Encounters Date Type Department Care Team (Late st Contact Info) Description 06/20/2025 2:30 PM EDT Office Visit [facility] Orthopedics - [address] [phone] Mica Chu, PAMaddieC [address] [place] [address] documented as of this encounter Visit Diagnoses Not on filedocumented in this encounter Care Teams Family Physician Relationship Specialty Start Date End Date Sotero Miller MD [address] [place] [address] PCP - General Adolescent Medicine 10/25/22 documented as of this encounter
--- OUTSIDE RECORDS SUMMARY | 2025-05-13 05:44 | XMS_ITS | Encounter Summary ---
Author Organization [employer] ([place], [place], [place], [place]) Address [address] [place] [address] Care Team Providers Care Manager Php Name Role Phone Sotero Miller MD Primary Care Provider [phone] Encounter Details Date Type Department Care Team (Late st Contact Info) Description 05/07/2020 Transcribed Document [facility] [place] Family Medicine [address] [place] [address] ProviderMk MD [address] [place] [address] Social History Tobacco Use Types Packs/Day Years Used Date Smoking Tobacco: Never Assessed Sex and Gender Information Value Date Recorded Sex Assigned at Not on file Legal Sex Male 5:40 PM CDT Gender Identity Not on file Sexual Orientation Not on file documented as of this encounter Miscellaneous Notes * [employer] Conversion Note - Mk Mac MD - 05/07/2020 8:20 AM CDT UM Authorization Entered On: 05/07/2020 8:21 EDT Performed On: 05/07/2020 8:20 EDT by Denice Sanchez, Rfid Analyst Primary Insurance Authorization Authorization and Policy Numbers : Insurance 1 Health Plan: ANTHEM HMOPPO Policy Number: [id number] Authorization Number: Insurance 2 Health Plan: MEDICARE Policy Number: [id number] Authorization Number: Insurance Primary Name : ANTHEM HMOPPO Policy Number: [id number] Authorization Status-Primary : Approved Auth/Referral Contact Name-Primary : [place] Reference Number-Primary : [id number] Number of Days Authorized-Primary : 13 Day(s) Authorized Service Begin Date-Primary : 04/21/2020 EDT Authorized Service End Date-Primary : 05/04/2020 EDT Authorization Comments-Primary : Authorized per fax 05/06/2020 @ 1856. Total days approved: 14. Historical Authorization Comments-Primary : Comment 1: Continued stay clinicals 05/04/2020 - Discharge faxed. (Denice Sanchez, Rfid Analyst 05/06/2020 14:42) Comment 2: Discharge date and summary faxed. (Denice Sanchez, Rfid Analyst 05/06/2020 14:40) Comment 3: Faxed clinicals via [employer] for 05/02-05/03. (CHON ANDREWS, Rn-Utilization Review 05/03/2020 13:51) Comment 4: Rec fax from [facility] cont stay approved total of 12 days NRD 05-03-2020 (KLAUS QUIROS, Lead Data Architect 05/02/2020 11:12) Comment 5: Per Avail[employer], Ipt Auth approved 12 days. NRD 05/03. (CHON ANDREWS, Rn-Utilization Review 05/02/2020 10:53) Comment 6: clinicals faxed via [employer] for cont stay for dos 04/29-04/30/2020 (CATHI DEAL, RN-Utilization Review 04/30/2020 13:10) Comment 7: Per Availity, Inpt Auth approved 5 days. Faxed additional clinicals for 04/26-04/28. (CHON ANDREWS, Rn-Utilization Review 04/29/2020 10:35) Comment 8: Faxed clinicals via [employer] for 04/23-04/25. (CHON ANDREWS, Rn-Utilization Review 04/25/2020 10:33) Comment 9: Per Availity, Inpt Auth approved 4 days. NRD 04/25. (CHON ANDREWS, Rn-Utilization Review 04/24/2020 09:13) Comment 10: clinicals faxed via [employer] for cont stay for dos 04/23/2020 (CATHI DEAL, RN-Utilization Review 04/23/2020 13:09) Comment 11: submitted on availity for IP auth w/ clinicals attached (CATHI DEAL, RN-Utilization Review 04/22/2020 09:38) Denice Sanchez, Rfid Analyst - 05/07/2020 8:20 EDT Electronically signed by Lizzie Mckoy Conversion Commercial Marketing Specialist [employer] at 02/07/2023 11:43 PM CDT documented in this encounter Plan of Treatment Upcoming Encounters Date Type Department Care Team (Late st Contact Info) Description 06/20/2025 2:30 PM EDT Office Visit [facility] Orthopedics - [address] [phone] Mica Chu, PA-C [address] [place] [address] documented as of this encounter Visit Diagnoses Not on filedocumented in this encounter Care Teams Manager Php Relationship Specialty Start Date End Date Sotero Miller MD [address] [place] [address] PCP - General Adolescent Medicine 10/25/22 documented as of this encounter
--- OUTSIDE RECORDS SUMMARY | 2025-05-13 05:44 | XMS_ITS | Encounter Summary ---
Author Organization [employer] ([place], [place], [place], [place]) Address [address] [place] [address] Care Team Providers Care Mechanical Design Drafter Name Role Phone Sotero Miller MD Primary Care Provider + [phone] Encounter Details Date Type Department Care Team (Late st Contact Info) Description 05/05/2020 Transcribed Document [facility] [place] [facility] [place] [address] ProviderMk MD [address] [place] [address] Social History Tobacco Use Types Packs/Day Years Used Date Smoking Tobacco: Never Assessed Sex and Gender Information Value Date Recorded Sex Assigned at Not on file Legal Sex Male 5:40 PM CDT Gender Identity Not on file Sexual Orientation Not on file documented as of this encounter Miscellaneous Notes * Cerner Conversion Note - Mk ProviderMD - 05/05/2020 12:53 PM CDT Discharge Summary, PT Entered On: 05/05/2020 12:55 EDT Performed On: 05/05/2020 12:53 EDT by KORINA CHRISTINA, PT Discharge Summary Discharge Summary Provider Notified : Nursing, Physical Therapy Reason for Discharge : Discharge order Discharged to, Therapy : Home, with home health Discharge Equipment, PT : None Discharge Summary Comment, PT : pt was supervision for sit to stand to amb 375 feet with 3 standing rest breaks due to increase SOA. Instructed and given post op cardiac HEP see below for status of goals at discharge KORINA CHRISTINA, PT - 05/05/2020 12:53 EDT Short Term Goals Ambulation STG Grid Goal #1 Device : Walker, front wheel Distance : 200 ft Assist : Supervision or set-up Date to Meet : 05/07/2020 EDT Goal Status : Goal met Date Met : 05/01/2020 EDT KORINA CHRISTINA, PT - 05/05/2020 12:53 EDT Bottom Finisher Goals Mobility/Bed Mobility LTG PT Grid Goal #1 Goal #2 Activity : Supine to sit Sit to stand Assist : Independent, modified Independent, modified Date to Meet : 05/14/2020 EDT 05/14/2020 EDT Goal Status : Not met Not met KORINA CHRISTINA, PT - 05/05/2020 12:53 EDT KORINA CHRISTINA, PT - 05/05/2020 12:53 EDT Ambulation LTG Grid Goal #1 Device : Walker, front wheel Distance : 375 ft Assist : Independent, modified Date to Meet : 05/14/2020 EDT Goal Status : Not met KORINA CHRISTINA, PT - 05/05/2020 12:53 EDT documented in this encounter Plan of Treatment Upcoming Encounters Date Type Department Care Team (Late st Contact Info) Description 06/20/2025 2:30 PM EDT Office Visit [facility] Orthopedics - [address] [phone] Mica Chu PA-C [address] [place] [address] documented as of this encounter Visit Diagnoses Not on filedocumented in this encounter Care Teams Mechanical Design Drafter Relationship Specialty Start Date End Date Sotero Miller MD [address] [place] [address] PCP - General Adolescent Medicine 10/25/22 documented as of this encounter
--- OUTSIDE RECORDS SUMMARY | 2025-05-13 05:44 | XMS_ITS | Encounter Summary ---
Author Organization [facility] ([place], [place], [place], [place]) Address [address] [place] [address] Care Team Providers Care Sales Research Analyst Name Role Phone Sotero Miller MD Primary Care Provider + [phone] Encounter Details Date Type Department Care Team ( Contact Info) Description 05/03/2020 Transcribed Document [facility] [place] Family Medicine [address] [place] [address] ProviderMk MD [address] [place], [place] [id number] Social History Tobacco Use Types Packs/Day Years Used Date Smoking Tobacco: Never Assessed Sex and Gender Information Value Date Recorded Sex Assigned at Not on file Legal Sex Male 5:40 PM CDT Gender Identity Not on file Sexual Orientation Not on file documented as of this encounter Miscellaneous Notes * Cerner Conversion Note - Mk ProviderMD - 05/03/2020 2:00 AM CDT Film Sound Engineer Details Entered On: 05/03/2020 1:22 EDT Performed On: 05/03/2020 2:00 EDT by FLORENTIN BELTRAN RN Order Details Transport Mode Order Detail : Wheelchair Isolation Precautions Order Detail : Standard Precautions Order Detail : N/A IV Order Detail : 1 Oxygen Order Detail : 1 Nurse Collect Order Detail : 0 Lift/Transfer : Minimal Central Line Order Detail : No Room Service : Appropriate Arterial Line : No FLORENTIN BELTRAN RN - 05/03/2020 1:22 EDT documented in this encounter Plan of Treatment Upcoming Encounters Date Type Department Care Team (Late Contact Info) Description 06/20/2025 2:30 PM EDT Office Visit [facility] Orthopedics - [address] [phone] Mica Chu PA-C [address] [place] [address] documented as of this encounter Visit Diagnoses Not on filedocumented in this encounter Care Teams Sales Research Analyst Relationship Specialty Start Date End Date Sotero Miller MD [address] [place] [address] PCP - General Adolescent Medicine 10/25/22 documented as of this encounter
--- OUTSIDE RECORDS SUMMARY | 2025-05-13 05:44 | XMS_ITS | Encounter Summary ---
Author Organization [employer] ([place], [place], [place], [place]) Address [address] [place] [address] Care Team Providers Care Groundskeeping Yardman Name Role Phone Sotero Miller MD Primary Care Provider [phone] Encounter Details Date Type Department Care Team (Late st Contact Info) Description 04/23/2020 Transcribed Document [facility] [place] Family Medicine [address] [place] [address] ProviderMk MD [address] [place], [place] [address] Social History Tobacco Use Types Packs/Day Years Used Date Smoking Tobacco: Never Assessed Sex and Gender Information Value Date Recorded Sex Assigned at Not on file Legal Sex Male 5:40 PM CDT Gender Identity Not on file Sexual Orientation Not on file documented as of this encounter Miscellaneous Notes * [employer]ner Conversion Note - Mk Mac MD - 04/23/2020 1:09 PM CDT UM Authorization Entered On: 04/23/2020 13:09 EDT Performed On: 04/23/2020 13:09 EDT by CATHI DEAL RN-Utilization Review Primary Insurance Authorization Authorization and Policy Numbers : Insurance 1 Health Plan: ANTHEM HMOPPO Policy Number: [id number] Authorization Number: Insurance 2 Health Plan: MEDICARE Policy Number: [id number] Authorization Number: Insurance Primary Name : ANTHEM HMOPPO Policy Number: [id number] Authorization Status-Primary : Awaiting callback Reference Number-Primary : [id number] Authorized Service Begin Date-Primary : 04/21/2020 EDT Authorization Comments-Primary : clinicals faxed via [employer] for cont stay for dos 04/23/2020 Historical Authorization Comments-Primary : Comment 1: submitted on availity for IP auth w/ clinicals attached (CATHI DEAL, RN-Utilization Review 04/22/2020 09:38) CATHI DEAL, RN-Utilization Review - 04/23/2020 13:09 EDT Electronically signed by Ean, [facility] Conversion Outbound Sales Consultant [employer] at 02/07/2023 11:39 PM CDT documented in this encounter Plan of Treatment Upcoming Encounters Date Type Department Care Team (Late st Contact Info) Description 06/20/2025 2:30 PM EDT Office Visit [facility] Orthopedics - [address] [phone] Mica Chu, PAMaddieC [address] [place] [address] documented as of this encounter Visit Diagnoses Not on filedocumented in this encounter Care Teams Groundskeeping Yardman Relationship Specialty Start Date End Date Sotero Miller MD [address] [place] [address] PCP - General Adolescent Medicine 10/25/22 documented as of this encounter
--- OUTSIDE RECORDS SUMMARY | 2025-05-13 05:44 | XMS_ITS | Encounter Summary ---
Author Organization [employer] ([place], [place], [place], [place]) Address [address] [place] [address] Care Team Providers Care Radiology Technician Name Role Phone Sotero Miller MD Primary Care Provider + [phone] Encounter Details Date Type Department Care Team (Late st Contact Info) Description 05/05/2020 Transcribed Document [facility] [place] Family Medicine [address] [place] [address] ProviderMk MD [address] [place], [place] [id number] Social History Tobacco Use Types Packs/Day Years Used Date Smoking Tobacco: Never Assessed Sex and Gender Information Value Date Recorded Sex Assigned at Not on file Legal Sex Male 5:40 PM CDT Gender Identity Not on file Sexual Orientation Not on file documented as of this encounter Miscellaneous Notes * Cerner Conversion Note - Mk ProviderMD - 05/05/2020 5:00 AM CDT Chart Check - Review Order Profile Entered On: 05/05/2020 4:21 EDT Performed On: 05/05/2020 5:00 EDT by FLORENTIN BELTRAN RN Chart Check Powerplans Initiated/Discontinued as Appropriate : Yes All Active Orders Reviewed : Yes FLORENTIN BELTRAN RN - 05/05/2020 4:21 EDT documented in this encounter Plan of Treatment Upcoming Encounters Date Type Department Care Team (Late st Contact Info) Description 06/20/2025 2:30 PM EDT Office Visit [facility] Orthopedics - [address] [place] [address] Mica Chu PA-C [address] [place] [address] documented as of this encounter Visit Diagnoses Not on filedocumented in this encounter Care Teams Radiology Technician Relationship Specialty Start Date End Date Sotero Miller MD [address] [place] [address] PCP - General Adolescent Medicine 10/25/22 documented as of this encounter
--- OUTSIDE RECORDS SUMMARY | 2025-05-13 05:44 | XMS_ITS | Encounter Summary ---
Author Organization [employer] ([place], [place], [place], [place]) Address [address] [place] [address] Care Team Providers Care Oil Winterizer Name Role Phone Sotero Miller MD Primary Care Provider + [phone] Encounter Details Date Type Department Care Team (Late st Contact Info) Description 05/05/2020 Transcribed Document [facility] [place] Family [place] [facility] [place] [address] ProviderMk MD [address] [place] [address] Social History Tobacco Use Types Packs/Day Years Used Date Smoking Tobacco: Never Assessed Sex and Gender Information Value Date Recorded Sex Assigned at Not on file Legal Sex Male 5:40 PM CDT Gender Identity Not on file Sexual Orientation Not on file documented as of this encounter Miscellaneous Notes * [employer]ner Conversion Note - Mk Mac MD - 05/05/2020 11:13 AM CDT Nursing Discharge Summary Entered On: 05/05/2020 11:14 EDT Performed On: 05/05/2020 11:13 EDT by NICHOLAS VALDES, consultant nurse Documentation Patient Disposition, General : Discharge Discharge To : Home with ambulatory/outpatient follow-up Pt's Own Supply of Medications Returned : Yes Prescriptions Given to Patient : Yes Discharge Instructions Reviewed With, Opportunity For Questions Given : Patient, Spouse Education Comment : pt verbalized understanding of POC and medications NICHOLAS VALDES, RN - 05/05/2020 11:13 EDT Electronically signed by Lizzie Mckoy Conversion System Configuration Specialist [employer] at 02/07/2023 11:34 PM CDT documented in this encounter Plan of Treatment Upcoming Encounters Date Type Department Care Team (Late st Contact Info) Description 06/20/2025 2:30 PM EDT Office Visit [facility] Orthopedics - [address] [phone] Mica Chu PA-C [address] [place] [address] documented as of this encounter Visit Diagnoses Not on filedocumented in this encounter Care Teams Oil Winterizer Relationship Specialty Start Date End Date Sotero Miller MD [address] [place] [address] PCP - General Adolescent Medicine 10/25/22 documented as of this encounter
--- OUTSIDE RECORDS SUMMARY | 2025-05-13 05:44 | XMS_ITS | Encounter Summary ---
Author Organization [employer] ([place], [place], [place], [place]) Address [address] [place] [address] Care Team Providers Care Technical Publications Writer Name Role Phone Sotero Miller MD Primary Care Provider + [phone] Encounter Details Date Type Department Care Team (Late st Contact Info) Description 04/23/[address] [facility] [place] Family Medicine [address] [place] [address] ProviderMk MD [address] [place], [place] [id number] Social History Tobacco Use Types Packs/Day Years Used Date Smoking Tobacco: Never Assessed Sex and Gender Information Value Date Recorded Sex Assigned at Not on file Legal Sex Male 5:40 PM CDT Gender Identity Not on file Sexual Orientation Not on file documented as of this encounter Miscellaneous Notes * Cerner Conversion Note - Mk ProviderMD - 04/23/2020 5:00 AM CDT Chart Check - Review Order Profile Entered On: 04/23/2020 4:05 EDT Performed On: 04/23/2020 5:00 EDT by Consuelo Burr, RN Chart Check Powerplans Initiated/Discontinued as Appropriate : Not applicable All Active Orders Reviewed : Yes Consuelo Burr, RN - 04/23/2020 4:05 EDT documented in this encounter Plan of Treatment Upcoming Encounters Date Type Department Care Team (Late st Contact Info) Description 06/20/2025 2:30 PM EDT Office Visit [facility] Orthopedics - [address] [phone] Mica Chu PA-C [address] [place] [address] documented as of this encounter Visit Diagnoses Not on filedocumented in this encounter Care Teams Technical Publications Writer Relationship Specialty Start Date End Date Sotero Miller MD [address] [place] [address] PCP - General Adolescent Medicine 10/25/22 documented as of this encounter
--- OUTSIDE RECORDS SUMMARY | 2025-05-13 05:44 | XMS_ITS | Encounter Summary ---
Author Organization [employer] ([place], [place], [place], [place]) Address [address] [place] [address] Care Team Providers Care Sonogram Technician Name Role Phone Sotero Miller MD Primary Care Provider + [phone] Encounter Details Date Type Department Care Team (Late st Contact Info) Description 04/23/2020 Transcribed Document [facility] Family Medicine [facility] [place] [address] ProviderMk MD [address] [place] [address] Social History Tobacco Use Types Packs/Day Years Used Date Smoking Tobacco: Never Assessed Sex and Gender Information Value Date Recorded Sex Assigned at Not on file Legal Sex Male 5:40 PM CDT Gender Identity Not on file Sexual Orientation Not on file documented as of this encounter Miscellaneous Notes * [employer]ner Conversion Note - Mk Mac MD - 04/23/2020 8:20 AM CDT Patient: NICO LERNER Age: 70 years Sex: Male : 1950 Associated Diagnoses: CAD (coronary artery disease); HTN (hypertension); HLD (hyperlipidemia); Nicotine dependence in remission Author: CAMERON YOUNG PA PCP: Dr. Cespedes Basic Information This is a 70 y/o male who was transferred from [facility] yesterday with [facility]. The pt [...] preserved. The pt received 600mg Plavix during [facility] on 04/20/20. The pt was then transferred [...] they went straight to the ED in [place]. He denies any heart palpitations, dizziness, orthopnea or PND. He also denies any recent illness, cough, wheezing or fever, chills. The pts WBC is 21.4 on admission. He states that he got his steroid injections in his knees last Wednesday and had been on oral steroids a week prior to that. Urine culture is negative for growth. His tmax is 98.6 on 04/20/20. He denies any recent illness. Dr. Garcia plans to re-cath the pt today with possible intervention. 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 He has a remote history of tobacco abuse quitting 50+ years ago. He smoked for approx. 12years 1ppd. He denies any alcohol or illicit drug abuse. He is and has children. 04/23/20: The pt is very pleasant and voices no complaints. He denies any chest pains. Health Status Allergies: Allergies (1) Active Reaction No Known Allergies None Documented Physical Examination Intake and Output 24 hour intake: Total 371 ml 24 hour output: Total 1400 ml VS/Measurements Vital Measurements 04/23/2020 5:00 EDT Systolic Blood Pressure 130 mmHg Diastolic Blood Pressure 79 mmHg Mean Arterial Pressure (MAP)-BMDI 100 Heart Rate Monitored 48 bpm LOW Oxygen Saturation 96 % Oxygen Therapy Mode Room air 04/23/2020 4:00 EDT Temperature, Fahrenheit 98.2 Deg F Clinical Temperature, C 36.8 Deg C General: Alert and oriented, No acute distress. HENT: Normocephalic. Neck: Supple. Respiratory: Lungs are clear to auscultation, Respirations are non-labored. Cardiovascular: 53 beats per minute, Regular rhythm, S1, S2, Bradycardia. Integumentary: Warm, Dry, [place]. Neurologic: Alert, Oriented. Psychiatric: Cooperative, Appropriate mood & affect. Review / Management Results review: APR 23 04:49 L 132 105 H 28 / H 135 4.6 21 1.10 \ APR 23 04:49 \ 16.5 / H 15.2 256 / 49.0 \ Blood Gases (Current Encounter/Past 24 Hours) No Blood Gas Results Found (Past 24 Hours) Coagulation Results (Current Encounter/Past 24 Hours) PTT 46.3 Second(s) HI 04/22/2020 20:03 . 04/22/20 Carotid Duplex: RIGHT: Intimal thickening only in the prox ICA. Normal antegrade vertebral flow. No evidence of subclavian steal. LEFT: < 20% stenosis of the prox ICA. Normal antegrade vertebral flow. No evidence of subclavian steal. Impression and Plan Plan: 04/22/[address] Garcia today Possible CABG by Dr. Pagan Hold Plavix Echo and Carotid Duplex is pending 04/23/20 Verify Now platelet test 143 CABG Date TBD Pt can transfer to the floor from CTS standpoint. Diagnosis CAD (coronary artery disease) - Admitting, Medical. CAD (coronary artery disease) - Discharge, Medical. HTN (hypertension) - Other, Medical. HLD (hyperlipidemia) - Other, Medical. Nicotine dependence in remission - Other, Medical. documented in this encounter Plan of Treatment Upcoming Encounters Date Type Department Care Team (Late st Contact Info) Description 06/20/2025 2:30 PM EDT Office Visit [facility] Orthopedics - [address] [phone] Mica Chu PA-C [address] [place] [address] documented as of this encounter Visit Diagnoses Not on filedocumented in this encounter Care Teams Sonogram Technician Relationship Specialty Start Date End Date Sotero Miller MD [address] [place] [address] PCP - General Adolescent Medicine 10/25/22 documented as of this encounter
--- OUTSIDE RECORDS SUMMARY | 2025-05-13 05:44 | XMS_ITS | Encounter Summary ---
Author Organization [employer] ([place], [place], [place], [place]) Address [address] [place] [address] Care Team Providers Care Axle And Frame Mechanic Name Role Phone Sotero Miller MD Primary Care Provider [phone] Encounter Details Date Type Department Care Team (Late st Contact Info) Description 05/04/2020 Transcribed Document [facility] [place] Family Medicine [address] [place] [address] ProviderMk MD [address] [place], [place] [phone] Social History Tobacco Use Types Packs/Day Years Used Date Smoking Tobacco: Never Assessed Sex and Gender Information Value Date Recorded Sex Assigned at Not on file Legal Sex Male 5:40 PM CDT Gender Identity Not on file Sexual Orientation Not on file documented as of this encounter Miscellaneous Notes * [employer]ner Conversion Note - Mk ProviderMD - 05/04/2020 5:00 AM CDT Chart Check - Review Order Profile Entered On: 05/04/2020 3:19 EDT Performed On: 05/04/2020 5:00 EDT by FLORENTIN BELTRAN RN Chart Check Powerplans Initiated/Discontinued as Appropriate : Yes All Active Orders Reviewed : Yes FLORENTIN BELTRAN RN - 05/04/2020 3:19 EDT documented in this encounter Plan of Treatment Upcoming Encounters Date Type Department Care Team (Late st Contact Info) Description 06/20/2025 2:30 PM EDT Office Visit [facility] Orthopedics - [address] [place] [address] Mica Chu PA-C [address] [place] [address] documented as of this encounter Visit Diagnoses Not on filedocumented in this encounter Care Teams Axle And Frame Mechanic Relationship Specialty Start Date End Date Sotero Miller MD [address] [place] [address] PCP - General Adolescent Medicine 10/25/22 documented as of this encounter
--- OUTSIDE RECORDS SUMMARY | 2025-05-13 05:44 | XMS_ITS | Encounter Summary ---
Author Organization [employer] ([place], [place], [place], [place]) Address [address] [place] [address] Care Team Providers Care Material Requirements Planning Manager Name Role Phone Sotero Miller MD Primary Care Provider [phone] Encounter Details Date Type Department Care Team (Late st Contact Info) Description 05/03/2020 Transcribed Document [facility] Family Medicine [address] [place] [address] ProviderMk MD [address] [place], [place] [id number] Social History Tobacco Use Types Packs/Day Years Used Date Smoking Tobacco: Never Assessed Sex and Gender Information Value Date Recorded Sex Assigned at Not on file Legal Sex Male 5:40 PM CDT Gender Identity Not on file Sexual Orientation Not on file documented as of this encounter Miscellaneous Notes * Cerner Conversion Note - Mk Mac MD - 05/03/2020 11:46 AM CDT Patient: NICO LERNER Age: 70 years Sex: Male : 1950 Associated Diagnoses: None Author: Luz Elena Jain, Student-Pharmacist Reviewed patient's medications for possible antibiotic de-escalation Allergies (1) Active Reaction Contrast Dye Shortness of breath Labs (Last four charted values) WBC H 18.9 (MAY 03) H 22.6 (MAY 02) H 23.8 (MAY 01) H 19.9 (APR 30) HB L 11.2 (MAY 03) L 11.9 (MAY 02) L 12.5 (MAY 01) L 13.0 (APR 30) HCT L 35.1 (MAY 03) L 36.8 (MAY 02) L 38.4 (MAY 01) 40.1 (APR 30) Plt 221 (MAY 03) 187 (MAY 02) 175 (MAY 01) 170 (APR 30) Na 137 (MAY 03) L 134 (MAY 02) L 135 (MAY 01) 136 (APR 30) K 5.1 (MAY 03) 4.9 (MAY 02) 5.1 (MAY 01) H 5.2 (APR 30) Cl 103 (MAY 03) 103 (MAY 02) 102 (MAY 01) 107 (APR 30) CO2 27 (MAY 03) 26 (MAY 02) 27 (MAY 01) 23 (APR 30) BUN H 41 (MAY 03) H 30 (MAY 02) 22 (MAY 01) 12 (APR 30) Cr H 1.50 (MAY 03) H 1.40 (MAY 02) H 1.50 (MAY 01) 1.00 (APR 30) Glu R H 132 (MAY 03) H 136 (MAY 02) H 141 (MAY 01) H 132 (APR 30) Ca 9.7 (MAY 03) 9.2 (MAY 02) 9.1 (MAY 01) L 8.0 (APR 30) Lactic 1.4 (APR 22) 1.6 (APR 21) [...] 26.000 (APR 22) C 46.200 (APR 21) Medications by Classification Immunology budesonide (Pulmicort Respules) - 0.5 mg, Nebulized Inhalation, Inh, RT_BID, Routine Cardiovascular clopidogrel (Plavix) - 75 mg, Oral, Tab, Daily, Routine DOPamine 400 mg + D5W Premix Diluent 250 mL (DOPamine inject - Bag Volume (mL) = 250, Initial Rate: 3 mcg/kg/Min, IntraVENous, Titrate, HR Greater Than or Equal To 55-60 metoprolol (metoprolol tartrate) - 12.5 mg, Oral, Tab, BID, Routine furosemide (Lasix) - 20 mg, IV Push, Inj, 1-Time, PRN for Other (See Comment), Routine atorvastatin (Lipitor) - 80 mg, Oral, Tab, At Bedtime, Routine Respiratory albuterol-ipratropium (DuoNeb 0.5 mg-2.5 mg/3 mL inhalation - 3 mL, Nebulized Inhalation, Inh, RT_Q4H, PRN for Shortness of Breath, Routine budesonide (Pulmicort Respules) - 0.5 mg, Nebulized Inhalation, Inh, RT_BID, Routine *Duplicate* guaiFENesin (Mucinex) - 1,200 mg, Oral, ER Tab, BID, Routine promethazine (Phenergan) - 6.25 mg, IntraVENous, Inj, Q6H, PRN for Nausea, Routine GI ondansetron (Zofran) - 4 mg, IV Push, Inj, Q4H, PRN for Nausea, Routine magnesium hydroxide (Milk of Magnesia 8% oral suspension) - 30 mL, Oral, Liquid, Daily, PRN for Constipation, Routine sodium bicarbonate - 50 mEq, IV Push, Inj, 1-Time, PRN for Other (See Comment), Routine sodium bicarbonate - 100 mEq, IV Push, Inj, 1-Time, PRN for Other (See Comment), Routine famotidine (Pepcid) - 20 mg, Oral, Tab, BID, Routine bisacodyl (Dulcolax Laxative) - 10 mg, Rectal, Supp, Daily, PRN for Constipation, Routine docusate (Colace) - 100 mg, Oral, Cap, BID, Routine lactulose - 15 Gram, Oral, Liquid, Daily, PRN for Constipation, Routine senna (Senokot) - 17.2 mg, Oral, Tab, At Bedtime, Routine sodium bicarbonate - 50 mEq, IV Push, Inj, 1-Time, PRN for Other (See Comment), Routine *Duplicate* sodium bicarbonate - 100 mEq, IV Push, Inj, 1-Time, PRN for Other (See Comment), Routine *Duplicate* Endocrine insulin lispro (insulin lispro sliding scale) - Scale C:, SubCutaneous, Inj, AC and at Bedtime, Routine Pain Meds oxyCODONE - 5 mg, Oral, Tab, Q6H, PRN for Pain (Moderate 4-6), Routine oxyCODONE - 10 mg, Oral, Tab, Q6H, PRN for Pain (Moderate 4-6), Routine acetaminophen-oxyCODONE (Percocet 5/325 oral tablet) - 2 Tab, Oral, Tab, Q4H, PRN for Pain (Moderate 4-6), Routine aspirin - 81 mg, Oral, EC Tab, Daily, Routine acetaminophen (Tylenol) - 650 mg, Oral, Tab, Q4H, PRN for Other (See Comment), Routine acetaminophen (Tylenol) - 650 mg, Oral, Tab, Q4H, PRN for Temperature, Routine Sedatives ALPRAZolam (Xanax) - 0.5 mg, Oral, Tab, BID, PRN for Anxiety, Routine Vitamins ascorbic acid - 500 mg, Oral, Tab, BID, order duration: 10 Time(s), Routine calcium gluconate - 1 Gram 10 mL, IV Piggyback, 1-Time, Administer over 60 Minute(s), PRN for Other (See Comment), Routine potassium chloride (potassium chloride 10 mEq/50 mL intraven - 10 mEq 50 mL, IV Piggyback, Inj, Q1H, Administer over 1 Hour(s), PRN for Other (See Comment), Routine sodium bicarbonate - 50 mEq, IV Push, Inj, 1-Time, PRN for Other (See Comment), Routine *Duplicate* sodium bicarbonate - 100 mEq, IV Push, Inj, 1-Time, PRN for Other (See Comment), Routine *Duplicate* sodium chloride (Normal Saline Flush) - 10 mL, IV Push, Inj, Q8H, Routine sodium chloride (Normal Saline Flush) - 10 mL, IV Push, Inj, See Comment, PRN for Other (See Comment), Routine Undefined Medications amiodarone 450 mg + Dextrose 5% in Water intravenous solutio - 250 mL, Bag Volume (mL) = 250, IntraVENous, Rate = 17 mL/Hr amiodarone 450 mg + Dextrose 5% in Water intravenous solutio - 250 mL, Bag Volume (mL) = 250, IntraVENous, Rate = 34 mL/Hr hydrALAZINE - 10 mg, IV Push, Inj, Q6H, PRN for Hypertension, Routine MICROBIOLOGY ACC: [id number] ORDER: Culture Blood DATE: 04/21/2020 17:08 SOURCE: Blood SITE: Reports Final 04/26/2020 23:01 No growth at 5 days. == [facility]: [id number] ORDER: Culture Blood DATE: 04/21/2020 17:08 SOURCE: Blood SITE: Reports Final 04/26/2020 23:01 No growth at 5 days. == [facility]: [id number] ORDER: Culture Urine DATE: 04/21/2020 17:11 SOURCE: Urine, Clean Catch SITE: Reports Final 04/23/2020 10:17 No growth == Vitals Signs (last 24 hrs) Last Charted Minimum Maximum Temp 97.5 (MAY 03 06:01) 97.5 (MAY 03 06:01) 97.4 (MAY 02 14:30) Apical HR 80 (MAY 03 09:36) 80 (MAY 02 21:20) 80 (MAY 02 21:20) Mon HR 80 (MAY 03 08:47) 75 (MAY 02 14:30) 103 (MAY 03 02:15) Resp Rate 20 (MAY 03 06:01) 16 (MAY 02 17:18) 20 (MAY 03 06:01) SBP 116 (MAY 03 06:01) 108 (MAY 03 02:15) 132 (MAY 02 22:00) DBP 73 (MAY 03 06:01) L 53 (MAY 02 17:18) 84 (MAY 02 14:30) MAP 85 (MAY 03 06:) 80 (MAY 03 02:15) 95 (MAY 02 14:30) SpO2 L 93 (MAY 03 08:00) L 93 (MAY 03 06:01) 99 (MAY 02 19:55) PLAN 1. Discussed patient with Dr. Massey and agreed to discontinue antibiotics after reviewing patient notes. Thanks, Luz Elena Jain, PharmD Candidate documented in this encounter Plan of Treatment Upcoming Encounters Date Type Department Care Team (Late st Contact Info) Description 06/20/2025 2:30 PM EDT Office Visit [facility] Orthopedics - [address] [phone] Mica Chu PA-C [address] [place] [phone] documented as of this encounter Visit Diagnoses Not on filedocumented in this encounter Care Teams Material Requirements Planning Manager Relationship Specialty Start Date End Date Sotero Miller MD [address] [place] [address] PCP - General Adolescent Medicine 10/25/22 documented as of this encounter
--- OUTSIDE RECORDS SUMMARY | 2025-05-13 05:44 | XMS_ITS | Referral Summary ---
Author Organization [employer] ([place], [place], [place], [place]) Address [address] [place] [address] Care Team Providers Care Water Softener Servicer And Installer Name Role Phone Sotero Miller MD Primary Care Provider [phone] Encounters Date Type Department Care Team Description 03/21/2025 2:30 PM EDT Office Visit [facility] Orthopedics - [address] [phone] Mica Chu PA-C Primary osteoarthritis of left knee (Primary Dx); Primary osteoarthritis of right knee from Last 3 Months Allergies No known active allergies Medications amLODIPine [...] 08/10/2024 Primary osteoarthritis of left knee 10/15/2022 Social History Tobacco Use Types Packs/Day Years [...] Date Jeremie rded Speak language other than Angolan at home Not on file 02/11/2024 Want [...] Description 06/20/2025 2:30 PM EDT Office Visit [facility] Orthopedics - [address] [phone] Mica Chu PAMaddieC [address] [place] [address] Insurance MEDICARE PART A B [employer] Care Teams Water Softener Servicer And Installer Relationship Specialty Start Date End Date Sotero Miller MD [address] [place] [address] PCP - General Adolescent Medicine 10/25/22
--- OUTSIDE RECORDS SUMMARY | 2025-05-13 05:44 | XMS_ITS | Encounter Summary ---
Author Organization [employer] ([place], [place], [place], [place]) Address [address] [place] [address] Care Team Providers Care Manager Shop Name Role Phone Sotero Miller MD Primary Care Provider [phone] Encounter Details Date Type Department Care Team (Late st Contact Info) Description 05/03/2020 Transcribed Document [facility] [place] [address] [place] [address] ProviderMk MD [address] [place] [address] Social History Tobacco Use Types Packs/Day Years Used Date Smoking Tobacco: Never Assessed Sex and Gender Information Value Date Recorded Sex Assigned at Not on file Legal Sex Male 5:40 PM CDT Gender Identity Not on file Sexual Orientation Not on file documented as of this encounter Miscellaneous Notes * Cerner Conversion Note - Mk Mac MD - 05/03/2020 11:21 AM CDT Patient: NICO LERNER Age: 70 years Sex: Male : 1950 Associated Diagnoses: None Author: PAPA THORNTON MD-INT DATE OF SERVICE [ DOS ]: 05-03-2020 Basic Information SUBJECTIVE: Patient is seen and evaluated on Telemetry Unit Developed NEW ONSST Atrial Fibrillation wit hRapid ventricaulr response Just Now No CP No Palpitations no SOB Review of Systems Constitutional: No fever, [...] breath Current medications: (Selected) Inpatient Medications Ordered Colace: 100 mg, Oral, BID DOPamine injection 400 mg + D5W Premix Diluent for Drip 250 mL: Titrate, IntraVENous Dulcolax Laxative: 10 mg, Rectal, Daily, PRN: Constipation DuoNeb 0.5 mg-2.5 mg/3 mL inhalation solution: 3 mL, Nebulized Inhalation, RT_Q4H, PRN: Shortness of Breath Lasix: 20 mg, IV Push, 1-Time, PRN: Other (See Comment) Lipitor: 80 mg, Oral, At Bedtime Milk of Magnesia 8% oral suspension: 30 mL, Oral, Daily, PRN: Constipation Normal Saline Flush: 10 mL, IV Push, Q8H Normal Saline Flush: 10 mL, IV Push, See Comment, PRN: Other (See Comment) Pepcid: 20 mg, Oral, BID Percocet 5/325 oral tablet: 2 Tab, Oral, Q4H, PRN: Pain (Moderate 4-6) Phenergan: 6.25 mg, IntraVENous, Q6H, PRN: Nausea Plavix: 75 mg, Oral, Daily Pulmicort Respules: 0.5 mg, Nebulized Inhalation, RT_BID Rocephin: 2 Gram, 100 mL/Hr, IV Piggyback, O20JMix Senokot: 17.2 mg, Oral, At Bedtime Tylenol: 650 mg, Oral, Q4H, PRN: Other (See Comment) Tylenol: 650 mg, Oral, Q4H, PRN: Temperature Xanax: 0.5 mg, Oral, BID, PRN: Anxiety Zofran: 4 mg, IV Push, Q4H, PRN: Nausea amiodarone 450 mg + Dextrose 5% in Water intravenous solution 250 mL: 17 mL/Hr, IntraVENous amiodarone injection 450 mg + Dextrose 5% in Water intravenous solution 250 mL: 34 mL/Hr, IntraVENous, Stop: 05/03/20 16:25:00 EDT ascorbic acid: 500 mg, Oral, BID aspirin: 81 mg, Oral, Daily calcium gluconate: 1 Gram, 10 mL, 60 mL/Hr, IV Piggyback, 1-Time, PRN: Other (See Comment) doxycycline: 100 mg, Oral, BID hydrALAZINE: 10 mg, IV Push, Q6H, PRN: Hypertension insulin lispro sliding scale: Scale C:, SubCutaneous, AC and at Bedtime lactulose: 15 Gram, Oral, Daily, PRN: Constipation metoprolol tartrate: 12.5 mg, Oral, BID oxyCODONE: 10 mg, Oral, Q6H, PRN: Pain (Moderate 4-6) oxyCODONE: 5 mg, Oral, Q6H, PRN: Pain (Moderate 4-6) potassium chloride 10 mEq/50 mL intravenous solution: 10 mEq, 50 mL, 50 mL/Hr, IV Piggyback, Q1H, PRN: Other (See Comment) sodium bicarbonate: 100 mEq, IV Push, 1-Time, PRN: Other (See Comment) sodium bicarbonate: 50 mEq, IV Push, 1-Time, PRN: Other (See Comment) Prescriptions Prescribed Aspirin Enteric Coated 81 mg oral delayed release tablet: 1 Tab, Oral, Daily, 30 Tab, 1 Refill(s) Plavix 75 mg oral tablet: 1 Tab, Oral, Daily, 30 Tab, 0 Refill(s) atorvastatin 80 mg oral tablet: 1 Tab, Oral, At Bedtime, 30 Tab, 0 Refill(s) Documented Medications Documented Metoprolol Succinate ER 50 mg oral tablet, extended release: 1 Tab, Oral, Daily, 0 Refill(s) Norvasc 10 mg oral tablet: 0.5 Tab, Oral, Daily, 0 Refill(s), Medications (35) Active Scheduled: (13) #NaCl 0.9% *FLUSH* inj 10 mL 10 mL, IV Push, Q8H ascorbic acid 500 mg tab 500 mg 1 Tab, Oral, BID aspirin EC 81 mg tab 81 mg 1 Tab, Oral, Daily atorvastatin 40 mg tab 80 mg 2 Tab, Oral, At Bedtime budesonide 0.5 mg/2 mL inh susp 0.5 mg 2 mL, Nebulized Inhalation, RT_BID cefTRIAXone 2 Gram, IV Piggyback, [id number] clopidogrel 75 mg tab 75 mg 1 Tab, Oral, Daily docusate sodium 100 mg cap 100 mg 1 Cap, Oral, BID doxycycline hyclate 100 mg cap 100 mg 1 Cap, Oral, BID famotidine 20 mg tab 20 mg 1 Tab, Oral, BID insulin lispro 1 unit/0.01 mL inj Scale C:, SubCutaneous, AC and at Bedtime metoprolol tartrate 25 mg tab 12.5 mg 0.5 Tab, Oral, BID senna 8.6 mg tab 17.2 mg 2 Tab, Oral, At Bedtime Continuous: (3) amiodarone 450 mg + Dextrose 5% in Water 250 mL 250 mL, IntraVENous, 34 mL/Hr amiodarone 450 mg + Dextrose 5% in Water 250 mL 250 mL, IntraVENous, 17 mL/Hr DOPamine/D5w 400 mg + Premix Diluent D5W TITRATE 250 mL 250 mL, IntraVENous PRN: (19) #NaCl 0.9% *FLUSH* inj 10 mL 10 mL, IV Push, See Comment acetaminophen 325 mg tab 650 mg 2 Tab, Oral, Q4H acetaminophen 325 mg tab 650 mg 2 Tab, Oral, Q4H acetaminophen/oxyCODONE 325/5 mg tab 2 Tab, Oral, Q4H albuterol-ipratropium inh 3 mL 3 mL, Nebulized Inhalation, RT_Q4H ALPRAZolam 0.5 mg tab 0.5 mg 1 Tab, Oral, BID bisacodyl 10 mg supp 10 mg 1 Supp, Rectal, Daily calcium gluconate 1 Gram 10 mL, IV Piggyback, 1-Time furosemide 20 mg/2 mL inj 20 mg 2 mL, IV Push, 1-Time hydrALAZINE 20 mg/1 mL inj 10 mg 0.5 mL, IV Push, Q6H lactulose 20 g/30 mL oral liq 15 Gram 22.5 mL, Oral, Daily magnesium hydroxide 8% liq 30 mL 30 mL, Oral, Daily ondansetron 4 mg/2 mL inj 4 mg 2 mL, IV Push, Q4H oxyCODONE 5 mg tab 5 mg 1 Tab, Oral, Q6H oxyCODONE 5 mg tab 10 mg 2 Tab, Oral, Q6H potassium chloride 10 mEq 50 mL, IV Piggyback, Q1H promethazine 25 mg/1 mL inj 6.25 mg 0.25 mL, IntraVENous, Q6H sodium bicarbonate 50 mEq/50 ml inj syr 50 mEq 50 mL, IV Push, 1-Time sodium bicarbonate 50 mEq/50 ml inj syr 100 mEq 100 mL, IV Push, 1-Time Problem list: Medical Acute ST elevation myocardial infarction (STEMI) / SNOMED CT 3656858774 / Confirmed At risk for sleep apnea / IMO [id number] / Confirmed Hypertension / SNOMED CT 4525276920 / Confirmed Acute kidney injury / SNOMED CT 16266038 / Confirmed Stage 3 severe COPD by GOLD classification / SNOMED CT 921950291 / Confirmed, Active Problems (8) Acute kidney injury Acute ST elevation myocardial infarction (STEMI) Arthritis At risk for sleep apnea CAD (coronary artery disease) Chronic hypertension Hypertension Stage 3 severe COPD by GOLD classification OBJECTIVE: Physical Examination VS/Measurements Vitals Signs (last 24 hrs) Last Charted Minimum Maximum Temp 97.5 (MAY 03:) 97.5 (MAY 03:) 97.4 (MAY 02 14:30) Apical HR 80 (MAY 03 09:36) 80 (MAY 02 21:20) 80 (MAY 02 21:20) Mon HR 80 (MAY 03 08:47) 75 (MAY 02 14:30) 103 (MAY 03 02:15) Resp Rate 20 (MAY 03:) 16 (MAY 02 17:18) 20 (MAY 03 06:) SBP 116 (MAY 03:) 108 (MAY 03 02:15) 132 (MAY 02 22:00) DBP 73 (MAY 03:) L 53 (MAY 02 17:18) 84 (MAY 02 14:30) MAP 85 (MAY 03 06:) 80 (MAY 03 02:15) 95 (MAY 02 14:30) SpO2 L 93 (MAY 03 08:00) L 93 (MAY 03:) 99 (MAY 02 19:55) General: Alert and oriented, No acute distress. [...] tenderness, No swelling, No deformity. Integumentary: Warm, [place], Moist, No rash. Neurologic: Alert, Oriented, Normal [...] (APR 22) C 46.200 (APR 21) , MAY 03 04:59 137 103 H 41 / H 132 5.1 27 H 1.50 \ MAY 03 04:59 \ L 11.2 / H 18.9 221 / L 35.1 \, Radiology Results (Last 48 hours) [id number] -- 04/21/2020 16:53 CR Chest 1 Vw [...] and dictated by Dr. Mac Luis.Transcribed by Lindy Smith PA-C.I have personally viewed, interpreted and dictated the examination. Ellis read and agree with the above final [...] personally viewed, interpreted and dictated the examination. Ellis read and agree with the above final transcribed report. . Impression and Plan Multivessel CAD S/P CABG . Evaluated by Cardiothoracic Surgery. S/P CABG on 04-29-[address] Stweart New Onset Atrial Fibrillation with RVR on [...] management I D/W patient and at bedside Time spent: 32 minutes documented in this encounter Plan of Treatment Upcoming Encounters Date Type Department Care Team (Late st Contact Info) Description 06/20/2025 2:30 PM EDT Office Visit [facility] Orthopedics - [address] [phone] Mica Chu PA-C [address] [place] [address] documented as of this encounter Visit Diagnoses Not on filedocumented in this encounter Care Teams Manager Shop Relationship Specialty Start Date End Date Sotero Miller MD [address] [place] [address] PCP - General Adolescent Medicine 10/25/22 documented as of this encounter
--- OUTSIDE RECORDS SUMMARY | 2025-05-13 05:44 | XMS_ITS | Encounter Summary ---
Author Organization [employer] ([place], [place], [place], [place]) Address [address] [place] [address] Care Team Providers Care Extra Gang Supervisor Name Role Phone Sotero Miller MD Primary Care Provider + [phone] Encounter Details Date Type Department Care Team (Late st Contact Info) Description 04/21/2020 Transcribed Document [facility] [place] [facility] [place] [address] ProviderMk MD [address] [place], [place] [id number] Social History Tobacco Use Types Packs/Day Years Used Date Smoking Tobacco: Never Assessed Sex and Gender Information Value Date Recorded Sex Assigned at Not on file Legal Sex Male 5:40 PM CDT Gender Identity Not on file Sexual Orientation Not on file documented as of this encounter Miscellaneous Notes * Cerner Conversion Note - Mk ProviderMD - 04/21/2020 5:08 PM CDT Consult Phone Call Documentation Entered On: 04/21/2020 17:28 EDT Performed On: 04/21/2020 17:08 EDT by Nesha Mercedes High Lift Driver-Health Unit Coord Phone Call for Consults Consult Phone Call/Page Attempt : First call Nesha Mercedes High Lift Driver-Health Unit Coord - 04/21/2020 17:28 EDT Consult Reason : William Guadalupe paged and notified Nesha Mercedse, High Lift Driver-Health Unit Coord - 04/21/2020 17:34 EDT documented in this encounter Plan of Treatment Upcoming Encounters Date Type Department Care Team (Late st Contact Info) Description 06/20/2025 2:30 PM EDT Office Visit [facility] Orthopedics - [address] [phone] Mica Chu PA-C [address] [place] [phone] documented as of this encounter Visit Diagnoses Not on filedocumented in this encounter Care Teams Extra Gang Supervisor Relationship Specialty Start Date End Date Sotero Miller MD [address] [place] [address] PCP - General Adolescent Medicine 10/25/22 documented as of this encounter
--- OUTSIDE RECORDS SUMMARY | 2025-05-13 05:44 | XMS_ITS | Encounter Summary ---
Author Organization [employer] ([place], [place], [place], [place]) Address [address] [place] [address] Care Team Providers Care Vacuum Tank Tender Name Role Phone Sotero Miller MD Primary Care Provider + [phone] Encounter Details Date Type Department Care Team (Late st Contact Info) Description 04/21/2020 Transcribed Document [facility] [place] [address] [place] [address] ProviderMk MD [address] [place], [place] [id number] Social History Tobacco Use Types Packs/Day Years Used Date Smoking Tobacco: Never Assessed Sex and Gender Information Value Date Recorded Sex Assigned at Not on file Legal Sex Male 5:40 PM CDT Gender Identity Not on file Sexual Orientation Not on file documented as of this encounter Miscellaneous Notes * Cerner Conversion Note - Mk ProviderMD - 04/21/2020 5:00 PM CDT Chart Check - Review Order Profile Entered On: 04/21/2020 19:48 EDT Performed On: 04/21/2020 17:00 EDT by MADISON MOSELEY RN Chart Check All Active Orders Reviewed : Yes MADISON MOSELEY RN - 04/21/2020 19:48 EDT Electronically signed by Lizzie Mckoy Conversion Regulatory Services Consultant Cerner at 02/07/2023 11:46 PM CDT documented in this encounter Plan of Treatment Upcoming Encounters Date Type Department Care Team (Late st Contact Info) Description 06/20/2025 2:30 PM EDT Office Visit [facility] Orthopedics - [address] [phone] Mica Chu PA-C [address] [place] [address] documented as of this encounter Visit Diagnoses Not on filedocumented in this encounter Care Teams Vacuum Tank Tender Relationship Specialty Start Date End Date Sotero Miller MD [address] [place] [address] PCP - General Adolescent Medicine 10/25/22 documented as of this encounter
--- OUTSIDE RECORDS SUMMARY | 2025-05-13 05:44 | XMS_ITS | Encounter Summary ---
Author Organization [employer] ([place], [place], [place], [place]) Address [address] [place] [address] Care Team Providers Care Carton Folder Name Role Phone Sotero Miller MD Primary Care Provider [phone] Encounter Details Date Type Department Care Team (Late st Contact Info) Description 05/06/2020 Transcribed Document [facility] [place] Family Medicine [address] [place] [address] ProviderMk MD [address] [place] [address] Social History Tobacco Use Types Packs/Day Years Used Date Smoking Tobacco: Never Assessed Sex and Gender Information Value Date Recorded Sex Assigned at Not on file Legal Sex Male 5:40 PM CDT Gender Identity Not on file Sexual Orientation Not on file documented as of this encounter Miscellaneous Notes * Cerner Conversion Note - Mk ProviderMD - 05/06/2020 2:42 PM CDT UM Authorization Entered On: 05/06/2020 14:42 EDT Performed On: 05/06/2020 14:42 EDT by Denice Sanchez, Logging Supervisor Primary Insurance Authorization Authorization and Policy Numbers : Insurance 1 Health Plan: ANTHEM HMOPPO Policy Number: [id number] Authorization Number: Insurance 2 Health Plan: MEDICARE Policy Number: [id number] Authorization Number: Insurance Primary Name : ANTHEM HMOPPO Policy Number: [id number] Authorization Status-Primary : Awaiting callback Auth/Referral Contact Name-Primary : [place] Reference Number-Primary : [id number] Number of Days Authorized-Primary : 11 Day(s) Authorized Service Begin Date-Primary : 04/21/2020 EDT Authorized Service End Date-Primary : 05/02/2020 EDT Authorization Comments-Primary : Continued stay clinicals 05/04/2020 - Discharge faxed. Historical Authorization Comments-Primary : Comment 1: Discharge date and summary faxed. (Denice Sanchez, Logging Supervisor 05/06/2020 14:40) Comment 2: Faxed clinicals via [employer] for 05/02-05/03. (CHON ANDREWS, Rn-Utilization Review 05/03/2020 13:51) Comment 3: Rec fax from [place] cont stay approved total of 12 days NRD 05-03-2020 (KLAUS QUIROS, Enterprise Analyst 05/02/2020 11:12) Comment 4: Per Availity, Ipt Auth approved 12 days. NRD 05/03. (CHON ANDREWS, Rn-Utilization Review 05/02/2020 10:53) Comment 5: clinicals faxed via [employer]ner for cont stay for dos 04/29-04/30/2020 (CATHI DEAL, RN-Utilization Review 04/30/2020 13:10) Comment 6: Per Availity, Inpt Auth approved 5 days. Faxed additional clinicals for 04/26-04/28. (CHON ANDREWS, Rn-Utilization Review 04/29/2020 10:35) Comment 7: Faxed clinicals via [employer] for 04/23-04/25. (CHON ANDREWS, Rn-Utilization Review 04/25/2020 10:33) Comment 8: Per Availity, Inpt Auth approved 4 days. NRD 04/25. (CHON ANDREWS, Rn-Utilization Review 04/24/2020 09:13) Comment 9: clinicals faxed via [employer]ner for cont stay for dos 04/23/2020 (CATHI DEAL, RN-Utilization Review 04/23/2020 13:09) Comment 10: submitted on availity for IP auth w/ clinicals attached (CATHI DEAL, RN-Utilization Review 04/22/2020 09:38) Denice Sanchez, Logging Supervisor - 05/06/2020 14:42 EDT documented in this encounter Plan of Treatment Upcoming Encounters Date Type Department Care Team (Late st Contact Info) Description 06/20/2025 2:30 PM EDT Office Visit [facility] Orthopedics - [address] [phone] Mica Chu PA-C [address] [place] [address] documented as of this encounter Visit Diagnoses Not on filedocumented in this encounter Care Teams Carton Folder Relationship Specialty Start Date End Date Sotero Miller MD [address] [place] [address] PCP - General Adolescent Medicine 10/25/22 documented as of this encounter
--- OUTSIDE RECORDS SUMMARY | 2025-05-13 05:44 | XMS_ITS | Encounter Summary ---
Author Organization [employer] ([place], [place], [place], [place]) Address [address] [place] [address] Care Team Providers Care Dormitory Keeper Name Role Phone Sotero Miller MD Primary Care Provider + [phone] Encounter Details Date Type Department Care Team (Late st Contact Info) Description 05/04/2020 Transcribed Document [facility] Family Medicine [address] [place] [address] ProviderMk MD [address] [place], [place] [id number] Social History Tobacco Use Types Packs/Day Years Used Date Smoking Tobacco: Never Assessed Sex and Gender Information Value Date Recorded Sex Assigned at Not on file Legal Sex Male 5:40 PM CDT Gender Identity Not on file Sexual Orientation Not on file documented as of this encounter Miscellaneous Notes * Cerner Conversion Note - Mk ProviderMD - 05/04/2020 5:00 PM CDT Chart Check - Review Order Profile Entered On: 05/04/2020 15:23 EDT Performed On: 05/04/2020 17:00 EDT by NICHOLAS VALDES, RN Chart Check Powerplans Initiated/Discontinued as Appropriate : Yes All Active Orders Reviewed : Yes NICHOLAS VALDES, RN - 05/04/2020 15:23 EDT documented in this encounter Plan of Treatment Upcoming Encounters Date Type Department Care Team (Late st Contact Info) Description 06/20/2025 2:30 PM EDT Office Visit [facility] Orthopedics - [address] [phone] Mica Chu PA-C [address] [place] [address] documented as of this encounter Visit Diagnoses Not on filedocumented in this encounter Care Teams Dormitory Keeper Relationship Specialty Start Date End Date Sotero Miller MD [address] [place] [address] PCP - General Adolescent Medicine 10/25/22 documented as of this encounter
--- OUTSIDE RECORDS SUMMARY | 2025-05-13 05:44 | XMS_ITS | Encounter Summary ---
Author Organization [employer] ([place], [place], [place], [place]) Address [address] [place] [address] Care Team Providers Care Sampler First Name Role Phone Sotero Miller MD Primary Care Provider + [phone] Encounter Details Date Type Department Care Team (Late st Contact Info) Description 05/03/2020 Transcribed Document [facility] [place] Family Medicine [address] [place] [address] ProviderMk MD [address] [place] [address] Social History Tobacco Use Types Packs/Day Years Used Date Smoking Tobacco: Never Assessed Sex and Gender Information Value Date Recorded Sex Assigned at Not on file Legal Sex Male 5:40 PM CDT Gender Identity Not on file Sexual Orientation Not on file documented as of this encounter Miscellaneous Notes * Cerner Conversion Note - Mk Mac MD - 05/03/2020 3:08 PM CDT Patient: NICO LERNER Age: 70 years Sex: Male : 1950 Associated Diagnoses: None Author: RISA VENTURA, Pharmacist The patient has 3 currently active orders for moderate pain: oxycodone 5mg Q6H, oxycodone 10mg Q6H, and Percocet 10/325mg Q4H. No additional qualifiers on any order. All ordered PRN moderate pain on separate days. Plan is d/c patient on Percocet 5/325mg Q4H PRN pain. Pt has only received Percocet today. Will d/c therapeutic duplications per therapeutic duplication policy and streamline regimen to Percocet 10/325mg Q4H PRN moderate to severe pain. Thank you. Risa Ventura, KartikD [phone] (office) [phone] (cell) documented in this encounter Plan of Treatment Upcoming Encounters Date Type Department Care Team (Late st Contact Info) Description 06/20/2025 2:30 PM EDT Office Visit [facility] Orthopedics - [address] [phone] Mica Chu, PA-C [address] [place] [address] documented as of this encounter Visit Diagnoses Not on filedocumented in this encounter Care Teams Sampler First Relationship Specialty Start Date End Date Sotero Miller MD [address] [place] [address] PCP - General Adolescent Medicine 10/25/22 documented as of this encounter
--- OUTSIDE RECORDS SUMMARY | 2025-05-13 05:45 | XMS_ITS | Encounter Summary ---
Author Organization [employer] ([place], [place], [place], [place]) Address [address] [place] [address] Care Team Providers Care Dredge Runner Name Role Phone Sotero Miller MD Primary Care Provider [phone] Encounter Details Date Type Department Care Team (Late st Contact Info) Description 04/29/2020 Transcribed Document [facility] Family Medicine [address] [place] [address] ProviderMk MD [address] [place], [place] [id number] Social History Tobacco Use Types Packs/Day Years Used Date Smoking Tobacco: Never Assessed Sex and Gender Information Value Date Recorded Sex Assigned at Not on file Legal Sex Male 5:40 PM CDT Gender Identity Not on file Sexual Orientation Not on file documented as of this encounter Miscellaneous Notes * Cerner Conversion Note - Mk ProviderMD - 04/29/2020 8:11 AM CDT [facility] Main OR Preop Summary Primary Physician: DAVID LUGO MD-CAT Finalized Date/Time: 04/29/20 09:27:52 Pt. Name: NICO LERNER D.O.B./Sex: 1950 Male Med Rec #: [id number] Physician: PAPA THORNTON MD-INT Financial #: [id number] Pt. Type: I Room/Bed: [facility] Admit/Disch: 04/21/20 16:53:00 - Institution: [facility] PreOp Case Times Entry 1 In Preop 04/29/20 06:09:00 Ready for Holding n/a Room Patient Ready for 04/29/20 06:27:00 Surgery Patient Out of Preop 04/29/20 07:11:00 Patient Out of n/a Holding Room Last Modified By: Viktoriya Dean Nurse Chute Greaser 04/29/20 09:27:51 [facility] PreOp Case Times Audit 04/29/20 09:27:51 Cooker Pie Filling: WILSONDL Modifier: [id number] <+> 1 Patient Out of Preop 04/29/20 06:32:23 Cooker Pie Filling: WILSONDL Modifier: WILSONDL <+> 1 Patient Ready for Surgery Finalized By: Viktoriya Dean, Nurse Hall Monitor Signatures Signed By: Viktoriya Dean Nurse 04/29/20 09:[address] Ean [facility] Conversion Telecom Assistant Cerner at 02/07/2023 11:49 PM CDT documented in this encounter Plan of Treatment Upcoming Encounters Date Type Department Care Team (Late st Contact Info) Description 06/20/2025 2:30 PM EDT Office Visit [facility] Orthopedics - [address] [phone] Mica Chu, PAMaddieC [address] [place] [address] documented as of this encounter Visit Diagnoses Not on filedocumented in this encounter Care Teams Dredge Runner Relationship Specialty Start Date End Date Sotero Miller MD [address] [place] [address] PCP - General Adolescent Medicine 10/25/22 documented as of this encounter
--- OUTSIDE RECORDS SUMMARY | 2025-05-13 05:45 | XMS_ITS | Encounter Summary ---
Author Organization [employer] ([place], [place], [place], [place]) Address [address] [place] [address] Care Team Providers Care Switch Operators Supervisor Name Role Phone Sotero Miller MD Primary Care Provider + [phone] Encounter Details Date Type Department Care Team (Late st Contact Info) Description 04/22/2020 Transcribed Document [facility] Family Medicine [address] [place] [address] ProviderMk MD [address] [place], [place] [address] Social History Tobacco Use Types Packs/Day Years Used Date Smoking Tobacco: Never Assessed Sex and Gender Information Value Date Recorded Sex Assigned at Not on file Legal Sex Male 5:40 PM CDT Gender Identity Not on file Sexual Orientation Not on file documented as of this encounter Miscellaneous Notes * Cerner Conversion Note - Mk Mac MD - 04/22/2020 9:26 AM CDT UM Authorization Entered On: 04/22/2020 9:26 EDT Performed On: 04/22/2020 9:26 EDT by CATHI DEAL RN-Utilization Review Primary Insurance Authorization Authorization and Policy Numbers : Insurance 1 Health Plan: ANTHEM HMOPPO Policy Number: [id number] Authorization Number: Insurance 2 Health Plan: MEDICARE Policy Number: [id number] Authorization Number: Insurance Primary Name : ANTHEM HMOPPO Policy Number: [id number] Authorization Status-Primary : Awaiting callback Authorized Service Begin Date-Primary : 04/21/2020 EDT Historical Authorization Comments-Primary : No Authorization Comments Found CATHI DEAL, RN-Utilization Review - 04/22/2020 9:26 EDT Electronically signed by Ean [facility] Conversion Button Cutting Machine Operator Cerner at 02/07/2023 11:53 PM CDT documented in this encounter Plan of Treatment Upcoming Encounters Date Type Department Care Team (Late st Contact Info) Description 06/20/2025 2:30 PM EDT Office Visit [facility] Orthopedics - [address] [phone] Mica Chu, PA-C [address] [place] [address] documented as of this encounter Visit Diagnoses Not on filedocumented in this encounter Care Teams Switch Operators Supervisor Relationship Specialty Start Date End Date Sotero Miller MD [address] [place] [address] PCP - General Adolescent Medicine 10/25/22 documented as of this encounter
--- OUTSIDE RECORDS SUMMARY | 2025-05-13 05:45 | XMS_ITS | Encounter Summary ---
Author Organization [employer] ([place], [place], [place], [place]) Address [address] [place] [address] Care Team Providers Care School Counsellor Name Role Phone Sotero Miller MD Primary Care Provider [phone] Encounter Details Date Type Department Care Team (Late st Contact Info) Description 05/06/2020 Transcribed Document [facility] [address] [place] [address] ProviderMk MD [address] [place], [place] [address] Social History Tobacco Use Types Packs/Day Years Used Date Smoking Tobacco: Never Assessed Sex and Gender Information Value Date Recorded Sex Assigned at Not on file Legal Sex Male 5:40 PM CDT Gender Identity Not on file Sexual Orientation Not on file documented as of this encounter Miscellaneous Notes * Cerner Conversion Note - Mk ProviderMD - 05/06/2020 2:40 PM CDT UM Authorization Entered On: 05/06/2020 14:41 EDT Performed On: 05/06/2020 14:40 EDT by Denice Sanchez, Traffic Attendant Primary Insurance Authorization Authorization and Policy Numbers : Insurance 1 Health Plan: ANTHEM HMOPPO Policy Number: [id number] Authorization Number: Insurance 2 Health Plan: MEDICARE Policy Number: [id number] Authorization Number: Insurance Primary Name : ANTHEM HMOPPO Policy Number: [id number] Authorization Status-Primary : Awaiting callback Auth/Referral Contact Name-Primary : [place] Reference Number-Primary : [id number] Number of Days Authorized-Primary : 11 Day(s) Authorized Service Begin Date-Primary : 04/21/2020 EDT Authorized Service End Date-Primary : 05/02/2020 EDT Authorization Comments-Primary : Discharge date and summary faxed. Historical Authorization Comments-Primary : Comment 1: Faxed clinicals via [employer] for 05/02-05/03. (CHON ANDREWS, Rn-Utilization Review 05/03/2020 13:51) Comment 2: Rec fax from [place] cont stay approved total of 12 days NRD 05-03-2020 (KLAUS QUIROS, Reporter Anchor 05/02/2020 11:12) Comment 3: Per Availity, Ipt Auth approved 12 days. NRD 05/03. (CHON ANDREWS, Rn-Utilization Review 05/02/2020 10:53) Comment 4: clinicals faxed via [employer]ner for cont stay for dos 04/29-04/30/2020 (CATHI DEAL, RN-Utilization Review 04/30/2020 13:10) Comment 5: Per Availity, Inpt Auth approved 5 days. Faxed additional clinicals for 04/26-04/28. (CHON ANDREWS, Rn-Utilization Review 04/29/2020 10:35) Comment 6: Faxed clinicals via [employer] for 04/23-04/25. (CHON ANDREWS, Rn-Utilization Review 04/25/2020 10:33) Comment 7: Per Availity, Inpt Auth approved 4 days. NRD 04/25. (HCON ANDREWS, Rn-Utilization Review 04/24/2020 09:13) Comment 8: clinicals faxed via [employer]ner for cont stay for dos 04/23/2020 (CATHI DEAL, RN-Utilization Review 04/23/2020 13:09) Comment 9: submitted on availity for IP auth w/ clinicals attached (CATHI DEAL, RN-Utilization Review 04/22/2020 09:38) Denice Sanchez, Traffic Attendant - 05/06/2020 14:40 EDT documented in this encounter Plan of Treatment Upcoming Encounters Date Type Department Care Team (Late st Contact Info) Description 06/20/2025 2:30 PM EDT Office Visit [facility] Orthopedics - [address] [phone] Mica Chu PA-C [address] [place] [address] documented as of this encounter Visit Diagnoses Not on filedocumented in this encounter Care Teams School Counsellor Relationship Specialty Start Date End Date Sotero Miller MD [address] [place] [address] PCP - General Adolescent Medicine 10/25/22 documented as of this encounter
--- OUTSIDE RECORDS SUMMARY | 2025-05-13 05:45 | XMS_ITS | Encounter Summary ---
Author Organization [employer] ([place], [place], [place], [place]) Address [address] [place] [address] Care Team Providers Care Splicer Apprentice Name Role Phone Sotero Miller MD Primary Care Provider + [phone] Encounter Details Date Type Department Care Team (Late st Contact Info) Description 04/29/2020 Transcribed Document [facility] [place] [address] [place] [address] ProviderMk MD [address] [place], [place] [address] Social History Tobacco Use Types Packs/Day Years Used Date Smoking Tobacco: Never Assessed Sex and Gender Information Value Date Recorded Sex Assigned at Not on file Legal Sex Male 5:40 PM CDT Gender Identity Not on file Sexual Orientation Not on file documented as of this encounter Miscellaneous Notes * Cerner Conversion Note - Mk ProviderMD - 04/29/2020 12:12 PM CDT Nutrition Assessment Entered On: 04/30/2020 8:49 EDT Performed On: 04/30/2020 10:37 EDT by Puja Li Dietitian Nutrition Assessment Nutrition Assessment Reason : Automatic referral Puja Li Dietitian - 04/30/2020 8:48 EDT Nutrition Recommendations Dietitian Recommendations : 04/30: RD consult rec'd for cardiac post-op. POD#1 CABGx3. Cardiac diet ordered. RD ordered Ensure surgery TID x 5 days and provided to pt in room. Explained use; pt agreeable to try. Will rescreen in 3-4 days to assess po intakes. RD available prn. Puja Li Dietitian - 04/30/2020 10:36 EDT Nutrition Care Level : No nutritional risk Puja Li Dietitian - 04/30/2020 8:48 EDT Education Topics, Nutrition Nutrition Education Grid Dietary Supplements : Verbalizes understanding Puja Li Dietitian - 04/30/2020 10:36 EDT documented in this encounter Plan of Treatment Upcoming Encounters Date Type Department Care Team (Late st Contact Info) Description 06/20/2025 2:30 PM EDT Office Visit [facility] Orthopedics - [address] [phone] Mica Chu, PA-C [address] [place] [address] documented as of this encounter Visit Diagnoses Not on filedocumented in this encounter Care Teams Splicer Apprentice Relationship Specialty Start Date End Date Sotero Miller MD [address] [place] [address] PCP - General Adolescent Medicine 10/25/22 documented as of this encounter
--- OUTSIDE RECORDS SUMMARY | 2025-05-13 05:45 | XMS_ITS | Encounter Summary ---
Author Organization [employer] ([place], [place], [place], [place]) Address [address] [place] [address] Care Team Providers Care Finance Associate Name Role Phone Sotero Miller MD Primary Care Provider + [phone] Encounter Details Date Type Department Care Team (Late st Contact Info) Description 04/30/2020 Transcribed Document [facility] [place] [facility] [place] [address] ProviderMk MD [address] [place], [place] [id number] Social History Tobacco Use Types Packs/Day Years Used Date Smoking Tobacco: Never Assessed Sex and Gender Information Value Date Recorded Sex Assigned at Not on file Legal Sex Male 5:40 PM CDT Gender Identity Not on file Sexual Orientation Not on file documented as of this encounter Miscellaneous Notes * Cerner Conversion Note - Mk ProviderMD - 04/30/2020 5:00 AM CDT Chart Check - Review Order Profile Entered On: 04/30/2020 7:23 EDT Performed On: 04/30/2020 5:00 EDT by Sadie Mack RN Chart Check Powerplans Initiated/Discontinued as Appropriate : Yes All Active Orders Reviewed : Yes Sadie Mack RN - 04/30/2020 7:23 EDT documented in this encounter Plan of Treatment Upcoming Encounters Date Type Department Care Team (Late st Contact Info) Description 06/20/2025 2:30 PM EDT Office Visit [facility] Orthopedics - [address] [address] Mica Chu PA-C [address] [place] [address] documented as of this encounter Visit Diagnoses Not on filedocumented in this encounter Care Teams Finance Associate Relationship Specialty Start Date End Date Sotero Miller MD [address] [place] [address] PCP - General Adolescent Medicine 10/25/22 documented as of this encounter
--- OUTSIDE RECORDS SUMMARY | 2025-05-13 05:45 | XMS_ITS | Encounter Summary ---
Author Organization [employer] ([place], [place], [place], [place]) Address [address] [place] [address] Care Team Providers Care Asbestos Removal Worker Name Role Phone Sotero Miller MD Primary Care Provider + [phone] Encounter Details Date Type Department Care Team (Late st Contact Info) Description 05/01/2020 Transcribed Document [facility] [place] [facility] [place] [address] ProviderMk MD [address] [place], [place] [id number] Social History Tobacco Use Types Packs/Day Years Used Date Smoking Tobacco: Never Assessed Sex and Gender Information Value Date Recorded Sex Assigned at Not on file Legal Sex Male 5:40 PM CDT Gender Identity Not on file Sexual Orientation Not on file documented as of this encounter Miscellaneous Notes * Cerner Conversion Note - Mk ProviderMD - 05/01/2020 5:00 AM CDT Chart Check - Review Order Profile Entered On: 05/01/2020 3:42 EDT Performed On: 05/01/2020 5:00 EDT by Veronique Adamson RN Chart Check All Active Orders Reviewed : Yes Veronique Adamson RN - 05/01/2020 3:42 EDT documented in this encounter Plan of Treatment Upcoming Encounters Date Type Department Care Team (Late st Contact Info) Description 06/20/2025 2:30 PM EDT Office Visit [facility] Orthopedics - [address] [address] Mica Chu PA-C [address] [place] [address] documented as of this encounter Visit Diagnoses Not on filedocumented in this encounter Care Teams Asbestos Removal Worker Relationship Specialty Start Date End Date Sotero Miller MD [address] [place] [address] PCP - General Adolescent Medicine 10/25/22 documented as of this encounter
--- OUTSIDE RECORDS SUMMARY | 2025-05-13 05:45 | XMS_ITS | Encounter Summary ---
Author Organization [employer] ([place], [place], [place], [place]) Address [address] [place] [address] Care Team Providers Care Instructor Looping Name Role Phone Sotero Miller MD Primary Care Provider + [phone] Encounter Details Date Type Department Care Team (Late st Contact Info) Description 05/02/2020 Transcribed Document [facility] [place] [facility] [address] ProviderMk MD [address] [place], [place] [id number] Social History Tobacco Use Types Packs/Day Years Used Date Smoking Tobacco: Never Assessed Sex and Gender Information Value Date Recorded Sex Assigned at Not on file Legal Sex Male 5:40 PM CDT Gender Identity Not on file Sexual Orientation Not on file documented as of this encounter Miscellaneous Notes * Cerner Conversion Note - Mk ProviderMD - 05/02/2020 5:00 AM CDT Chart Check - Review Order Profile Entered On: 05/02/2020 4:31 EDT Performed On: 05/02/2020 5:00 EDT by Veronique Adamson RN Chart Check All Active Orders Reviewed : Yes Veronique Adamson RN - 05/02/2020 4:31 EDT documented in this encounter Plan of Treatment Upcoming Encounters Date Type Department Care Team (Late st Contact Info) Description 06/20/2025 2:30 PM EDT Office Visit [facility] Orthopedics - [address] [address] Mica Chu PA-C [address] [place] [address] documented as of this encounter Visit Diagnoses Not on filedocumented in this encounter Care Teams Instructor Looping Relationship Specialty Start Date End Date Sotero Miller MD [address] [place] [address] PCP - General Adolescent Medicine 10/25/22 documented as of this encounter
--- OUTSIDE RECORDS SUMMARY | 2025-05-13 05:45 | XMS_ITS | Encounter Summary ---
Author Organization [employer] ([place], [place], [place], [place]) Address [address] [place] [address] Care Team Providers Care Supervisor Engine Assembly Name Role Phone Sotero Miller MD Primary Care Provider + [phone] Encounter Details Date Type Department Care Team (Late st Contact Info) Description 05/02/2020 Transcribed Document [facility] Family Medicine [facility] [place] [address] ProviderMk MD [address] [place] [address] Social History Tobacco Use Types Packs/Day Years Used Date Smoking Tobacco: Never Assessed Sex and Gender Information Value Date Recorded Sex Assigned at Not on file Legal Sex Male 5:40 PM CDT Gender Identity Not on file Sexual Orientation Not on file documented as of this encounter Miscellaneous Notes * Cerner Conversion Note - Mk Mac MD - 05/02/2020 11:15 AM CDT Patient: NICO LERNER Age: 70 years Sex: Male : 1950 Associated Diagnoses: None Author: PAPA THORNTON MD-INT DATE OF SERVICE [ DOS ]: 05-02-2020 Basic Information SUBJECTIVE: Patient is seen and evaluated on Telemetry Unit Two chest tubes and pacer wires were removed Berthing Batter Review of Systems Constitutional: No fever, No [...] nasal ointment: 1 Application, Nostrils Both, BID Colace: 100 mg, Oral, BID DOPamine injection 400 mg + D5W Premix Diluent for Drip 250 mL: Titrate, IntraVENous DuoNeb 0.5 mg-2.5 mg/3 mL inhalation solution: [...] Rocephin: 2 Gram, 100 mL/Hr, IV Piggyback, [id number] Senokot: 17.2 mg, Oral, At Bedtime Tylenol: 650 mg, Oral, Q4H, PRN: Other (See Comment) Tylenol: 650 mg, Oral, Q4H, PRN: Temperature Xanax: 0.5 mg, Oral, BID, PRN: Anxiety Zofran: 4 mg, IV Push, Q4H, PRN: Nausea albumin human 5% intravenous solution: 12.5 Gram, 250 mL, IntraVENous, Daily, PRN: Other (See Comment) ascorbic acid: 500 mg, Oral, BID aspirin: 81 mg, Oral, Daily calcium gluconate: 1 Gram, 10 mL, 60 mL/Hr, IV Piggyback, 1-Time, PRN: Other (See Comment) doxycycline: 100 mg, Oral, BID hydrALAZINE: 10 mg, IV Push, Q6H, PRN: Hypertension insulin lispro sliding scale: Scale C:, SubCutaneous, AC and at Bedtime metoprolol tartrate: 12.5 mg, Oral, BID oxyCODONE: [...] IV Push, 1-Time, PRN: Other (See Comment) Documented Medications Documented CeleBREX 200 mg oral [...] 1.5 Tab, Oral, Daily, 0 Refill(s), Medications (33) Active Scheduled: (14) #NaCl 0.9% *FLUSH* inj 10 mL 10 mL, IV Push, Q8H ascorbic acid 500 mg tab 500 mg 1 Tab, Oral, BID aspirin EC 81 mg tab 81 mg 1 Tab, Oral, Daily atorvastatin 40 mg tab 80 mg 2 Tab, Oral, At Bedtime budesonide 0.5 mg/2 mL inh susp 0.5 mg 2 mL, Nebulized Inhalation, RT_BID cefTRIAXone 2 Gram, IV Piggyback, [id number] clopidogrel 75 mg tab 75 mg 1 [...] tab 12.5 mg 0.5 Tab, Oral, BID mupirocin 2% nasal oint 1 g 1 Application, Nostrils Both, BID senna 8.6 mg tab 17.2 mg 2 Tab, Oral, At Bedtime Continuous: (1) DOPamine/D5w 400 mg + Premix Diluent D5W TITRATE 250 mL 250 mL, IntraVENous PRN: (18) #NaCl 0.9% *FLUSH* inj 10 mL 10 mL, IV Push, See Comment acetaminophen 325 mg tab 650 mg 2 Tab, Oral, Q4H acetaminophen 325 mg tab 650 mg 2 Tab, Oral, Q4H acetaminophen/oxyCODONE 325/5 mg tab 2 Tab, Oral, Q4H albumin human 5% 12.5 g/250 mL inj 12.5 Gram 250 mL, IntraVENous, Daily albuterol-ipratropium inh 3 mL 3 mL, Nebulized Inhalation, RT_Q4H ALPRAZolam 0.5 mg tab 0.5 mg 1 Tab, Oral, BID calcium gluconate 1 Gram 10 mL, IV Piggyback, 1-Time furosemide 20 mg/2 mL inj 20 mg 2 mL, IV Push, 1-Time hydrALAZINE 20 mg/1 mL inj 10 mg 0.5 mL, IV Push, Q6H magnesium hydroxide 8% liq 30 mL 30 [...] elevation myocardial infarction (STEMI) / SNOMED CT [id number] / Confirmed At risk for sleep apnea / IMO [id number] / Confirmed Hypertension / SNOMED CT [id number] / Confirmed Acute kidney injury / SNOMED CT [id number] / Confirmed Stage 3 severe COPD by GOLD classification / SNOMED CT 118191618 / Confirmed, Active Problems (8) Acute kidney injury Acute ST elevation myocardial infarction (STEMI) Arthritis At risk for sleep apnea CAD (coronary artery disease) Chronic hypertension Hypertension Stage 3 severe COPD by GOLD classification OBJECTIVE: Physical Examination VS/Measurements Vitals Signs (last 24 hrs) Last Charted Minimum Maximum Temp 98 (MAY 02 05:39) 97.8 (MAY 01 21:46) 98.1 (MAY 01:39) Apical HR 81 (MAY 02 08:24) 81 (MAY 02 08:24) 84 (MAY 01 21:54) Mon HR 68 (MAY 02 09:12) 68 (MAY 02 09:07) 85 (MAY 01 21:54) Resp Rate 16 (MAY 02 09:12) 16 (MAY 02:39) 18 (MAY 01:39) SBP 104 (MAY 02 08:26) 104 (MAY 02 01:44) 123 (MAY 01 21:54) DBP 60 (MAY 02 08:26) 60 (MAY 02 08:26) 76 (MAY 01 21:54) MAP 72 (MAY 02 08:26) 72 (MAY 02 08:26) 86 (MAY 02:39) SpO2 98 (MAY 02 09:12) L 93 (MAY 01 22:01) 99 (MAY 02 05:39) General: Alert and oriented, No acute distress. [...] tenderness, No swelling, No deformity. Integumentary: Warm, [place], Moist, No rash. Neurologic: Alert, Oriented, Normal sensory, Normal motor function, No focal deficits, Cranial Nerves II-XII are grossly intact, Normal deep tendon reflexes. Psychiatric: Cooperative, Appropriate mood & affect, Normal judgment. Review / Management Results review: Labs (Last four charted values) WBC H 22.6 (MAY 02) H 23.8 (MAY 01) H 19.9 (APR 30) H 29.0 (APR 29) HB L 11.9 (MAY 02) L 12.5 (MAY 01) L 13.0 (APR 30) L 12.5 (APR 30) HCT L 36.8 (MAY 02) L 38.4 (MAY 01) 40.1 (APR 30) L 37.0 (APR 30) Plt 187 (MAY 02) 175 (APR 08) 170 (APR 30) 173 (APR 29) Na L 134 (MAY 02) L 135 (MAY 01) 136 (APR 30) 137 (APR 29) K 4.9 (MAY 02) 5.1 (MAY 01) H 5.2 (APR 30) 5.1 (APR 30) Cl 103 (MAY 02) 102 (MAY 01) 107 (APR 30) 105 (APR 29) CO2 26 (MAY 02) 27 (MAY 01) 23 (APR 30) 23 (APR 29) BUN H 30 (MAY 02) 22 (MAY 01) 12 (APR 30) 14 (APR 29) Cr H 1.40 (MAY 02) H 1.50 (MAY 01) 1.00 (APR 30) 1.00 (APR 29) Glu R H 136 (MAY 02) H 141 (MAY 01) H 132 (APR 30) H 197 (APR 29) Ca 9.2 (MAY 02) 9.1 (MAY 01) L 8.0 (APR 30) L 8.2 (APR 29) Lactic 1.4 (APR 22) 1.6 (APR 21) [...] 22) C 46.200 (APR 21) , MAY 02 03:18 L 134 103 H 30 / H 136 4.9 26 H 1.40 \ MAY 02 03:18 \ L 11.9 / H 22.6 187 / L 36.8 \, Radiology Results (Last 48 hours) [id number] -- 04/21/2020 16:53 CR Chest 1 Vw Portable (05/01/2020 05:53) Result: CHEST SINGLE VIEWCOMPARISON: Chest from 30 April 2020.HISTORY: Pleural effusion.FINDINGS: Cardiac silhouette is moderately enlarged. Multiple mediansternotomy wires are present. Nasogastric tube has been removed. Leftsubclavian [place]-Phil catheter has been removed. A left large bore chesttube is present. There is no evidence of pneumothorax. Mild bibasilaratelectasis is present.IMPRESSION:1. Cardiomegaly with bibasilar atelectasis, as described.Images reviewed, interpreted, and dictated by Mac Luis MD CR Chest 1 Vw Portable (05/02/2020 06:11) [...] removed Reactive leukocytosis nonspecific MDR rounding done Time spent: 23 minutes documented in this encounter Plan of Treatment Upcoming Encounters Date Type Department Care Team (Late st Contact Info) Description 06/20/2025 2:30 PM EDT Office Visit [facility] Orthopedics - [address] [phone] Mica Chu PA-C [address] [place] [address] documented as of this encounter Visit Diagnoses Not on filedocumented in this encounter Care Teams Supervisor Engine Assembly Relationship Specialty Start Date End Date Sotero Miller MD [address] [place] [address] PCP - General Adolescent Medicine 10/25/22 documented as of this encounter
--- OUTSIDE RECORDS SUMMARY | 2025-05-13 05:45 | XMS_ITS | Encounter Summary ---
Author Organization [employer] ([place], [place], [place], [place]) Address [address] [place] [address] Care Team Providers Care Senior Editor Name Role Phone Sotero Miller MD Primary Care Provider + [phone] Encounter Details Date Type Department Care Team (Late st Contact Info) Description 05/02/2020 Transcribed Document [facility] [place] [facility] [place] [address] ProviderMk MD [address] [place] [address] Social History Tobacco Use Types Packs/Day Years Used Date Smoking Tobacco: Never Assessed Sex and Gender Information Value Date Recorded Sex Assigned at Not on file Legal Sex Male 5:40 PM CDT Gender Identity Not on file Sexual Orientation Not on file documented as of this encounter Miscellaneous Notes * Cerner Conversion Note - Mk Mac MD - 05/02/2020 11:08 AM CDT Patient: GILBERT LERNER Age: 70 years Sex: Male : 1950 Associated Diagnoses: None Author: JUVE VOGEL, LUMP MAKER-CTS Admission Date: Admitting: Dr. Jose M Massey PCP: Dr. Taz Miller CARD:Dr. Eugenio Peacock, [place], [place] Consultants:Dr. Brenda Farrar, Cardiology Dr. Ladonna Pagan, CT Surgery Dr. Jeanne Gandara, Pulmonary Brief History:Gilbert Lerner is a 70-year-old male who presented to outside hospital with complaint of significant amount of chest pain. At [facility], the patient underwent further evaluation and was [...] NQWMI, 03/31/20 Acute pulmonary edema secondary to OK Unstable angina Strong family Hx of CAD EF 50-55% per intraop TYRON Systemic HTN HLP Cigarette abuse, resolved x 50 yrs COPD, Stage 3 ( Gold 2017 classification) Arthritis Past Hx of thumb surgery Likely Community-acquired pneumonia leukocytosis Acute Kidney Injury ( pre-admission Creatinine 1.4) Dx prior to surgery: Bradycardia Pre-op beta marcia held secondary to bradycardia POSTOP DX: Hypotension Bibasilar atelectasis Subjective 04/24/20: [...] appears content 05/02/20: POD#3 pain with coughing Health Status Allergies: Allergic Reactions (Selected) Severity Not Documented Contrast Dye- Shortness of breath. Current medications.Problem list. Objective General: Alert and oriented. Respiratory: Lungs are clear to auscultation, anteriorly. Cardiovascular: Normal rate, Regular rhythm. Gastrointestinal: Soft, Non-tender, Non-distended. Sternal incision>> Aquacell dressing RLE incision>> C D I Results Review General results Today's results 05/02/2020 3:18 EDT Sodium Level 134 mmol/L LOW Potassium Level 4.9 mmol/L Chloride Level 103 mmol/L Carbon Dioxide Level 26 mmol/L Anion Gap 10 Glucose Level 136 mg/dL HI Blood Urea Nitrogen 30 mg/dL HI Creatinine Level 1.40 mg/dL HI eGFR >60 mL/min/1.73m2 eGFR NonAfrican 50 mL/min/1.73m2 LOW Bun/Creatinine 21.4 HI Calcium Level 9.2 mg/dL WBC 22.6 K/uL HI RBC 3.94 Million/uL LOW Hgb 11.9 g/dL LOW Hct 36.8 % LOW MCV 93.4 fL MCH 30.2 pg MCHC 32.3 Gram/dL Platelet Count 187 K/uL Interpretation: Radiology Results (Last 48 hours) [id number] -- 04/21/2020 16:53 CR Chest 1 Vw Portable (05/01/2020 05:53) Result: CHEST SINGLE VIEWCOMPARISON: Chest from 30 April 2020.HISTORY: Pleural effusion.FINDINGS: Cardiac silhouette is moderately enlarged. Multiple mediansternotomy wires are present. Nasogastric tube has been removed. Leftsubclavian [place]-Phil catheter has been removed. A left large [...] personally viewed, interpreted and dictated the examination. Roxanesummer read and agree with the above final [...] Lasix 40mg IV x 1 Transfer to [facility] today per Dr. Pagan 05/01/20 [...] incisional pain #42 on chart) Cardiac Rehab: [facility] Electronically signed by [facility] Conversion Outside Rigger Cerner at 02/07/2023 11:28 PM CDT documented in this encounter Plan of Treatment Upcoming Encounters Date Type Department Care Team (Late st Contact Info) Description 06/20/2025 2:30 PM EDT Office Visit [facility] Orthopedics - [address] [phone] Mica Chu PA-C [address] [place] [phone] documented as of this encounter Visit Diagnoses Not on filedocumented in this encounter Care Teams Senior Editor Relationship Specialty Start Date End Date Sotero Miller MD [address] [place] [address] PCP - General Adolescent Medicine 10/25/22 documented as of this encounter
--- OUTSIDE RECORDS SUMMARY | 2025-05-13 05:45 | XMS_ITS | Encounter Summary ---
Author Organization [employer] ([place], [place], [place], [place]) Address [address] [place] [address] Care Team Providers Care Locks Tender Name Role Phone Sotero Miller MD Primary Care Provider + [phone] Encounter Details Date Type Department Care Team (Late st Contact Info) Description 05/01/2020 Transcribed Document [facility] [place] [facility] [place] [address] ProviderMk MD [address] [place] [address] Social History Tobacco Use Types Packs/Day Years Used Date Smoking Tobacco: Never Assessed Sex and Gender Information Value Date Recorded Sex Assigned at Not on file Legal Sex Male 5:40 PM CDT Gender Identity Not on file Sexual Orientation Not on file documented as of this encounter Miscellaneous Notes * Cerner Conversion Note - Mk Mac MD - 05/01/2020 2:58 PM CDT On Going Discharge Planning Entered On: 05/01/2020 15:00 EDT Performed On: 05/01/2020 14:58 EDT by TANVIR MANZO Veneer Drier Care Management Progress Note Discharge Arrangements : [...] Patient Meeting Medical Necessity : Yes TANVIR MANZO, Veneer Drier - 05/01/2020 14:58 EDT Narrative Progress Note Narrative Progress Note : Admission day 10/POD 4, on 2 liters O2, Crea=1.5, Mg=3.2, WBC=23.8, MT/PW removed, IV Abx=Rocephin q24, PO Doxy BID, PT=80' with rwx, DCP: home with spouse, Francisca, who will transport and assist with care, cardiac rehab via [facility], will continue to follow for discharge needs and arrangements (HH/DME). Historical Progress Note : MRR; ELOS 7; HD#9 (POD 1 CABG); OOB in chair; MT in place r/t drainage; Dopamine gtt - weaning; WBC 19.9 improved from 29.0; pt to transfer to [address] [place] [address] Deleon; CM discussed DCP with pt and he agrees to OP Cardiac Rehab - choiced [facility] - referral placed thru [facility]; monitor for any other d/c needs. KARENA DONNELLY, Rn-Dioramist - 04/30/20 09:44:31 MRR; ELOS 7; HD#8 s/p CABG x 3; intubated fi02 80/sedated; b/p 127/56; spoke with bedside MARY Gibbs who states pt may extubate this afternoon; CM requested she obtain PT/OT evaluation orders if extubated anticipating therapy evaluations tomorrow; will discuss DCP with pt when extubated - ogoing discussion for OP cardiac rehab. KARENA DONNELLY, Rn-Dioramist - 04/29/20 15:02:10 Patient is a moderate readmission risk. ELOS: 7 days HD#4 Adm Dx: STEMI; [facility] 04/20 - Total occulusion of LAD and RCA with normal LVEF. Continue Heparin and Nitroglycerine Drip, CABG planned on Wednesday. DCP: CM will follow for discharge planning needs post op. AURA CARDENAS RN-Dioramist - 04/25/20 16:22:03 Patient is a moderate readmission risk. ELOS: 7 days HD#3 Adm Dx: STEMI; [facility] 04/20 - Total occulusion of LAD and RCA with normal LVEF. Continue Heparin and Nitroglycerine Drip, CABG planned on Wednesday. DCP: CM will follow for discharge planning needs post op. AURA CARDENAS RN-Dioramist - 04/24/20 15:42:28 MRR, ELOS #2; HD#2 - LHC on 04/22 = Occlusion of RCA/LAD; Plt 143; CABG timing to be determined; pt on transfer out of [facility]; new PT/OT evaluation orders placed; DCP pending progress; anticipate home with family and OP Cardiac Rehab when appropriate. KARENA DONNELLY, Mary-Dioramist - 04/23/20 11:34:20 DCP - anticipate home without needs; continue to follow. KARENA DONNELLY Rn-Dioramist - 04/22/20 10:08:21 TANVIR MANZO, Veneer Drier - 05/01/2020 14:58 EDT Electronically signed by [facility] Conversion Barrel Drum Cutter Cerner at 02/07/2023 11:35 PM CDT documented in this encounter Plan of Treatment Upcoming Encounters Date Type Department Care Team (Late st Contact Info) Description 06/20/2025 2:30 PM EDT Office Visit [facility] Orthopedics - [address] [phone] Mica Chu PA-C [address] [place] [phone] documented as of this encounter Visit Diagnoses Not on filedocumented in this encounter Care Teams Locks Tender Relationship Specialty Start Date End Date Sotero Miller MD [address] [place] [address] PCP - General Adolescent Medicine 10/25/22 documented as of this encounter
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
--- OUTSIDE RECORDS SUMMARY | 2025-05-13 05:45 | XMS_ITS | Encounter Summary ---
Author Organization [employer] ([place], [place], [place], [place]) Address [address] [place] [address] Care Team Providers Care Ultrasound Spec Name Role Phone Sotero Miller MD Primary Care Provider + [phone] Encounter Details Date Type Department Care Team (Late st Contact Info) Description 04/30/2020 Transcribed Document [facility] [place] [facility] [place] [address] ProviderMk MD [address] [place] [address] Social History Tobacco Use Types Packs/Day Years Used Date Smoking Tobacco: Never Assessed Sex and Gender Information Value Date Recorded Sex Assigned at Not on file Legal Sex Male 5:40 PM CDT Gender Identity Not on file Sexual Orientation Not on file documented as of this encounter Miscellaneous Notes * Cerner Conversion Note - Mk Mac MD - 04/30/2020 7:23 AM CDT Patient: NICO LERNER Age: 70 years Sex: Male : 1950 Associated Diagnoses: Severe 3VCAD (coronary artery disease); COPD, group C, by GOLD 2017 classification; HTN (hypertension); HLD (hyperlipidemia); Nicotine dependence in remission; NQWMI; Unstable angina Author: CAMERON YOUNG PA Basic Information This is a 70 y/o male who was transferred from [facility] yesterday with 3VCAD. The pt had an episode of severe chest pain which prompted him to go to the ED. He was found to have STEMI and underwent a LHC on 04/20/20 which showed that he has total occlusion of the LAD and RCA. Severe disease of the proximal left circumflex and total occlusion of the distal circumflex. His EF was preserved. The pt received 600mg Plavix during [facility] on 04/20/20. The pt was then [...] they went straight to the ED in [place]. He denies any heart palpitations, dizziness, orthopnea [...] on Dopamine 3mcg/kg/min which is being weaned. Health Status Allergies: Allergic Reactions (Selected) Severity Not Documented Contrast Dye- Shortness of breath., Allergies (1) Active Reaction Contrast Dye Shortness of breath Objective Intake and Output 24 hour intake: Total 1,616 ml 24 hour output: Urinary catheter 2,330 ml, Chest tube 1,020 ml, Total 3,350 ml VS/Measurements Vital Measurements 04/30/2020 7:00 EDT Systolic Blood Pressure 112 mmHg Diastolic Blood Pressure 59 mmHg LOW Mean Arterial Pressure (MAP)-BMDI 81 Systolic BP, Arterial Line 1 136 mmHg Diastolic BP, Arterial Line 1 51 mmHg LOW Mean Arterial Pressure, Line 1 69 mmHg Temperature, Celsius 37.6 Deg C Clinical Temperature, F 99.7 Deg F Heart Rate Monitored 61 bpm Oxygen Saturation 90 % LOW 04/30/2020 6:00 EDT Oxygen Therapy Mode Nasal cannula Oxygen Flow Rate 2 Liter/Min General: Alert and oriented, No acute distress. HENT: Normocephalic. Neck: Supple. Respiratory: Respirations are non-labored. Breath sounds: Diminished, No rhonchi present, No wheezes present. Cardiovascular: Normal rate, 61 beats per minute, Regular rhythm, S1, S2, No edema. Integumentary: Warm, Dry, [place], Aquacel dressing is C/D/I. Neurologic: Alert, Oriented, No focal deficits. Psychiatric: Cooperative, Appropriate mood & affect. Review / Management Results review: All Results 04/30/2020 5:33 EDT Device Comment 1 Sodium Level 136 mmol/L Potassium Level 5.1 mmol/L Chloride Level 107 mmol/L Carbon Dioxide Level 23 mmol/L Anion Gap 11 Glucose Level 132 mg/dL HI Blood Urea Nitrogen 12 mg/dL Creatinine Level 1.00 mg/dL eGFR >60 mL/min/1.73m2 eGFR NonAfrican >60 mL/min/1.73m2 Bun/Creatinine 10.9 Calcium Level 8.0 mg/dL LOW Magnesium Level 2.9 mg/dL HI Phosphorus 4.4 mg/dL Glucose POC2 130 mg/dL HI Calcium Ionized 1.18 mmol/L WBC 19.9 K/uL HI RBC 4.07 Million/uL LOW Hgb 12.5 g/dL LOW Hct 37.0 % LOW MCV 90.9 fL MCH 30.7 pg MCHC 33.8 Gram/dL Platelet Count 170 K/uL MPV 10.3 fL RDW 13.6 % Neut % 84.0 % HI Neut # 16.72 K/uL HI Lymph % 5.7 % LOW Lymph # 1.13 x10(3)/uL [place] % 9.0 % [place] # 1.80 K/uL HI Eos % 0.0 % Eos # 0.00 x10(3)/uL Baso % 0.4 % Baso # 0.07 x10(3)/uL . PFTs: FEV1 is 1.38 L (46%), FEV1/FVC [...] Lasix 40mg IV x 1 Transfer to [facility] today per Dr. Pagan EF 50-55% per echo 04/29/20 DVT Prophylaxis: SCDs Diagnosis Severe 3VCAD (coronary artery disease) - Admitting, Medical. Severe 3VCAD (coronary artery disease) - Discharge, Medical. COPD, group C, by GOLD 2017 classification - Pre-Op Diagnosis, Medical. HTN (hypertension) - Pre-Op Diagnosis, Medical. HLD (hyperlipidemia) - Pre-Op Diagnosis, Medical. Nicotine dependence in remission - Pre-Op Diagnosis, Medical. NQWMI - Admitting, Medical. Unstable angina - Admitting, Medical. Electronically signed by Ean, [facility] Conversion Linen Room Houseperson Cerner at 02/07/2023 11:38 PM CDT documented in this encounter Plan of Treatment Upcoming Encounters Date Type Department Care Team (Late st Contact Info) Description 06/20/2025 2:30 PM EDT Office Visit [facility] Orthopedics - [address] [phone] Mica Chu PA-C [address] [place] [phone] documented as of this encounter Visit Diagnoses Not on filedocumented in this encounter Care Teams Ultrasound Spec Relationship Specialty Start Date End Date Sotero Miller MD [address] [place] [address] PCP - General Adolescent Medicine 10/25/22 documented as of this encounter
--- OUTSIDE RECORDS SUMMARY | 2025-05-13 05:45 | XMS_ITS | Encounter Summary ---
Author Organization [employer] ([place], [place], [place], [place]) Address [address] [place] [address] Care Team Providers Care Director Underwriter Sales Name Role Phone Sotero Miller MD Primary Care Provider + [phone] Encounter Details Date Type Department Care Team (Late st Contact Info) Description 04/29/2020 Transcribed Document [facility] [place] Family [place] [facility] [place] [address] ProviderMk MD [address] [place] [address] Social History Tobacco Use Types Packs/Day Years Used Date Smoking Tobacco: Never Assessed Sex and Gender Information Value Date Recorded Sex Assigned at Not on file Legal Sex Male 5:40 PM CDT Gender Identity Not on file Sexual Orientation Not on file documented as of this encounter Miscellaneous Notes * Cerner Conversion Note - Mk Mac MD - 04/29/2020 2:59 PM CDT On Going Discharge Planning Entered On: 04/29/2020 15:02 EDT Performed On: 04/29/2020 14:59 EDT by KARENA DONNELLY Rn-Customs Opener Verifier PackerPlastic Outfitter Progress Note Discharge Arrangements : Patient Post-Acute [...] Meeting Medical Necessity : Yes KARENA DONNELLY Rn-Customs Opener Verifier Packer - 04/29/2020 14:59 EDT Narrative Progress Note Narrative Progress Note : MRR; ELOS 7; HD#8 s/p CABG x 3; intubated fi02 80/sedated; b/p 127/56; spoke with bedside MARY Gibbs who states pt may extubate this afternoon; CM requested she obtain PT/OT evaluation orders if extubated anticipating therapy evaluations tomorrow; will discuss DCP with pt when extubated - ogoing discussion for OP cardiac rehab. Historical Progress Note : Patient is a moderate readmission risk. ELOS: 7 days HD#4 Adm Dx: STEMI; C 04/20 - Total occulusion of LAD and RCA with normal LVEF. Continue Heparin and Nitroglycerine Drip, CABG planned on Wednesday. DCP: CM will follow for discharge planning needs post op. AURA CARDENAS RN-Customs Opener Verifier Packer - 04/25/20 16:22:03 Patient is a moderate readmission risk. ELOS: 7 days HD#3 Adm Dx: STEMI; C 04/20 - Total occulusion of LAD and RCA with normal LVEF. Continue Heparin and Nitroglycerine Drip, CABG planned on Wednesday. DCP: CM will follow for discharge planning needs post op. AURA CARDENAS RN-Customs Opener Verifier Packer - 04/24/20 15:42:28 MRR, ELOS #2; HD#2 - LHC on 04/22 = Occlusion of RCA/LAD; Plt 143; CABG timing to be determined; pt on transfer out of [facility]; new PT/OT evaluation orders placed; DCP pending progress; anticipate home with family and OP Cardiac Rehab when appropriate. KARENA DONNELLY Rn-Customs Opener Verifier Packer - 04/23/20 11:34:20 DCP - anticipate home without needs; continue to follow. KARENA DONNELLY Rn-Customs Opener Verifier Packer - 04/22/20 10:08:21 KARENA DONENLLY Rn-Customs Opener Verifier Packer - 04/29/2020 14:59 EDT documented in this encounter Plan of Treatment Upcoming Encounters Date Type Department Care Team (Late st Contact Info) Description 06/20/2025 2:30 PM EDT Office Visit [facility] Orthopedics - [address] [phone] Mica Chu PA-C [address] [place] [phone] documented as of this encounter Visit Diagnoses Not on filedocumented in this encounter Care Teams Director Underwriter Sales Relationship Specialty Start Date End Date Sotero Miller MD [address] [place] [address] PCP - General Adolescent Medicine 10/25/22 documented as of this encounter
--- OUTSIDE RECORDS SUMMARY | 2025-05-13 05:45 | XMS_ITS | Encounter Summary ---
Author Organization [employer] ([place], [place], [place], [place]) Address [address] [place] [address] Care Team Providers Care Rn Tele Name Role Phone Sotero Miller MD Primary Care Provider + [phone] Encounter Details Date Type Department Care Team (Late st Contact Info) Description 04/22/2020 Transcribed Document [facility] [place] Family Medicine [address] [place] [address] ProviderMk MD [address] [place], [place] [id number] Social History Tobacco Use Types Packs/Day Years Used Date Smoking Tobacco: Never Assessed Sex and Gender Information Value Date Recorded Sex Assigned at Not on file Legal Sex Male 5:40 PM CDT Gender Identity Not on file Sexual Orientation Not on file documented as of this encounter Miscellaneous Notes * Cerner Conversion Note - Mk ProviderMD - 04/22/2020 5:00 AM CDT Chart Check - Review Order Profile Entered On: 04/22/2020 5:59 EDT Performed On: 04/22/2020 5:00 EDT by Cedric Johnson Rn-Tyrese Chart Check Powerplans Initiated/Discontinued as Appropriate : Yes Cedric Johnson Rn-Resource - 04/22/2020 5:59 EDT documented in this encounter Plan of Treatment Upcoming Encounters Date Type Department Care Team (Late st Contact Info) Description 06/20/2025 2:30 PM EDT Office Visit [facility] Orthopedics - [address] [phone] Mica Chu PA-C [address] [place] [phone] documented as of this encounter Visit Diagnoses Not on filedocumented in this encounter Care Teams Rn Tele Relationship Specialty Start Date End Date Sotero Miller MD [address] [place] [address] PCP - General Adolescent Medicine 10/25/22 documented as of this encounter
--- OUTSIDE RECORDS SUMMARY | 2025-05-13 05:45 | XMS_ITS | Encounter Summary ---
Author Organization [employer] ([place], [place], [place], [place]) Address [address] [place] [address] Care Team Providers Care Pattern Generator Operator Name Role Phone Sotero Miller MD Primary Care Provider [phone] Encounter Details Date Type Department Care Team (Late st Contact Info) Description 04/30/2020 Transcribed Document [facility] [place] [address] [place] [address] ProviderMk MD [address] [place] [address] Social History Tobacco Use Types Packs/Day Years Used Date Smoking Tobacco: Never Assessed Sex and Gender Information Value Date Recorded Sex Assigned at Not on file Legal Sex Male 5:40 PM CDT Gender Identity Not on file Sexual Orientation Not on file documented as of this encounter Miscellaneous Notes * Cerner Conversion Note - Mk Mac MD - 04/30/2020 1:10 PM CDT UM Authorization Entered On: 04/30/2020 13:11 EDT Performed On: 04/30/2020 13:10 EDT by CATHI DEAL RN-Utilization Review Primary Insurance Authorization Authorization and Policy Numbers : Insurance 1 Health Plan: [employer]M [employer] Policy Number: [id number] Authorization Number: Insurance 2 Health Plan: MEDICARE Policy Number: [id number] Authorization Number: Insurance Primary Name : [employer] Policy Number: [id number] Authorization Status-Primary : Awaiting callback Reference Number-Primary : [id number] Number of Days Authorized-Primary : 4 Day(s) Authorized Service Begin Date-Primary : 04/21/2020 EDT Authorized Service End Date-Primary : 04/25/2020 EDT Authorization Comments-Primary : clinicals faxed via cerner for cont stay for dos 04/29-04/30/2020 Historical Authorization Comments-Primary : Comment 1: Per Availity, Inpt Auth approved 5 days. Faxed additional clinicals for 04/26-04/28. (CHON ANDREWS, Rn-Utilization Review 04/29/2020 10:35) Comment 2: Faxed clinicals via [employer] for 04/23-04/25. (CHON ANDREWS, Rn-Utilization Review 04/25/2020 10:33) Comment 3: Per Availity, Inpt Auth approved 4 days. NRD 04/25. (CHON ANDREWS, Rn-Utilization Review 04/24/2020 09:13) Comment 4: clinicals faxed via cerner for cont stay for dos 04/23/2020 (CATHI DEAL, RN-Utilization Review 04/23/2020 13:09) Comment 5: submitted on availity for IP auth w/ clinicals attached (CATHI DEAL, RN-Utilization Review 04/22/2020 09:38) CATHI DEAL, RN-Utilization Review - 04/30/2020 13:10 EDT documented in this encounter Plan of Treatment Upcoming Encounters Date Type Department Care Team (Late st Contact Info) Description 06/20/2025 2:30 PM EDT Office Visit [facility] Orthopedics - [address] [phone] Mica Chu PA-C [address] [place] [phone] documented as of this encounter Visit Diagnoses Not on filedocumented in this encounter Care Teams Pattern Generator Operator Relationship Specialty Start Date End Date Sotero Miller MD [address] [place] [address] PCP - General Adolescent Medicine 10/25/22 documented as of this encounter
--- OUTSIDE RECORDS SUMMARY | 2025-05-13 05:45 | XMS_ITS | Encounter Summary ---
Author Organization [employer] ([place], [place], [place], [place]) Address [address] [place] [address] Care Team Providers Care Load Dispatcher Local Name Role Phone Sotero Miller MD Primary Care Provider + [phone] Encounter Details Date Type Department Care Team (Late st Contact Info) Description 04/30/2020 Transcribed Document [facility] [place] Family Medicine [address] [place] [address] ProviderMk MD [address] [place], [place] [id number] Social History Tobacco Use Types Packs/Day Years Used Date Smoking Tobacco: Never Assessed Sex and Gender Information Value Date Recorded Sex Assigned at Not on file Legal Sex Male 5:40 PM CDT Gender Identity Not on file Sexual Orientation Not on file documented as of this encounter Miscellaneous Notes * Cerner Conversion Note - Mk ProviderMD - 04/30/2020 12:41 PM CDT Treatment Intervention, PT Entered On: 05/04/2020 16:33 EDT Performed On: 05/04/2020 14:45 EDT by KORINA CHRISTINA, PT General Information, PT Visit Type, PT : Treatment Note Patient Orders : Order Date Order Ordering 04/23/2020 11:32 PT Evaluation and Treatment Ordered By: PAPA THORNTON MD-INT 04/29/2020 12:13 Consult to Physical Therapy Ordered By: DAVID LUGO MD-CAT 04/30/2020 12:41 PT Additional Treatment Ordered By: BRITTNEY BLACK, PT Active Diagnoses : 04/30/2020 12:00 Chronic obstructive pulmonary disease, unspecified 04/30/2020 12:00 Non-ST elevation (NSTEMI) myocardial infarction 04/30/2020 12:00 Unstable angina 04/22/2020 12:00 Atherosclerotic heart disease of council coronary artery without angina pectoris 04/22/2020 12:00 Essential (primary) hypertension 04/22/2020 12:00 Hyperlipidemia, unspecified 04/22/2020 12:00 Nicotine dependence, unspecified, in remission Therapy Diagnosis, PT : Impaired mobililty due to decreased endurance and pain after surgery Admission Date : 04/21/2020 16:53 Personal Devices : Personal Devices No Devices Recorded Assistive Devices : Assistive Devices No Devices Recorded Precautions in Place : Sternal Precautions General Information Comment, PT : seen bedside room 305 KORINA CHRISTINA, PT - 05/04/2020 16:21 EDT General Status Patient Received Status : Up in chair Treatment Start Time : 05/04/2020 14:20 EDT Patient Left Status : Up in chair, RN/PCT informed, Communication board completed, All needs met and within reach RN/PCT Informed Comment : pt ok for PTx per Monica HERNANDEZ. Treatment End Time : 05/04/2020 14:45 EDT Treatment Time : 25 Minute(s) KORINA CHRISTINA, PT - 05/04/2020 16:21 EDT Intervention Summary Heart Rate/Pulse Pre-intervention : 66 bpm BP Systolic Pre-intervention : 124 mmHg BP Diastolic Pre-intervention : 69 mmHg O2 Pre-Intervention : room air SpO2 Pre-Intervention : 95 % Therapist Assessment Pre-intervention : at rest Heart Rate/Pulse During Intervention : 75 bpm BP Systolic During Intervention : 208 mmHg BP Diastolic During Intervention : 87 mmHg O2 During Intervention : room air Patient Stated Response During Interv : increased SOA. trouble breathing through the mask Therapist Assessment During Intervention : post gait while sitting in chair. discussed with Monica HERNANDEZ who reports pt 's BP has been high and occasionally goes into At fib Heart Rate/Pulse Post-intervention : 70 bpm BP Systolic Post-intervention : 174 mmHg BP Diastolic Post-intervention : 84 mmHg O2 Post-Intervention : room air Therapist Assessment Post-intervention : re taken post gait while sitting in chair KORINA CHRISTINA, PT - 05/04/2020 16:21 EDT Therapeutic Exercises Therapeutic Exercise Comment, PT : Instructed and given post op cardiac HEP. Questions answered KORINA CHRISTINA, PT - 05/04/2020 16:21 EDT Functional Mobility Mobility Grid Sit to Stand : Rehab Minimal assistance (Comment: from recliner with verbal cues [KORINA CHRISTINA, PT - 05/04/2020 16:21 EDT] ) Stand to Sit : Supervision/set-up (Comment: verbal cues [KORINA CHRISTINA, PT - 05/04/2020 16:21 EDT] ) KORINA CHRISTINA, PT - 05/04/2020 16:21 EDT Sit to Stand Device : Belt, gait, Walker, front wheel Stand to Sit Device : Belt, gait, Walker, front wheel KORINA CHRISTINA, PT - 05/04/2020 16:21 EDT Gait Training/Assessment, PT Walking Distance : 375 feet with RWx and min assist with 2 standing rest breaks due to SOA. slight forward posture KORINA CHRISTINA, PT - 05/04/2020 16:21 EDT Neurological/Sensory Overall Sensory Response : Intact KORINA CHRISTINA, PT - 05/04/2020 16:21 EDT Cognitive Treatment, PT Orientation : Oriented x 4 KORINA CHRISTINA, PT - 05/04/2020 16:21 EDT Edu Topics Physical Therapy Education Grid Bed Mobility Training : Needs further teaching, Returns demonstration Gait Training : Needs further teaching, Returns demonstration Therapeutic Exercises : Needs further teaching Transfer Training : Needs further teaching, Returns demonstration KORINA CHRISTINA, PT - 05/04/2020 16:21 EDT Indication Assesessment, PT Physical Therapy Indicated : Yes PT Problem List : Impaired, activities daily living, Impaired, bed mobility, Impaired, endurance tolerance, Impaired, gait, Impaired, transfers KORINA CHRISTINA, PT - 05/04/2020 16:21 EDT Plan of Care, PT PT Tx Plan/Goals Established w Patient : Yes PT Frequency Rehab : Daily PT Treatments Planned : Bed mobility training, Gait training, Therapeutic exercises, Transfer training KORINA CHRISTINA, PT - 05/04/2020 16:21 EDT Short Term Goals Ambulation STG Grid Goal #1 Device : Walker, front wheel Distance : 200 ft Assist : Supervision or set-up Date to Meet : 05/07/2020 EDT Goal Status : Goal met Date Met : 05/01/2020 EDT KORINA CHRISTINA, PT - 05/04/2020 16:21 EDT Equipment Maintenance Superintendent Goals Mobility/Bed Mobility LTG PT Grid Goal #1 Goal #2 Activity : Supine to sit Sit to stand Assist : Independent, modified Independent, modified Date to Meet : 05/14/2020 EDT 05/14/2020 EDT Goal Status : Intial Goal Progressing, continue KORINA CHRISTINA, PT - 05/04/2020 16:21 EDT KORINA CHRISTINA, PT - 05/04/2020 16:21 EDT Ambulation LTG Grid Goal #1 Device : Walker, front wheel Distance : 375 ft Assist : Independent, modified Date to Meet : 05/14/2020 EDT Goal Status : Progressing, continue KORINA CHRISTINA, PT - 05/04/2020 16:21 EDT Treatment Note Subjective Comment : states name and Patient's Response to Treatment : agreed to therapy and walking without 02 . increased SOA with gait Assessment : impaired mobility due to SOA. pt is cooperative and needed 2 standing rests with Gait. pt needs PTx to increase general mobility Plan for Treatment : cont POC KORINA CHRISTINA, PT - 05/04/2020 16:21 EDT Pain Assessment Pain Scaled Used : 0-10 Pain scale Pain Score Pre-Intervention : 6 Pain Radiation Location : Chest Pain Comment : with cough KORINA CHRISTINA, PT - 05/04/2020 16:21 EDT Image 1 - Images currently included in the form version of this document have not been included in the text rendition version of the form. Anticipated Discharge Needs, OT/PT Anticipated Discharge to : Home, with family care, Home, with home health (Comment: S4 [KORINA CHRISTINA, PT - 05/04/2020 16:21 EDT] ) Recommend Continued Therapy at Discharge : Yes KORINA CHRISTINA, PT - 05/04/2020 16:[address] [facility] PT Therap. Exercise 15 min : 1 Gait Training Each 15 Min : 1 KORINA CHRISTINA, PT - 05/04/2020 16:21 EDT documented in this encounter Plan of Treatment Upcoming Encounters Date Type Department Care Team (Late st Contact Info) Description 06/20/2025 2:30 PM EDT Office Visit [facility] Orthopedics - [address] [phone] Mica Chu PA-C [address] [place] [phone] documented as of this encounter Visit Diagnoses Not on filedocumented in this encounter Care Teams Load Dispatcher Local Relationship Specialty Start Date End Date Sotero Miller MD [address] [place] [address] PCP - General Adolescent Medicine 10/25/22 documented as of this encounter
--- OUTSIDE RECORDS SUMMARY | 2025-05-13 05:45 | XMS_ITS | Encounter Summary ---
Author Organization [employer] ([place], [place], [place], [place]) Address [address] [place] [address] Care Team Providers Care Provider Relations Advocate Name Role Phone Sotero Miller MD Primary Care Provider + [phone] Encounter Details Date Type Department Care Team (Late st Contact Info) Description 05/02/2020 Transcribed Document [facility] [place] [address] ProviderMk MD [address] [place] [address] Social History Tobacco Use Types Packs/Day Years Used Date Smoking Tobacco: Never Assessed Sex and Gender Information Value Date Recorded Sex Assigned at Not on file Legal Sex Male 5:40 PM CDT Gender Identity Not on file Sexual Orientation Not on file documented as of this encounter Miscellaneous Notes * Cerner Conversion Note - Mk Mac MD - 05/02/2020 1:19 PM CDT On Going Discharge Planning Entered On: 05/02/2020 13:21 EDT Performed On: 05/02/2020 13:19 EDT by TANVIR MANZO Skip Operator Care Management Progress Note Discharge Arrangements : [...] Meeting Medical Necessity : Yes TANVIR MANZO Skip Operator - 05/02/2020 13:19 EDT Narrative Progress Note Narrative Progress Note : Admission day 11/ POD 5, on 2 liters O2 (98%)/room air=90%; BUN/Crea=30/1.4, WBC=22.6, CXR=No pneumothorax following left chest tube removal. Mild/moderate cardiomegaly with bibasilar scarring or atelectasis; LBM=04/28/2020-Laxative ordered, ABX=Rocephin q24, PO Doxy BID-for CAP; PT wjutmxamj=815' with rwx. DCP: Home with family, outpatient cardiac rehab and possible HH/DME if appropriate. CM will continue to follow. Historical Progress Note : Admission day 10/POD 4, on 2 liters O2, Crea=1.5, Mg=3.2, WBC=23.8, MT/PW removed, IV Abx=Rocephin q24, PO Doxy BID, PT=80' with rwx, DCP: home with spouse, Francisca, who will transport and assist with care, cardiac rehab via [facility], will continue to follow for discharge needs and arrangements (HH/DME). TANVIR MANZO Skip Operator - 05/01/20 15:00:32 MRR; ELOS 7; HD#9 (POD 1 CABG); OOB in chair; MT in place r/t drainage; Dopamine gtt - weaning; WBC 19.9 improved from 29.0; pt to transfer to [address] [place] [address] Deleon; CM discussed DCP with pt and he agrees to OP Cardiac Rehab - choiced [facility] - referral placed thru [facility]; monitor for any other d/c needs. KARENA DONNELLY, Rn-Cylinder Press Operator Apprentice - 04/30/20 09:44:31 MRR; ELOS 7; HD#8 s/p CABG x 3; intubated fi02 80/sedated; b/p 127/56; spoke with bedside MARY Gibbs who states pt may extubate this afternoon; CM requested she obtain PT/OT evaluation orders if extubated anticipating therapy evaluations tomorrow; will discuss DCP with pt when extubated - ogoing discussion for OP cardiac rehab. KARENA DONNELLY Rn-Cylinder Press Operator Apprentice - 04/29/20 15:02:10 Patient is a moderate readmission risk. ELOS: 7 days HD#4 Adm Dx: STEMI; LHC 04/20 - Total occulusion of LAD and RCA with normal LVEF. Continue Heparin and Nitroglycerine Drip, CABG planned on Wednesday. DCP: CM will follow for discharge planning needs post op. AURA CARDENAS RN-Cylinder Press Operator Apprentice - 04/25/20 16:22:03 Patient is a moderate readmission risk. ELOS: 7 days HD#3 Adm Dx: STEMI; LHC 04/20 - Total occulusion of LAD and RCA with normal LVEF. Continue Heparin and Nitroglycerine Drip, CABG planned on Wednesday. DCP: CM will follow for discharge planning needs post op. AURA CARDENAS RN-Cylinder Press Operator Apprentice - 04/24/20 15:42:28 MRR, ELOS #2; HD#2 - LHC on 04/22 = Occlusion of RCA/LAD; Plt 143; CABG timing to be determined; pt on transfer out of [facility]; new PT/OT evaluation orders placed; DCP pending progress; anticipate home with family and OP Cardiac Rehab when appropriate. KARENA DONNELLY Rn-Cylinder Press Operator Apprentice - 04/23/20 11:34:20 DCP - anticipate home without needs; continue to follow. KARENA DONNELLY Rn-Cylinder Press Operator Apprentice - 04/22/20 10:08:21 TANVIR MANZO, Skip Operator - 05/02/2020 13:19 EDT documented in this encounter Plan of Treatment Upcoming Encounters Date Type Department Care Team (Late st Contact Info) Description 06/20/2025 2:30 PM EDT Office Visit [facility] Orthopedics - [address] [phone] Mica Chu PA-C [address] [place] [phone] documented as of this encounter Visit Diagnoses Not on filedocumented in this encounter Care Teams Provider Relations Advocate Relationship Specialty Start Date End Date Sotero Miller MD [address] [place] [address] PCP - General Adolescent Medicine 10/25/22 documented as of this encounter
--- OUTSIDE RECORDS SUMMARY | 2025-05-13 05:45 | XMS_ITS | Encounter Summary ---
Author Organization [employer] ([place], [place], [place], [place]) Address [address] [place] [address] Care Team Providers Care System Software Programmer Name Role Phone Sotero Miller MD Primary Care Provider + [phone] Encounter Details Date Type Department Care Team (Late st Contact Info) Description 04/29/2020 Transcribed Document [facility] [place] [address] [place] [address] ProviderMk MD [address] [place] [address] Social History Tobacco Use Types Packs/Day Years [...] Consult Phone Call Documentation Entered On: 04/29/2020 14:01 EDT Performed On: 04/29/2020 12:12 EDT by Danica Patterson [facility] Phone Call for Consults Consult Phone Call/Page Attempt : First call Provider Team Notified Name : Pulmonary medicine Physician Covering for Consult : KARENA SIMMONS PA-C Date and Time Call Returned : 04/30/2020 14:01 EDT Danica Patterson [facility] - 04/29/2020 14:01 EDT documented in this encounter Plan of Treatment Upcoming Encounters Date Type Department Care Team (Late st Contact Info) Description 06/20/2025 2:30 PM EDT Office Visit [facility] Orthoped[facility] - [address] [phone] Mica Chu PA-C [address] [place] [phone] documented as of this encounter Visit Diagnoses Not on filedocumented in this encounter Care Teams System Software Programmer Relationship Specialty Start Date End Date Sotero Miller MD [address] [place] [address] PCP - General Adolescent Medicine 10/25/22 documented as of this encounter
--- OUTSIDE RECORDS SUMMARY | 2025-05-13 05:45 | XMS_ITS | Encounter Summary ---
Author Organization [employer] ([place], [place], [place], [place]) Address [address] [place] [address] Care Team Providers Care Automatic Pilot Mechanic Name Role Phone Sotero Miller MD Primary Care Provider + [phone] Encounter Details Date Type Department Care Team (Late st Contact Info) Description 04/29/2020 Transcribed Document [facility] Family Medicine [address] [place] [address] ProviderMk MD [address], [place] [address] Social History Tobacco Use Types Packs/Day Years Used Date Smoking Tobacco: Never Assessed Sex and Gender Information Value Date Recorded Sex Assigned at Not on file Legal Sex Male 5:40 PM CDT Gender Identity Not on file Sexual Orientation Not on file documented as of this encounter Miscellaneous Notes * Cerner Conversion Note - Mk Mac MD - 04/29/2020 8:11 AM CDT [facility] Main OR IntraOp Summary Primary Physician: DAVID LUGO MD-CAT Finalized Date/Time: 05/02/20 11:17:49 Pt. Name: GILBERT LERNER/Sex: 1950 Male Med Rec #: [id number] Physician: PAPA THORNTON MD-INT Financial #: [id number] Pt. Type: I Room/Bed: [facility]/1 Admit/Disch: 04/21/20 16:53:00 - Institution: [facility] IntraOp Case Attendance Entry 1 Entry 2 Entry 3 Case Attendee DAVID LUGO GHANSAH KANUMicheal CAMARGO, Shira Betancourt RN MD-CAT -AKIKO Role Performed Surgeon/Proceduralist, Anesthesiologist Systems Test Technician, First First Time In 04/29/20 07:14:00 04/29/20 07:14:00 04/29/20 07:14:00 Time Out 04/29/20 12:31:00 04/29/20 12:31:00 04/29/20 08:42:00 Procedure Transesophageal Coronary Artery Bypass Coronary Artery Bypass Echocardiogram Graft, Vein [place] Graft, Vein [place] Endosaphenous, Endosaphenous, Transesophageal Transesophageal Echocardiogram Echocardiogram Other Attendee Superficial Wound Closed By: Last Modified By: Shira Betancourt RN Proffitt, Debbie, RN Napier, Elizabeth A, RN 04/29/20 12:31:18 04/29/20 12:31:18 04/29/20 09:24:19 Entry 4 Entry 5 Entry 6 Case Attendee Lesly Martinez RN BLAIR, NATHAN, SCOTT DUBOIS, SHOE ASSOCIATE Role Performed Systems Test Technician, Second Scrub, First Scrub, Second Time In 04/29/20 07:14:00 04/29/20 07:14:00 04/29/20 07:14:00 Time Out 04/29/20 09:07:00 04/29/20 09:04:00 04/29/20 08:28:00 Procedure Coronary Artery Bypass Coronary Artery Bypass Coronary Artery Bypass Graft, Vein [place] Graft, Vein [place] Graft, Vein [place] Endosaphenous, Endosaphenous, Endosaphenous, Transesophageal Transesophageal Transesophageal Echocardiogram Echocardiogram Echocardiogram Other Attendee Superficial Wound Closed By: Last Modified By: Lesly Martinez RN Napier, Elizabeth A, RN Proffitt, Debbie, RN 04/29/20 09:57:46 04/29/20 09:24:19 04/29/20 08:28:23 Entry 7 Entry 8 Entry 9 Case Attendee PHILLIP VÁSQUEZ PEPPER, PATRICK, PA YORK, CAMELIA, SCRUB Outside Machinist TECH Role Performed Outside Machinist Physician it assistant Scrub, Second Time In 04/29/20 07:14:00 04/29/20 07:14:00 07/06/20 09:04:00 Time Out 04/29/20 12:31:00 04/29/20 12:31:00 04/29/20 10:25:00 Procedure Coronary Artery Bypass Coronary Artery Bypass Coronary Artery Bypass Graft, Vein [place] Graft, Vein [place] Graft, Vein [place] Endosaphenous, Endosaphenous, Endosaphenous, Transesophageal Transesophageal Transesophageal Echocardiogram Echocardiogram Echocardiogram Other Attendee Superficial Wound Closed By: Last Modified By: Shira Betancourt RN Proffitt, Debbie, RN Proffitt, Debbie, RN 04/29/20 12:31:18 04/29/20 12:31:18 04/29/20 10:25:40 Entry 10 Entry 11 Entry 12 Case Attendee Shira Betancourt RN Napier, Elizabeth A, RN BLAIR, NATHAN, ST Role Performed Systems Test Technician, First Systems Test Technician, Second Systems Test Technician, First Time In 04/29/20 09:00:00 04/29/20 09:20:00 04/29/20 10:12:00 Time Out 04/29/20 11:44:00 04/29/20 11:03:00 04/29/20 12:10:00 Procedure Coronary Artery Bypass Coronary Artery Bypass Coronary Artery Bypass Graft, Vein [place] Graft, Vein [place] Graft, Vein [place] Endosaphenous, Endosaphenous, Endosaphenous, Transesophageal Transesophageal Transesophageal Echocardiogram Echocardiogram Echocardiogram Other Attendee Superficial Wound Closed By: Last Modified By: Shira Betancourt RN Proffitt, Debbie, RN Proffitt, Debbie, RN 04/29/20 11:44:57 04/29/20 11:03:29 04/29/20 12:09:38 Entry 13 Entry 14 Entry 15 Case Attendee Lesly Martinez RN YORK, CAMELIA, SCRUB Proffitt, Debbie, RN TECH Role Performed Systems Test Technician, Second Scrub, First Systems Test Technician, First Time In 04/29/20 11:44:00 04/29/20 12:09:00 04/29/20 12:19:00 Time Out 04/29/20 12:31:00 04/29/20 12:31:00 04/29/20 12:31:00 Procedure Coronary Artery Bypass Coronary Artery Bypass Coronary Artery Bypass Graft, Vein [place] Graft, Vein [place] Graft, Vein [place] Endosaphenous, Endosaphenous, Endosaphenous, Transesophageal Transesophageal Transesophageal Echocardiogram Echocardiogram Echocardiogram Other Attendee Superficial Wound Closed By: Last Modified By: Shira Betancourt, Shira Garcia, Shira Garcia RN 04/29/20 12:31:18 04/29/20 12:31:18 04/29/20 12:31:18 [facility] IntraOp Case Attendance Audit 04/29/20 12:31:18 Paste Mixer: PROFITDE Modifier: PROFITDE 1 <+> Time Out 1 <*> Procedure Transesophageal Echocardiogram 2 <+> Time Out 2 <*> Procedure Coronary Artery Bypass Graft, Vein [place] Endosaphenous, Transesophageal Echocardiogram 3 <*> Procedure Coronary Artery Bypass Graft, Vein [place] Endosaphenous, Transesophageal Echocardiogram 4 <*> Procedure Coronary Artery Bypass Graft, Vein [place] Endosaphenous, Transesophageal Echocardiogram 5 <*> Procedure Coronary Artery Bypass Graft, Vein [place] Endosaphenous, Transesophageal Echocardiogram 6 <*> Procedure Coronary Artery Bypass Graft, Vein [place] Endosaphenous, Transesophageal Echocardiogram 7 <+> Time Out 7 <*> Procedure Coronary Artery Bypass Graft, Vein [place] Endosaphenous, Transesophageal Echocardiogram 8 <+> Time Out 8 <*> Procedure Coronary Artery Bypass Graft, Vein [place] Endosaphenous, Transesophageal Echocardiogram 9 <*> Procedure Coronary Artery Bypass Graft, Vein [place] Endosaphenous, Transesophageal Echocardiogram 10 <*> Procedure Coronary Artery Bypass Graft, Vein [place] Endosaphenous, Transesophageal Echocardiogram 11 <*> Procedure Coronary Artery Bypass Graft, Vein [place] Endosaphenous, Transesophageal Echocardiogram 12 <*> Procedure Coronary Artery Bypass Graft, Vein [place] Endosaphenous, Transesophageal Echocardiogram 13 <+> Time Out 13 <*> Procedure Coronary Artery Bypass Graft, Vein [place] Endosaphenous, Transesophageal Echocardiogram 14 <+> Time Out 14 <*> Procedure Coronary Artery Bypass Graft, Vein [place] Endosaphenous, Transesophageal Echocardiogram 15 <+> Time Out 15 <*> Procedure Coronary Artery Bypass Graft, Vein [place] Endosaphenous, Transesophageal Echocardiogram 04/29/20 12:23:00 Paste Mixer: PROFITDE Modifier: PROFITDE <+> 15 Case Attendee <+> 15 Role Performed <+> 15 Time In <+> 15 Procedure 04/29/20 12:09:38 Paste Mixer: PROFITDE Modifier: PROFITDE 12 <+> Time Out 12 <*> Procedure Coronary Artery Bypass Graft, Vein [place] Endosaphenous, Transesophageal Echocardiogram <+> 14 Case Attendee <+> 14 Role Performed <+> 14 Time In <+> 14 Procedure 04/29/20 11:44:58 Paste Mixer: PROFITDE Modifier: PROFITDE <+> 13 Time In <+> 13 Procedure 04/29/20 11:44:57 Paste Mixer: PROFITDE Modifier: PROFITDE 10 <+> Time Out 10 <*> Procedure Coronary Artery Bypass Graft, Vein [place] Endosaphenous, Transesophageal Echocardiogram <+> 13 Case Attendee <+> 13 Role Performed 04/29/20 11:03:29 Paste Mixer: PROFITDE Modifier: PROFITDE 11 <+> Time Out 11 <*> Procedure Coronary Artery Bypass Graft, Vein [place] Endosaphenous, Transesophageal Echocardiogram 04/29/20 10:25:40 Paste Mixer: PROFITDE Modifier: PROFITDE 9 <+> Time Out 9 <*> Procedure Coronary Artery Bypass Graft, Vein [place] Endosaphenous, Transesophageal Echocardiogram 04/29/20 10:25:10 Paste Mixer: EANAPIER Modifier: PROFITDE <+> 12 Case Attendee <+> 12 Role Performed <+> 12 Time In <+> 12 Procedure 04/29/20 09:57:46 Paste Mixer: EANAPIER Modifier: EANAPIER 4 <+> Time Out 4 <*> Procedure Coronary Artery Bypass Graft, Vein [place] Endosaphenous, Transesophageal Echocardiogram <+> 11 Case Attendee <+> 11 Role Performed <+> 11 Time In <+> 11 Procedure 04/29/20 09:27:29 Paste Mixer: EANAPIER Modifier: EANAPIER <+> 1 Procedure 2 <*> Procedure Coronary Artery Bypass Graft, Vein [place] Endosaphenous 3 <*> Procedure Coronary Artery Bypass Graft, Vein [place] Endosaphenous 4 <*> Procedure Coronary Artery Bypass Graft, Vein [place] Endosaphenous 5 <*> Procedure Coronary Artery Bypass Graft, Vein [place] Endosaphenous 6 <*> Procedure Coronary Artery Bypass Graft, Vein [place] Endosaphenous 7 <*> Procedure Coronary Artery Bypass Graft, Vein [place] Endosaphenous 8 <*> Procedure Coronary Artery Bypass Graft, Vein [place] Endosaphenous 9 <*> Procedure Coronary Artery Bypass Graft, Vein [place] Endosaphenous 10 <*> Procedure Coronary Artery Bypass Graft, Vein [place] Endosaphenous 04/29/20 09:24:19 Paste Mixer: PROFITDE Modifier: EANAPIER 3 <+> Time Out 3 <*> Procedure Coronary Artery Bypass Graft, Vein [place] Endosaphenous 5 <+> Time Out 5 <*> Procedure Coronary Artery Bypass Graft, Vein [place] Endosaphenous <+> 9 Case Attendee <+> 9 Role Performed <+> 9 Time In <+> 9 Procedure <+> 10 Case Attendee <+> 10 Role Performed <+> 10 Time In <+> 10 Procedure 04/29/20 08:28:23 Paste Mixer: PROFITDE Modifier: PROFITDE 6 <+> Time Out 6 <*> Procedure Coronary Artery Bypass Graft, Vein [place] Endosaphenous [facility] IntraOp Case Times Entry 1 Patient In Room Time 04/29/20 07:14:00 Out Room Time 04/29/20 12:31:00 Anesthesia Start Time 04/29/20 07:14:00 Stop Time 04/29/20 12:31:00 Anesthesia Ready 04/29/20 07:14:00 Surgery / Procedure Times Start Time 04/29/20 08:11:00 Stop Time 04/29/20 12:23:00 Last Modified By: Shira Betancourt RN 04/29/20 07:30:47 [facility] IntraOp Case Times Audit 04/29/20 12:31:14 Paste Mixer: PROFITDE Modifier: PROFITDE <+> 1 Stop Time 04/29/20 12:31:01 Paste Mixer: PROFITDE Modifier: PROFITDE 1 <+> Out Room Time 1 <+> Stop Time 1 <-> Stop Time 04/29/20 12:18:00 04/29/20 12:22:37 Paste Mixer: PROFITDE Modifier: PROFITDE <+> 1 Stop Time 04/29/20 08:18:59 Paste Mixer: PROFITDE Modifier: PROFITDE <+> 1 Start Time [facility] IntraOp Cautery Entry 1 Entry 2 ESU Identification Cautery Type Monopolar ESU Monopolar ESU Cautery Type Comments ID Number [id number] ID Type Hospital Number Hospital Number Cautery Settings Cut Setting 40 Coag Setting 60 30 Blend Setting BLEND BLEND Bipolar Setting Argon Setting Argon Blum ESU Grounding Pad Ground Pad Type Adult Adult Grounding Pad Type Comment Grounding Pad Site Right Buttock Left buttock Grounding Pad Site Comment Grounding Pad Shira Betancourt RN Proffitt, Debbie, MARY Applied By Grounding Pad Site Warm, Dry, Intact Warm, Dry, Intact Skin Condition Before Cautery Site Skin Condition WDL WDL Before Comment Grounding Pad Site Unchanged Unchanged Skin Condition After Cautery Site Skin Condition WDL WDL After Comment Last Modified By: Shira Betancourt RN Proffitt, Debbie, RN 04/29/20 07:40:03 04/29/20 07:40:03 [facility] IntraOp Communication Entry 1 Entry 2 Entry 3 Communication To Family/Significant other Other Other Comment INFORMED OF START CTVU INFORMED OF START ON PUMP CALLED TO [place] IN CTVU Communication By Shira Betancourt RN Proffitt, Debbie, RN Proffitt, Debbie, RN Date and Time 04/29/20 08:23:00 04/29/20 08:23:00 04/29/20 09:56:00 Last Modified By: Lesly Martinez RN Napier, Elizabeth A, RN Napier, Elizabeth A, RN 04/29/20 09:25:12 04/29/20 09:25:12 04/29/20 10:03:05 Entry 4 Entry 5 Entry 6 Communication To Family/Significant other Other Other Comment UPDATED--ON PUMP off pump called to ctvu CTVU CLOSING Communication By Shira Betancourt RN Proffitt, Debbie, RN Napier, Elizabeth A, RN Date and Time 04/29/20 09:56:00 04/29/20 11:31:00 04/29/20 11:51:00 Last Modified By: Lesly Martinez RN Proffitt, Debbie, RN Proffitt, Debbie, RN 04/29/20 10:03:05 04/29/20 11:44:13 04/29/20 11:50:30 [facility] IntraOp Communication Audit 04/29/20 11:50:30 Paste Mixer: PROFITDE Modifier: PROFITDE <+> 6 Communication By <+> 6 Date and Time <+> 6 Communication To <+> 6 Comment 04/29/20 11:44:13 Paste Mixer: JARVIS Modifier: PROFITDE <+> 5 Communication By <+> 5 Date and Time <+> 5 Communication To <+> 5 Comment 04/29/20 10:03:05 Paste Mixer: JARVIS Modifier: MARYURIPIER <+> 3 Communication By <+> 3 Date and Time <+> 3 Communication To <+> 3 Comment <+> 4 Communication By <+> 4 Date and Time <+> 4 Communication To <+> 4 Comment [facility] IntraOp Counts Verification Entry 1 Entry 2 Procedure Coronary Artery Bypass Coronary Artery Bypass Graft, Vein [place] Graft, Vein [place] Endosaphenous Endosaphenous, Transesophageal Echocardiogram Count Info Count Type Sponge, Sharps, Sponge, Sharps, Instrument, Instrument, Miscellaneous Miscellaneous Counts Verification Baseline/pre-procedure Before wound closure Sequence Count Results Not Applicable Correct, surgeon notified If Incorrect or Waived complete the Counts Action Taken form: If Intentional Retention, complete the Intential Retention form: Counts Performed By Count Performed By EV WHITLOCK ST BLAIR, NATHAN, ST (Scrub) Count Performed By Lesly Martinez RN Napier, Elizabeth A, RN (RN) Last Modified By: Shira Betancourt RN Proffitt, Debbie, RN 04/29/20 07:34:12 04/29/20 12:02:41 [facility] IntraOp Counts Verification Audit 04/29/20 12:02:41 Paste Mixer: PROFITDE Modifier: PROFITDE <+> 2 Procedure <+> 2 Count Type <+> 2 Counts Verification Sequence <+> 2 Count Results <+> 2 Count Performed By (Scrub) <+> 2 Count Performed By (RN) [facility] IntraOp Counts Final Entry 1 Procedure Coronary Artery Bypass Graft, Vein [place] Endosaphenous, Transesophageal Echocardiogram Final Count Info Count Type Sponge, Sharps, Miscellaneous Counts Verification Skin Closure/end of Sequence procedure Count Results Correct, surgeon notified Counts Performed By Count Performed By EV WHITLOCK ST (Scrub) Count Performed By Lesly Martinez RN (RN) Last Modified By: Shira Betancourt RN 04/29/20 12:03:02 [facility] IntraOp Delays Entry 1 Delay Reason Ancillary department delay Duration 14 Minute(s) Last Modified By: Shira Betancourt RN 04/29/20 07:33:21 [facility] IntraOp Departure from OR Entry 1 Integumentary Assessment Integumentary WDL Assessment WDL Transfer/Handoff Transfer to ICU - Cardiovascular Handoff Method Bedside/Face to face Post-op Transport Bed (including Via specialty) Patient Transport KANU RIVERA, Accompanied by PALU, PHILLIP VÁSQUEZ, Outside Machinist, MARY JANE LOUIS PA Transfer/Handoff CTVU UPDATED THROUGHOUT Comments CASE Last Modified By: Shira Betancourt RN 04/29/20 12:03:12 [facility] IntraOp Drains and Tubes Entry 1 Entry 2 Device Type Chest Tube Chest Tube Size 36 Fr. straight 36 Fr. right angle Drain/Tube Activity Tube Tube secured/stabilized, secured/stabilized, Inserted Inserted Drain/Tube Suction Drain/Tube Drainage Device Location Mediastinum Mediastinum Method of Drainage Continuous suction Continuous suction Chest Tubes Water-Seal 20 cm suction Water-Seal 20 cm suction Connectivity Tube Dressing Dry, Intact Dry, Intact Condition Surgical Drains and Tubes Irrigation Comment Last Modified By: Shira Betancourt RN Proffitt, Debbie, RN 04/29/20 07:40:31 04/29/20 07:40:31 [facility] IntraOp Dressing and Packing Entry 1 Entry 2 Type Dressing Dressing Location Chest Operative leg Wound Dressing Item 4x4's Reinier Wound Packing Type Tape Type Supplemental Applications Applied By MARY JANE LOUIS PA Other Comments Soft cloth paper tape Last Modified By: Shira Betancourt RN Proffitt, Debbie, RN 04/29/20 07:40:21 04/29/20 07:41:08 [facility] IntraOp Dressing and Packing Audit 04/29/20 07:41:08 Paste Mixer: PROFITDE Modifier: PROFITDE <+> 2 Type <+> 2 Location <+> 2 Wound Dressing Item <+> 2 Applied By [facility] IntraOp Fire Risk Assessment Entry 1 Fire Info Surgical Site or 1- Yes Incision Above the Xyphoid Open O2 Source 0- No (Mask or Cannula) Available Ignition 1- Yes (ESU, Laser, Light Source) Fire Risk 2 Assessment Score Fire Score Fire Risk Yes Assessment Complete Fire Risk Shira Betancourt RN Assessment Verified By Fire Risk 04/29/20 07:40:00 Assessment Verified Date/Time Fire Risk Standard Fire Yes Safety Precautions Followed Last Modified By: Shira Betancourt RN 04/29/20 07:40:08 [facility] IntraOp General Case Shell Reprint Operator 1 Case Information OR OR 14 [facility] Case Level 2 Room Verified Yes Wound Class I - Clean Specialty SN Cardio Thoracic Anesthesia Type General ASA Class 4 Diagnosis Preop Diagnosis CAD Postop Same As Preop Yes Postop Diagnosis CAD Last Modified By: Shira Betancourt RN 04/29/20 07:35:10 [facility] IntraOp General Case Data Audit 04/29/20 07:35:10 Paste Mixer: PROFITDE Modifier: PROFITDE <+> 1 ASA Class <+> 1 Anesthesia Type <+> 1 Postop Same As Preop <+> 1 Preop Diagnosis <+> 1 Postop Diagnosis <+> 1 Room Verified [facility] IntraOp Implant Log Entry 1 Type Implant (Synthetic) Implant Log Implant Type Marker Implant [employer] Identification [id number] Description Implant Quantity 2 Implant Site AORTA Implant [id number] Identification Model Number Implant [id number] Identification Lot Number Implant Has an Yes Expiration Date Implant Expiration 03/24/21 Date Tissue Implant Last Modified By: Shira Betancourt RN 04/29/20 10:36:06 [facility] IntraOp Intraoperative Assessment Entry 1 Handoff Report JEANNETTE Jaquez RN Received from Handoff Reported to Shira Betancourt RN Handoff Method Bedside/Face to face, Online nursing summary Valid History / Yes Physical in Chart Preoperative Yes Checklist Reviewed/Evaluated Allergies Reviewed Yes Patient is Latex No Sensitive Isolation Not applicable Precautions Noted Level of WDL Consciousness (WDL = Alert, Oriented to Person, Place, and Time) Patient's Normal WDL Level of Consciousness Variance(s) Skin Assessment Yes Verified Present Upon IVs Arrival to OR Last Modified By: Shira Betancourt RN 04/29/20 07:33:44 [facility] IntraOp Intraoperative Equipment Entry 1 Equipment Intraop Monitoring Electrocardiogram Five lead placement (ECG) Electrode Placement Blood Pressure Arterial Pressure Line Source Blood Pressure Arterial Location Pulse Oximeter Hand, left Probe Site Antiembolic Devices Scopes Photo/Video Documentation Last Modified By: Lesly Martinez RN 04/29/20 09:25:24 [facility] Intra[facility] Medication Admin Entry 1 Entry 2 Entry 3 Medication/Irrigant lidocaine 1% 30ml vial NS 0.9% 50ml injection Ancef 1Gm advantage - [id number] - [id number] vial - [id number] Combo Med List Time Administered Route of LOCAL FLUSH ON MOIST LAPS TO STERNUM Administration Dose Dose 8 30 1 Unit of Measure ml ml gram Volume Administered By MARY JANE LOUIS PA PEPPER, PATRICK, PA MOHAMMADZADEH, HAMID R, MD-CAT Procedure Irrigation Irrigant Volume In Irrigant Volume Out Last Modified By: Shira Betancourt RN Proffitt, Debbie, RN Proffitt, Debbie, RN 04/29/20 07:42:07 04/29/20 07:42:07 04/29/20 07:42:07 Entry 4 Entry 5 Medication/Irrigant papverine HCL 30mg/ml COMBO heparinized 10ml - [id number] Lactated Ringers 1000units/100ml - [id number] Combo Med List Time Administered Route of TOPICAL AND FLUSH FLUSH Administration Dose Dose 120 2000 Unit of Measure mg units Volume Administered By DAVID LUGO MOHAMMADZADEH, HAMID R, MD-CAT -CAT Procedure Irrigation Irrigant Volume In Irrigant Volume Out Last Modified By: Shira Betancourt RN Proffitt, Debbie, RN 04/29/20 07:42:07 04/29/20 10:36:39 [facility] Intra[facility] Medication Admin Audit 04/29/20 10:36:39 Paste Mixer: MINE Modifier: LILIANADE 5 <*> Medication/Irrigant COMBO heparinized Lactated Ringers 1000units/100ml - [id number] <*> Dose 1000 [facility] IntraOp Patient Positioning Entry 1 Procedure Coronary Artery Bypass Graft Body Position Supine Left Arm Position Tucked and padded at side Right Arm Position Tucked and padded at side Left Leg Position Uncrossed, parallel Right Leg Position Uncrossed, parallel Feet Uncrossed Yes Pressure Points Yes Checked Device Position LAZCANO HEADREST, TEMPURPEDIC MATTRESS, ULNAR NERVE PROTECTORS, SAFETY BELT PRE-PREP, SHOULDER ROLL, FOAM LEG POSITIONER Positioned By Shira Betancourt RN, KANU RIVERA MD-ANS, Lesly Martinez RN Position Verified Positioning Yes Verified by Anesthesia Positioning Yes Verified by Surgeon Last Modified By: Shira Betancourt RN 04/29/20 07:34:40 [facility] IntraOp Sign In Entry 1 Patient, Site, Yes Procedure Identified Surgical Consent Yes Confirmed Relevant Surgical Yes Documents Available Surgical Site N/A Marked by person performing procedure Anesthesia Machine Yes Check Completed Medication Checks Yes Completed Allergies Yes Airway Difficult Yes Airway/Aspiration Risk Difficult Yes Airway/Aspiration Intervention Equipment Available Blood Loss Risk Yes Blood Loss Yes Intervention Equipment Prepared and Ready Blood Identifiers Yes Verified Per Policy Hypothermia Risk Yes Warming Measures Yes Taken Last Modified By: Shira Betancourt RN 04/29/20 07:34:51 [facility] Intra[facility] Sign Out Entry 1 RN Confirmation Surgical Yes Procedure(s) Identified Instrument, Sponge Yes and Sharps Counts Correct/Documented Equipment Problems N/A Documented Specimen Labeled N/A Correctly Urinary Catheter Yes Documented in IView Olivares Patient Yes Recovery Concerns Reviewed with Anesthesia Provider, Surgeon and RN Olivares Patient Yes Management Concerns Reviewed with Anesthesia Provider, Surgeon and RN Safety Checklist Yes Elements Complete? RN Sign Out Shria Betancourt RN Signature RN Sign Out 04/29/20 12:31:00 Signature Date/Time Plan of Care Outcome - Fire Risk OUTCOME STATEMENT: Goal met Patient is free from injury related to surgical fire Plan of Care Outcome - Pt Positioning OUTCOME STATEMENT: Goal met Absence of signs and symptoms of positioning injury. Plan of Care Outcome - Skin Prep OUTCOME STATEMENT: Goal met Intraoperative care is consistent with measures to prevent infection Plan of Care Outcome - Xray/Images OUTCOME STATEMENT: N/A Absence of observable signs or symptoms of radiation injury Plan of Care Outcome - Counts OUTCOME STATEMENT: Goal met Absence of signs and symptoms of injury related to extraneous objects Last Modified By: Shira Betancourt RN 04/29/20 12:31:41 [facility] Intra[facility] Skin Prep Entry 1 Procedure Coronary Artery Bypass Graft, Vein [place] Endosaphenous Prescribed Yes Pre-Surgical Prep Completed Prep Area Chin to toes, legs circumferentially Intraop Prep Integumentary WDL Assessment WDL Patients Normal WDL Integumentary Variance(s) Prep Agents Chloraprep Prep by Lesly Martinez RN Skin Prep Comment D. MARY BETANCOURT Hair Removal Last Modified By: Lesly Martinez RN 04/29/20 09:26:22 [facility] Intra[facility] Skin Prep Audit 04/29/20 09:27:33 Paste Mixer: EANAPIER Modifier: EANAPIER 1 <*> Procedure Coronary Artery Bypass Graft, Vein [place] Endosaphenous [facility] IntraOp Surgical Procedures Entry 1 Entry 2 Entry 3 Procedure Coronary Artery Bypass Vein [place] Transesophageal Graft Endosaphenous Echocardiogram Modifiers Additional TYRON, MEDIANSTERNOTOMY, PER DR. RIVERA Procedure CABG, X3, DONOR SITES: Description RIGHT GREATER SAPHENOUS VEIN VIA EVH, GAMBINO, ON PUMP, APPLICATION OF PLATELET GEL TO CHEST Primary Procedure Yes No No Primary Surgeon DAVID LUGO, DAVID LUGO, DAVID LUGO, MD-CAT MD-CAT MD-CAT Start 04/29/20 08:11:00 04/29/20 08:11:00 04/29/20 08:11:00 Stop 04/29/20 12:23:00 04/29/20 10:12:00 04/29/20 12:23:00 Physician States Cecum Reached Anesthesia Type General General General Specialty SN Cardio Thoracic SN Cardio Thoracic SN Cardio Thoracic Wound Class I - Clean I - Clean II - Clean-Contaminated Last Modified By: Shira Betancourt, RN Shira Betancourt, RN Lesly Martinez RN 04/29/20 10:41:44 04/29/20 07:34:41 04/29/20 09:27:24 [facility] IntraOp Surgical Procedures Audit 04/29/20 12:31:24 Paste Mixer: PROFITDE Modifier: PROFITDE <+> 1 Stop <+> 3 Stop 04/29/20 10:41:44 Paste Mixer: PROFITDE Modifier: PROFITDE 1 <*> Procedure Coronary Artery Bypass Graft 1 <*> Additional Procedure Description TYRON, MEDIANSTERNOTOMY, CABG, X4, DONOR SITES: RIGHT GREATER SAPHENOUS VEIN VIA EVH, GAMBINO, ON PUMP, APPLICATION OF PLATELET GEL TO CHEST 04/29/20 10:25:22 Paste Mixer: EANAPIER Modifier: PROFITDE 2 <*> Procedure Vein [place] Endosaphenous 2 <+> Stop 04/29/20 09:28:40 Paste Mixer: EANAPIER Modifier: EANAPIER 1 <*> Procedure Coronary Artery Bypass Graft 1 <*> Additional Procedure Description (CABG, EVH) 04/29/20 09:27:24 Paste Mixer: PROFITDE Modifier: EANAPIER <+> 1 Start <+> 2 Start <+> 3 Procedure <+> 3 Primary Procedure <+> 3 Primary Surgeon <+> 3 Specialty <+> 3 Start <+> 3 Wound Class <+> 3 Anesthesia Type <+> 3 Additional Procedure Description [facility] IntraOp Temp Regulation Devices Entry 1 Temp Regulation Temperature Forced Air Warming Regulation Device device Temperature 01872 Regulation Device Serial/Unit Number Temperature Lower body Regulation Site Temperature Device 43 DEGREES C Setting Temperature Shira Betancourt RN Regulation Device Applied by Temperature TERESA HUGGER TURNED ON Regulation Comment AFTER AORTIC CROSS CLAMP REMOVED Last Modified By: Shira Betancourt RN 04/29/20 08:11:36 [facility] IntraOP Time Out Entry 1 Procedure to be Coronary Artery Bypass Performed Graft, Vein [place] Endosaphenous Time Out Time Out Pause Time 04/29/20 08:10:00 All activity Yes suspended (unless life threatening emergency) Team Verbally Correct patient Confirms Information identity, Consent form is present and accurate, Agreement on the procedure to be done, Correct patient position, Relevant images/results properly labeled/appropriately displayed, Confirm antibiotics have been administered, Confirm the skin prep has dried, Confirm prosthesis/implant/devic e is present, Performed in location of procedure after prepped/draped, Performed before each procedure if multiple procedures, Reconcile problems if responses among team members differ Time Out Comment on regular scheduled antibiotics, see anesthesia record for intrao doses of cefazolin 2 grams iv Antibiotic Yes Prophylaxis Administered Or In Progress Within the Last 60 Minutes Beta Snow Yes Administered Venous Yes Thromboembolism Prophylaxis Required Anticipated Critical Events Surgeon None expected Anesthesia Provider Patient specific concerns Nursing Assures Sterility of instruments Essential Imaging Yes Labeled and Displayed Last Modified By: Shira Betancourt RN 04/29/20 08:20:29 Case Comments <None> Finalized By: LUIZ BLUM Document Signatures Signed By: Shira Betancourt RN 04/29/20 12:31 LUIZ BLUM 05/02/20 11:17 Unfinalized History Date/Time Username Reason for Unfinalizing Freetext Reason for Unfinalizing 05/02/20 11:15 [id number] Correct Billing Electronically signed by Lizzie Mckoy Conversion [employer] Sales Representative Cerner at 02/07/2023 11:41 PM CDT documented in this encounter Plan of Treatment Upcoming Encounters Date Type Department Care Team (Late st Contact Info) Description 06/20/2025 2:30 PM EDT Office Visit [facility] Orthopedics - [address] [address] Mica Chu, PA-C [address] [place] [address] documented as of this encounter Visit Diagnoses Not on filedocumented in this encounter Care Teams Automatic Pilot Mechanic Relationship Specialty Start Date End Date Sotero Miller MD [address] [place] [address] PCP - General Adolescent Medicine 10/25/22 documented as of this encounter
--- OUTSIDE RECORDS SUMMARY | 2025-05-13 05:45 | XMS_ITS | Encounter Summary ---
Author Organization [employer] ([place], [place], [place], [place]) Address [address] [place] [address] Care Team Providers Care Global Risk Management Director Name Role Phone Sotero Miller MD Primary Care Provider [phone] Encounter Details Date Type Department Care Team (Late st Contact Info) Description 04/29/2020 Transcribed Document [facility] Pulm & Critical Care Medicine [address] [place] [address] [place], [place] [id number] [place] [address] [place] [address] [address] [place] [address] Social History Tobacco Use Types Packs/Day Years Used Date Smoking Tobacco: Never Assessed Sex and Gender Information Value Date Recorded Sex Assigned at Not on file Legal Sex Male 5:40 PM CDT Gender Identity Not on file Sexual Orientation Not on file documented as of this encounter Miscellaneous Notes * Cerner Conversion Note - Jeanne Gandara MD - 04/29/2020 3:44 PM EDT Patient: NICO LERNER Age: 70 years Sex: Male : 1950 Associated Diagnoses: None Author: JEANNE GANDARA MD Pulm CC Consult Note MD requesting: Dr. Deleon Reason for Consult: Post Op CABG Basic Information HPI: This patient is a 70 year old male with PMHX HTN. Presented to [facility] with chest pain 04/20. He was found to be having a STEMI and a LHC was performed. He was found to have MVCAD and was transferred to [facility] 04/22. Dr. Taylor did a repeat LHC on 04/22 that found MVCAD again and CTS was consulted. Dr. Deleon did a CABG x 3 today. Patient is post op and being weaned from vent per protocol. He currently is on a small amount of dopamine. No complications. PAST MEDICAL HISTORY: 1. Arthritis. 2. Coronary artery disease. 3. Hypertension. 4. Hyperlipidemia. PAST SURGICAL HISTORY: 1. History of stump surgery. 2. Heart cath. SOCIAL HISTORY: The patient used to be a smoker, but quit. Denies any alcohol or drug abuse. FAMILY HISTORY: Positive for heart disease. Review of Systems Unable to obtain: Due to clinical condition. Health Status Allergies: Allergic Reactions (Selected) Severity Not Documented Contrast Dye- Shortness of breath., Allergies (1) Active Reaction Contrast Dye Shortness of breath Current medications: (Selected) Inpatient Medications Ordered Bactroban 2% nasal ointment: 1 Application, Nostrils Both, BID D5-.2/10.LX 1,000 mL: 30 mL/Hr, IntraVENous Dextrose: 25 Gram, IV Push, 1-Time, PRN: Hypoglycemia DuoNeb 0.5 mg-2.5 mg/3 mL inhalation solution: 3 mL, Nebulized Inhalation, RT_Q4H, PRN: Shortness of Breath Insulin regular injection 100 Units + Sodium Chloride 0.9% intravenous solution 100 mL: Corrective Insulin Drip, IntraVENous Lasix: 20 mg, IV Push, 1-Time, PRN: Other (See Comment) Lipitor: 20 mg, Oral, At Bedtime Milk of Magnesia 8% oral suspension: 30 mL, Oral, Daily, PRN: Constipation Normal Saline Flush: 10 mL, IV Push, Q12H Normal Saline Flush: 10 mL, IV Push, See Comment, PRN: IV Use Pepcid: 20 mg, IV Push, BID Percocet 5/325 oral tablet: 2 Tab, Oral, Q4H, PRN: Pain (Moderate 4-6) Phenergan: 6.25 mg, IntraVENous, Q6H, PRN: Nausea Plavix: 75 mg, Oral, Daily Rocephin: 2 Gram, 100 mL/Hr, IV Piggyback, [id number] Senokot: 17.2 mg, Oral, At Bedtime Sodium Chloride 0.9% bolus: 250 mL, 500 mL/Hr, IV Piggyback, On-CALL, PRN: Hypotension Tylenol: 650 mg, Oral, Q4H, PRN: Other [...] IV Piggyback, 1-Time, PRN: Other (See Comment) dexmedetomidine injection 400 mcg + NaCl 0.9% for drip 100 mL: Titrate, IntraVENous doxycycline: 100 mg, Oral, BID hydrALAZINE: 10 mg, IV Push, Q6H, PRN: Hypertension magnesium sulfate: 1.5 Gram, 3 mL, 100 mL/Hr, IV Piggyback, Q8H metoprolol tartrate: 12.5 mg, Oral, BID morphine: 2 mg, IV Push, Q30Min, PRN: Pain (Severe 7-10) oxyCODONE: 5 mg, Oral, Q6H, PRN: Pain [...] 1.5 Tab, Oral, Daily, 0 Refill(s), Medications (35) Active Scheduled: (12) #NaCl 0.9% *FLUSH* inj 10 mL 10 mL, IV Push, Q12H ascorbic acid 500 mg tab 500 mg 1 Tab, Oral, BID aspirin EC 81 mg tab 81 mg 1 Tab, Oral, Daily atorvastatin 20 mg tab 20 mg 1 Tab, Oral, At Bedtime cefTRIAXone 2 Gram, IV Piggyback, [id number] clopidogrel 75 mg tab 75 mg 1 Tab, Oral, Daily doxycycline hyclate 100 mg cap 100 mg 1 Cap, Oral, BID famotidine 20 mg/2 mL inj 20 mg 2 mL, IV Push, BID magnesium sulfate 50% 1.5 Gram 3 mL, IV Piggyback, Q8H metoprolol tartrate 25 mg tab 12.5 mg 0.5 Tab, Oral, BID mupirocin 2% nasal oint 1 g 1 Application, Nostrils Both, BID senna 8.6 mg tab 17.2 mg 2 Tab, Oral, At Bedtime Continuous: (3) D5w/NaCl 0.2% 1,000 mL 1,000 mL, IntraVENous, 30 mL/Hr dexmedetomidine 400 mcg + NaCl 0.9% TITRATE 100 mL 100 mL, IntraVENous insulin regular 100 Units + NaCl 0.9% 100 mL 100 mL, IntraVENous PRN: (20) #NaCl 0.9% *FLUSH* inj 10 mL 10 [...] 1 Gram 10 mL, IV Piggyback, 1-Time dextrose 50% 25 g/50 mL inj syr 25 Gram 50 mL, IV Push, 1-Time furosemide 20 mg/2 mL inj 20 mg 2 mL, IV Push, 1-Time hydrALAZINE 20 mg/1 mL inj 10 mg 0.5 mL, IV Push, Q6H magnesium hydroxide 8% liq 30 mL 30 mL, Oral, Daily morphine 2 mg/1 ml inj 2 mg 1 mL, IV Push, Q30Min NaCl 0.9% 250 mL, IV Piggyback, On-CALL ondansetron 4 mg/2 mL inj 4 mg 2 mL, IV Push, Q4H oxyCODONE 5 mg tab 5 mg 1 Tab, Oral, Q6H potassium chloride 10 mEq 50 mL, IV Piggyback, Q1H promethazine 25 mg/1 mL inj 6.25 mg 0.25 mL, IntraVENous, Q6H sodium bicarbonate 50 mEq/50 ml inj syr 50 mEq 50 mL, IV Push, 1-Time sodium bicarbonate 50 mEq/50 ml inj syr 100 mEq 100 mL, IV Push, 1-Time Problem list: All Problems Acute ST elevation myocardial infarction (STEMI) / 8428952435 / Confirmed Arthritis / [id number] / Confirmed At risk for sleep apnea / 15950224 / Confirmed CAD (coronary artery disease) / 38390295 / Confirmed Chronic hypertension / 9410977909 / Confirmed Hypertension / 0472851347 / Confirmed Acute kidney injury / 19706866 / Confirmed Stage 3 severe COPD by GOLD classification / 325709552 / Confirmed, Active Problems (8) Acute kidney injury Acute ST elevation myocardial infarction (STEMI) Arthritis At risk for sleep apnea CAD (coronary artery disease) Chronic hypertension Hypertension Stage 3 severe COPD by GOLD classification Physical Examination VS/Measurements Vitals Signs (last 24 hrs) Last Charted Minimum Maximum Temp L 96.4 (APR 29 14:00) L 96.4 (APR 29 14:00) 97.7 (APR 29 00:16) Mon HR 58 (APR 29 14:15) 48 (APR 29 05:44) 73 (APR 29 12:40) Resp Rate 15 (APR 29 14:15) 14 (APR 29 04:35) H 33 (APR 29 13:00) SBP 105 (APR 29 14:15) 99 (APR 29 13:30) H 161 (APR 29 05:44) DBP L 59 (APR 29 14:15) L 50 (APR 29 13:30) H 95 (APR 29 05:44) MAP 69 (APR 29 14:15) 59 (APR 29 13:30) 112 (APR 29 04:35) SpO2 96 (APR 29 14:15) L 91 (APR 29 12:40) 98 (APR 29 05:44) Review / Management Results review: Labs (Last four charted values) WBC H 29.0 (APR 29) H 13.3 (APR 29) H 16.0 (APR 28) H 16.4 (APR 27) HB 13.7 (APR 29) 16.5 (APR 29) 16.9 (APR 28) H 17.4 (APR 27) HCT 41.7 (APR 29) 49.9 (APR 29) 50.9 (APR 28) H 52.2 (APR 27) Plt 173 (APR 29) 248 (APR 29) 268 (APR 28) 247 (APR 27) Na 137 (APR 29) L 134 (APR 29) 136 (APR 28) L 133 (APR 27) K 4.7 (APR 29) 4.5 (APR 29) 4.7 (APR 28) 5.1 (APR 27) Cl 105 (APR 29) 103 (APR 29) 103 (APR 28) 102 (APR 27) CO2 23 (APR 29) 27 (APR 29) 27 (APR 28) 28 (APR 27) BUN 14 (APR 29) 16 (APR 29) 21 (APR 28) H 27 (APR 27) Cr 1.00 (APR 29) 1.20 (APR 29) 1.30 (APR 28) H 1.40 (APR 27) Glu R H 197 (APR 29) 104 (APR 29) H 136 (APR 28) H 112 (APR 27) Ca L 8.2 (APR 29) 9.1 (APR 29) 9.0 (APR 28) 9.0 (APR 27) Lactic 1.4 (APR 22) 1.6 (APR 21) [...] 26.000 (APR 22) C 46.200 (APR 21) . APR 29 12:55 137 105 14 / H 197 4.7 23 1.00 \ APR 29 12:55 \ 13.7 / H 29.0 173 / 41.7 \ Radiology Results (Last 48 hours) [id number] -- 04/21/2020 16:53 CR Chest 1 Vw Portable (04/28/2020 10:25) Result: PROCEDURE: CR Chest 1 Vw Portable HISTORY: Chest pain.COMPARISON: 04/26/2020.FINDINGS: The heart is normal in size. The mediastinum is unremarkable.The lungs are clear. There is no pneumothorax. There are no acuteosseous abnormalities. IMPRESSION: No acute cardiopulmonary process.Continued follow-up is recommended. CR Chest 1 Vw Portable (04/29/2020 12:55) Result: PORTABLE CHEST 04/29/2020 12:12 PM HISTORY: Postop heart surgery.COMPARISON: April 28, 2020.FINDINGS: The heart is mildly to moderately enlarged The mediastinum isunremarkable. The patient is status post interval median sternotomy.Endotracheal tube tip terminates 3.5 cm above the magnus. Leftsubclavian [place] catheter tip terminates in the left brachiocephalicvein. There is bibasilar atelectasis. There is no pneumothorax. IMPRESSION: Postoperative changes with bibasilar atelectasis.Images reviewed, interpreted, and dictated by Dr. aMc Luis.Transcribed by GUANAKO Storey have personally viewed, interpreted and dictated the examination. Ihave read and agree with the above final transcribed report. SPIROMETRY DATA: FEV1 is 1.38 L (46%), [...] normal limits. 4. Clinical correlation is advised. Impression and Plan Post Operative vent weaning - Post Op CABG x 3. - STEMI - HTN - Family history CAD - COPD- Gold Stage 3 Plan: Extubate per protocol Wean pressors as able/per CTS protocol Chest tubes being managed by CTS Glycemic control per protocol Replace electrolytes per protocol AM Labs/CXR/ABG Pulm and CCM Attending Note: I have performed personally face to face diagnostic evaluation of this patient, I reviewed Labs as well as Radiology data and Medications, I discussed with allied staff patient???s condition and discussed findings, I formulated above diagnoses/impression and plan . I also discussed my impression and plan for the day with patient???s nurse Patient requires a high complexity of decision making for assessment. thanks cornel Jean Baptiste documented in this encounter Plan of Treatment Upcoming Encounters Date Type Department Care Team (Late st Contact Info) Description 06/20/2025 2:30 PM EDT Office Visit [facility] Orthopedics - [address] [address] Mica Chu PA-C [address] [place] [address] documented as of this encounter Visit Diagnoses Not on filedocumented in this encounter Care Teams Global Risk Management Director Relationship Specialty Start Date End Date Sotero Miller MD [address] [place] [address] PCP - General Adolescent Medicine 10/25/22 documented as of this encounter
--- OUTSIDE RECORDS SUMMARY | 2025-05-13 05:45 | XMS_ITS | Encounter Summary ---
Author Organization [employer] ([place], [place], [place], [place]) Address [address] [place] [address] Care Team Providers Care Punch Molder Name Role Phone Sotero Miller MD Primary Care Provider + [phone] Encounter Details Date Type Department Care Team (Late st Contact Info) Description 05/01/2020 Transcribed Document [facility] Family Medicine [address] [place] [address] ProviderMk MD [address] [place], [place] [id number] Social History Tobacco Use Types Packs/Day Years Used Date Smoking Tobacco: Never Assessed Sex and Gender Information Value Date Recorded Sex Assigned at Not on file Legal Sex Male 5:40 PM CDT Gender Identity Not on file Sexual Orientation Not on file documented as of this encounter Miscellaneous Notes * [employer] Conversion Note - Mk ProviderMD - 05/01/2020 7:11 PM CDT Pain Assessment Entered On: 05/01/2020 22:59 EDT Performed On: 05/01/2020 20:39 EDT by Veronique Adamson RN Intervention Information: oxyCODONE Performed by Marquise White RN on 05/01/2020 19:39:00 EDT oxyCODONE,10mg Oral,Pain (Moderate 4-6) Pain Assessment Pain Assessment : Follow-up assessment Pain Scale Goal : 3 Pain Scale Used : 0-10 Scale Veronique Adamson RN - 05/01/2020 22:58 EDT Pain Scale Intensity : 2 Veronique Adamson RN - 05/01/2020 22:58 EDT Image 4 - Images currently included in the form version of this document have not been included in the text rendition version of the form. documented in this encounter Plan of Treatment Upcoming Encounters Date Type Department Care Team (Late st Contact Info) Description 06/20/2025 2:30 PM EDT Office Visit [facility] Orthopedics - [address] [address] Mica Chu PA-C [address] [place] [address] documented as of this encounter Visit Diagnoses Not on filedocumented in this encounter Care Teams Punch Molder Relationship Specialty Start Date End Date Sotero Miller MD [address] [place] [address] PCP - General Adolescent Medicine 10/25/22 documented as of this encounter
--- OUTSIDE RECORDS SUMMARY | 2025-05-13 05:45 | XMS_ITS | Encounter Summary ---
Author Organization [employer] ([place], [place], [place], [place]) Address [address] [place] [address] Care Team Providers Care Protective Service Specialist Name Role Phone Sotero Miller MD Primary Care Provider + [phone] Encounter Details Date Type Department Care Team (Late st Contact Info) Description 05/02/2020 Transcribed Document [facility] [place] [facility] [place] [address] ProviderMk MD [address] [place], [place] [address] Social History Tobacco Use Types Packs/Day Years Used Date Smoking Tobacco: Never Assessed Sex and Gender Information Value Date Recorded Sex Assigned at Not on file Legal Sex Male 5:40 PM CDT Gender Identity Not on file Sexual Orientation Not on file documented as of this encounter Miscellaneous Notes * [employer] Conversion Note - Mk ProviderMD - 05/02/2020 2:00 AM CDT Journeyman Welder Details Entered On: 05/02/2020 0:22 EDT Performed On: 05/02/2020 2:00 EDT by Veronique Adamson RN Order Details Transport Mode Order Detail : Wheelchair Isolation Precautions Order Detail : Standard Precautions Order Detail : N/A IV Order Detail : 1 Oxygen Order Detail : 1 Nurse Collect Order Detail : 0 Lift/Transfer : Minimal Central Line Order Detail : No Room Service : Appropriate Arterial Line : No Veronique Adamson RN - 05/02/2020 0:22 EDT documented in this encounter Plan of Treatment Upcoming Encounters Date Type Department Care Team (Late st Contact Info) Description 06/20/2025 2:30 PM EDT Office Visit [facility] Orthopedics - [address] [phone] Mica Chu PA-C [address] [place] [address] documented as of this encounter Visit Diagnoses Not on filedocumented in this encounter Care Teams Protective Service Specialist Relationship Specialty Start Date End Date Sotero Miller MD [address] [place] [address] PCP - General Adolescent Medicine 10/25/22 documented as of this encounter
--- OUTSIDE RECORDS SUMMARY | 2025-05-13 05:45 | XMS_ITS | Encounter Summary ---
Author Organization [employer] ([place], [place], [place], [place]) Address [address] [place] [address] Care Team Providers Care Lockstitch Shoulder Joiner Name Role Phone Sotero Miller MD Primary Care Provider + [phone] Encounter Details Date Type Department Care Team (Late st Contact Info) Description 04/22/2020 Transcribed Document [facility] [facility] [place] [address] ProviderMk MD [address] [place] [address] Social History Tobacco Use Types Packs/Day Years Used Date Smoking Tobacco: Never Assessed Sex and Gender Information Value Date Recorded Sex Assigned at Not on file Legal Sex Male 5:40 PM CDT Gender Identity Not on file Sexual Orientation Not on file documented as of this encounter Miscellaneous Notes * [employer]ner Conversion Note - Mk Mac MD - 04/22/2020 10:07 AM CDT On Going Discharge Planning Entered On: 04/22/2020 10:08 EDT Performed On: 04/22/2020 10:07 EDT by KARENA DONNELLY Rn-Supervisor CabinetmakerWearing Apparel Shaker Progress Note Discharge Arrangements : Patient Post-Acute [...] Meeting Medical Necessity : Yes KARENA DONNELLY Rn-Supervisor Cabinetmaker - 04/22/2020 10:07 EDT Narrative Progress Note Narrative Progress Note : DCP - anticipate home without needs; continue to follow. KARENA DONNELLY Rn-Supervisor Cabinetmaker - 04/22/2020 10:07 EDT Electronically signed by [facility] Conversion Route Specialist Cerner at 02/07/2023 11:47 PM CDT documented in this encounter Plan of Treatment Upcoming Encounters Date Type Department Care Team (Late st Contact Info) Description 06/20/2025 2:30 PM EDT Office Visit [facility] Orthopedics - [address] [phone] Mica Chu PA-C [address] [place] [address] documented as of this encounter Visit Diagnoses Not on filedocumented in this encounter Care Teams Lockstitch Shoulder Joiner Relationship Specialty Start Date End Date Sotero Miller MD [address] [place] [address] PCP - General Adolescent Medicine 10/25/22 documented as of this encounter
--- OUTSIDE RECORDS SUMMARY | 2025-05-13 05:45 | XMS_ITS | Encounter Summary ---
Author Organization [employer] ([place], [place], [place], [place]) Address [address] [place] [address] Care Team Providers Care Tool Maker Apprentice Name Role Phone Sotero Miller MD Primary Care Provider + [phone] Encounter Details Date Type Department Care Team (Late st Contact Info) Description 05/01/2020 Transcribed Document [facility] [place] Family Medicine [facility] [address] ProviderMk MD [address] [place] [address] Social History Tobacco Use Types Packs/Day Years Used Date Smoking Tobacco: Never Assessed Sex and Gender Information Value Date Recorded Sex Assigned at Not on file Legal Sex Male 5:40 PM CDT Gender Identity Not on file Sexual Orientation Not on file documented as of this encounter Miscellaneous Notes * Cerner Conversion Note - Mk Mac MD - 05/01/2020 12:08 PM CDT Patient: GILBERT LERNER Age: 70 years Sex: Male : 1950 Associated Diagnoses: None Author: JUVE VOGEL, BUDGET CONTROLLER-CTS Admission Date: Admitting: Dr. Jose M Massey PCP: Dr. Taz Miller CARD:Dr. Eugenio Peacock, [place], [place] Consultants:Dr. Brenda Farrar, Cardiology Dr. Ladonna [...] NQWMI, 03/31/20 Acute pulmonary edema secondary to [place] Unstable angina Strong family Hx of CAD [...] POD#2 Sore; sitting in chair; appears content Health Status Allergies: Allergic Reactions (Selected) Severity Not Documented Contrast Dye- Shortness of breath. Current medications.Problem list. Objective VS/Measurements Vital Measurements 05/01/2020 10:04 EDT Systolic Blood Pressure 100 mmHg Diastolic Blood Pressure 63 mmHg Temperature, Fahrenheit 98.1 Deg F Heart Rate Monitored 75 bpm Oxygen Saturation 94 % Oxygen Therapy Mode Nasal cannula Oxygen Flow Rate 2 Liter/Min General: Alert and oriented. Respiratory: Lungs are clear to auscultation, anteriorly. Cardiovascular: Normal rate, Regular rhythm. Gastrointestinal: Soft, Non-tender, Non-distended. Sternal incision>> Aquacell dressing RLE incision>> C D I Results Review General results Today's results 05/01/2020 5:25 EDT Sodium Level 135 mmol/L LOW Potassium Level 5.1 mmol/L Chloride Level 102 mmol/L Carbon Dioxide Level 27 mmol/L Anion Gap 11 Glucose Level 141 mg/dL HI Blood Urea Nitrogen 22 mg/dL Creatinine Level 1.50 mg/dL HI eGFR 56 mL/min/1.73m2 LOW eGFR NonAfrican 46 mL/min/1.73m2 LOW Bun/Creatinine 14.7 Calcium Level 9.1 mg/dL Magnesium Level 3.2 mg/dL HI Phosphorus 4.4 mg/dL Calcium Ionized 1.22 mmol/L WBC 23.8 K/uL HI RBC 4.13 Million/uL LOW Hgb 12.5 g/dL LOW Hct 38.4 % LOW MCV 93.0 fL MCH 30.3 pg MCHC 32.6 Gram/dL Platelet Count 175 K/uL Interpretation: Radiology Results (Last 48 hours) [id number] -- 04/21/2020 16:53 CR Chest 1 Vw Portable (04/29/2020 12:55) Result: PORTABLE CHEST 04/29/2020 12:12 PM HISTORY: Postop heart surgery.COMPARISON: April 28, 2020.FINDINGS: The heart is mildly to moderately enlarged The mediastinum isunremarkable. The patient is status post interval median sternotomy.Endotracheal tube tip terminates 3.5 cm above the magnus. Leftsubclavian Converse-Phil catheter tip terminates in the left brachiocephalicvein. There is bibasilar atelectasis. There is no pneumothorax. IMPRESSION: Postoperative changes with bibasilar atelectasis.Images reviewed, interpreted, and dictated by Dr. Mac Luis.Transcribed by GUANAKO Storey have personally viewed, interpreted and dictated the examination. Ihave read and agree with the above final transcribed report. CR Chest 1 Vw Portable (04/30/2020 04:32) Result: PORTABLE CHEST 04/30/2020 11:12 AM HISTORY: Thoracic surgery .COMPARISON: Film obtained the previous day .FINDINGS: The heart is mildly enlarged. The patient is status postmedian sternotomy. The pleural effusions and bibasilar infiltrates haveworsened in the interim. There is no pneumothorax. The support devicesare in good position. The endotracheal tube has been removed in theinterim. IMPRESSION: Interval extubation. Continued follow up recommended.Images reviewed, interpreted, and dictated by Dr. Ahsan Chong.Transcribed by Cristian Vasquez(R).I have personally viewed, interpreted and dictated the examination. Ihave read and agree with the above final transcribed report. CR Chest 1 Vw Portable (05/01/2020 05:53) Result: CHEST SINGLE VIEWCOMPARISON: Chest from 30 April 2020.HISTORY: Pleural effusion.FINDINGS: Cardiac silhouette is moderately enlarged. Multiple mediansternotomy wires are present. Nasogastric tube has been removed. Leftsubclavian Converse-Phil catheter has been removed. A left large bore chesttube is present. There is no evidence of pneumothorax. Mild bibasilaratelectasis is present.IMPRESSION:1. Cardiomegaly with bibasilar atelectasis, as described.Images reviewed, interpreted, and dictated by Mac Luis MD 04/22/20 Carotid U\S>> RIGHT: Intimal thickening only [...] Lasix 40mg IV x 1 Transfer [facility] today per Dr. Pagan 05/01/20 POD#2 [...] tomorrow, will need Lactulose \ Ducolax combo documented in this encounter Plan of Treatment Upcoming Encounters Date Type Department Care Team (Late st Contact Info) Description 06/20/2025 2:30 PM EDT Office Visit [facility] Orthopedics - [address] [phone] Mica Chu PA-C [address] [place] [address] documented as of this encounter Visit Diagnoses Not on filedocumented in this encounter Care Teams Tool Maker Apprentice Relationship Specialty Start Date End Date Sotero Miller MD [address] [place] [address] PCP - General Adolescent Medicine 10/25/22 documented as of this encounter
--- OUTSIDE RECORDS SUMMARY | 2025-05-13 05:45 | XMS_ITS | Encounter Summary ---
Author Organization [employer] ([place], [place], [place], [place]) Address [address] [place] [address] Care Team Providers Care Tenter Frame Back Tender Name Role Phone Sotero Miller MD Primary Care Provider + [phone] Encounter Details Date Type Department Care Team (Late st Contact Info) Description 05/05/2020 Transcribed Document [facility] [facility] [place] [address] ProviderMk MD [address] [place] [address] Social History Tobacco Use Types Packs/Day Years Used Date Smoking Tobacco: Never Assessed Sex and Gender Information Value Date Recorded Sex Assigned at Not on file Legal Sex Male 5:40 PM CDT Gender Identity Not on file Sexual Orientation Not on file documented as of this encounter Miscellaneous Notes * Cerner Conversion Note - Mk Mac MD - 05/05/2020 10:35 AM CDT Patient: GILBERT LERNER Age: 70 years Sex: Male : 1950 Associated Diagnoses: None Author: MARY JANE LOUIS PA Admission Date: Admitting: Dr. Jose M Massey PCP: Dr. Taz Miller CARD:Dr. Eugenio Peacock, [place], [place] Consultants:Dr. Brenda Farrar, Cardiology Dr. Ladonna Pagan, CT Surgery Dr. Jeanne Gandara, Pulmonary Brief History:Gilbert Lerner is a 70-year-old male who presented to outside hospital with complaint of significant amount of chest pain. At [facility], the patient underwent further evaluation and [...] NQWMI, 03/31/20 Acute pulmonary edema secondary to [place] Unstable angina Strong family Hx of CAD [...] results Interpretation: Radiology Results (Last 48 hours) [id number] -- 04/21/2020 16:53 CR Chest 1 Vw Portable (05/04/2020 07:27) Result: PORTABLE CHEST; HISTORY: Pleural effusion.COMPARISON: May 03, 2020.FINDINGS: The heart is stable in size. The lung flanagan demonstrate nosignificant change in the left pleural effusion or the left lower lobeopacity. There is no pneumothorax. The patient is status post mediansternotomy for prior CABG. IMPRESSION: There has been no significant interval change. Continued followup is recommended.Images reviewed, interpreted, and dictated by Dr. Ahsan Chong.Transcribed by Lindy Smith PA-C.I have personally viewed, interpreted and dictated the examination. Ihave read and agree with the above final transcribed report. CR Chest 1 Vw Portable (05/05/2020 07:10) Result: PORTABLE CHEST; HISTORY: Pleural effusion.COMPARISON: May 04, 2020.FINDINGS: The heart is stable in size. The lung flanagan demonstrate nosignificant change in the small left pleural effusion. There is nopneumothorax. The patient is status post median sternotomy for priorCABG.IMPRESSION: There has been no significant interval change in the smallleft pleural effusion.Continued followup is recommended.Images reviewed, interpreted, and dictated by Dr. Ahsan Chong.Transcribed by Lindy Smith PA-C.I have personally viewed, [...] Lasix 40mg IV x 1 Transfer [facility] today per Dr. Pagan 05/01/20 [...] incisional pain #42 on chart) Cardiac Rehab: [facility] 05/03/20 Telemetry>> New A fib with [...] discontinue IV amiodarone tomorrow Hopefully home tomorrow 05/05/20 Home today. Will need home O2. Nurse making arrangements for this. documented in this encounter Plan of Treatment Upcoming Encounters Date Type Department Care Team (Late st Contact Info) Description 06/20/2025 2:30 PM EDT Office Visit [facility] Orthopedics - [address] [phone] Mica Chu PA-C [address] [place] [address] documented as of this encounter Visit Diagnoses Not on filedocumented in this encounter Care Teams Tenter Frame Back Tender Relationship Specialty Start Date End Date Sotero Miller MD [address] [place] [address] PCP - General Adolescent Medicine 10/25/22 documented as of this encounter
--- OUTSIDE RECORDS SUMMARY | 2025-05-13 05:45 | XMS_ITS | Encounter Summary ---
Author Organization [employer] ([place], [place], [place], [place]) Address [address] [place] [address] Care Team Providers Care Machine Strap Buckler Name Role Phone Sotero Miller MD Primary Care Provider + [phone] Encounter Details Date Type Department Care Team (Late st Contact Info) Description 04/30/2020 Transcribed Document [facility] [place] Family Medicine [facility] [place] [address] ProviderMk MD [address] [place], [place] [id number] Social History Tobacco Use Types Packs/Day Years Used Date Smoking Tobacco: Never Assessed Sex and Gender Information Value Date Recorded Sex Assigned at Not on file Legal Sex Male 5:40 PM CDT Gender Identity Not on file Sexual Orientation Not on file documented as of this encounter Miscellaneous Notes * Cerner Conversion Note - Mk ProviderMD - 04/30/2020 8:08 PM CDT Event Note Entered On: 04/30/2020 20:12 EDT Performed On: 04/30/2020 20:08 EDT by KRISTINA DARLING RN Event Note Event Date/Time : 04/30/2020 18:38 EDT Description of Event : Arrived to the floor from [facility]VU. MT hooked to suction o2 at 2 LPM 92% sitting in chair, oriented to room VSS. No questions at this time. Pain medication provided. KRISTINA DARILNG RN - 04/30/2020 20:08 EDT documented in this encounter Plan of Treatment Upcoming Encounters Date Type Department Care Team (Late st Contact Info) Description 06/20/2025 2:30 PM EDT Office Visit [facility] Orthopedics - [address] [phone] Mica Chu PA-C [address] [place] [address] documented as of this encounter Visit Diagnoses Not on filedocumented in this encounter Care Teams Machine Strap Buckler Relationship Specialty Start Date End Date Sotero Miller MD [address] [place] [address] PCP - General Adolescent Medicine 10/25/22 documented as of this encounter
--- OUTSIDE RECORDS SUMMARY | 2025-05-13 05:45 | XMS_ITS | Encounter Summary ---
Author Organization [employer] ([place], [place], [place], [place]) Address [address] [place] [address] Care Team Providers Care Structural Steel Erection Supervisor Name Role Phone Sotero Miller MD Primary Care Provider [phone] Encounter Details Date Type Department Care Team (Late st Contact Info) Description 05/02/2020 Transcribed Document [facility] [place] Family Medicine [address] [place] [address] ProviderMk MD [address] [place] [address] Social History Tobacco Use Types Packs/Day Years Used Date Smoking Tobacco: Never Assessed Sex and Gender Information Value Date Recorded Sex Assigned at Not on file Legal Sex Male 5:40 PM CDT Gender Identity Not on file Sexual Orientation Not on file documented as of this encounter Miscellaneous Notes * Cerner Conversion Note - Mk Mac MD - 05/02/2020 11:12 AM CDT UM Authorization Entered On: 05/02/2020 11:12 EDT Performed On: 05/02/2020 11:12 EDT by KLAUS QUIROS, Concession Stand Attendant Primary Insurance Authorization Authorization and Policy Numbers : Insurance 1 Health Plan: [employer] Policy Number: [id number] Authorization Number: Insurance 2 Health Plan: MEDICARE Policy Number: [id number] Authorization Number: Insurance Primary Name : [employer] Policy Number: [id number] Authorization Status-Primary : Admit approved Reference Number-Primary : [id number] Number of Days Authorized-Primary : 11 Day(s) Authorized Service Begin Date-Primary : 04/21/2020 EDT Authorized Service End Date-Primary : 05/02/2020 EDT Authorization Comments-Primary : Rec fax from [place] cont stay approved total of 12 days NRD 05-03-2020 Historical Authorization Comments-Primary : Comment 1: Per Avail[employer], Ipt Auth approved 12 days. NRD 05/03. (CHON ANDREWS, Rn-Utilization Review 05/02/2020 10:53) Comment 2: clinicals faxed via [employer] for cont stay for dos 04/29-04/30/2020 (CATHI DEAL, RN-Utilization Review 04/30/2020 13:10) Comment 3: Per Availity, Inpt Auth approved 5 days. Faxed additional clinicals for 04/26-04/28. (CHON ANDREWS, Rn-Utilization Review 04/29/2020 10:35) Comment 4: Faxed clinicals via [employer] for 04/23-04/25. (CHON ANDREWS, Rn-Utilization Review 04/25/2020 10:33) Comment 5: Per Availity, Inpt Auth approved 4 days. NRD 04/25. (CHON ANDREWS, Rn-Utilization Review 04/24/2020 09:13) Comment 6: clinicals faxed via [employer] for cont stay for dos 04/23/2020 (CATHI DEAL, RN-Utilization Review 04/23/2020 13:09) Comment 7: submitted on availity for IP auth w/ clinicals attached (CATHI DEAL, RN-Utilization Review 04/22/2020 09:38) KLAUS QUIROS, Concession Stand Attendant - 05/02/2020 11:12 EDT documented in this encounter Plan of Treatment Upcoming Encounters Date Type Department Care Team (Late st Contact Info) Description 06/20/2025 2:30 PM EDT Office Visit [facility] Orthopedics - [address] [phone] Mica Chu, PAMaddieC [address] [place] [address] documented as of this encounter Visit Diagnoses Not on filedocumented in this encounter Care Teams Structural Steel Erection Supervisor Relationship Specialty Start Date End Date Sotero Miller MD [address] [place] [address] PCP - General Adolescent Medicine 10/25/22 documented as of this encounter
--- OUTSIDE RECORDS SUMMARY | 2025-05-13 05:45 | XMS_ITS | Encounter Summary ---
Author Organization [employer] ([place], [place], [place], [place]) Address [address] [place] [address] Care Team Providers Care Utility Inspector Name Role Phone Sotero Miller MD Primary Care Provider + [phone] Encounter Details Date Type Department Care Team (Late st Contact Info) Description 04/30/2020 Transcribed Document [facility] [place] Family Medicine [address] [place] [address] ProviderMk MD [address] [place], [place] [phone] Social History Tobacco Use Types Packs/Day Years Used Date Smoking Tobacco: Never Assessed Sex and Gender Information Value Date Recorded Sex Assigned at Not on file Legal Sex Male 5:40 PM CDT Gender Identity Not on file Sexual Orientation Not on file documented as of this encounter Miscellaneous Notes * Cerner Conversion Note - Mk ProviderMD - 04/30/2020 5:00 AM CDT Height and Weight, Routine Entered On: 04/30/2020 7:23 EDT Performed On: 04/30/2020 5:00 EDT by Sadie Mack RN Height and Weight, Routine Routine Weight Source : Bed scale Routine Weight Entry Format : Metric Routine Weight, Kilograms : 90.1 kg(Converted to: 198 lb 10 oz) Routine Weight Calculation : 90.1 kg Height Source : Estimated Height Entry Format : [place] Height, Feet : 5 ft Height, Inches : 8 Inch Clinical Height : 172.72 cm Body Surface Area (BSA), Routine : 2.04 m2 Body Mass Index (BMI), Routine : 30.2 kg/m2 Sadie Mack, RN - 04/30/2020 7:23 EDT Electronically signed by Carlos Mckoy Conversion Retail Sales Associate Seasonal Cerner at 02/07/2023 11:40 PM CDT documented in this encounter Plan of Treatment Upcoming Encounters Date Type Department Care Team (Late st Contact Info) Description 06/20/2025 2:30 PM EDT Office Visit [facility] Orthopedics - [address] [phone] Mica Chu, PA-C [address] [place] [address] documented as of this encounter Visit Diagnoses Not on filedocumented in this encounter Care Teams Utility Inspector Relationship Specialty Start Date End Date Sotero Miller MD [address] [place] [address] PCP - General Adolescent Medicine 10/25/22 documented as of this encounter
--- OUTSIDE RECORDS SUMMARY | 2025-05-13 05:45 | XMS_ITS | Encounter Summary ---
Author Organization [employer] ([place], [place], [place], [place]) Address [address] [place] [address] Care Team Providers Care Regulatory Manager Name Role Phone Sotero Miller MD Primary Care Provider [phone] Encounter Details Date Type Department Care Team (Late st Contact Info) Description 04/29/2020 Transcribed Document [facility] [address] [place] [phone] Morena Fabian MD [address] [place] [address] Social History Tobacco Use Types Packs/Day Years Used Date Smoking Tobacco: Never Assessed Sex and Gender Information Value Date Recorded Sex Assigned at Not on file Legal Sex Male 5:40 PM CDT Gender Identity Not on file Sexual Orientation Not on file documented as of this encounter Miscellaneous Notes * Cerner Conversion Note - Morena Fabian MD - 04/29/2020 1:56 PM EDT DATE OF SERVICE: 04/29/2020 INTRAOPERATIVE ECHOCARDIOGRAPHY REPORT ATTENDING CARDIAC SURGEON: Ladonna Pagan MD. CLINICAL HISTORY: This 70-year-old gentleman with severe 3-vessel coronary artery disease presents for coronary artery bypass grafting. Due to the high risk of ischemia, Dr. Pagan requested for intraoperative echocardiography. The procedure was carried out in the operating room with the patient under anesthesia. TYRON probe was passed easily, and the images were acquired by Dr. Fabian. The aortic valve was a normal trileaflet structure. There was neither stenosis nor regurgitation. Valve area by planimetry was 3.4 cm2. The ascending aorta measured 3.2 cm. The mitral valve leaflets were grossly mobile and the subvalvular apparatus was intact. There was a cleft in the anterior leaflet. The posterior leaflet was intact. There was no mitral stenosis, but jtns-fe-bsbhlask mitral regurgitation. The jet was seen through the cleft in the anterior leaflet. The anulus was dilated and measured 3.3 cm. The pulmonary vein flow pattern showed a blunted S wave. The left atrium was enlarged and measured 3.8 x 6.5 cm. There were no clots or masses in the left atrial appendage. Tricuspid valve was grossly normal with trace regurgitation. The right atrium was normal. The interatrial septum was intact, and color-flow showed no flow across it. The pulmonary valve was normal. Left ventricular function was preserved with an estimated ejection fraction of about 50%-55%. There was concentric left ventricular hypertrophy. There was mild hypokinesis of anterior wall. Right ventricle was normal. There were grade 2 atheromatous changes visible in the thoracic aorta. There were no pleural effusions, but minimal pericardial fluid could be seen. POST CARDIOPULMONARY BYPASS: Left ventricular ejection fraction stayed grossly unchanged at about 50%. There was mild mitral regurgitation. There was trace tricuspid regurgitation. No aortic dissection could be seen. There was no aortic insufficiency. IMPRESSION: 1. Normal left ventricular function with estimated ejection fraction of about 50%-55%. 2. Concentric left ventricular hypertrophy. 3. 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 4. Trace tricuspid regurgitation. 5. Left atrial enlargement. 6. Grade 2 atheromatous changes in the thoracic aorta. All these findings were discussed with surgeon, Dr. Ladonna Pagan. /[id number] MD YULY Sal/AQ / NDSamia / MODL /[id number] CC: Ladonna Pagan MD documented in this encounter Plan of Treatment Upcoming Encounters Date Type Department Care Team (Late st Contact Info) Description 06/20/2025 2:30 PM EDT Office Visit [facility] Orthopedics - [address] [phone] Mica Chu PA-C [address] [place] [address] documented as of this encounter Visit Diagnoses Not on filedocumented in this encounter Care Teams Regulatory Manager Relationship Specialty Start Date End Date Sotero Miller MD [address] [place] [address] PCP - General Adolescent Medicine 10/25/22 documented as of this encounter
--- OUTSIDE RECORDS SUMMARY | 2025-05-13 05:45 | XMS_ITS | Encounter Summary ---
Author Organization [employer] ([place], [place], [place], [place]) Address [address] [place] [address] Care Team Providers Care Nail Mill Worker Name Role Phone Sotero Miller MD Primary Care Provider + [phone] Encounter Details Date Type Department Care Team (Late st Contact Info) Description 04/30/2020 Transcribed Document [facility] Family Medicine [facility] [place] [address] ProviderMk MD [address] [place] [address] Social History Tobacco Use Types Packs/Day Years Used Date Smoking Tobacco: Never Assessed Sex and Gender Information Value Date Recorded Sex Assigned at Not on file Legal Sex Male 5:40 PM CDT Gender Identity Not on file Sexual Orientation Not on file documented as of this encounter Miscellaneous Notes * Cerner Conversion Note - Mk Mac MD - 04/30/2020 9:41 AM CDT On Going Discharge Planning Entered On: 04/30/2020 9:44 EDT Performed On: 04/30/2020 9:41 EDT by KARENA DONNELLY Rn-Poured Wall ForemanConcrete Sculptor Progress Note Discharge Arrangements : Patient Post-Acute [...] Meeting Medical Necessity : Yes KARENA DONNELLY Rn-Poured Wall Foreman - 04/30/2020 9:41 EDT Narrative Progress Note Narrative Progress Note : MRR; ELOS 7; HD#9 (POD 1 CABG); OOB in chair; MT in place r/t drainage; Dopamine gtt - weaning; WBC 19.9 improved from 29.0; pt to transfer to [address] [place] [address] Deleon; CM discussed DCP with pt and he agrees [facility] - referral placed thru [facility]; monitor for any other d/c needs. Historical Progress Note : MRR; ELOS 7; HD#8 s/p CABG x 3; intubated fi02 80/sedated; b/p 127/56; spoke with bedside RN Bernie who states pt may extubate this afternoon; CM requested she obtain PT/OT evaluation orders if extubated anticipating therapy evaluations tomorrow; will discuss DCP with pt when extubated - ogoing discussion for OP cardiac rehab. KARENA DONNELLY, Rn-Poured Wall Foreman - 04/29/20 15:02:10 Patient is a moderate readmission risk. ELOS: 7 days HD#4 Adm Dx: STEMI; [facility] 04/20 - Total occulusion of LAD and RCA with normal LVEF. Continue Heparin and Nitroglycerine Drip, CABG planned on Wednesday. DCP: CM will follow for discharge planning needs post op. AURA CARDENAS RN-Poured Wall Foreman - 04/25/20 16:22:03 Patient is a moderate readmission risk. ELOS: 7 days HD#3 Adm Dx: STEMI; [facility] 04/20 - Total occulusion of LAD and RCA with normal LVEF. Continue Heparin and Nitroglycerine Drip, CABG planned on Wednesday. DCP: CM will follow for discharge planning needs post op. AURA CARDENAS RN-Poured Wall Foreman - 04/24/20 15:42:28 MRR, ELOS #2; HD#2 - C on 04/22 = Occlusion of RCA/LAD; Plt 143; CABG timing to be determined; [facility]; new PT/OT evaluation orders placed; DCP pending progress; anticipate home with family and OP Cardiac Rehab when appropriate. KARENA DONNELLY Rn-Poured Wall Foreman - 04/23/20 11:34:20 DCP - anticipate home without needs; continue to follow. KARENA DONNELLY Rn-Poured Wall Foreman - 04/22/20 10:08:21 KARENA DONNELLY Rn-Poured Wall Foreman - 04/30/2020 9:41 EDT Electronically signed by Ean [facility] Conversion Furnace Charging Machine Operator Cerner at 02/07/2023 11:29 PM CDT documented in this encounter Plan of Treatment Upcoming Encounters Date Type Department Care Team (Late st Contact Info) Description 06/20/2025 2:30 PM EDT Office Visit [facility] Orthopedics - [address] [phone] Mica Chu PAMaddieC [address] [place] [address] documented as of this encounter Visit Diagnoses Not on filedocumented in this encounter Care Teams Nail Mill Worker Relationship Specialty Start Date End Date Sotero Miller MD [address] [place] [address] PCP - General Adolescent Medicine 10/25/22 documented as of this encounter
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
--- OUTSIDE RECORDS SUMMARY | 2025-05-13 05:45 | XMS_ITS | Encounter Summary ---
Author Organization [employer] ([place], [place], [place], [place]) Address [address] [place] [address] Care Team Providers Care Creative Resource Manager Name Role Phone Sotero Miller MD Primary Care Provider [phone] Encounter Details Date Type Department Care Team (Late st Contact Info) Description 05/02/2020 Transcribed Document [facility] [place] [address] [place] [address] ProviderMk MD [address] [place] [address] Social History Tobacco Use Types Packs/Day Years Used Date Smoking Tobacco: Never Assessed Sex and Gender Information Value Date Recorded Sex Assigned at Not on file Legal Sex Male 5:40 PM CDT Gender Identity Not on file Sexual Orientation Not on file documented as of this encounter Miscellaneous Notes * Cerner Conversion Note - Mk Mac MD - 05/02/2020 10:53 AM CDT UM Authorization Entered On: 05/02/2020 10:54 EDT Performed On: 05/02/2020 10:53 EDT by CHON ANDREWS Rn-Utilization Review Primary Insurance Authorization Authorization and Policy Numbers : Insurance 1 Health Plan: ANTHEM HMOP[employer] Policy Number: [id number] Authorization Number: Insurance 2 Health Plan: MEDICARE Policy Number: [id number] Authorization Number: Insurance Primary Name : [employer]M [employer]OPPO Policy Number: [id number] Authorization Status-Primary : Admit approved Reference Number-Primary : [id number] Number of Days Authorized-Primary : 11 Day(s) Authorized Service Begin Date-Primary : 04/21/2020 EDT Authorized Service End Date-Primary : 05/02/2020 EDT Authorization Comments-Primary : Per Availity, Ipt Auth approved 12 days. NRD 05/03. Historical Authorization Comments-Primary : Comment 1: clinicals faxed via [employer]ner for cont stay for dos 04/29-04/30/2020 (CATHI DEAL, RN-Utilization Review 04/30/2020 13:10) Comment 2: Per Availity, Inpt Auth approved 5 days. Faxed additional clinicals for 04/26-04/28. (CHON ANDREWS, Rn-Utilization Review 04/29/2020 10:35) Comment 3: Faxed clinicals via [employer] for 04/23-04/25. (CHON ANDREWS, Rn-Utilization Review 04/25/2020 10:33) Comment 4: Per Availity, Inpt Auth approved 4 days. NRD 04/25. (CHON ANDREWS, Rn-Utilization Review 04/24/2020 09:13) Comment 5: clinicals faxed via [employer]ner for cont stay for dos 04/23/2020 (CATHI DEAL, RN-Utilization Review 04/23/2020 13:09) Comment 6: submitted on availity for IP auth w/ clinicals attached (CATHI DEAL, RN-Utilization Review 04/22/2020 09:38) CHON ANDREWS, Rn-Utilization Review - 05/02/2020 10:53 EDT documented in this encounter Plan of Treatment Upcoming Encounters Date Type Department Care Team (Late st Contact Info) Description 06/20/2025 2:30 PM EDT Office Visit [facility] Orthopedics - [address] [phone] Mica Chu PA-C [address] [place] [address] documented as of this encounter Visit Diagnoses Not on filedocumented in this encounter Care Teams Creative Resource Manager Relationship Specialty Start Date End Date Sotero Miller MD [address] [place] [address] PCP - General Adolescent Medicine 10/25/22 documented as of this encounter
--- OUTSIDE RECORDS SUMMARY | 2025-05-13 05:45 | XMS_ITS | Encounter Summary ---
Author Organization [employer] ([place], [place], [place], [place]) Address [address] [place] [address] Care Team Providers Care Lime Slaker Name Role Phone Sotero Miller MD Primary Care Provider + [phone] Encounter Details Date Type Department Care Team (Late st Contact Info) Description 05/05/2020 Transcribed Document [facility] [place] [address] [place] [address] ProviderMk MD [address] [place], [place] [id number] Social History Tobacco Use Types Packs/Day Years Used Date Smoking Tobacco: Never Assessed Sex and Gender Information Value Date Recorded Sex Assigned at Not on file Legal Sex Male 5:40 PM CDT Gender Identity Not on file Sexual Orientation Not on file documented as of this encounter Miscellaneous Notes * Cerner Conversion Note - Mk ProviderMD - 05/05/2020 11:11 AM CDT Stroke/Warfarin Instructions Entered On: 05/05/2020 11:13 EDT Performed On: 05/05/2020 11:11 EDT by NICHOLAS VALDES RN Stroke/Warfarin Instructions Stroke/TIA Discharge Ins : N/A Warfarin Discharge Ins : N/A NICHOLAS VALDES RN - 05/05/2020 11:11 EDT documented in this encounter Plan of Treatment Upcoming Encounters Date Type Department Care Team (Late st Contact Info) Description 06/20/2025 2:30 PM EDT Office Visit [facility] Orthopedics - [address] [phone] Mica Chu PA-C [address] [place] [address] documented as of this encounter Visit Diagnoses Not on filedocumented in this encounter Care Teams Lime Slaker Relationship Specialty Start Date End Date Sotero Miller MD [address] [place] [address] PCP - General Adolescent Medicine 10/25/22 documented as of this encounter
--- OUTSIDE RECORDS SUMMARY | 2025-05-13 05:45 | XMS_ITS | Encounter Summary ---
Author Organization [employer] ([place], [place], [place], [place]) Address [address] [place] [address] Care Team Providers Care Metal Products Viewer Name Role Phone Sotero Miller MD Primary Care Provider + [phone] Encounter Details Date Type Department Care Team (Late st Contact Info) Description 04/30/2020 Transcribed Document [facility] Family Medicine [facility] [place] [address] ProviderMk MD [address] [place], [place] [phone] Social History Tobacco Use Types Packs/Day Years Used Date Smoking Tobacco: Never Assessed Sex and Gender Information Value Date Recorded Sex Assigned at Not on file Legal Sex Male 5:40 PM CDT Gender Identity Not on file Sexual Orientation Not on file documented as of this encounter Miscellaneous Notes * Cerner Conversion Note - Mk ProviderMD - 04/30/2020 2:00 AM CDT [employer] Details Entered On: 04/30/2020 7:21 EDT Performed On: 04/30/2020 2:00 EDT by Sadie Mack RN Order Details Transport Mode Order Detail : Ambulatory Isolation Precautions Order Detail : Standard Precautions Order Detail : N/A IV Order Detail : 1 Oxygen Order Detail : 1 Nurse Collect Order Detail : 1 Lift/Transfer : Independent Central Line Order Detail : Yes Room Service : Appropriate Arterial Line : No Sadie Mack RN - 04/30/2020 7:16 EDT documented in this encounter Plan of Treatment Upcoming Encounters Date Type Department Care Team (Late st Contact Info) Description 06/20/2025 2:30 PM EDT Office Visit [facility] Orthopedics - [address] [phone] Mica Chu PA-C [address] [place] [address] documented as of this encounter Visit Diagnoses Not on filedocumented in this encounter Care Teams Metal Products Viewer Relationship Specialty Start Date End Date Sotero Miller MD [address] [place] [address] PCP - General Adolescent Medicine 10/25/22 documented as of this encounter
--- OUTSIDE RECORDS SUMMARY | 2025-05-13 05:45 | XMS_ITS | Encounter Summary ---
Author Organization [employer] ([place], [place], [place], [place]) Address [address] [place] [address] Care Team Providers Care Farm Laborer Name Role Phone Sotero Miller MD Primary Care Provider + [phone] Encounter Details Date Type Department Care Team (Late st Contact Info) Description 05/05/2020 Transcribed Document [facility] [place] [address] ProviderMk MD [address] [place] [address] Social History Tobacco Use Types Packs/Day Years Used Date Smoking Tobacco: Never Assessed Sex and Gender Information Value Date Recorded Sex Assigned at Not on file Legal Sex Male 5:40 PM CDT Gender Identity Not on file Sexual Orientation Not on file documented as of this encounter Miscellaneous Notes * Cerner Conversion Note - Mk Mac MD - 05/05/2020 10:51 AM CDT Final Discharge Planning Entered On: 05/05/2020 10:53 EDT Performed On: 05/05/2020 10:51 EDT by KLAUS DANIEL, RN-Screw Remover Final Discharge Planning Discharge Arrangements : Patient Post-Acute Information Patient Name: NICO LERNER Gender: Male : 50 Age: 70 Years [place] Referral(s): Service: Organization: Business Address: Phone Number: [facility] [address], [place], [address] Patient Offered Choice/Affiliations Explained : Yes KLAUS DANIEL, RN-Screw Remover - 05/05/2020 10:51 EDT Final Narrative Note Final Narrative Note : received call from Monica bedside RN. pt has ra sats 0f 86% resting. orders for home 02 2l nc. spoke with Mr. Lerner by phone then his daughter. they selected [facility] for home 02. called & sent referral to Vik via [employer]. [phone]. [phone]. left voice mail message for section supervisor to call me for portable tank delivery to hospital. waiting all back. Historical Narrative Note : for dc today. arrangements in place for home health provided by [facility]. spoke with Berta, section supervisor intake. [phone]. advised of dc today. they will see pt tomorrow. spoke with Monica bedside rN. advised of above. no other needs. dc plans arranged. KLAUS DANIEL, RN-Screw Remover - 05/05/20 08:56:39 KLAUS DANIEL, RN-Screw Remover - 05/05/2020 10:51 EDT documented in this encounter Plan of Treatment Upcoming Encounters Date Type Department Care Team (Late st Contact Info) Description 06/20/2025 2:30 PM EDT Office Visit [facility] Orthopedics - [address] [address] Mica Chu, PA-C [address] [place] [id number] documented as of this encounter Visit Diagnoses Not on filedocumented in this encounter Care Teams Farm Laborer Relationship Specialty Start Date End Date Sotero Miller MD [address] [place] [address] PCP - General Adolescent Medicine 10/25/22 documented as of this encounter
--- OUTSIDE RECORDS SUMMARY | 2025-05-13 05:45 | XMS_ITS | Encounter Summary ---
Author Organization [employer] ([place], [place], [place], [place]) Address [address] [place] [address] Care Team Providers Care Desulphurizer Operator Name Role Phone Sotero Miller MD Primary Care Provider + [phone] Encounter Details Date Type Department Care Team (Late st Contact Info) Description 04/22/2020 Transcribed Document [facility] [place] [facility] [place] [address] ProviderMk MD [address] [place], [place] [id number] Social History Tobacco Use Types Packs/Day Years Used Date Smoking Tobacco: Never Assessed Sex and Gender Information Value Date Recorded Sex Assigned at Not on file Legal Sex Male 5:40 PM CDT Gender Identity Not on file Sexual Orientation Not on file documented as of this encounter Miscellaneous Notes * Cerner Conversion Note - Mk ProviderMD - 04/22/2020 9:00 AM CDT Consult Phone Call Documentation Entered On: 04/22/2020 7:55 EDT Performed On: 04/22/2020 9:00 EDT by Ashly Viramontes Care Asst-Health Unit Coord Phone Call for Consults Consult Phone Call/Page Attempt : First call Ashly Viramontes Care Asst-Health Unit Coord - 04/22/2020 7:55 EDT documented in this encounter Plan of Treatment Upcoming Encounters Date Type Department Care Team (Late st Contact Info) Description 06/20/2025 2:30 PM EDT Office Visit [facility] Orthoped[facility] - [address] [address] Mica Chu PA-C [address] [place] [phone] documented as of this encounter Visit Diagnoses Not on filedocumented in this encounter Care Teams Desulphurizer Operator Relationship Specialty Start Date End Date Sotero Miller MD [address] [place] [address] PCP - General Adolescent Medicine 10/25/22 documented as of this encounter
--- OUTSIDE RECORDS SUMMARY | 2025-05-13 05:45 | XMS_ITS | Encounter Summary ---
Author Organization [employer] ([place], [place], [place], [place]) Address [address] [place] [address] Care Team Providers Care Band Leader Name Role Phone Sotero Basilio MD Primary Care Provider + [phone] Encounter Details Date Type Department Care Team (Late st Contact Info) Description 05/05/2020 Transcribed Document [facility] [place] [facility] [address] [place] [address] ProviderMk MD [address] [place] [address] Social History Tobacco Use Types Packs/Day Years Used Date Smoking Tobacco: Never Assessed Sex and Gender Information Value Date Recorded Sex Assigned at Not on file Legal Sex Male 5:40 PM CDT Gender Identity Not on file Sexual Orientation Not on file documented as of this encounter Miscellaneous Notes * Cerner Conversion Note - Mk Mac MD - 05/05/2020 11:16 AM CDT [facility] [place], [place] [id number] GILBERT LERNER :1950 Visit Time:04/21/2020 Your Visit Summary Your Care Team Admitting Physician - PAPA THORNTON MD-INT Attending Physician - PAPA THORNTON MD-INT Primary Care Physician - IDALIA, UNKNOWN Your Diagnosis COPD, group C, by GOLD 2017 classification HLD (hyperlipidemia) HTN (hypertension) Nicotine dependence in remission NQWMI Severe 3VCAD (coronary artery disease), Severe 3VCAD (coronary artery disease) Unstable angina Discharge Vitals Temperature 36.6 ??C Heart Rate 59 Heart Rate 59 Respiratory Rate 18 Blood Pressure 106/67 What to do next Instructions From Your Care Team [facility] [phone] Transportation:Family Discharge Activity: Discharge Activity: Activity as tolerated Diet: Discharge Diet: Resume usual diet as tolerated Follow-Up Appointments Follow Up with Eugenio Peacock When 05/29/2020 02:45 PM EDT Comments Appointment has been made -for cardiology follow up Where: [address] [place] [phone] Follow Up with DAVID LUGO When 05/14/2020 11:00 AM EDT Comments Appointment has been made for CTS follow up: please report by 1030 for chest xray Where: [address] [place] [phone] Business (1) Follow Up with SOTERO BASILIO (MARY)MD-JOANNA When 05/10/2020 11:15 AM EDT Comments Appointment has been made for PCP follow up- you will see Nadine Newman Where: [address] [place] [address]- Follow Up with [facility] When Within 6 weeks Comments Office to call with appoint/instructions Where: [address] [place] [address]- Medications What How Much When Instructions Next Dose acetaminophen-oxyCODONE (Percocet 5/ 325 oral tablet) 1 Tablet(s) Oral Every 4 Hours as needed for as needed for pain amiodarone (amiodarone 200 mg oral tablet) See instructions Take 2 tabs (400 mg) twice daily for 1 week, then 2 tabs once daily for 1 week, then 1 tab daily for 1 week, then stop. Printed Prescription 05/05 atorvastatin (atorvastatin 80 mg oral tablet) 1 Tablet(s) Oral At Bedtime Printed Prescription 05/05 clopidogrel (Plavix 75 mg oral tablet) 1 Tablet(s) Oral Every Day Printed Prescription 05/06 amLODIPine (Norvasc 10 mg oral tablet) 0.5 Tablet(s) Oral Every Day NEW DOSE!! 05/06 aspirin (Aspirin Enteric Coated 81 mg oral delayed release tablet) 1 Tablet(s) Oral Every Day Printed Prescription 05/06 metoprolol (Metoprolol Tartrate 25 mg oral tablet) 0.5 Tablet(s) Oral Two Times A Day NEW DOSE!! Printed Prescription 05/05 Take your medications faithfully. Do NOT skip medication. Do NOT stop taking medications without the direction of a physician. Carry a list of your medications with you at all times, and take this medication list with you to your first follow up visit. Report any side effects. Avoid herbal remedies unless discussed with your physician. As part of your treatment plan, your physician may have prescribed a limited course of a controlled substance. This medication may be given to help people with moderate or severe pain or for other medical conditions, but there are risks involved with treatment. Common side effects may include nausea, constipation, drowsiness, sweating, itching, dry mouth, and rash. More serious side effects may include cognitive and motor impairment, like problems with thinking, concentrating, alertness, and movement (e.g. slowed reflexes), and driving and operating heavy machinery can be dangerous. It is important for you to talk to your physician if you have these side effects or questions. These controlled substances can produce physical dependence and be habit-forming if taken for an extended period of time, which means that the body has gotten used to them and may experience withdrawal symptoms if they are abruptly stopped. Withdrawal symptoms can include runny nose, sweating, goose bumps, diarrhea, abdominal cramping, rapid heartbeat, difficulty sleeping, and nervousness. Please dispose of unused and medications per your retail pharmacy guidance. Allergies Contrast Dye (Shortness of breath) Immunizations This Visit No Immunizations Found Education Materials Heart-Healthy Eating Plan Heart-healthy meal planning includes: [...] plate with lean protein foods. ??? Eat 4???5 servings of vegetables per day. A serving of vegetables is: ? 1 cup of raw or cooked vegetables. ? 2 cups of raw leafy greens. ??? Eat 4???5 servings of fruit per day. A serving of fruit is: ? 1 medium whole fruit. ? ?? cup of dried fruit. ? ?? cup of fresh, frozen, or canned fruit. ? ?? cup of 100% fruit juice. ??? Eat more foods that have soluble fiber. These are apples, broccoli, carrots, beans, peas, and barley. Try to get 20???30 g of fiber per day. ??? Eat 4???5 servings of nuts, legumes, and seeds per week: ? 1 serving of dried beans or legumes equals ?? cup after being cooked. ? 1 serving of nuts is ?? cup. ? 1 serving of seeds equals [...] Fats and oils Meat fat, or shortening. [place] butter, hydrogenated oils, palm oil, coconut oil, [...] 04/11/2013 Document Revised: 11/18/2018 Document Reviewed: 11/18/2018 [employer] Patient Education ?? 2020 [employer]. Coronary Artery Bypass Grafting, Care After This [...] these instructions at home: Medicines ??? Take xvlv-jdb-ksddmwp and prescription medicines only as told by [...] cannot use soap and water, use hand shingle cutter. ? Change your bandage as told by [...] help quitting, ask your doctor. ??? Take 2???3 deep breaths every few hours during the [...] 10/16/2014 Document Revised: 06/20/2019 Document Reviewed: 06/20/2019 [employer] Patient Education ?? 2020 [employer]. Coronary Artery Bypass Grafting Coronary artery bypass [...] thinners, vitamins, herbs, eye drops, creams, and oxsd-hgu-agqhsqs medicines. ??? Any problems you or family [...] Up to 2 hours before the procedure ??? you may continue to drink clear liquids, such as water, clear fruit juice, black coffee, and plain tea. Eating and drinking Follow instructions from your health care provider about eating and drinking, which may include: ??? 8 hours before the procedure ??? stop eating heavy meals or foods, such as meat, fried foods, or fatty foods. ??? 6 hours before the procedure ??? stop eating light meals or foods, such as toast or cereal. ??? 6 hours before the procedure ??? stop drinking milk or drinks that contain milk. ??? 2 hours before the procedure ??? stop drinking clear liquids. Medicines ??? Take iyci-dfs-cidrrvr and prescription medicines only as told by [...] tells you to take them. ? Taking ehtl-geu-uxaiqry medicines, vitamins, herbs, and supplements. General instructions [...] shower with a germ-killing soap. ??? For 3???6 weeks before the procedure, do not use [...] be in the intensive care unit for 1???2 days. ??? You may be given oxygen [...] part of the coronary artery. ??? For 3???6 weeks before the procedure, do not use [...] 07/21/2006 Document Revised: 06/20/2019 Document Reviewed: 06/20/2019 [employer] Interactive Patient Education ?? 2020 [employer]. Emergency Awareness and Preventative Care STROKE is an EMERGENCY Every Minute Counts Act FAST and Check for these signs: FACE Does the face look uneven? ARM Does one arm drift down? SPEECH Does their speech sound strange? TIME Call at any sign of stroke Stroke Risk Factors Atrial Fibrillation (irregular heartbeat) Diabetes Family history of stroke Heart Disease Heavy alcohol use High Blood Pressure High Cholesterol Physical inactivity and obesity Smoking Cigarette Smoking The facts are clear, cigarette smoking will shorten your life. Smoking can cause many illnesses along the way. As a healthcare provider, we recommend that you stop smoking. Assistance with quitting is available by contacting 5-311-VPFR-NOW. This is a free resource providing counseling, support, and referral. Or you may contact your personal physician. National Suicide Prevention Lifeline: The National Suicide Prevention Lifeline is a national network of local crisis centers that provides free and confidential emotional support to people in suicidal crisis or emotional distress 24 hours a day, 7 days a week. Don't Wait! Stop a Heart Attack Before it Starts What is a heart attack? A heart attack is damage or to a part of the heart from severely decreased or lack of blood flow to the heart. Over time, arteries can become narrow from the buildup of fat and cholesterol, which is called plaque. The plaque can rupture causing a blood clot to form. When the blood clot forms, the artery can become severely narrowed or completely blocked, causing a heart attack. Heart attack is the leading cause of in the [place]. 85% of muscle damage occurs within the first 2 hours. Delay in the recognition of heart attack symptoms increases the chances of . Know the early symptoms of a heart attack: Nausea Feeling of fullness in chest Jaw Pain Pain that travels down one or both arms Fatigue/being tired Anxiety Back Pain Chest pressure, squeezing, or discomfort Shortness of breath Sweating, or a cold sweat Feeling of impending doom There are unusual signs of a heart attack, too! Women, the elderly, and diabetics may present with atypical symptoms: Fainting/dizziness Weakness Confusion Risk Factors for a Heart Attack Some heart disease risk factors, such as age and family history, cannot be changed. Others, like smoking and lack of exercise, can be changed. Smoking High Cholesterol High Blood Pressure Family History Obesity Age Gender (Males are at higher risk) Lack of Exercise Diabetes Diet Stress Excessive Alcohol Intake If you or someone you know is experiencing the signs and symptoms of a heart attack, DON???T DELAY. Call immediately and seek help. If someone collapses, perform CPR! Do not attempt to drive if you are having symptoms of heart attack. Hands-Only CPR Why Hands-Only CPR? Hands-Only CPR has been shown to be as effective as conventional CPR for cardiac arrests that occur outside of a hospital. Survival depends on immediately receiving CPR from someone nearby. How do you perform Hands-Only CPR? There are two easy steps: Call if you see a teen or adult collapse Push hard and fast in the center of the chest at a beat of 100 beats per minute. Save a life! 4 WAYS TO GET AHEAD OF SEPSIS SEPSIS is a MEDICAL EMERGENCY. Time matters! Infections put you and your family at risk for a life-threatening condition called sepsis. Sepsis is the body's extreme response to an infection. It is life-threatening, and without timely treatment, sepsis can rapidly lead to tissue damage, organ failure, and . Sepsis happens when an infection you already have-in your skin, lungs, urinary tract or somewhere else-triggers a chain reaction throughout your body. 1 PREVENT INFECTIONS Take good care of chronic conditions. Talk to your doctor about getting the recommended vaccines. 2 PRACTICE GOOD HYGIENE Wash your hands frequently. Keep cuts or open sores clean and covered until they are healed. 3 KNOW THE SYMPTOMS Confusion or disorientation Shortness of breath High heart rate Fever, shivering, or feeling very cold Extreme pain or discomfort Clammy or sweaty skin 4 ACT FAST Get medical care IMMEDIATELY if you suspect sepsis or if you have an infection that is not getting better or is getting worse. To learn more about sepsis and how to prevent infections, visit www.cdc.gov/sepsis. Test Results Laboratory or Other Results This Visit (last charted value for your 04/21/2020 visit) Blood Gases 04/29/2020 4:12 PM HCO3 Art: 22.4 mmol/L -- Normal range between ( 20.0 and 26.0 ) sO2 Art: 96.8 % -- Normal range between ( 95.0 and 100.0 ) pCO2 Art: 39.9 mmHg -- Normal range between ( 35.0 and 45.0 ) pH Art: 7.36 -- Normal range between ( 7.35 and 7.45 ) pO2 Art: 87.5 mmHg -- Normal range between ( 80.0 and 100.0 ) ABG Num of Draw Attempts: 1 Acceptable Roel's Test Art: Non-Applicable BE Art: -2.9 mmol/L FIO2 Art: 50 Pressure Support Art: 8.0 cmH2O Delivery Device Type Art: Ventilator Respiratory Rate Art: 18.0 tHb Art: 13.9 Gram/dL -- Normal range between ( 12.0 and 18.0 ) Ventilator Mode Art: Pressure Support Temperature, F Art: 98.6 Deg F CPAP/PEEP Art: 5.0 cmH2O ctO2: 18.6 mmol/L FHHb: 3.1 % Art Blood Gas (ABG) Site: Arterial Line 04/29/2020 12:58 PM Set Rate Art: 14.0 Tidal Volume Set Art: 550.0 mL 04/29/2020 11:54 AM pO2 Art POC: 248.0 mmHg -- Normal range between ( 80.0 and 105.0 ) BE Art POC: -3.0 mmol/L HCO3 Art POC: 23.1 mmol/L -- Normal range between ( 22.0 and 26.0 ) pH Art POC: 7.349 -- Normal range between ( 7.350 and 7.450 ) sO2 Art POC: >99.9 % -- Normal range between ( 95.0 and 98.0 ) tCO2 Art POC: 24.0 mmol/L -- Normal range between ( 23.0 and 27.0 ) pCO2 Art POC: 41.9 mmHg -- Normal range between ( 35.0 and 45.0 ) Hematology 05/05/2020 2:36 AM WBC: 14.2 K/uL -- Normal range between ( 3.6 and 9.5 ) RBC: 3.41 Million/uL -- Normal range between ( 4.20 and 5.70 ) Hct: 32.3 % -- Normal range between ( 40.1 and 51.0 ) Hgb: 10.3 g/dL -- Normal range between ( 13.5 and 17.3 ) Platelet Count: 247 K/uL -- Normal range between ( 163 and 369 ) MCH: 30.2 pg -- Normal range between ( 25.6 and 32.2 ) MCHC: 31.9 Gram/dL -- Normal range between ( 32.2 and 36.5 ) MCV: 94.7 fL -- Normal range between ( 79.0 and 94.8 ) Slide Review: No RDW: 14.3 % -- Normal range between ( 11.7 and 14.9 ) MPV: 10.2 fL -- Normal range between ( 9.4 and 12.4 ) nRBC: 0.040 -- Normal range between ( 0.000 and 0.012 ) 05/01/2020 5:25 AM Eos %: 0.0 % -- Normal range between ( 0.0 and 7.0 ) [place] #: 2.42 K/uL -- Normal range between ( 0.16 and 1.00 ) Eos #: 0.01 x10(3)/uL -- Normal range between ( 0.00 and 0.80 ) [place] %: 10.2 % -- Normal range between ( 3.0 and 9.0 ) Baso %: 0.3 % -- Normal range between ( 0.0 and 1.5 ) Baso #: 0.08 x10(3)/uL -- Normal range between ( 0.00 and 0.20 ) Neut %: 82.4 % -- Normal range between ( 34.0 and 71.0 ) Neut #: 19.60 K/uL -- Normal range between ( 1.56 and 6.13 ) Lymph %: 5.6 % -- Normal range between ( 19.3 and 53.1 ) Lymph #: 1.32 x10(3)/uL -- Normal range between ( 1.00 and 3.90 ) IG#: 0.35 x10(3)/uL -- Normal range between ( 0.00 and 0.05 ) IG%: 1.50 % -- Normal range between ( 0.00 and 0.60 ) 04/29/2020 11:54 AM Hemoglobin POC: 11.2 Gram/dL -- Normal range between ( 12.0 and 17.0 ) Hematocrit POC: 33.0 % -- Normal range between ( 38.0 and 51.0 ) 04/29/2020 3:36 AM Myelo Percent Man: 1 % -- Normal range between ( 0 and 1 ) ALYC #: 3 K/uL RBC Morphology: Normal ANC #: 8 K/uL [place] Percent Man: 6 % -- Normal range between ( 4 and 5 ) Baso Percent Man: 0 % -- Normal range between ( 0 and 1 ) Neutrophil Percent Man: 63 % -- Normal range between ( 50 and 65 ) Eos Percent Man: 3 % -- Normal range between ( 0 and 3 ) Platelet Ct Estimate: Adequate [place] Percent Man: 2 % -- Normal range between ( 0 and 1 ) Lymph Percent Man: 25 % -- Normal range between ( 24 and 44 ) Urinalysis 04/29/2020 0:15 AM Urine Nitrite: Negative Urine Leukocyte Esterase: Negative Urine Appearance: Turbid Urine Glucose Dipstick: Negative Urine Blood Dipstick: Negative Urine Type: U CleanCatch Urine Urobilinogen Dipstick: 0.2 EU/dL Urine Protein Dipstick: Negative Urine Color: Yellow Ur WBC: None Seen /HPF Urine Ketones Dipstick: Negative Urine pH Dipstick: 5.0 -- Normal range between ( 6.0 and 8.0 ) Urine Bilirubin Dipstick: Negative Urine Specific [place]: 1.016 -- Normal range between ( 1.005 and 1.030 ) Microbiology 04/28/2020 8:45 PM Novel Coronavirus 2019: Not Detected 04/21/2020 7:00 PM Influenza A: Not Detected Respiratory Syncytial Virus: Not Detected Influenza B: Not Detected Influenza A H3: Not Detected Parainfluenza 3: Not Detected Influenza A H1: Not Detected Rhinovirus/Enterovirus: Not Detected Human metapneumovirus: Not Detected Parainfluenza 1: Not Detected Parainfluenza 2: Not Detected Adenovirus: Not Detected Parainfluenza 4: Not Detected Bordatella pertussis: Not Detected Coronavirus HKU1: Not Detected Coronavirus NL63: Not Detected Coronavirus OC43: Not Detected Coronavirus 229E: Not Detected Influenza A 2009 H1N1: Not Detected Mycoplasma pneumoniae: Not Detected Chlamydia pneumoniae: Not Detected 04/21/2020 6:45 PM Urine Culture: See Result 04/21/2020 5:58 PM Blood Culture: See Result Blood Bank 04/28/2020 9:57 AM ABO/Rh (ECHO): O POS Antibody Screen: Negative ABSC Crossmatch: Computer XM OK 04/28/2020 9:41 AM RBC Product Ready: RBC Ready # of Units: 2 04/28/2020 2:26 AM ABO/Rh Repeat: O POS General Chemistry 05/05/2020 10:55 AM Glucose POC2: 215 mg/dL -- Normal range between ( 70 and 110 ) Device Comment 1: Device Comment 1 05/05/2020 2:36 AM Creatinine Level: 1.10 mg/dL -- Normal range between ( 0.70 and 1.30 ) Sodium Level: 137 mmol/L -- Normal range between ( 136 and 146 ) Potassium Level: 5.0 mmol/L -- Normal range between ( 3.5 and 5.1 ) Chloride Level: 103 mmol/L -- Normal range between ( 102 and 112 ) Carbon Dioxide Level: 29 mmol/L -- Normal range between ( 21 and 32 ) Anion Gap: 10 -- Normal range between ( 9 and 20 ) Bun/Creatinine: 29.1 -- Normal range between ( 8.0 and 20.0 ) Calcium Level: 8.9 mg/dL -- Normal range between ( 8.4 and 10.1 ) eGFR : >60 mL/min/1.73m2 eGFR NonAfrican: >60 mL/min/1.73m2 Glucose Level: 111 mg/dL -- Normal range between ( 74 and 106 ) Blood Urea Nitrogen: 32 mg/dL -- Normal range between ( 7 and 22 ) 05/01/2020 5:25 AM Calcium Ionized: 1.22 mmol/L -- Normal range between ( 1.12 and 1.32 ) Magnesium Level: 3.2 mg/dL -- Normal range between ( 1.5 and 2.4 ) Phosphorus: 4.4 mg/dL -- Normal range between ( 2.5 and 4.9 ) 04/30/2020 11:45 AM Device Comment 2: insulin Drip 04/29/2020 11:54 AM Sodium POC: 134 mmol/L -- Normal range between ( 138 and 146 ) Ca Ioniz POC: 1.25 mmol/L -- Normal range between ( 1.12 and 1.32 ) Potassium POC: 4.8 mmol/L -- Normal range between ( 3.5 and 4.9 ) Glucose POC: 198 mg/dL -- Normal range between ( 70 and 105 ) 04/25/2020 6:11 AM Bilirubin Total: 1.1 mg/dL -- Normal range between ( 0.2 and 1.2 ) A/G Ratio: 0.8 -- Normal range between ( 1.1 and 2.5 ) ALT: 41 Units/Liter -- Normal range between ( 16 and 61 ) AST: 29 Units/Liter -- Normal range between ( 5 and 37 ) Globulin: 3.9 Gram/dL -- Normal range between ( 1.5 and 4.5 ) Alk Phos: 70 Units/Liter -- Normal range between ( 27 and 136 ) Protein Total: 7.0 Gram/dL -- Normal range between ( 6.4 and 8.2 ) Albumin Level: 3.1 Gram/dL -- Normal range between ( 3.4 and 5.0 ) 04/22/2020 3:52 AM Bilirubin Direct: 0.2 mg/dL -- Normal range between ( 0.0 and 0.2 ) 04/22/2020 3:30 AM Lactic Acid Level: 1.4 mmol/L -- Normal range between ( 0.4 and 2.0 ) 04/21/2020 5:52 PM Hgb A1C: 6.7 % Ammonia Level: <10.0 uMol/L -- Normal range between ( 11.0 and 32.0 ) eAVG Glucose: 146 mg/dL Lipase Level: 133 Units/Liter -- Normal range between ( 73 and 393 ) Cardiac Specific Markers 04/22/2020 3:52 AM Troponin I Ultra: 26.000 ng/mL -- Normal range between ( 0.015 and 0.045 ) 04/21/2020 5:52 PM ProBNP: 2625 pg/mL -- Normal range between ( 0 and 125 ) Coagulation 04/29/2020 12:55 PM PTT Heparin: 30.2 Second(s) -- Normal range between ( 50.0 and 75.0 ) 04/29/2020 11:54 AM ACT POC: 120 Second(s) -- Normal range between ( 74 and 137 ) 04/29/2020 3:36 AM INR: 1.1 -- Normal range between ( 0.9 and 1.1 ) PT: 11.3 Second(s) -- Normal range between ( 9.6 and 12.0 ) 04/22/2020 10:11 AM Plt Func P2Y12 React Unit: 143 PRU -- Normal range between ( 194 and 418 ) 04/22/2020 9:39 AM PTT: 46.3 Second(s) -- Normal range between ( 24.0 and 34.0 ) Lipid Studies 04/29/2020 3:36 AM Cholesterol Tot: 122 mg/dL -- Normal range between ( 0 and 199 ) Cholesterol HDL: 45.0 mg/dL Cholesterol LDL Calculation: 56.6 mg/dL -- Normal range between ( 0.0 and 99.0 ) Cholesterol VLDL Calculation: 20.4 mg/dL -- Normal range between ( 5.0 and 40.0 ) Cholesterol/HDL Ratio: 2.7 -- Normal range between ( 0.0 and 3.2 ) Triglyceride: 102 mg/dL -- Normal range between ( 0 and 249 ) LDL/HDL Ratio: 1.3 -- Normal range between ( 0.0 and 3.6 ) Endocrinology 04/29/2020 3:36 AM TSH: 1.710 mcInt Units/mL -- Normal range between ( 0.358 and 3.740 ) 04/21/2020 5:52 PM Procalcitonin: <0.25 ng/mL -- Normal range between ( 0.00 and 2.00 ) Diagnostic Radiology 05/05/2020 7:10 AM CR Chest 1 Vw Portable: CR Chest 1 Vw Portable Vascular Ultrasound 04/22/2020 7:48 AM VL Carotid Duplex BILAT: VL Carotid Duplex BILAT Patient Name:GILBERT LERNER I have received and understand this information and was given the opportunity to ask questions. Patient/Rn Renal Name: Patient/Rn Renal Signature: Relationship to Patient: Clinician/Hospital Rn Renal Signature: Date: Electronically signed by Ean, [facility] Conversion Service Transformer Repair Supervisor Merlyner at 02/07/2023 11:53 PM CDT documented in this encounter Plan of Treatment Upcoming Encounters Date Type Department Care Team (Late st Contact Info) Description 06/20/2025 2:30 PM EDT Office Visit [facility] - [address] [place] [phone] Mica Chu, PAMaddieC [address] [place] [phone] documented as of this encounter Visit Diagnoses Not on filedocumented in this encounter Care Teams Band Leader Relationship Specialty Start Date End Date Sotero Basilio MD [address] [place] [address] PCP - General Adolescent Medicine 10/25/22 documented as of this encounter
--- OUTSIDE RECORDS SUMMARY | 2025-05-13 05:45 | XMS_ITS | Encounter Summary ---
Author Organization [employer] ([place], [place], [place], [place]) Address [address] [place] [address] Care Team Providers Care Junior Project Manager Name Role Phone Sotero Miller MD Primary Care Provider [phone] Encounter Details Date Type Department Care Team (Late st Contact Info) Description 05/02/2020 Transcribed Document [facility] [place] Medicine [address] [place] [address] ProviderMk MD [address] [place], [place] [id number] Social History Tobacco Use Types Packs/Day Years Used Date Smoking Tobacco: Never Assessed Sex and Gender Information Value Date Recorded Sex Assigned at Not on file Legal Sex Male 5:40 PM CDT Gender Identity Not on file Sexual Orientation Not on file documented as of this encounter Miscellaneous Notes * [employer]ner Conversion Note - Mk ProviderMD - 05/02/2020 5:00 PM CDT Chart Check - Review Order Profile Entered On: 05/03/2020 10:06 EDT Performed On: 05/02/2020 17:00 EDT by NICHOLAS VALDES RN Chart Check Powerplans Initiated/Discontinued as Appropriate : Yes All Active Orders Reviewed : Yes NICHOLAS VALDES, RN - 05/03/2020 10:06 EDT documented in this encounter Plan of Treatment Upcoming Encounters Date Type Department Care Team (Late st Contact Info) Description 06/20/2025 2:30 PM EDT Office Visit [facility] - [address] [phone] Mica Chu PA-C [address] [place] [phone] documented as of this encounter Visit Diagnoses Not on filedocumented in this encounter Care Teams Junior Project Manager Relationship Specialty Start Date End Date Sotero Miller MD [address] [place] [address] PCP - General Adolescent Medicine 10/25/22 documented as of this encounter
--- OUTSIDE RECORDS SUMMARY | 2025-05-13 05:45 | XMS_ITS | Encounter Summary ---
Author Organization [employer] ([place], [place], [place], [place]) Address [address] [place] [address] Care Team Providers Care Hydraulic Plumber Name Role Phone Sotero Miller MD Primary Care Provider + [phone] Encounter Details Date Type Department Care Team (Late st Contact Info) Description 04/30/[address] [facility] [place] Family Medicine [address] [place] [address] ProviderMk MD [address] [place], [place] [id number] Social History Tobacco Use Types Packs/Day Years Used Date Smoking Tobacco: Never Assessed Sex and Gender Information Value Date Recorded Sex Assigned at Not on file Legal Sex Male 5:40 PM CDT Gender Identity Not on file Sexual Orientation Not on file documented as of this encounter Miscellaneous Notes * Cerner Conversion Note - Mk ProviderMD - 04/30/2020 11:32 AM CDT Re-Evaluation, Physical Therapy Entered On: 04/30/2020 11:36 EDT Performed On: 04/30/2020 11:32 EDT by BRITTNEY BLACK, PT General Information, PT Onset of Problem, PT : 04/29/2020 EDT Assisted by, PT : Family, Other: PT student Precautions in Place : Sternal Precautions General Information Comment, PT : Pt admitted with unstable angina, severe CAD, STEMI and is s/p CABG x 3 on 04/29/20 PMH: CAD, HTN, HLD BRITTNEY BLACK, PT - 04/30/2020 12:08 EDT Visit Type, PT : Re-evaluation BRITTNEY BLACK, PT - 04/30/2020 11:36 EDT Patient Orders : Order Date Order Ordering MD 04/23/2020 11:32 PT Evaluation and Treatment Ordered By: PAPA THORNTON MD-INT 04/29/2020 12:13 Consult to Physical Therapy Ordered By: DAVID LUGO MD-CAT Active Diagnoses : 04/30/2020 12:00 Chronic obstructive pulmonary disease, unspecified 04/30/2020 12:00 Non-ST elevation (NSTEMI) myocardial infarction 04/30/2020 12:00 Unstable angina 04/22/2020 12:00 Atherosclerotic heart disease of nikolski coronary artery without angina pectoris 04/22/2020 12:00 Essential (primary) hypertension 04/22/2020 12:00 Hyperlipidemia, unspecified 04/22/2020 12:00 Nicotine dependence, unspecified, in remission Therapy Diagnosis, PT : Impaired mobililty due to decreased endurance and pain after surgery Admission Date : 04/21/2020 16:53 Personal Devices : Personal Devices No Devices Recorded Assistive Devices : Assistive Devices No Devices Recorded BRITTNEY BLACK, PT - 04/30/2020 12:08 EDT General Status Patient Received Status : Up in chair Treatment Start Time : 04/30/2020 11:11 EDT Patient Left Status : Up in chair, RN/PCT informed, Communication board completed, All needs met and within reach RN/PCT Informed Comment : MARY Israel and RN ANGELES advised session ok to attempt and present at end of session Treatment End Time : 04/30/2020 11:32 EDT Treatment Time : 21 Minute(s) BRITTNEY LBACK PT - 04/30/2020 12:08 EDT History and Environment Living Situation, Therapy : Home Patient Lives With : Spouse Persons Assisting Patient at Home : Spouse Professional Skilled Services : None Persons Providing Information : Patient Home Equipment Therapy, PT : None Home Setup : One story Stairs : Yes Stair Location(s) : Outside Outside Stairs, Number of Steps : 2 Railing Outside : Yes Outside Railing Position : Bilateral BRITTNEY BLACK, PT - 04/30/2020 12:08 EDT Prior Level of Function PT GRID Prior LOF Ambulation, Household : Independent Prior LOF Ambulation, Community : Independent Prior LOF Bed Mobility : Independent Prior LOF Toileting : Independent Prior LOF Transfer : Independent BRITTNEY BLACK PT - 04/30/2020 12:08 EDT Prior LOF Assist with ADL Comment : indep. ADLs BRITTNEY BLACK, PT - 04/30/2020 12:08 EDT Intervention Summary Heart Rate/Pulse Pre-intervention : 63 bpm BP Systolic Pre-intervention : 104 mmHg BP Diastolic Pre-intervention : 55 mmHg O2 Pre-Intervention : 4 L SpO2 Pre-Intervention : 95 % O2 During Intervention : 4 L SpO2 During Intervention : 98 % Patient Stated Response During Interv : pt c/o it's making me breathe fast referring to increased incisional pain during amb Heart Rate/Pulse Post-intervention : 67 bpm BP Systolic Post-intervention : 138 mmHg BP Diastolic Post-intervention : 65 mmHg O2 Post-Intervention : 4 L SpO2 Post-Intervention : 89 % Therapist Assessment Post-intervention : O2 sat 89-90% after treatment, RN in room and aware BRITTNEY BLACK PT - 04/30/2020 12:08 EDT Upper Extremity Right UE Active ROM : WFL Right UE Strength : WFL Left UE Active ROM : WFL Left UE Strength : WFL BRITTNEY BLACK PT - 04/30/2020 12:08 EDT Lower Extremity RLE Active ROM : WFL Right LE Strength : L LLE Active ROM : WFL Left LE Strength : L BRITTNEY BLACK, PT - 04/30/2020 12:08 EDT Functional Mobility Mobility Grid Sit to Stand : Supervision/set-up (Comment: RWx, gait belt [BRITTNEY BLACK PT - 04/30/2020 12:08 EDT] ) Stand to Sit : Rehab Minimal assistance (Comment: RWx, gait belt [BRITTNEY BLACK PT - 04/30/2020 12:08 EDT] ) BRITTNEY BLACK PT - 04/30/2020 12:08 EDT Gait Training/Assessment, PT Gait Assistance Level : Assist, minimal Walking Distance : 80 ft with 2 brief standing rest breaks Ambulatory Devices : Gait belt, Walker, front wheel Gait Deviations : No BRITTNEY BLACK PT - 04/30/2020 12:08 EDT Cognition Assessment, PT Orientation : Oriented x 4 Safety/Judgment Comment : intact Follows Basic Command Assessment : intact Attention Assessment : Present BRITTNEY BLACK PT - 04/30/2020 12:08 EDT Edu Topics Physical Therapy Education Grid Balance Training : Returns demonstration, Needs further teaching Gait Training : Returns demonstration, Needs further teaching Role of Physical Therapy : Verbalizes understanding Safety : Verbalizes understanding, Returns demonstration, Needs reinforcement Transfer Training : Returns demonstration, Needs further teaching Use of Assistive Device : Returns demonstration, Needs further teaching BRITTNEY BLACK, PT - 04/30/2020 12:08 EDT Indication Assesessment, PT Physical Therapy Indicated : Yes PT Problem List : Impaired, activities daily living, Impaired, bed mobility, Impaired, endurance tolerance, Impaired, gait, Impaired, sitting balance, Impaired, stair mobility, Impaired, standing balance, Impaired, strength, Impaired, transfers, Pain limiting function Potential Barriers To Therapy : Fatigue, Pain Rehabilitation Potential : Good BRITTNEY BLACK, PT - 04/30/2020 12:08 EDT Plan of Care, PT PT Tx Plan/Goals Established w Patient : Yes PT Frequency Rehab : Daily PT Duration Rehab : Fourteen days PT Treatments Planned : Balance training, Bed mobility training, Caregiver training, Gait training, Pain management, Safety education, Stair training, Therapeutic exercises, Transfer training BRITTNEY BLACK, PT - 04/30/2020 12:08 EDT Short Term Goals Ambulation STG Grid Goal #1 Device : Walker, front wheel Distance : 200 ft Assist : Supervision or set-up Date to Meet : 05/07/2020 EDT Goal Status : Intial Goal BRITTNEY BLACK, PT - 04/30/2020 12:08 EDT Correctional Sergeant Goals Mobility/Bed Mobility LTG PT Grid Goal #1 Goal #2 Activity : Supine to sit Sit to stand Assist : Independent, modified Independent, modified Date to Meet : 05/14/2020 EDT 05/14/2020 EDT Goal Status : Intial Goal Intial Goal BRITTNEY BLACK, PT - 04/30/2020 12:08 EDT BRITTNEY BLACK, PT - 04/30/2020 12:08 EDT Ambulation LTG Grid Goal #1 Device : Walker, front wheel Distance : 375 ft Assist : Independent, modified Date to Meet : 05/14/2020 EDT Goal Status : Intial Goal BRITTNEY BLACK PT - 04/30/2020 12:08 EDT Treatment Note Subjective Comment : Pt agreeable to session. Assessment : Pt able to amb x 80 ft with min A and use of a RWx, but required 2 brief standing rest breaks. He is very motivated, but c/o increased incisional pain during amb limiting him. He will benefit from continued PTx during LOS. Plan for Treatment : progress as tolerated. BRITTNEY BLACK, PT - 04/30/2020 12:08 EDT Pain Assessment Pain Scaled Used : 0-10 Pain scale Pain Score Pre-Intervention : 7 Location : Other: L side chest at chest tube site Pain Comment : pt reported no pain at incisional site prior to mobility, but c/o increasing pain in incision with amb, RN notified. BRITTNEY BLACK, PT - 04/30/2020 12:08 EDT Image 1 - Images currently included in the form version of this document have not been included in the text rendition version of the form. Anticipated Discharge Needs, OT/PT Anticipated Discharge to : Home, with family care Anticipated Home Equipment : None Recommend Continued Therapy at Discharge : No BRITTNEY BLACK, PT - 04/30/2020 12:[address] [facility] PT Re-Evaluation : 1 BRITTNEY BLACK PT - 04/30/2020 11:36 EDT documented in this encounter Plan of Treatment Upcoming Encounters Date Type Department Care Team (Late st Contact Info) Description 06/20/2025 2:30 PM EDT Office Visit [facility] Orthopedics - [address] [phone] Mica Chu PA-C [address] [place] [address] documented as of this encounter Visit Diagnoses Not on filedocumented in this encounter Care Teams Hydraulic Plumber Relationship Specialty Start Date End Date Sotero Miller MD [address] [place] [address] PCP - General Adolescent Medicine 10/25/22 documented as of this encounter
--- OUTSIDE RECORDS SUMMARY | 2025-05-13 05:45 | XMS_ITS | Encounter Summary ---
Author Organization [employer] ([place], [place], [place], [place]) Address [address] [place] [address] Care Team Providers Care Labeling Machine Operator Name Role Phone Sotero Miller MD Primary Care Provider [phone] Encounter Details Date Type Department Care Team (Late st Contact Info) Description 05/02/2020 Transcribed Document [facility] [place] Family Medicine [address] [place] [address] ProviderMk MD [address] [place] [address] Social History Tobacco Use Types Packs/Day Years Used Date Smoking Tobacco: Never Assessed Sex and Gender Information Value Date Recorded Sex Assigned at Not on file Legal Sex Male 5:40 PM CDT Gender Identity Not on file Sexual Orientation Not on file documented as of this encounter Miscellaneous Notes * Cerner Conversion Note - Mk ProviderMD - 05/02/2020 2:37 PM CDT Spiritual Care Assessment Entered On: 05/02/2020 14:44 EDT Performed On: 05/02/2020 14:37 EDT by Flako Rojas Chaplain-Non Cert General Information Referred by : Nurse Ministry Provided to : Patient, Family/Significant other Flako Rojas Chaplain-Non Cert - 05/02/2020 14:43 EDT Spiritual Assessment Spiritual Assessment Comment/Summary Points : Supportive visit and one meal voucher provided to patient's family upon request. Spirital Assessment Comment/Summary Report : SPIRITUAL ASSESSMENT COMMENT/SUMMARY Spiritual Assessment Comment/Summary 04/28/20 13:59:00 Pre-surgery visit and prayer with patient and daughter. Patient trusting surgery to God's care. Plan to follow up for prayer in am at patient's request. Signed By: GERONIMO PALACIOS Fred M, Chaplain-Non Cert - 05/02/2020 14:43 EDT Interventions Emotional Support : Empathic/Engaged listening Spiritual and Catholic : Spiritual/Catholic support provided lFako Rojas Chaplain-Non Cert - 05/02/2020 14:43 EDT Electronically signed by [facility] Conversion Subpoena Server Cerner at 02/07/2023 11:44 PM CDT documented in this encounter Plan of Treatment Upcoming Encounters Date Type Department Care Team (Late st Contact Info) Description 06/20/2025 2:30 PM EDT Office Visit [facility] Orthopedics - [address] [phone] Mica Chu PAMaddieC [address] [place] [address] documented as of this encounter Visit Diagnoses Not on filedocumented in this encounter Care Teams Labeling Machine Operator Relationship Specialty Start Date End Date Sotero Miller MD [address] [place] [address] PCP - General Adolescent Medicine 10/25/22 documented as of this encounter
--- OUTSIDE RECORDS SUMMARY | 2025-05-13 05:45 | XMS_ITS | Encounter Summary ---
Author Organization [employer] ([place], [place], [place], [place]) Address [address] [place] [address] Care Team Providers Care Quick Sketch Artist Name Role Phone Sotero Miller MD Primary Care Provider + [phone] Encounter Details Date Type Department Care Team (Late st Contact Info) Description 04/22/2020 Transcribed Document [facility] [place] Family Medicine [address] [place] [address] ProviderMk MD [address] [place], [place] [address] Social History Tobacco Use Types Packs/Day Years Used Date Smoking Tobacco: Never Assessed Sex and Gender Information Value Date Recorded Sex Assigned at Not on file Legal Sex Male 5:40 PM CDT Gender Identity Not on file Sexual Orientation Not on file documented as of this encounter Miscellaneous Notes * Cerner Conversion Note - Mk Mac MD - 04/22/2020 2:17 PM CDT Patient: NICO LERNER Age: 70 years Sex: Male : 1950 Associated Diagnoses: None Author: ALICIA FLETCHER MD-CAR Basic Information PCP: Not Listed Primary Changer Fixer: Dr. Eugenio Peacock MD Requesting MD: Dr. Elis Massey MD Chief Complaint No new event Review of Systems ROS reviewed as documented in chart Health Status Allergies (1) Active Reaction No Known Allergies None Documented Home Medications (5) Active aspirin 325 mg [...] 10 mg = 1 Tab, Oral, Daily Allergies: Allergic Reactions (Selected) No Known Allergies, [...] mL: 100 mg, 50 mL/Hr, IV Piggyback, [id number] heparin injection 25,000 Units + NaCl 0.45% [...] 0.9% 100 mL 100 mg, IV Piggyback, [id number] metoprolol tartrate 25 mg tab 12.5 mg [...] At risk for sleep apnea / IMO [id number] / Confirmed, Active Problems (4) Arthritis At risk for sleep apnea CAD (coronary artery disease) Chronic hypertension Histories Past Medical History: No active or resolved past medical history items have been selected or recorded. Family History: No family history items have been selected or recorded. Procedure history: thumb surgery with grafts. Physical Examination VS/Measurements Vitals Signs (last 24 hrs) Last Charted Minimum Maximum Temp 98.6 (APR 22 08:00) 97.7 (APR 21 20:00) 98.6 (APR 21 17:00) Apical HR 60 (APR 22 08:10) L 47 (APR 21 22:36) 60 (APR 22 08:10) Mon HR 52 (APR 22 08:00) 44 (APR 22 04:30) 68 (APR 21 18:45) Resp Rate 20 (APR 22 08:) 16 (APR 22 01:00) H 30 (APR 21 17:00) SBP 127 (APR 22 08:00) 107 (APR 22 02:15) H 151 (APR 22 05:45) DBP 69 (APR 22 08:00) L 55 (APR 21 23:00) 76 (APR 21 18:15) MAP 92 (APR 22 08:) 79 (APR 22 02:45) 102 (APR 22 05:45) SpO2 95 (APR 22 08:27) L 93 (APR 21 17:15) 98 (APR 21 23:00) General: [Alert and oriented, well nourished, no [...] appropriate mood and affect]. Review / Management Results review: Labs (Last [...] (APR 22) C 46.200 (APR 21) . Impression and Plan IMPRESSION: NSTEMI (troponin peak 46). 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 CV disease in the Dx, left circumflex. Echo EF > 50%, valves OK ([facility] Elevated proBNP, no clinical congestion/CHF. Hypertension. Dyslipidemia. PLAN; 04-22-20 Filmed reviewed at request of family [...] Office Visit [facility] Orthopedics - [address] [phone] Mica Chu PA-C [address] [place] [address] documented as of this encounter Visit Diagnoses Not on filedocumented in this encounter Care Teams Quick Sketch Artist Relationship Specialty Start Date End Date Sotero Miller MD [address] [place] [address] PCP - General Adolescent Medicine 10/25/22 documented as of this encounter
--- OUTSIDE RECORDS SUMMARY | 2025-05-13 05:45 | XMS_ITS | Encounter Summary ---
Author Organization [employer] ([place], [place], [place], [place]) Address [address] [place] [address] Care Team Providers Care Foot Orthopedist Name Role Phone Sotero Miller MD Primary Care Provider + [phone] Encounter Details Date Type Department Care Team (Late st Contact Info) Description 04/29/[address] [facility] [place] Family Medicine [address] [place] [address] ProviderMk MD [address] [place], [place] [id number] Social History Tobacco Use Types Packs/Day Years Used Date Smoking Tobacco: Never Assessed Sex and Gender Information Value Date Recorded Sex Assigned at Not on file Legal Sex Male 5:40 PM CDT Gender Identity Not on file Sexual Orientation Not on file documented as of this encounter Miscellaneous Notes * Cerner Conversion Note - Mk ProviderMD - 04/29/2020 5:00 PM CDT Chart Check - Review Order Profile Entered On: 04/29/2020 21:27 EDT Performed On: 04/29/2020 17:00 EDT by Marilee Shell RN Chart Check Powerplans Initiated/Discontinued as Appropriate : Yes All Active Orders Reviewed : Yes Marilee Shell RN - 04/29/2020 21:27 EDT documented in this encounter Plan of Treatment Upcoming Encounters Date Type Department Care Team (Late st Contact Info) Description 06/20/2025 2:30 PM EDT Office Visit [facility] Orthopedics - [address] [phone] Mica Chu PA-C [address] [place] [address] documented as of this encounter Visit Diagnoses Not on filedocumented in this encounter Care Teams Foot Orthopedist Relationship Specialty Start Date End Date Sotero Miller MD [address] [place] [address] PCP - General Adolescent Medicine 10/25/22 documented as of this encounter
--- OUTSIDE RECORDS SUMMARY | 2025-05-13 05:45 | XMS_ITS | Encounter Summary ---
Author Organization [employer] ([place], [place], [place], [place]) Address [address] [place] [address] Care Team Providers Care Recyclable Materials Distributor Name Role Phone Sotero Miller MD Primary Care Provider [phone] Encounter Details Date Type Department Care Team (Late st Contact Info) Description 04/22/2020 Transcribed Document [facility] [place] Family Medicine [address] [place] [address] ProviderMk MD [address] [place], [place] [address] Social History Tobacco Use Types Packs/Day Years Used Date Smoking Tobacco: Never Assessed Sex and Gender Information Value Date Recorded Sex Assigned at Not on file Legal Sex Male 5:40 PM CDT Gender Identity Not on file Sexual Orientation Not on file documented as of this encounter Miscellaneous Notes * Cerner Conversion Note - Mk Mac MD - 04/22/2020 9:38 AM CDT UM Authorization Entered On: 04/22/2020 9:39 EDT Performed On: 04/22/2020 9:38 EDT by CATHI DEAL RN-Utilization Review Primary Insurance Authorization Authorization and Policy Numbers : Insurance 1 Health Plan: ANTHEM [employer]OPPO Policy Number: [id number] Authorization Number: Insurance 2 Health Plan: MEDICARE Policy Number: [id number] Authorization Number: Insurance Primary Name : ANTHEM HMOPPO Policy Number: [id number] Authorization Status-Primary : Awaiting callback Reference Number-Primary : [id number] Authorized Service Begin Date-Primary : 04/21/2020 EDT Authorization Comments-Primary : submitted on availity for IP auth w/ clinicals attached Historical Authorization Comments-Primary : No Authorization Comments Found CATHI DEAL, RN-Utilization Review - 04/22/2020 9:38 EDT Electronically signed by Lizzie Mckoy Conversion Service Unit Operator [employer] at 02/07/2023 11:51 PM CDT documented in this encounter Plan of Treatment Upcoming Encounters Date Type Department Care Team (Late st Contact Info) Description 06/20/2025 2:30 PM EDT Office Visit [facility] Orthopedics - [address] [phone] Mica Chu PAMaddieC [address] [place] [address] documented as of this encounter Visit Diagnoses Not on filedocumented in this encounter Care Teams Recyclable Materials Distributor Relationship Specialty Start Date End Date Soetro Miller MD [address] [place] [address] PCP - General Adolescent Medicine 10/25/22 documented as of this encounter
--- OUTSIDE RECORDS SUMMARY | 2025-05-13 05:45 | XMS_ITS | Encounter Summary ---
Author Organization [employer] ([place], [place], [place], [place]) Address [address] [place] [address] Care Team Providers Care Hotel Sales Manager Name Role Phone Sotero Miller MD Primary Care Provider [phone] Encounter Details Date Type Department Care Team (Late st Contact Info) Description 04/30/2020 Transcribed Document [facility] Cardiology [address] [place] [phone] [place] [address] [place] [address] [address] [place] [address] Social History Tobacco Use Types Packs/Day Years Used Date Smoking Tobacco: Never Assessed Sex and Gender Information Value Date Recorded Sex Assigned at Not on file Legal Sex Male 5:40 PM CDT Gender Identity Not on file Sexual Orientation Not on file documented as of this encounter Miscellaneous Notes * Cerner Conversion Note - Keo Collier MD - 04/30/2020 7:30 AM EDT Patient: NICO LERNER Age: 70 years Sex: Male : 1950 Associated Diagnoses: None Author: KEO COLLIER MD-CAR BASIC PCP: Not Listed Primary Official Court Interpreter: Dr. Eugenio Peacock MD Requesting MD: Dr. Elis Massey MD Subjective NAD. OOB to chair. Doing well post-op. On Low dose Dopamine at 2mcg/kg/min. Health Status Current medications: Home Medications (5) [...] = 1 Tab, Oral, Daily , Medications (36) Active Scheduled: (12) #NaCl 0.9% *FLUSH* inj 10 mL 10 mL, IV Push, Q12H ascorbic acid 500 mg tab 500 mg 1 Tab, Oral, BID aspirin EC 81 mg tab 81 mg 1 Tab, Oral, Daily atorvastatin 20 mg tab 20 mg 1 Tab, Oral, At Bedtime cefTRIAXone 2 Gram, IV Piggyback, [id number] clopidogrel 75 mg tab 75 mg 1 [...] mg 2 Tab, Oral, At Bedtime Continuous: (4) D5w/NaCl 0.2% 1,000 mL 1,000 mL, IntraVENous, 30 mL/Hr dexmedetomidine 400 mcg + NaCl 0.9% TITRATE 100 mL 100 mL, IntraVENous DOPamine/D5w 400 mg + Premix Diluent D5W TITRATE 250 mL 250 mL, IntraVENous insulin regular 100 Units + [...] 24 hour output: Total 2,540 ml VS/Measurements Vitals Signs (last 24 hrs) Last Charted Minimum Maximum Temp 97.9 (APR 29 21:00) 96.8 (APR 29 15:00) 97.2 (APR 29 16:00) Mon HR 55 (APR 30 04:00) 55 (APR 29 13:15) 73 (APR 29 12:40) Resp Rate H 26 (APR 30 04:00) 14 (APR 29 13:30) H 41 (APR 29 22:00) SBP 97 (APR 30 04:00) 90 (APR 29 16:45) 123 (APR 29 13:45) DBP L 53 (APR 30 04:00) L 48 (APR 29 17:15) 67 (APR 29 16:00) MAP 53 (APR 30 04:00) 53 (APR 30 04:00) 91 (APR 29 13:00) SpO2 94 (APR 30 04:00) L 86 (APR 29 17:45) 100 (APR 29 14:45) General: Alert and oriented, No acute distress. [...] Appropriate mood & affect. Results Review APR 30 05:33 136 107 12 / H 132 5.1 23 1.00 \ APR 30 05:33 \ L 12.5 / H 19.9 170 / L 37.0 \ CABG 04/29/2020 PROCEDURES PERFORMED: 1. Median [...] NSTEMI (troponin peak 46). s/p LHC at [facility] 03/2020 revealing MVCAD; total occlusion of the RCA and LAD. CV disease in the Dx, left circumflex. Echo EF > 50%, valves OK ([facility] ). Elevated proBNP, no clinical congestion/CHF CTS Consulted / S/P CABG X3 (GAMBINO to LAD, SVG to D1, SVG to PL) on 04/29/2020 Hypertension. Dyslipidemia. Sinus Bradycardia. PLAN: 04/30/2020 Wean dopamine to off as clinical [...] Description 06/20/2025 2:30 PM EDT Office Visit [facility] Orthopedics - [address] [phone] Mica Chu PA-C [address] [place] [address] documented as of this encounter Visit Diagnoses Not on filedocumented in this encounter Care Teams Hotel Sales Manager Relationship Specialty Start Date End Date Sotero Miller MD [address] [place] [address] PCP - General Adolescent Medicine 10/25/22 documented as of this encounter
--- OUTSIDE RECORDS SUMMARY | 2025-05-13 05:45 | XMS_ITS | Encounter Summary ---
Author Organization [employer] ([place], [place], [place]) Address [address] [place] [address] Care Team Providers Care Client Support Consultant Name Role Phone Sotero Miller MD Primary Care Provider + [phone] Encounter Details Date Type Department Care Team (Late st Contact Info) Description 05/01/2020 Transcribed Document [facility] [place] Family Medicine Formerly [facility] [place] [address] ProviderMk MD [address] [place], [place] [id number] Social History Tobacco Use Types Packs/Day Years Used Date Smoking Tobacco: Never Assessed Sex and Gender Information Value Date Recorded Sex Assigned at Not on file Legal Sex Male 5:40 PM CDT Gender Identity Not on file Sexual Orientation Not on file documented as of this encounter Miscellaneous Notes * Cerner Conversion Note - Mk ProviderMD - 05/01/2020 2:00 AM CDT Green Marketing Specialist Details Entered On: 05/01/2020 0:50 EDT Performed On: 05/01/2020 2:00 EDT by Veronique Adamson RN Order Details Transport Mode Order Detail : Wheelchair Isolation Precautions Order Detail : Standard Precautions Order Detail : N/A IV Order Detail : 1 Oxygen Order Detail : 1 Nurse Collect Order Detail : 0 Lift/Transfer : Minimal Central Line Order Detail : No Room Service : Appropriate Arterial Line : No Veronique Adamson RN - 05/01/2020 0:50 EDT documented in this encounter Plan of Treatment Upcoming Encounters Date Type Department Care Team (Late st Contact Info) Description 06/20/2025 2:30 PM EDT Office Visit [facility] Orthopedics - [address] [phone] Mica Chu PA-C [address] [place] [address] documented as of this encounter Visit Diagnoses Not on filedocumented in this encounter Care Teams Client Support Consultant Relationship Specialty Start Date End Date Sotero Miller MD [address] [place] [address] PCP - General Adolescent Medicine 10/25/22 documented as of this encounter
--- OUTSIDE RECORDS SUMMARY | 2025-05-13 05:45 | XMS_ITS | Encounter Summary ---
Author Organization [employer] ([place], [place], [place], [place]) Address [address] [place] [address] Care Team Providers Care Director Of Product Development Name Role Phone Sotero Miller MD Primary Care Provider + [phone] Encounter Details Date Type Department Care Team (Late st Contact Info) Description 05/01/2020 Transcribed Document [facility] [place] [facility] [place] [address] ProviderMk MD [address] [place] [address] Social History Tobacco Use Types Packs/Day Years Used Date Smoking Tobacco: Never Assessed Sex and Gender Information Value Date Recorded Sex Assigned at Not on file Legal Sex Male 5:40 PM CDT Gender Identity Not on file Sexual Orientation Not on file documented as of this encounter Miscellaneous Notes * Cerner Conversion Note - Mk Mac MD - 05/01/2020 10:21 AM CDT Patient: GILBERT LERNER Age: 70 years Sex: Male : 1950 Associated Diagnoses: None Author: PAPA THORNTON MD-INT DATE OF SERVICE [ DOS ]: 05-01-2020 Basic Information SUBJECTIVE: Patient is seen and evaluated on Telemetry Unit Underwent CABG on Wednesday Two chest tubes are in Review of Systems Constitutional: No fever, No [...] Rocephin: 2 Gram, 100 mL/Hr, IV Piggyback, [id number] Senokot: 17.2 mg, Oral, At Bedtime Tylenol: [...] Scale C:, SubCutaneous, AC and at Bedtime oxyCODONE: 5 mg, Oral, Q6H, PRN: Pain [...] 1.5 Tab, Oral, Daily, 0 Refill(s), Medications (31) Active Scheduled: (13) #NaCl 0.9% *FLUSH* inj 10 mL 10 mL, IV Push, Q8H ascorbic acid 500 mg tab 500 mg 1 Tab, Oral, BID aspirin EC 81 mg tab 81 mg 1 Tab, Oral, Daily atorvastatin 20 mg tab 20 mg 1 Tab, Oral, At Bedtime budesonide 0.5 mg/2 mL inh susp 0.5 mg 2 mL, Nebulized Inhalation, RT_BID cefTRIAXone 2 Gram, IV Piggyback, [id number] clopidogrel 75 mg tab 75 mg 1 Tab, Oral, Daily docusate sodium 100 mg cap 100 mg 1 Cap, Oral, BID doxycycline hyclate 100 mg cap 100 mg 1 Cap, Oral, BID famotidine 20 mg tab 20 mg 1 Tab, Oral, BID insulin lispro 1 unit/0.01 mL inj Scale C:, SubCutaneous, AC and at Bedtime mupirocin 2% nasal oint 1 g 1 Application, Nostrils Both, BID senna 8.6 mg tab 17.2 mg 2 Tab, Oral, At Bedtime Continuous: (1) DOPamine/D5w 400 mg + Premix Diluent D5W TITRATE 250 mL 250 mL, IntraVENous PRN: (17) #NaCl 0.9% *FLUSH* inj 10 mL 10 [...] elevation myocardial infarction (STEMI) / SNOMED CT 5305970608 / Confirmed At risk for sleep apnea / IMO [id number] / Confirmed Hypertension / SNOMED CT 6894382933 / Confirmed Acute kidney injury / SNOMED CT 12133393 / Confirmed Stage 3 severe COPD by GOLD classification / SNOMED CT 678430708 / Confirmed, Active Problems (8) Acute kidney injury Acute ST elevation myocardial infarction (STEMI) Arthritis At risk for sleep apnea CAD (coronary artery disease) Chronic hypertension Hypertension Stage 3 severe COPD by GOLD classification OBJECTIVE: Physical Examination VS/Measurements Vitals Signs (last 24 hrs) Last Charted Minimum Maximum Temp 98.1 (MAY 01:04) 97.4 (MAY 01:31) 98.6 (APR 30:47) Mon HR 75 (MAY 01 10:) 59 (APR 30 16:00) 77 (MAY 01:31) Resp Rate 18 (MAY 01:) 16 (MAY 01 06:14) H 28 (APR 30 13:00) SBP 100 (MAY 01 10:) 100 (MAY 01:04) 135 (APR 30 13:00) DBP 63 (MAY 01:) L 54 (APR 30:47) 76 (MAY 01 06:14) MAP 68 (MAY 01 10:04) 68 (MAY 01 10:04) 93 (APR 30 13:00) SpO2 94 (MAY 01 10:04) L 91 (APR 30 17:00) 99 (MAY [...] tenderness, No swelling, No deformity. Integumentary: Warm, [place], Moist, No rash. Neurologic: Alert, Oriented, Normal sensory, Normal motor function, No focal deficits, Cranial Nerves II-XII are grossly intact, Normal deep tendon reflexes. Psychiatric: Cooperative, Appropriate mood & affect, Normal judgment. Review / Management Results review: Labs (Last four charted values) WBC H 23.8 (MAY 01) H 19.9 (APR 30) H 29.0 (APR 29) H 13.3 (APR 29) HB L 12.5 (MAY 01) L 13.0 (APR 30) L 12.5 (APR 30) L 13.0 (APR 29) HCT L 38.4 (MAY 01) 40.1 (APR 30) L 37.0 (APR 30) L 38.7 (APR 29) Plt 175 (MAY 01) 170 (APR 30) 173 (APR 29) 248 (APR 29) Na L 135 (MAY 01) 136 (APR 30) 137 (APR 29) L 134 (APR 29) K 5.1 (MAY 01) H 5.2 (APR 30) 5.1 (APR 30) 4.8 (APR 29) Cl 102 (MAY 01) 107 (APR 30) 105 (APR 29) 103 (APR 29) CO2 27 (MAY 01) 23 (APR 30) 23 (APR 29) 27 (APR 29) BUN 22 (MAY 01) 12 (APR 30) 14 (APR 29) 16 (APR 29) Cr H 1.50 (MAY 01) 1.00 (APR 30) 1.00 (APR 29) 1.20 (APR 29) Glu R H 141 (MAY 01) H 132 (APR 30) H 197 (APR 29) 104 (APR 29) Ca 9.1 (MAY 01) L 8.0 (APR 30) L 8.2 (APR 29) 9.1 (APR 29) Lactic 1.4 (APR 22) 1.6 [...] 22) C 46.200 (APR 21) , MAY 01 05:25 L 135 102 22 / H 141 5.1 27 H 1.50 \ MAY 01 05:25 \ L 12.5 / H 23.8 175 / L 38.4 \, Radiology Results (Last 48 hours) [id number] -- 04/21/2020 16:53 CR Chest 1 Vw Portable (04/29/2020 12:55) Result: PORTABLE CHEST 04/29/2020 12:12 PM HISTORY: Postop heart surgery.COMPARISON: April 28, 2020.FINDINGS: The heart is mildly to moderately enlarged The mediastinum isunremarkable. The patient is status post interval median sternotomy.Endotracheal tube tip terminates 3.5 cm above the magnus. Leftsubclavian [place]-Phil catheter tip terminates in the left brachiocephalicvein. [...] present. Nasogastric tube has been removed. Leftsubclavian [place]-Phil catheter has been removed. A left large bore chesttube is present. There is no evidence of pneumothorax. Mild bibasilaratelectasis is present.IMPRESSION:1. Cardiomegaly with bibasilar atelectasis, as described.Images reviewed, interpreted, and dictated by Mac Luis MD . Impression and Plan 1. severe CAD [...] Kirti, case management in room for MDR Time spent: 33 minutes documented in this encounter Plan of Treatment Upcoming Encounters Date Type Department Care Team (Late st Contact Info) Description 06/20/2025 2:30 PM EDT Office Visit [facility] Orthopedics - [address] [phone] Mica Chu PA-C [address] [place] [address] documented as of this encounter Visit Diagnoses Not on filedocumented in this encounter Care Teams Director Of Product Development Relationship Specialty Start Date End Date Sotero Miller MD [address] [place] [address] PCP - General Adolescent Medicine 10/25/22 documented as of this encounter
--- OUTSIDE RECORDS SUMMARY | 2025-05-13 05:45 | XMS_ITS | Encounter Summary ---
Author Organization [employer] ([place], [place], [place], [place]) Address [address] [place] [address] Care Team Providers Care Machine Tool Operator Name Role Phone Sotero Basilio MD Primary Care Provider [phone] Encounter Details Date Type Department Care Team (Late st Contact Info) Description 05/05/2020 Transcribed Document [facility] [place] Formerly [facility] [place] [address] ProviderMk MD [address] [place], [place] [address] Social History Tobacco Use Types Packs/Day Years Used Date Smoking Tobacco: Never Assessed Sex and Gender Information Value Date Recorded Sex Assigned at Not on file Legal Sex Male 5:40 PM CDT Gender Identity Not on file Sexual Orientation Not on file documented as of this encounter Miscellaneous Notes * Cerner Conversion Note - Mk Mac MD - 05/05/2020 7:19 AM CDT Patient: GILBERT LERNER Age: 70 Years Sex: Male : 1950 Admit Date 04/21/2020 16:53 Discharge Date May 05, 2020 Primary Care Provider IDALIA, UNKNOWN Discharge Diagnosis Severe 3VCAD (coronary artery disease) 04/22/2020 I25.10 ICD-10-CM Procedures SN - Proc - Procedure: Coronary Artery Bypass Graft (04/29/20 10:41:44) Hospital Course Multivessel CAD S/P CABG . Evaluated by [...] can be discharged home on home health Cardiology has recommended oral amiodarone which the patient will be discharged on. Heart rate has remained stable in the high 50s low 60s. No chest pain shortness breath palpitations. Currently stable appropriate for discharge home Vital Signs T: 36.6 ??C TMIN: 36.3 ??C TMAX: 36.8 ??C HR: 62(Monitored) RR: 18 BP: 104/63 SpO2: 97% Oxygen Settings (Last) Oxygen Therapy Mode: Room air (05/04/20 20:14:00) Oxygen Flow Rate: 2 Liter/Min (05/04/20 08:36:00) Discharge Disposition Home Discharge Follow Up SOTERO BASILIO (REFANNA Davies - 11:15 AM [facility] Cardiac Rehabilitation - Within 6 weeks DAVID LUGO - 11:00 AM Eugenio Peacock - 02:45 PM Discharge Medications (6) Active amiodarone 200 mg oral tablet 400 mg = 2 Tab, Oral, BID Aspirin Enteric Coated 81 mg oral delayed release tablet 81 mg = 1 Tab, Oral, Daily atorvastatin 80 mg oral tablet 80 mg = 1 Tab, Oral, At Bedtime Metoprolol Succinate ER 50 mg oral tablet, extended release 50 mg = 1 Tab, Oral, Daily Norvasc 10 mg oral tablet 5 mg = 0.5 Tab, Oral, Daily Plavix 75 mg oral tablet 75 mg = 1 Tab, Oral, Daily Code Status Start: 04/29/20 12:12:00 EDT, Full Code, Continuous Order Condition on Discharge Stable, improved Consulting Physicians MIRANDA JACKSON MD-CAT DAVID LUGO MD-CAT (Dr. Farrar has spoken with Dr. Deleon.) - CABG evaluation for Multivessel CAD ADDIE WHITFIELD MD-ANS Current Diet Order Diet, Adult - Ordered -- Start: 04/30/20 7:12:00 EDT, Cardiac Diet, Isolation: Standard Precautions Patient Discharge Summary Orders Discharge Activity: Discharge Activity: Activity as tolerated Diet: Discharge Diet: Resume usual diet as tolerated Follow Up Labs/Studies Blood Gases (Current Encounter/Past 24 Hours) No Blood Gas Results Found (Past 24 Hours) Electrolytes(BMP) Results (Current Encounter/Past 24 Hours) Sodium Level 137 mmol/L 05/05/2020 03:31 Potassium Level 5.0 mmol/L 05/05/2020 03:31 Chloride Level 103 mmol/L 05/05/2020 03:31 Carbon Dioxide Level 29 mmol/L 05/05/2020 03:31 Anion Gap 10 05/05/2020 03:31 Blood Urea Nitrogen 32 mg/dL ID 05/05/2020 03:31 Glucose Level 111 mg/dL ID 05/05/2020 03:31 Calcium Level 8.9 mg/dL 05/05/2020 03:31 Creatinine Level 1.10 mg/dL 05/05/2020 03:31 Cardiac Markers (Current Encounter/Past 24 Hours) No Cardiac Marker Results Found (Past 24 Hours) CBC Results (Current Encounter/Past 24 Hours) WBC 14.2 K/uL ID 05/05/2020 03:23 Hct 32.3 % LOW 05/05/2020 03:23 Hgb 10.3 g/dL LOW 05/05/2020 03:23 Platelet Count 247 K/uL 05/05/2020 03:23 CMP Results (Current Encounter/Past 24 Hours) Creatinine Level 1.10 mg/dL 05/05/2020 03:31 Bun/Creatinine 29.1 ID 05/05/2020 03:31 eGFR >60 mL/min/1.73m2 05/05/2020 03:31 eGFR NonAfrican >60 mL/min/1.73m2 05/05/2020 03:31 Bun/Creatinine 29.1 ID 05/05/2020 06:46 Sodium Level 137 mmol/L 05/05/2020 03:31 Potassium Level 5.0 mmol/L 05/05/2020 03:31 Chloride Level 103 mmol/L 05/05/2020 03:31 Carbon Dioxide Level 29 mmol/L 05/05/2020 03:31 Anion Gap 10 05/05/2020 03:31 Blood Urea Nitrogen 32 mg/dL ID 05/05/2020 03:31 Glucose Level 111 mg/dL ID 05/05/2020 03:31 Calcium Level 8.9 mg/dL 05/05/2020 03:31 Coagulation Results (Current Encounter/Past 24 Hours) No Coagulation Results Found (Past 24 Hours) Creatinine Clearance (Current Encounter/Past 24 Hours) Creatinine Level 1.10 mg/dL 05/05/2020 03:31 Bun/Creatinine 29.1 ID 05/05/2020 03:31 Estimated Creatinine Clearance 60.45 mL/Min 05/05/2020 03:31 Pending Labs Ordered CBC no Diff (Hemogram) Specimen Type: Blood, AM Draw collect, 05/02/20 4:00:00 EDT, Daily, Lab Collect BMP Basic Metabolic Panel Specimen Type: Blood, AM Draw collect, 05/01/20 4:00:00 EDT, Daily, Lab Collect Time Spent on Discharge 35 minutes documented in this encounter Plan of Treatment Upcoming Encounters Date Type Department Care Team (Late st Contact Info) Description 06/20/2025 2:30 PM EDT Office Visit [facility] Orthopedics - [address] [phone] Mica Chu PA-C [address] [place] [address] documented as of this encounter Visit Diagnoses Not on filedocumented in this encounter Care Teams Machine Tool Operator Relationship Specialty Start Date End Date Sotero Basilio MD [address] [place] [address] PCP - General Adolescent Medicine 10/25/22 documented as of this encounter
--- OUTSIDE RECORDS SUMMARY | 2025-05-13 05:45 | XMS_ITS | Encounter Summary ---
Author Organization [employer] ([place], [place], [place], [place]) Address [address] [place] [address] Care Team Providers Care Office Machine Servicer Name Role Phone Sotero Miller MD Primary Care Provider + [phone] Encounter Details Date Type Department Care Team (Late st Contact Info) Description 04/30/2020 Transcribed Document [facility] [place] Family [place] [facility] [place] [address] ProviderMk MD [address] [place] [address] Social History Tobacco Use Types Packs/Day Years Used Date Smoking Tobacco: Never Assessed Sex and Gender Information Value Date Recorded Sex Assigned at Not on file Legal Sex Male 5:40 PM CDT Gender Identity Not on file Sexual Orientation Not on file documented as of this encounter Miscellaneous Notes * Cerner Conversion Note - Mk Mac MD - 04/30/2020 12:18 PM CDT Patient: GILBERT LERNER Age: 70 years Sex: Male : 1950 Associated Diagnoses: None Author: PAPA THORNTON MD-INT DATE OF SERVICE [ DOS ]: 04-30-2020 Basic Information SUBJECTIVE: Patient is seen and evaluated Underwent CABG Seen in ICU Extubated yesterday Review of Systems Constitutional: No fever, No [...] Rocephin: 2 Gram, 100 mL/Hr, IV Piggyback, [id number] Senokot: 17.2 mg, Oral, At Bedtime Tylenol: [...] Inhalation, RT_BID cefTRIAXone 2 Gram, IV Piggyback, [id number] clopidogrel 75 mg tab 75 mg 1 [...] elevation myocardial infarction (STEMI) / SNOMED CT 7914205143 / Confirmed At risk for sleep apnea / IMO [id number] / Confirmed Hypertension / SNOMED CT 4700754107 / Confirmed Acute kidney injury / SNOMED CT 60593796 / Confirmed Stage 3 severe COPD by GOLD classification / SNOMED CT 257978321 / Confirmed, Active Problems (8) Acute kidney [...] tenderness, No swelling, No deformity. Integumentary: Warm, [place], Moist, No rash. Neurologic: Alert, Oriented, Normal [...] , , Radiology Results (Last 48 hours) [id number] -- 04/21/2020 16:53 CR Chest 1 Vw Portable (04/29/2020 12:55) Result: PORTABLE CHEST 04/29/2020 12:12 PM HISTORY: Postop heart surgery.COMPARISON: April 28, 2020.FINDINGS: The heart is mildly to moderately enlarged The mediastinum isunremarkable. The patient is status post interval median sternotomy.Endotracheal tube tip terminates 3.5 cm above the magnus. Leftsubclavian [place]-Phil catheter tip terminates in the left brachiocephalicvein. [...] dictated by Dr. Ahsan Chong.Transcribed by Cristian Vasquez(Jennie).I have personally viewed, interpreted and dictated the examination. Ihsummer read and agree with the above final transcribed report. CR Chest 1 Vw Portable (05/01/2020 05:53) Result: CHEST SINGLE VIEWCOMPARISON: Chest from 30 April 2020.HISTORY: Pleural effusion.FINDINGS: Cardiac silhouette is moderately enlarged. Multiple mediansternotomy wires are present. Nasogastric tube has been removed. Leftsubclavian [place]-Phil catheter has been removed. A left large [...] are in Pain is controlled Continue ICU Time spent: 32 minutes Electronically signed by Ean [facility] Conversion [employer]umping Station Supervisor Cerner at 02/07/2023 11:30 PM CDT documented in this encounter Plan of Treatment Upcoming Encounters Date Type Department Care Team (Late st Contact Info) Description 06/20/2025 2:30 PM EDT Office Visit [facility] Orthopedics - [address] [phone] Mica Chu PA-C [address] [place] [address] documented as of this encounter Visit Diagnoses Not on filedocumented in this encounter Care Teams Office Machine Servicer Relationship Specialty Start Date End Date Sotero Miller MD [address] [place] [address] PCP - General Adolescent Medicine 10/25/22 documented as of this encounter
--- OUTSIDE RECORDS SUMMARY | 2025-05-13 05:45 | XMS_ITS | Encounter Summary ---
Author Organization [employer] ([place], [place], [place], [place]) Address [address] [place] [address] Care Team Providers Care Quality Tech Name Role Phone Sotero Miller MD Primary Care Provider + [phone] Encounter Details Date Type Department Care Team (Late st Contact Info) Description 05/03/2020 Transcribed Document [facility] [place] Family [place] [address] [place] [address] ProviderMk MD [address] [place], [place] [address] Social History Tobacco Use Types Packs/Day Years Used Date Smoking Tobacco: Never Assessed Sex and Gender Information Value Date Recorded Sex Assigned at Not on file Legal Sex Male 5:40 PM CDT Gender Identity Not on file Sexual Orientation Not on file documented as of this encounter Miscellaneous Notes * [employer]ner Conversion Note - Mk ProviderMD - 05/03/2020 3:00 AM CDT Nutrition Assessment Entered On: 05/03/2020 13:03 EDT Performed On: 05/03/2020 14:42 EDT by Puja Li Dietitian Nutrition Assessment Nutrition Assessment Reason : Follow Up Puja Li Dietitian - 05/03/2020 13:03 EDT Nutrition Recommendations Dietitian Recommendations : 05/03: Cardiac rescreen. POD#4. Pt continues on cardiac diet and eating 75-100% of meals. Pt states he is doing ok. He has been drinking Ensures. Post-CABG diet education materials were provided to pt. Pt did not have any questions regarding diet at this time. Labs/meds reviewed. No new skin issues. LBM 04/28-docusate and senna given. No nutrition dx. Will rescreen in 7-10 days or available prn. Puja Li Dietitian - 05/03/2020 14:41 EDT Nutrition Care Level : No nutritional risk Puja Li Dietitian - 05/03/2020 13:48 EDT Education Topics, Nutrition Nutrition Education Grid Heart Healthy Diet : Verbalizes understanding Puja Li Dietitian - 05/03/2020 14:41 EDT documented in this encounter Plan of Treatment Upcoming Encounters Date Type Department Care Team (Late st Contact Info) Description 06/20/2025 2:30 PM EDT Office Visit [facility] Orthopedics - [address] [phone] Mica Chu, PA-C [address] [place] [phone] documented as of this encounter Visit Diagnoses Not on filedocumented in this encounter Care Teams Quality Tech Relationship Specialty Start Date End Date Sotero Miller MD [address] [place] [address] PCP - General Adolescent Medicine 10/25/22 documented as of this encounter
--- NOTE | 2025-05-13 05:55 | HMH.EDGENADL ---
Discharge Plan Disposition Patient Disposition: Home, Self-Care Prescriptions Prescriptions: New sulfamethoxazole-trimethoprim 800-160 mg tablet 1 tab PO BID 7 Days Qty: 14 0RF prednisone 20 mg tablet 80 mg PO DAILY 5 Days Qty: 20 0RF valacyclovir [Valtrex] 1 gram tablet 1,000 mg PO TID 10 Days Qty: 30 0RF No Action multivitamin Tablet 1 tab PO DAILY trazodone 50 mg tablet 50 mg PO HS Patient Comments: TAKE 1-2 TABLETS BY MOUTH NIGHTLY NEEDED FOR INSOMNIA amlodipine 5 mg tablet 5 mg PO DAILY Patient Comments: TAKE 1 TABLET BY MOUTH ONCE DAILY escitalopram oxalate [Lexapro] 5 mg tablet 5 mg PO DAILY Qty: 90 3RF metformin 500 mg tablet 500 mg PO BID Patient Comments: TAKE 1 TABLET BY MOUTH TWICE DAILY WITH MEALS rosuvastatin 5 mg tablet 5 mg PO nitroglycerin 0.4 mg tablet, sublingual 0.4 mg sublingual Patient Comments: DISSOLVE ONE TABLET UNDER THE TONGUE EVERY 5 MINUTES NEEDED FOR CHEST PAIN. DO NOT EXCEED A TOTAL OF 3 DOSES IN 15 MINUTES amoxicillin 500 mg tablet 500 mg PO TID Qty: 30 0RF clopidogrel 75 mg tablet 75 mg PO DAILY Patient Comments: TAKE 1 TABLET BY MOUTH ONCE DAILY furosemide 40 mg tablet 40 mg PO DAILY Patient Comments: TAKE 1 TABLET BY MOUTH ONCE DAILY potassium chloride 20 mEq tablet,ER particles/crystals 20 meq PO DAILY diclofenac sodium 50 mg tablet,delayed release (DR/EC) 50 mg PO BID Qty: 60 2RF metoprolol succinate 50 MG tablet 50 mg PO DAILY isosorbide mononitrate 60 MG tablet extended release 24 hr 60 mg PO DAILY Referrals Follow up/Referrals: Jeromy Stewart MD [Primary Care Provider, Internal Medicine] - See instructions Activity Restrictions/Add. Instructions Additional Instructions/Restrictions: Please begin taking the antibiotic, antiviral and steroids as prescribed. Please use eardrops as prescribed. Please follow-up with your PCP for further reassessment. Clinical Impressions Clinical Impression: Shingles Qualifiers: Herpes zoster complications: with other complications Qualified Code(s): B02.8 - Zoster with other complications Instructions Patient Instructions: DI for Skin Abscess Print Language Print Language: Cymro Discharge ED Provider: Carlos Rubio Adult [facility] General Chief complaint: Skin/Abscess/Foreign Body Stated complaint: ear pain Time Seen by Provider: 07/20/25 05:35 Mode of Arrival: Ambulatory Source of Information: Patient and Spouse Description of Symptoms (Recalled from ER Triage Doc. by RN): Patient to ED with complaints of right ear pain. Patient with significant right sided facial swelling with multiple vesicles noted to right side of face. Patient states that he was placed on abx on wednesday from PCP for ear infection, and patient denies relief after taking medication x4 days. History of Present Illness HPI narrative: 75-year-old male presents with right facial swelling and pain, pain in the right ear. He first noticed it on Wednesday, saw his PCP on Wednesday and was given antibiotics, and now on Wednesday he is having worsening pain and swelling. They started to notice a rash popping up today. Denies any vision trouble. Reports trouble hearing. Reports that his face is hurting. He has multiple scratches as well. Related Data Home Medications ?Medication ?Instructions ?Recorded ?Confirmed isosorbide mononitrate 60 mg 60 mg PO DAILY Hypertension 10/08/19 05/11/25 tablet,extended release 24 hr metoprolol succinate 50 mg 50 mg PO DAILY Hypertension 10/08/19 05/11/25 tablet,extended release 24 hr clopidogrel 75 mg tablet 75 mg PO DAILY 11/25/22 05/11/25 furosemide 40 mg tablet 40 mg PO DAILY 11/25/22 05/11/25 potassium chloride 20 mEq 20 meq PO DAILY 11/25/22 05/11/25 tablet,extended release(part/cryst) multivitamin 1 tab PO DAILY 05/17/23 05/11/25 trazodone 50 mg tablet 50 mg PO HS 06/22/24 05/11/25 amlodipine 5 mg tablet 5 mg PO DAILY 07/21/24 05/11/25 metformin 500 mg tablet 500 mg PO BID 05/11/25 05/11/25 nitroglycerin 0.4 mg sublingual 0.4 mg sublingual 05/11/25 05/11/25 tablet rosuvastatin 5 mg tablet 5 mg PO 05/11/25 05/11/25 Previous Rx's ?Medication ?Instructions ?Recorded escitalopram oxalate 5 mg tablet 5 mg PO DAILY #90 tabs 07/21/24 (Lexapro) diclofenac sodium 50 mg 50 mg PO BID knee pain #60 tabs 10/16/24 tablet,delayed release amoxicillin 500 mg tablet 500 mg PO TID #30 tabs 05/11/25 prednisone 20 mg tablet 80 mg (4 x 20 mg) PO DAILY 5 days 05/13/25 #20 tabs sulfamethoxazole 800 1 tab PO BID 7 days #14 tabs 05/13/25 mg-trimethoprim 160 mg tablet valacyclovir 1 gram tablet 1,000 mg PO TID 10 days #30 tabs 05/13/25 (Valtrex) Allergies Allergy/AdvReac Type Severity Reaction Status Date / Time No Known Allergies Allergy Verified 05/11/25 10:40 [facility] Disclaimer: The information contained in this section may have been updated after the patient was seen, as this information can be updated by other users. Medical History Paroxysmal A-fib History of bilateral inguinal hernias History of hyperlipidemia History of hypertension CAD (coronary artery disease) Surgical History History of hernia surgery H/O thumb surgery Hx of CABG Family History Brother Cancer Father Coronary artery disease Heart attack Social History Smoking Status: Never smoker how long ago did patient quit smokin years alcohol intake: current substance use type: denies use current occupational status: employed Travel in the last 8 weeks?: None household members: spouse housing: house Have you lived/traveled outside [place] in past 30 days?: No Contact w/someone who lives/traveled outside [place] past 30 days?: No Exposure to someone with infectious disease in past 14 days?: No Do you have a fever (greater than 100.4 F or 38 C)?: No Have you tested positive for COVID-19?: No Exposed to someone with COVID-19 in past 14 days?: No Do you have a sore throat?: No Do you have a cough?: No Do you have any weakness?: No Do you have any diarrhea?: No Are you experiencing any unusual bleeding?: No Do you have any muscle aches/pain?: No Do you have any abdominal pain?: No Are you experiencing loss of taste or smell?: No Other Medical History Have you received the Flu Vaccine for this season: Yes Have you received the Pneumonia Vaccine: Yes ROS Obtained: Yes All systems reviewed & no additional complaints except as documented Physical Exam General General appearance: alert and in no apparent distress Head Head exam: atraumatic and normocephalic Eye Eye exam: Present normal appearance, PERRL and EOMI ENT ENT exam: Present normal oropharynx and other (Erythema, swelling, developing vesicular rash to the V3 distribution of the right side of the face with significant swelling of the right ear canal. Multiple scratches with surrounding cellulitis noted) Neck Neck exam: Present normal inspection and full ROM Chest Chest inspection: Present normal inspection and symmetric chest wall rise; Absent tenderness Respiratory Respiratory exam: Present normal lung sounds bilaterally; Absent respiratory distress Cardiovascular Cardiovascular exam: Present regular rate and normal rhythm Abdominal Exam Abdominal exam: Present soft; Absent distention, tenderness or guarding Extremities Exam Extremities exam: Present normal inspection; Absent edema or joint swelling Back Exam Back exam: Present normal inspection; Absent tenderness Neurological Exam Neurological exam: Present alert and oriented X3; Absent motor sensory deficit Psychiatric Psychiatric exam: Present normal affect and normal mood Skin Skin exam: Present warm, dry and normal color Lymphatic Lymphatic Findings: no adenopathy Medical Decision Making Medical Records Medical records reviewed: Yes I reviewed the patient's medical records. Screening: Per USPSTF and CDC recommendations, given the prevalence of disease in our region, it is our hospital?s policy to screen for HIV and viral Hepatitis for all patients aged 18 and over and those with ongoing risk factors. Mani Inquiry Pt receiving controlled substance: No Mani was queried for this patient: No Vital Signs: 05/13/25 05:44 Temperature 97.8 F Temperature Source Oral Pulse Rate [Right] 68 Respiratory Rate 16 Blood Pressure [Right Arm] 183/85 H Blood Pressure Mean [Right Arm] 117 Blood Pressure Source [Right Arm] Automatic Cuff Blood Pressure Position [Right Arm] Supine 02 Sat by Pulse Oximetry 97 Oxygen Delivery Method Room Air Lab Data Lab results reviewed: Yes I reviewed the patient's lab results. Orders (Tests/Meds): ED MEDICATIONS Discontinued Medications Generic Name Dose Route Start Last Admin Trade Name Freq PRN Reason Stop Dose Admin Neomycin/Polymyxin/Hydrocortisone 10 ml 05/13/25 05:54 05/13/25 05:59 [id number]-[id number]-[id number] Otic Susp 10ml OT 05/13/25 05:55 10 ml ONCE ONE Administration Medical Decision Narrative: 75-year-old male with history of coronary artery disease presents for worsening pain in the right side of the face. History was obtained via interactive discussion with patient, family, chart review. On arrival, patient is [afebrile, hemodynamically stable, satting appropriately, alert, oriented x4, GCS 15], moving all extremities spontaneously. Full physical exam performed and significant for findings consistent with shingles to the right side of the face in the V3 distribution, with some surrounding cellulitis Differential includes but is not limited to shingles, cellulitis, otitis,. Patient has not developed any facial paralysis yet. No involvement of the eyes. Patient was discharged with prescription for valacyclovir, prednisone, as well as Bactrim for cellulitis and neomycin polymyxin otic drops. He was encouraged follow-up with PCP. He was instructed to discontinue the ampicillin he had been previously prescribed. Return precautions given. Procedures Risk/Benefits of Procedure(s) Were Explained: Yes Critical Care Critical Care Time Critical Care Time: No
[2025-05-13] MEDS: NEOMYCIN-POLYMYXIN-HC OTIC SUSP 10ML 10 ML OT (05:59)
[2025-05-13 06:07] VITALS: BP 167/80; PULSE 58; RESP 16; TEMP 36.6; O2SAT 97
== END 2025-05-13 06:08 | disposition home or self-care (01) ==
PROVIDERS: Emergency Provider Emergency Medicine; PCP Family Medicine
DX: B02.8 Zoster with other complications (principal); R22.0 Localized swelling, mass and lump, head; H92.01 Otalgia, right ear; E78.5 Hyperlipidemia, unspecified; I10 Essential (primary) hypertension; I25.10 Atherosclerotic heart disease of native coronary artery without angina pectoris
CPT/HCPCS: 99283